=== PATIENT | female | born 1940 | race Caucasian/White ===

== ENCOUNTER 2023-03-05 09:51 | Emergency (ER) | payer MEDICARE, SELFPAY ==
[2023-03-05 10:01] VITALS: BP 158/66; PULSE 93; RESP 18; TEMP 36.8; O2SAT 93; BMI 46.3
--- NOTE | 2023-03-05 10:12 | XR_ITS ---
The [address] [address] Patient Name: PETRA KEITH MRN: [id number] date: 1940 Sex: F Assigned Patient Location: ER Current Patient Location: ER Accession/Order Number: [id number] Exam Date: 03/05/2023 10:50 Report Date: 03/05/2023 11:30 At the request of: NACHO DOWNING Procedure: XR ribs LT min 3V w CXR1V EXAMINATION: XR ribs LT min 3V w CXR1V HISTORY: cough pain , acute left rib pain COMPARISON: XR chest 08/17/2016 FINDINGS: LUNGS: Underexpanded lungs with mild stranding within the lung bases. PLEURA: No pneumothorax, effusion, or pleural thickening. MEDIASTINUM: No visible mass or adenopathy. CARDIAC: No cardiomegaly or cardiac silhouette abnormality. RIBS: Subtle cortical step-off involving the posterior left eighth and ninth ribs. OTHER: Negative. XR/XR ribs LT min 3V w CXR1V IMPRESSION: 1. Suspect nondisplaced posterior left eighth and ninth rib fractures. 2. Mild bibasilar discoid atelectasis or infiltrates. 3. Hyperexpanded lungs suggestive of mild COPD. Electronically authenticated by: CHARLOTTE LEGGETT Date: 03/05/2023 11:30
--- NOTE | 2023-03-05 10:14 | ED.URI1 ---
HPI - URI/Sore Throat General Chief Complaint: Upper Respiratory Infection Stated Complaint: UPPER EXTEMITY PAIN, COUGH Time Seen by Provider: 03/05/23 10:07 Source: patient History of Present Illness HPI Narrative: 82-year-old female presents for cough and rib pain. She's been coughing for about four days and a few days ago her left lateral rib area started hurting after coughing. No fever or vomiting. She uses an inhaler at home. No hemoptysis. Related Data Home Medications Medication Instructions Recorded Confirmed amlodipine 10 mg tablet 10 mg PO DAILY 03/05/23 03/05/23 atorvastatin 10 mg tablet 10 mg PO DAILY 03/05/23 03/05/23 insulin glargine 100 unit/mL (3 30 unit subcut DAILY 03/05/23 03/05/23 mL) subcutaneous pen (Lantus Solostar U-100 Insulin) insulin glargine U-300 conc 300 36 unit subcut DAILY 03/05/23 03/05/23 unit/mL (1.5 mL) subcutaneous pen (Toujeo SoloStar U-300 Insulin) lisinopril 40 mg tablet 40 mg PO DAILY 03/05/23 03/05/23 mirtazapine 7.5 mg tablet 15 mg PO DAILY 03/05/23 03/05/23 ropinirole 0.5 mg tablet 0.5 mg PO DAILY 03/05/23 03/05/23 Previous Rx's Medication Instructions Recorded azithromycin 250 mg tablet See Rx Instructions PO .COMPLEX #6 03/05/23 (Zithromax Z-Anam) tabs Allergies Allergy/AdvReac Type Severity Reaction Status Date / Time No Known Drug Allergies Allergy Verified 03/05/23 10:00 Review of Systems ROS Narrative A ten point review of systems is negative except as noted above. Exam Narrative Exam Narrative: Nurses note and vital signs reviewed and patient is not hypoxic. General: The patient appears in no apparent respiratory distress. Patient is resting comfortably on cart. Skin: Warm, dry, no pallor noted. There is no rash noted. Head: Normocephalic, atraumatic Eye: Normal conjunctiva, no drainage Ears, Nose, Mouth, and Throat: oral mucosa is moist. Nares patent. Cardiovascular: Regular Rate and Rhythm Respiratory: bilateral rhonchi present. Left lateral chest wall has no crepitus bruise or rash. Back: non-tender GI: Normal bowel sounds, no tenderness to palpation, no masses appreciated. No rebound, guarding, or rigidity noted. Musculoskeletal: The patient has no evidence of calf tenderness, no pitting edema, symmetrical pulses noted bilaterally Neurological: awake and alert Psychiatric: Cooperative Constitutional Vital Signs, click to edit/add: Last Vital Signs Temp 98.3 F 03/05/23 10:01 Pulse 87 03/05/23 10:24 Resp 19 03/05/23 10:24 BP 158/66 H 03/05/23 10:01 Pulse Ox 93 L 03/05/23 10:24 O2 Del Method Room Air 03/05/23 10:01 Course Vital Signs Vital signs: Vital Signs Temperature 98.3 F 03/05/23 10:01 Pulse Rate 93 H 03/05/23 10:01 Respiratory Rate 18 03/05/23 10:01 Blood Pressure 158/66 H 03/05/23 10:01 Pulse Oximetry 93 L 03/05/23 10:01 Oxygen Delivery Method Room Air 03/05/23 10:01 Temperature 98.3 F 03/05/23 10:01 Pulse Rate 87 03/05/23 10:24 Respiratory Rate 19 03/05/23 10:24 Blood Pressure 158/66 H 03/05/23 10:01 Pulse Oximetry 93 L 03/05/23 10:24 Oxygen Delivery Method Room Air 03/05/23 10:01 MDM - URI/Sore Throat MDM Narrative Medical decision making narrative: rib x-rays showed to probable rib fractures without pneumothorax or pneumonia. She'll take Tylenol for pain and was prescribed Zithromax. PEP was administered. Differential Diagnosis Differential diagnosis: Likely upper respiratory infection and other (pneumonia, rib fracture, pneumothorax) Discharge Plan Discharge Chief Complaint: Upper Respiratory Infection Clinical Impression: Closed rib fracture, Upper respiratory infection Patient Disposition: Home, Self-Care Time of Disposition Decision: 11:50 Condition: Good Mode of Transportation: Private Vehicle Prescriptions / Home Meds: New azithromycin [Zithromax Z-Anam] 250 mg tablet See Rx Instructions .ROUTE .COMPLEX Qty: 6 0RF Rx Instructions: For 250 mg dose pack: take 500 mg today (day 1), then 250 mg for 4 days (days 2-5) No Action amlodipine 10 mg tablet 10 mg PO DAILY atorvastatin 10 mg tablet 10 mg PO DAILY insulin glargine [Lantus Solostar U-100 Insulin] 100 unit/mL (3 mL) insulin pen 30 unit SUBCUT DAILY Toujeo SoloStar U-300 Insulin 300 unit/mL (1.5 mL) insulin pen 36 unit SUBCUT DAILY lisinopril 40 mg tablet 40 mg PO DAILY mirtazapine 7.5 mg tablet 15 mg PO DAILY ropinirole 0.5 mg tablet 0.5 mg PO DAILY Instructions: Rib Fracture (ED) Additional Instructions: See your PCP in one week Stand Alone Forms: Portal Instructions Referrals: DEYANIRA TAI [Primary Care Provider] - 1 week
[2023-03-05 10:24] VITALS: PULSE 87; RESP 19; O2SAT 93
[2023-03-05] MEDS: ALBUTEROL SULFATE 2.5 MG/3 ML VIAL NEB IH (10:24)
== END 2023-03-05 12:16 | disposition home or self-care (01) ==
PROVIDERS: Emergency Provider Emergency Medicine; PCP Internal Medicine
DX: J06.9 Acute upper respiratory infection, unspecified (principal); S22.42XA Multiple fractures of ribs, left side, initial encounter for closed fracture; X58.XXXA Exposure to other specified factors, initial encounter; Z79.899 Other long term (current) drug therapy; Z79.4 Long term (current) use of insulin
CPT/HCPCS: 71101; 94640; 94667; 99283

== ENCOUNTER 2024-03-13 01:40 | Emergency (ER) | payer MEDICARE, SELFPAY ==
[2024-03-13 01:46] VITALS: BP 159/72; PULSE 88; TEMP 36.4; O2SAT 95; BMI 27.4
--- NOTE | 2024-03-13 01:55 | ED_ITS ---
HPI HPI - Fall General Chief Complaint: Fall Stated Complaint: FALL Time Seen by Provider: 03/13/24 01:53 Source: patient and EMR Mode of arrival: ambulance History of Present Illness HPI Narrative: [facility] and struck her left alevism and left elbow. This AM nursing staff states she has un equal pupils and had her come in despite the patient she not wanting to come in Related Data Home Medications ?Medication ?Instructions ?Recorded ?Confirmed amlodipine 10 mg tablet 10 mg PO DAILY 03/05/23 03/13/24 atorvastatin 10 mg tablet 10 mg PO DAILY 03/05/23 03/13/24 insulin glargine U-300 conc 300 36 unit subcut DAILY 03/05/23 03/13/24 unit/mL (1.5 mL) subcutaneous pen (Toujeo SoloStar U-300 Insulin) lisinopril 40 mg tablet 40 mg PO DAILY 03/05/23 03/13/24 mirtazapine 7.5 mg tablet 15 mg PO DAILY 03/05/23 03/13/24 ropinirole 0.5 mg tablet 0.5 mg PO DAILY 03/05/23 03/13/24 Previous Rx's ?Medication ?Instructions ?Recorded azithromycin 250 mg tablet See Rx Instructions PO .COMPLEX #6 03/05/23 (Zithromax Z-Anam) tabs Allergies Allergy/AdvReac Type Severity Reaction Status Date / Time No Known Drug Allergies Allergy Verified 03/13/24 01:46 Opioid HPI Opioid Management Most Recent Pain and Opioid Data: 2 No Data to Display Review of Systems 2 ROS0 Status of ROS 10 or more systems reviewed and unremark able except as noted in history and below Exam Constitutional Vital Signs, click to edit/add: Last Vital Signs Temp 97.6 F 03/13/24 01:46 Pulse 88 03/13/24 03:20 Resp 18 03/13/24 03:20 BP 173/66 H 03/13/24 03:20 Pulse Ox 93 L 03/13/24 03:20 O2 Del Method Room Air 03/13/24 03:20 Common normals: no apparent distress, average body habitus, oriented x3, no limitations, healthy appearing, alert and well nourished [facility] Face and sinus images: 2 1. minor contusion Eye Common normals: EOMs intact bilaterally Other: pupils not equal in size but reactive Respiratory Common normals: normal respiratory effort, no retractions, no use of accessory muscles and clear to auscultation bilaterally Cardio Common normals: regular rate, regular rhythm, S1 normal heart sound and S2 normal heart sound GI Common normals: Normal to inspection, nondistended, normoactive bowel sounds present, soft to palpation and non-tender Extremity Common normals: full ROM Other: small paper cut left elbow bilat lower ext. edema with stasis changes Neuro Common normals: moves all extremities and no focal motor deficits Sensorium/orientation: awake and alert Psych Appearance: grossly normal Course Vital Signs Vital signs: Vital Signs Temperature 97.6 F 03/13/24 01:46 Pulse Rate 88 03/13/24 01:46 Respiratory Rate 18 03/13/24 01:46 Blood Pressure 159/72 H 03/13/24 01:46 Pulse Oximetry 95 03/13/24 01:46 Oxygen Delivery Method Room Air 03/13/24 01:46 Temperature 97.6 F 03/13/24 01:46 Pulse Rate 88 03/13/24 03:20 Respiratory Rate 18 03/13/24 03:20 Blood Pressure 173/66 H 03/13/24 03:20 Pulse Oximetry 93 L 03/13/24 03:20 Oxygen Delivery Method Room Air 03/13/24 03:20 MDM - Fall MDM Narrative Medical decision making narrative: patient fell at prison striking her forehead. also sustained paper cut to left elbow. FROM of the elbow without discomfort. CT brain and neck without acute findings. labs unremarkable as well. Patient in no distress and discharged back to prison Lab Data Labs: Lab Results 03/13/24 Range/Units 02:10 WBC 10.0 (4.0-11.0) 10^3/uL RBC 4.10 L (4.20-5.40) 10^6/uL Hgb 11.8 L (12.0-16.0) g/dL Hct 37.6 (36.0-48.0) % MCV 91.7 (81.0-99.0) fL MCH 28.8 (26.7-34.0) pg MCHC 31.4 (29.9-35.2) g/dL RDW 15.1 H (11.0-15.0) % Plt Count 284 (150-450) 10^3/uL MPV 8.3 L (9.5-13.5) fL Neut % (Auto) 66.1 (43.0-75.0) % Lymph % (Auto) 24.1 (20.5-60.0) % Maury % (Auto) 6.8 (1.7-12.0) % Eos % (Auto) 2.0 (0.9-7.0) % Baso % (Auto) 0.5 (0.2-2.0) % Neut # (Auto) 6.6 H (1.4-6.5) 10^3/uL Lymph # (Auto) 2.4 (1.2-3.8) 10^3/uL Maury # (Auto) 0.7 (0.3-0.8) 10^3/uL Eos # (Auto) 0.2 (0.0-0.7) 10^3/uL Baso # (Auto) 0.1 (0.0-0.1) 10^3/uL Abs Immat Gran (auto) 0.05 H (0.00-0.03) 10^3/uL Imm/Tot Granulo (auto) 0.5 (0.0-0.5) % Sodium 141 (136-145) mmol/L Potassium 3.9 (3.5-5.1) mmol/L Chloride 105 (98-107) mmol/L Carbon Dioxide 26.6 (21.0-32.0) mmol/L Anion Gap 13.3 BUN 16.0 (7.0-18.0) mg/dL Creatinine 0.72 (0.55-1.02) mg/dL Est GFR ( Amer) >60 (>=60) Est GFR (Non-Af Amer) >60 (>=60) BUN/Creatinine Ratio 22.2 Glucose 114 H (74-106) mg/dL Calcium 9.0 (8.5-10.1) mg/dL Troponin I High Sens 36.9 (4.0-51.3) pg/mL Imaging Data Abdominal x-ray: Radiologist's impression: ITS Impressions Cervical Spine CT 03/13/24 01:58 IMPRESSION: 1. No acute intracranial abnormality. No hemorrhage or mass effect. 2. Nonspecific white matter changes. 3. Subtle area of decreased density present within the eitan on the left. This is not associated with mass effect. The appearance is consistent with an indeterminate age lacunar infarction. If there is concern for acute lacunar infarction then MRI including diffusion imaging would be more sensitive. 4. Multilevel cervical spondylosis. No acute fracture. Electronically authenticated by: FILIPE MAY Date: 03/13/2024 02:[address] 03/13/24 01:58 IMPRESSION: 1. No acute intracranial abnormality. No hemorrhage or mass effect. 2. Nonspecific white matter changes. 3. Subtle area of decreased density present within the eitan on the left. This is not associated with mass effect. The appearance is consistent with an indeterminate age lacunar infarction. If there is concern for acute lacunar infarction then MRI including diffusion imaging would be more sensitive. 4. Multilevel cervical spondylosis. No acute fracture. Electronically authenticated by: FILIPE MAY Date: 03/13/2024 02:52 Discharge Plan Discharge Stand Alone Forms: Portal Instructions Chief Complaint: Fall Clinical Impression: Minor head injury, Laceration of elbow, left Patient Disposition: Home, Self-Care Prescriptions / Home Meds: No Action amlodipine 10 mg tablet 10 mg PO DAILY atorvastatin 10 mg tablet 10 mg PO DAILY insulin glargine U-300 conc [Toujeo SoloStar U-300 Insulin] 300 unit/mL (1.5 mL) insulin pen 36 unit SUBCUT DAILY lisinopril 40 mg tablet 40 mg PO DAILY mirtazapine 7.5 mg tablet 15 mg PO DAILY ropinirole 0.5 mg tablet 0.5 mg PO DAILY azithromycin [Zithromax Z-Anam] 250 mg tablet See Rx Instructions .ROUTE .COMPLEX Qty: 6 0RF Rx Instructions: For 250 mg dose pack: take 500 mg today (day 1), then 250 mg for 4 days (days 2-5) Print Language: Azeri Instructions: Head Injury (ED), Laceration Without Closure (ED) Referrals: DEYANIRA TAI [Primary Care Provider] - 1 week
--- NOTE | 2024-03-13 01:58 | CT_ITS ---
[address] [address] Patient Name: PETRA KEITH MRN: [id number] date: 1940 Sex: F Assigned Patient Location: ER Current Patient Location: [facility] Accession/Order Number: [id number] Exam Date: 03/13/2024 02:19 Report Date: 03/13/2024 02:52 At the request of: ELIDA GASTON Procedure: CT cervical spine wo con EXAM: CT head/brain wo con, CT cervical spine wo con INDICATION: 83 years old; Female. Closed head trauma status post fall at 7:00 PM. TECHNIQUE: CT Head (ax/cor/sag reformats). Ionizing radiation dose reduced via iterative reconstruction/FBP blend and body size kV/mA adjustment. Comparison: None FINDINGS: POSTOPERATIVE CHANGES: None. BRAIN PARENCHYMA: No intraparenchymal or extra-axial hemorrhage. No mass effect. No midline shift or herniation. Confluent low-density seen throughout the white matter of the hemispheres without mass effect. Focal area of decreased density in the left eitan, image 15/series 5. This is not associated with mass effect. VENTRICLES/EXTRA-AXIAL SPACES: Enlarged, consistent with atrophy. SINUSES/MASTOIDS: Postoperative changes consistent with prior maxillary antrostomy and partial ethmoidectomy. Small osteoma in the frontal sinus on the right. No fluid levels. Mastoid sclerosis bilaterally. Residual mastoid air cells and middle ears are clear. MSK: No displaced or depressed calvarial fracture. OTHER: No hyperdense intraluminal thrombus is present. TECHNIQUE: CT imaging of the cervical spine was performed. IV contrast: None. Dose reduction techniques were achieved by using automated exposure control and/or adjustment of mA and/or kV according to patient size and/or use of iterative reconstruction technique. COMPARISON: None available. FINDINGS: POSTOPERATIVE CHANGES: None. ALIGNMENT: Nonspecific straightening of the normal cervical curve. There is grade 1 degenerative spondylolisthesis at C4-C5. C4 is positioned 1.6 mm anterior to C5. Generalized bony demineralization is present. There is torticollis concave to the left. COMPRESSION FRACTURES: No fracture or vertebral body collapse. No bone destruction. No asymmetric widening of the facets. PREVERTEBRAL SOFT TISSUES: Normal. CRANIOCERVICAL JUNCTION: There is a normal relationship of the occipital condyles, lateral masses of C1, and articular surfaces of C2 allowing for positioning. There is narrowing of the predental space with narrowing arising from the anterior arch of C1. The base of the dens and body of C2 are intact. POSTERIOR FOSSA: The cerebellar tonsils are above the foramen magnum. There is calcification in the V3 and V4 segments of vertebral arteries. Disc levels: C2-C3: No disc herniation. No spinal canal or foraminal narrowing. C3-C4: Disc space narrowing is seen. Vertebral endplate degeneration is noted. Facet degeneration is present bilaterally. Uncovertebral joint degeneration is present on the right. The central canal is patent. The neural foramina are patent. C4-C5: Grade 1 degenerative spondylolisthesis. Disc space narrowing. Anterior osteophytes. There is fusion of the facets bilaterally. The central canal is patent. The neural foramina are patent. C5-C6: Disc space narrowing. Vertebral endplate degeneration. Bulky bridging anterior osteophytes. Central canal patent. Neural foramina patent. C6-C7: Bulky bridging anterior osteophyte formation. Central canal patent. Neural foramina patent. C7-T1: Beam hardening artifacts. Central canal patent. Neural foramina patent. UPPER THORACIC SPINE: At T1-T2, central canal patent. Neural foramina patent. Beam hardening artifacts are present. OTHER: No thyroid nodule or adenopathy. CT/CT cervical spine wo con IMPRESSION: 1. No acute intracranial abnormality. No hemorrhage or mass effect. 2. Nonspecific white matter changes. 3. Subtle area of decreased density present within the eitan on the left. This is not associated with mass effect. The appearance is consistent with an indeterminate age lacunar infarction. If there is concern for acute lacunar infarction then MRI including diffusion imaging would be more sensitive. 4. Multilevel cervical spondylosis. No acute fracture. Electronically authenticated by: FILIPE MAY Date: 03/13/2024 02:52
--- NOTE | 2024-03-13 01:58 | CT_ITS ---
[address] [address] Patient Name: PETRA KEITH MRN: [id number] date: 1940 Sex: F Assigned Patient Location: ER Current Patient Location: [facility] Accession/Order Number: [id number] Exam Date: 03/13/2024 02:19 Report Date: 03/13/2024 02:52 At the request of: ELIDA GASTON Procedure: CT head/brain wo con EXAM: CT head/brain wo con, CT cervical spine wo con INDICATION: 83 years old; Female. Closed head trauma status post fall at 7:00 PM. TECHNIQUE: CT Head (ax/cor/sag reformats). Ionizing radiation dose reduced via iterative reconstruction/FBP blend and body size kV/mA adjustment. Comparison: None FINDINGS: POSTOPERATIVE CHANGES: None. BRAIN PARENCHYMA: No intraparenchymal or extra-axial hemorrhage. No mass effect. No midline shift or herniation. Confluent low-density seen throughout the white matter of the hemispheres without mass effect. Focal area of decreased density in the left eitan, image 15/series 5. This is not associated with mass effect. VENTRICLES/EXTRA-AXIAL SPACES: Enlarged, consistent with atrophy. SINUSES/MASTOIDS: Postoperative changes consistent with prior maxillary antrostomy and partial ethmoidectomy. Small osteoma in the frontal sinus on the right. No fluid levels. Mastoid sclerosis bilaterally. Residual mastoid air cells and middle ears are clear. MSK: No displaced or depressed calvarial fracture. OTHER: No hyperdense intraluminal thrombus is present. TECHNIQUE: CT imaging of the cervical spine was performed. IV contrast: None. Dose reduction techniques were achieved by using automated exposure control and/or adjustment of mA and/or kV according to patient size and/or use of iterative reconstruction technique. COMPARISON: None available. FINDINGS: POSTOPERATIVE CHANGES: None. ALIGNMENT: Nonspecific straightening of the normal cervical curve. There is grade 1 degenerative spondylolisthesis at C4-C5. C4 is positioned 1.6 mm anterior to C5. Generalized bony demineralization is present. There is torticollis concave to the left. COMPRESSION FRACTURES: No fracture or vertebral body collapse. No bone destruction. No asymmetric widening of the facets. PREVERTEBRAL SOFT TISSUES: Normal. CRANIOCERVICAL JUNCTION: There is a normal relationship of the occipital condyles, lateral masses of C1, and articular surfaces of C2 allowing for positioning. There is narrowing of the predental space with narrowing arising from the anterior arch of C1. The base of the dens and body of C2 are intact. POSTERIOR FOSSA: The cerebellar tonsils are above the foramen magnum. There is calcification in the V3 and V4 segments of vertebral arteries. Disc levels: C2-C3: No disc herniation. No spinal canal or foraminal narrowing. C3-C4: Disc space narrowing is seen. Vertebral endplate degeneration is noted. Facet degeneration is present bilaterally. Uncovertebral joint degeneration is present on the right. The central canal is patent. The neural foramina are patent. C4-C5: Grade 1 degenerative spondylolisthesis. Disc space narrowing. Anterior osteophytes. There is fusion of the facets bilaterally. The central canal is patent. The neural foramina are patent. C5-C6: Disc space narrowing. Vertebral endplate degeneration. Bulky bridging anterior osteophytes. Central canal patent. Neural foramina patent. C6-C7: Bulky bridging anterior osteophyte formation. Central canal patent. Neural foramina patent. C7-T1: Beam hardening artifacts. Central canal patent. Neural foramina patent. UPPER THORACIC SPINE: At T1-T2, central canal patent. Neural foramina patent. Beam hardening artifacts are present. OTHER: No thyroid nodule or adenopathy. CT/CT head/brain wo con IMPRESSION: 1. No acute intracranial abnormality. No hemorrhage or mass effect. 2. Nonspecific white matter changes. 3. Subtle area of decreased density present within the eitan on the left. This is not associated with mass effect. The appearance is consistent with an indeterminate age lacunar infarction. If there is concern for acute lacunar infarction then MRI including diffusion imaging would be more sensitive. 4. Multilevel cervical spondylosis. No acute fracture. Electronically authenticated by: FILIPE MAY Date: 03/13/2024 02:52
--- NOTE | 2024-03-13 02:00 | PC.NURSE ---
Patient fell earlier this evening at approx. 1900. Patient denies any injury, NH staff concerned that pupils not reacting equally . Patient awake, alert and oriented.
[2024-03-13 02:44] LABS: Basophils Absolute Auto 0.1 10^3/uL (0.0-0.1); Basophils Percent Auto 0.5 % (0.2-2.0); Eosinophils Absolute Auto 0.2 10^3/uL (0.0-0.7); Hematocrit 37.6 % (36.0-48.0); Hemoglobin 11.8 g/dL (12.0-16.0); Immature Granulocytes Abs Auto 0.05 10^3/uL (0.00-0.03); Immature Granulocytes Pct Auto 0.5 % (0.0-0.5); Lymphocytes Absolute Auto 2.4 10^3/uL (1.2-3.8); Lymphocytes Percent Auto 24.1 % (20.5-60.0); Mean Corpuscular HGB Conc 31.4 g/dL (29.9-35.2); Mean Corpuscular Hemoglobin 28.8 pg (26.7-34.0); Mean Corpuscular Volume 91.7 fL (81.0-99.0); Mean Platelet Volume 8.3 fL (9.5-13.5); Monocytes Absolute Auto 0.7 10^3/uL (0.3-0.8); Monocytes Percent Auto 6.8 % (1.7-12.0); Neutrophils Absolute Auto 6.6 10^3/uL (1.4-6.5); Neutrophils Percent Auto 66.1 % (43.0-75.0); Platelet Count 284 10^3/uL (150-450); Red Cell Distribution Width 15.1 % (11.0-15.0)
[2024-03-13 03:01] LABS: Anion Gap 13.3; BUN Creatinine Ratio 22.2; Carbon Dioxide 26.6 mmol/L (21.0-32.0); Chloride 105 mmol/L (98-107); Estimated GFR (African America >60 (>=60); Estimated GFR (Non-African Ame >60 (>=60); Glucose 114 mg/dL (74-106); Potassium 3.9 mmol/L (3.5-5.1); Sodium 141 mmol/L (136-145); Troponin I High Sensitivity 36.9 pg/mL (4.0-51.3)
[2024-03-13 03:20] VITALS: BP 173/66; PULSE 88; O2SAT 93
== END 2024-03-13 05:06 | disposition home or self-care (01) ==
PROVIDERS: Emergency Provider Internal Medicine; PCP Internal Medicine
DX: S09.90XA Unspecified injury of head, initial encounter (principal); S51.012A Laceration without foreign body of left elbow, initial encounter; W19.XXXA Unspecified fall, initial encounter
CPT/HCPCS: 36415; 70450; 72125; 80048; 84484; 85025; 99284

== ENCOUNTER 2024-08-22 10:42 | Outpatient (REF) | payer MEDICARE, SELFPAY ==
[2024-08-24 13:25] LABS: Bilirubin Urine NEGATIVE (NEGATIVE); Blood Urine MODERATE (NEGATIVE); Clarity Urine CLOUDY (CLEAR); Color Urine LT. YELLOW (YELLOW); Glucose Urine UA NEGATIVE (NEGATIVE); Ketones Urine NEGATIVE (NEGATIVE); Leukocyte Esterase Urine MODERATE (NEGATIVE); Nitrite Urine POSITIVE (NEGATIVE); Protein Urine TRACE mg/dL (NEG/TRACE); Specific Gravity Urine 1.015 (1.005-1.025); Urobilinogen Urine 0.2 EU/dL (0.2-1.0); pH Urine 5.5 (5.0-9.0)
[2024-08-24 13:36] LABS: Urine Microscopic Indicated YES
[2024-08-24 13:44] LABS: Bacteria Urine LARGE #/HPF (NONE SEEN); Mucus Urine TRACE (NONE SEEN); Squamous Epithelial Cell Urine MANY #/LPF (NONE/RARE); WBC Urine 50-75 #/HPF (NONE SEEN)
[2024-08-24 13:45] LABS: Cast Seen? NONE SEEN #/LPF (NONE SEEN); Crystals Seen? None Seen #/HPF (None Seen); Transitional Epi Cells Urine RARE #/LPF (NONE SEEN); Urine Culture Indicated YES
[2024-08-26 09:37] LABS: BOX Test Reference Lab FIRELANDS
== END 2024-08-22 10:43 | disposition home or self-care (01) ==
LOC: LAB 10:42
PROVIDERS: PCP Internal Medicine; Visit Provider Internal Medicine
DX: R35.0 Frequency of micturition (principal)
CPT/HCPCS: 36415; 81001; 87086

== ENCOUNTER 2025-07-18 18:33 | Emergency (ER) | payer MEDICARE, SELFPAY ==
--- NOTE | 2025-07-18 18:35 | XR_ITS ---
[place] [id number] Patient Name: PETRA KEITH MRN: [id number] date: 1940 Sex: F Assigned Patient Location: ER Current Patient Location: ED.MAIN Accession/Order Number: [id number] Exam Date: 07/18/2025 18:50 Report Date: 07/19/2025 09:30 At the request of: JW RAINES Procedure: XR pelvis 1-2V AP PELVIS: CLINICAL HISTORY: fall COMPARISON: CT pelvis 09/07/2018 FINDINGS: Bones are grossly demineralized. Degenerative changes are seen within the visualized lower lumbar spine, SI joints and pubic symphysis. Mild degenerative changes of the hips. No acute bony process is noted. XR/XR pelvis 1-2V IMPRESSION: NO ACUTE BONY FINDINGS. Impression dictated by: Nathen Joseph Jr., D.O. 07/19/2025 9:30 AM Dictation Location: [facility] Electronically authenticated by: [id number] Y Date: 07/19/2025 09:30
--- NOTE | 2025-07-18 18:35 | XR_ITS ---
The [address] [address] Patient Name: PETRA KEITH MRN: [id number] date: 1940 Sex: F Assigned Patient Location: ER Current Patient Location: ED.MAIN Accession/Order Number: [id number] Exam Date: 07/18/2025 18:50 Report Date: 07/19/2025 09:32 At the request of: JW RAINES Procedure: XR finger LT min 2V Left fifth digit 3 views Reason for exam: Fall. COMPARISON: None. FINDINGS: Soft tissue swelling is present. A comminuted fracture is seen involving the middle phalanx of the fifth digit with intra-articular extension into the PIP joint. Mild degenerative changes involving the joints without acute bony process. Bones are grossly demineralized. XR/XR finger LT min 2V IMPRESSION: Comminuted intra-articular fracture involving the middle phalanx. Impression dictated by: Nathen Joseph Jr., D.O. 07/19/2025 9:32 AM Dictation Location: [facility] Electronically authenticated by: [id number] Y Date: 07/19/2025 09:32
--- NOTE | 2025-07-18 18:35 | XR_ITS ---
The [place] [id number] Patient Name: PETRA KEITH MRN: [id number] date: 1940 Sex: F Assigned Patient Location: ER Current Patient Location: ED.MAIN Accession/Order Number: [id number] Exam Date: 07/18/2025 18:50 Report Date: 07/19/2025 09:30 At the request of: JW RAINES Procedure: XR elbow LT min 3V LEFT ELBOW - 3 views CLINICAL HISTORY: fall COMPARISON: None FINDINGS: Bones are grossly demineralized. No acute bony process is seen. No elbow joint effusion. Joint spaces appear maintained. XR/XR elbow LT min 3V IMPRESSION: NO ACUTE BONY PROCESS. Impression dictated by: Nathen Joseph Jr., D.O. 07/19/2025 9:30 AM Dictation Location: [place] [address] Electronically authenticated by: [id number] Y Date: 07/19/2025 09:30
[2025-07-18 18:36] VITALS: BP 170/87; PULSE 98; TEMP 36.8; O2SAT 94; BMI 28.7
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
[2025-07-18] MEDS: BACITRACIN 0.9 GM PACKET 1 PACKET TOPICAL ×2 (19:15→19:52)
[2025-07-18] MEDS: LIDOCAINE/EPINEPHRINE/TETRACAINE 3 ML GEL.PF.APP TOPICAL (19:15)
[2025-07-18] MEDS: ACETAMINOPHEN 325 MG TABLET 650 MG PO (19:15)
[2025-07-18] MEDS: DIPHTH,PERTUSS(ACELL),TET VAC 0.5 ML SYRINGE IM (19:16)
[2025-07-18] MEDS: LIDOCAINE HCL 1%-EPINEPHRINE 1:100,000 20 ML MDV INJ (19:52)
[2025-07-18 19:53] VITALS: BP 164/72
--- OUTSIDE RECORDS SUMMARY | 2025-07-18 20:22 | XMS_ITS | Encounter Summary ---
Author Organization [facility] tem Address [id number] [address] [place] [address] Care Team Providers Care Behavioral Health Aide Name Role Phone Stoney Thomas Primary Care Provider [phone] Reason for Visit * ReasonCommentsMed Refill Encounter Details DateTypeDepartmentCare Team (Latest Contact Info)Hwnpauctqve68/10/2025Refill [facility] [address] [place] [address] Arron Reyez DO [address], [facility] [place] [place] [address] Essential hypertension Social History Tobacco UseTypesPacks/DayYears UsedDateSmoking Tobacco: FormerCigarettes Smokeless Tobacco: NeverAlcohol UseStandard Drinks/WeekCommentsNot Currently0 (1 standard drink = 0.6 oz pure alcohol)[facility] UtilitiesAnswerDate RecordedIn the past 12 months has the [employer], gas, oil, or water [employer] threatened to shut off services in your home?No03/20/2024Social Connection and Isolation PanelAnswer Date RecordedIn a typical week, how many times do you talk on the phone with family, friends, or neighbors?Once a week03/26/2025How often do you get together with friends or relatives?Once a week03/26/2025How often do you attend zoroastrianism or anabaptism services?More than 4 times per year03/26/2025Do you belong to any clubs or organizations such as zoroastrianism groups, unions, fraternal or athletic boby ups, or school groups?No03/26/2025How often do you attend meetings of the clubs or organizations you belong to?Never03/26/2025re you , , , , never , or living with a partner?Hyknwzj9503/26/2025 AUDIT-CAnswerDate RecordedQ1: How often do you have a drink containing alcohol? Never03/20/2024Q2: How many drinks containing alcohol do you have on a typical day when you are drinking?Patient does not drink03/20/2024Q3: How often do you have six or more drinks on one occasion?Never03/20/2024Overall Financial Resource Strain (CARDIA)AnswerDate RecordedHow hard is it for you to pay for the very basics like food, housing, medical care, and heating?Not very hard 03/22/2025PHQ-2AnswerDate RecordedTotal Nrxsq761Finblue mountain hospital [place] of Occupational Health - Occupational Stress QuestionnaireAnswerDate RecordedDo you feel stress - tense, restless, nervous, or anxious, or unable to sleep at night because yourmind is troubled all the time - these days?Only a rcltrn5402/20/2023 Exercise Vital SignAnswerDate RecordedDays of Exercise per WeekNot on file 03/26/2025On average, how many minutes do you engage in exercise at this level?0 min03/26/2025PRAPARE - TransportationAnswerDate RecordedIn the past 12 months, has lack of transportation kept you from medical appointments or from getting medications?No03/22/2025In the past 12 months, has lack of transportation kept you from meetings, work, or from getting things needed for daily living?No 03/22/2025Housing InstabilityAnswerDate RecordedAre you worried or concerned that in the next two months you may not have stable housing that you own, rent or stay in as a part of a household?No03/26/2025hildcareAnswerDate RecordedDo problems getting child and adolescent therapist make it difficult for you to work or study?No 02/20/2023EmploymentAnswerDate RecordedDo you need help finding a local career center and/or a training program?No02/20/2023Hunger ScreeningAnswerDate Recorded Within the past 12 months we worried whether our food would run out before we got money to buy more.Never True05/04/2025Within the past 12 months the food we bought just didn't last and we didn't have money to get more.Never True 05/04/2025Purpose - LifeAnswerDate RecordedI have a purpose and direction in my life.Agree02/20/2023CommentsNoSex and Gender InformationValueDate RecordedSex Assigned at ReoqpMmpkst82/13/2023 8:19 PM EDTLegal SexFemale 04/01/2015 11:38 AM EDTGender VrqkgltkAcgqys95/13/2023 8:19 PM EDTSexual OrientationNot on filedocumented as of this encounter Plan of Treatment DateTypeDepartmentCare Team (Latest Contact Info)Vgkpevticpe22/04/2026 3:00 PM EDTOffice Visit [facility] [address] [place] [phone] 05/10/2026 3:15 PM EDTOffice Visit [facility] [address] [facility] [place] [address] Jayson Barreto MD [address] [place], [place] [id number] documented as of this encounter Goals GoalPatient Goal TypeAssociated ProblemsRecent ProgressPatient-Stated?Author Discharge with home care Abril Carlos RN Note: Evaluation of progress towards goal: Discharge to [facility] inpatient rehab documented as of this encounter Visit Diagnoses Diagnosis Essential hypertension Unspecified essential hypertension documented in this encounter Additional Health Concerns AssessmentNoted TimePHQ-9 Depression Total Score: 8:34 AM EDTA Body Mass Index follow-up plan has been documented for the qlerxnx2209/19/2023 6:16 PM ESTdocumented as of this encounter Care Teams Team MemberRelationshipSpecialtyStart DateEnd Date Stoney Thomas DO [address] [place] [address] PCP - GeneralInternal Vsqpijcs92/8/17documented as of this encounter
--- OUTSIDE RECORDS SUMMARY | 2025-07-18 20:22 | XMS_ITS | Encounter Summary ---
Author Organization [facility] Address [id number] [address] [place] [address] Care Team Providers Care Exhibition Carver Name Role Phone Stoney Thomas Primary Care Provider [phone] Reason for Visit * ReasonOnset DateCommentsMed Hcylik8207/06/2025 Encounter Details DateTypeDepartmentCare Team (Latest Contact Info)Htewofykkra58/10/2025Refill [facility] [address] [place] [id number] Mattie Sam CMA Essential hypertension Social History Tobacco UseTypesPacks/DayYears UsedDateSmoking Tobacco: FormerCigarettes Smokeless Tobacco: NeverAlcohol UseStandard Drinks/WeekCommentsNot Currently0 (1 standard drink = 0.6 oz pure alcohol)[facility] UtilitiesAnswerDate RecordedIn the past 12 months has the [employer], gas, oil, or water [employer] threatened to shut off services in your home?No03/20/2024Social Connection and Isolation PanelAnswer Date RecordedIn a typical week, how many times do you talk on the phone with family, friends, or neighbors?Once a week03/26/2025How often do you get together with friends or relatives?Once a week03/26/2025How often do you attend holiness or jewish services?More than 4 times per year03/26/2025Do you belong to any clubs or organizations such as holiness groups, unions, fraternal or athletic boby ups, or school groups?No03/26/2025How often do you attend meetings of the clubs or organizations you belong to?Never03/26/2025re you , , , , never , or living with a partner?Hknphrl7603/26/2025 AUDIT-CAnswerDate RecordedQ1: How often do you have [...] care, and heating?Not very hard 03/22/2025PHQ-2AnswerDate RecordedTotal Jkwhd739Finogden regional medical center [place] of Occupational Health - Occupational Stress QuestionnaireAnswerDate RecordedDo you feel stress - tense, restless, nervous, or anxious, or unable to sleep at night because yourmind is troubled all the time - these days?Only a sufpch8402/20/2023 Exercise Vital SignAnswerDate RecordedDays of Exercise per [...] part of a household?No03/26/2025hildcareAnswerDate RecordedDo problems getting director of early childhood education make it difficult for you to work [...] life.Agree02/20/2023CommentsNoSex and Gender InformationValueDate RecordedSex Assigned at VijetZheqij49/13/2023 8:19 PM EDTLegal SexFemale 04/01/2015 11:38 AM EDTGender PrhztpfvVocblj36/13/2023 8:19 PM EDTSexual OrientationNot on filedocumented as of this encounter Miscellaneous Notes * Telephone Encounter - Stoney Thomas DO - 07/06/2025 12:53 PM EST Duplicate request documented in this encounter Plan of Treatment DateTypeDepartmentCare Team (Latest Contact Info)Qrmpcnvigtj81/04/2026 3:00 PM EDTOffice Visit [facility] [address] [facility] [place] [address] 05/10/2026 3:15 PM EDTOffice Visit [facility] [address] [place] [address] [place] [address] [address] Jayson Barreto MD [address] [place] [address] documented as of this encounter Goals GoalPatient Goal TypeAssociated ProblemsRecent ProgressPatient-Stated?Author Discharge with home care Abril Carlos, RN Note: Evaluation of progress towards goal: Discharge to [facility] inpatient rehab documented as of this encounter Visit Diagnoses Diagnosis Essential hypertension Unspecified essential hypertension documented in this encounter Additional Health Concerns AssessmentNoted TimePHQ-9 Depression Total Score: 010/05/2025 8:34 AM EDTA Body Mass Index follow-up plan has been documented for the apcavxa0309/19/2023 6:16 PM ESTdocumented as of this encounter Care Teams Team MemberRelationshipSpecialtyStart DateEnd Date Stoney Thomas DO [address] [place] [address] PCP - GeneralInternal Cnrlpmhr16/8/17documented as of this encounter
--- OUTSIDE RECORDS SUMMARY | 2025-07-18 20:22 | XMS_ITS | Clinical Summary ---
Author Organization [facility] Healthcare Address [address] [place] [address] Care Team Providers Care Ordnance Truck Installation Supervisor Name Role Phone Stoney Thomas MD Primary Care Provider [phone] Allergies No known active allergies Medications MedicationSigDispense QuantityRefillsLast FilledStart DateEnd DateStatus rOPINIRole (Requip) 0.5 MG tablet Take 1 tablet by mouth in the wyjeszd1310/09/2022ctive mirtazapine (Remeron) 7.5 MG tablet Take 1 tablet by mouth at mqskysk9609/15/2022ctive latanoprost (Xalatan) 0.005 % ophthalmic solution Administer 1 drop into affected eye(s) at bedtimeActive Lantus 100 UNIT/ML injection 05/26/2022ctive Advair Diskus 250-50 MCG/ACT aerosol powder 07/05/2022ctive Cranberry Extract 250 MG tablet every 12 (twelve) hoursActive calcium carbonate 1500 (600 Ca) MG tablet Take 600 mg by mouth in the morning. Take with meals.Active atorvastatin (Lipitor) 10 MG tablet Take 1 tablet by mouth at hfnqvdn8507/05/2022ctive aspirin 81 MG chewable tablet 1 (one) time each day at the same timeActive amLODIPine (Norvasc) 10 MG tablet Take 1 tablet by mouth Daily11/14/2022ctive Cyanocobalamin (VITAMIN B 12 PO) Active lisinopril 40 MG tablet Take 40 mg by mouth DailyActive teriparatide (Forteo) injection Inject 20 mcg under the skin in the morning.3Active tolterodine LA (Detrol LA) 4 MG 24 hr capsule Take 4 mg by mouth in the morning.12/26/2023ctive furosemide (Lasix) 40 MG tablet Take by mouthActive acetaminophen (Tylenol) 500 MG tablet Take by mouthActive albuterol (2.5 MG/3ML) 0.083% nebulizer solution Take by nebulization every 6 (six) hours if needed for wheezingActive Lutein 10 MG tablet Take by mouthActive Active Problems No known active problems Encounters DateTypeDepartmentCare ZcwhMoctpdziwqb94/16/2025 1:15 PM EDTProcedure Visit [facility] [address] [place] [address] Ramin Mccullough DPM Dermatophytosis of nail (Primary Dx); Dystrophic nail; Angiopathy, diabetic ([facility]); Type II or unspecified type diabetes mellitus with neurological manifestations, not stated as uncontrolled(250.60) ([facility])05/12/2025amboo flowsheet [facility] [address] [place] [address] Ramin Mccullough DPM 05/12/20254337Iwejss99/15/3575Gbihzb40/12/2025Travelfrom Last 3 Months Immunizations ImmunizationAdministration DatesNext BusWHwL5111/11/2014Influenza, High Dose Seasonal, Preservative Free05/16/2024,08/04/2019,06/23/2017Influenza, Cedofwgnatl07/11/2014Influenza, injectable, MDCK, preservative free, bgrhzzbibumr63/27/2018Influenza, injectable, quadrivalent, preservative free 06/25/2021,10/18/2016Influenza, intradermal, quadrivalent, preservative free 08/31/2020Influenza, recombinant, quadrivalent, injectable, preservative free 07/18/2022Influenza, seasonal, injectable, preservative free06/06/2016, 07/23/2015Janssen IUDO-OqO-511/10/2021,10/25/2020neumococcal Conjugate PCV 13 10/18/2016,11/11/2014Pneumococcal Polysaccharide KQDN2401/08/2015Zoster, Xqrqgikzjek12/25/2023,03/12/2023Zoster, live05/11/2011 Family History Medical HistoryRelationNameCommentsDiabetesBrother 1Mack TaylorVision loss Brother 1Mack TaylorAccidental deathBrother 2Dean TaylorDiabetesBrother 2Dean TaylorDiabetesDaughter 2Belinda BlevinsDiabetesDaughter 3Belinda BlevinsDiabetes Daughter 4Belinda BlevinsHeart diseaseFatherMr. LinkabetesMotherMrs Leona DiabetesSiblingHeart diseaseSiblingStrokeSiblingAlcohol abuseSonRandall Catrachita Drug abuseSonRandall WootenRelationNameStatusCommentsBrother 1Mack TaylorBrother 2Dean TaylorDaughter 1DeceasedDaughter 2Belinda BlevinsDaughter 3Belinda Chalfont AliveDaughter 4Belinda BlevinsAliveFatherMr. LeonaMotherMrs TaylorDeceased Siblingdeceased, sisterSonRandall Catrachita Social History Tobacco UseTypesPacks/DayYears UsedDateSmoking Tobacco: NeverSmokeless Tobacco: Never Tobacco Cessation:Counseling Given: Not Answered Alcohol UseStandard Drinks/WeekCommentsNever0 (1 standard drink = 0.6 oz pure alcohol)Caffeine intake: noneCommentsUnknownSex and Gender Information ValueDate RecordedSex Assigned at BirthNot on fileLegal DwpAnivfv05/15/2023 7:32 PM EDTGender IdentityNot on fileSexual OrientationNot on file Last Filed Vital Signs Vital SignReadingTime TakenCommentsBlood Fekhgpzz586/7011 12:00 PM EST Pulse--Temperature--Respiratory Rate--Oxygen Saturation--Inhaled Oxygen Concentration--Oqbubt08.9 kg (152 lb)05/12/2025 1:18 PM TBWVwoipa228.7 cm (4' 7 )05/12/2025 1:18 PM EDTBody Mass Index35.33005/12/2025 1:18 PM EDT Plan of Treatment DateTypeDepartmentCare Team (Latest Contact Info)Pqpbacjbvqo19/07/2026 1:30 PM ESTProcedure Visit [facility] [address] [place] [phone] Ramin Mccullough DPM [address] [place], [place] [id number] Health MaintenanceDue DateLast DoneCommentsCOVID-19 Vaccine (2024- season) /03/2022, 11/03/2020, 10/25/2020Influenza Vaccine (#1)2025 05/16/2024, 07/18/2022, 06/25/2021, Additional history existsPneumococcal Vaccine: 65+ JkpigDwfydwtix41/22/2017, 10/26/2015, 11/11/2014 Insurance Care Teams Team MemberRelationshipSpecialtyStart DateEnd Date Stoney Thomas MD [address] [place] [address] PCP - GeneralInternal Medicine03/06/23
--- OUTSIDE RECORDS SUMMARY | 2025-07-18 20:22 | XMS_ITS | Encounter Summary ---
Author Organization [facility] tem Address [id number] [address] [place] [address] Care Team Providers Care Sand System Operator Name Role Phone Stoney Thomas Primary Care Provider [phone] Encounter Details DateTypeDepartmentCare Team (Latest Contact Info)Sroryajssci26/05/2025Telephone [facility] Internal Medicine - Family Medicine [address] [place] [id number] Caren Mckeon, KIKA Social History Tobacco UseTypesPacks/DayYears UsedDateSmoking Tobacco: FormerCigarettes Smokeless Tobacco: NeverAlcohol UseStandard Drinks/WeekCommentsNot Currently0 (1 standard drink = 0.6 oz pure alcohol)[facility] UtilitiesAnswerDate RecordedIn the past 12 months has the [employer], oil, or water [employer] threatened to shut off services in your home?No03/20/2024Social Connection and Isolation PanelAnswer Date RecordedIn a typical week, how many times do you talk on the phone with family, friends, or neighbors?Once a week03/26/2025How often do you get together with friends or relatives?Once a week03/26/2025How often do you attend gnosticist or jehovah's witness services?More than 4 times per year03/26/2025Do you belong to any clubs or organizations such as gnosticist groups, unions, fraternal or athletic boby ups, or school groups?No03/26/2025How often do you attend meetings of the clubs or organizations you belong to?Never03/26/2025re you , , , , never , or living with a partner?Xfzrczy7003/26/2025 AUDIT-CAnswerDate RecordedQ1: How often do you have [...] care, and heating?Not very hard 03/22/2025PHQ-2AnswerDate RecordedTotal [facility]tlei352[facility] - Occupational Stress QuestionnaireAnswerDate RecordedDo you feel stress - tense, restless, nervous, or anxious, or unable to sleep at night because yourmind is troubled all the time - these days?Only a rwonhp4302/20/2023 Exercise Vital SignAnswerDate RecordedDays of Exercise per [...] part of a household?No03/26/2025hildcareAnswerDate RecordedDo problems getting early childhood services 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 [facility] is asking you to follow pt for speech needs. Thank you. * Telephone Encounter - Stoney Thomas DO - 07/01/2025 2:39 PM EST Message noted. I can follow * Telephone Encounter - Barbie Holm CMA - 07/01/2025 2:39 PM EST Birgit from [facility] called and would like you to addend the note on 06/05 to need for speech to verify that the RN to open. * Telephone Encounter - Stoney Thomas DO - 07/01/2025 2:39 PM EST Message noted. I can not addend the last progress note, because we did not discuss dysphagia at that visit. However, I made a new note which more accurately reflects what happened, and it is available in herchart, dated for today (07/03/2025). * Telephone Encounter - Mattie Sam CMA - 07/01/2025 2:39 PM EST FAXED NOTE documented in this encounter Plan of Treatment DateTypeDepartmentCare Team (Latest Contact Info)Fwetveahhes93/04/2026 3:00 PM EDTOffice Visit [facility] [address] [place] [address] 05/10/2026 3:15 PM EDTOffice Visit [facility] [address] [place] [phone] Jayson Barreto MD [address] [place] [id number] documented as of this encounter Goals GoalPatient Goal TypeAssociated ProblemsRecent ProgressPatient-Stated?Author Discharge with home care Abril Carlos, RN Note: Evaluation of progress towards goal: Discharge to [facility] inpatient rehab documented as of this encounter Visit Diagnoses Not on filedocumented in this encounter Additional Health Concerns AssessmentNoted TimePHQ-9 Depression Total Score: 8:34 AM EDTA Body Mass Index follow-up plan has been documented for the yqfknnk0009/19/2023 6:16 PM ESTdocumented as of this encounter Care Teams Team MemberRelationshipSpecialtyStart DateEnd Date Stoney Thomas DO [address] [facility] [place] [address] PCP - GeneralInternal Rkuhoopf62/8/17documented as of this encounter
--- OUTSIDE RECORDS SUMMARY | 2025-07-18 20:22 | XMS_ITS | Clinical Summary ---
Author Organization [employer] [facility] tem Address [id number] [address] [place] [address] Care Team Providers Care Anthropologist Name Role Phone Stoney Thomas Primary Care Provider [phone] Allergies No known active allergies Medications MedicationSigDispense QuantityRefillsLast FilledStart DateEnd DateStatus latanoprost (XALATAN) 0.005 % ophthalmic solution Administer 1 drop to both eyes nightly.Active aspirin 81 mg Take 1 tablet (81 mg total) by mouth in the morning.Active nebulizer accessories (ADULT AEROSOL MASK) [facility] [place] Indications:Chronic obstructive pulmonary disease, unspecified COPD type ([facility])1 Unit by miscellaneous route 4 (four) times a day. 1 each 03/12/2023ctive calcium carbonate (OS-ZHEN) 600 mg elemental (1,500 mg) tablet Indications:Age-related osteoporosis without current pathological fractureTake 1 tablet (600 mg total) by mouth daily with breakfast. 90 tablet ctive blood-glucose meter,continuous (DEXCOM G7 RIBBON SWEATBAND OPERATOR) [facility] [place] Indications:Type 2 diabetes mellitus with peripheral angiopathy ([facility])1 each by miscellaneous route every 3 (three) months. 1 each 12/28/2023ctive blood-glucose transmitter (DEXCOM G6 TRANSMITTER) device Indications:Type 2 diabetes mellitus with peripheral angiopathy ([facility])1 each by miscellaneous route in the morning. 1 each ctive blood-glucose sensor (DEXCOM G6 SENSOR) device Indications:Type 2 diabetes mellitus with peripheral angiopathy (CMS-HCC)1 each by miscellaneous route every 10 days. 9 each 4Active albuterol (PROVENTIL,VENTOLIN) 2.5 mg /3 mL (0.083 %) nebulizer solution Indications:Chronic obstructive pulmonary disease, unspecified COPD type (CMS-HCC)Inhale 3 mL (2.5 mg total) by nebulization in the morning and 3 mL (2.5 mg total) at noon and 3 mL (2.5 mg total) in the evening and 3 mL (2.5 mg total) before bedtime. 75 mL ctive cranberry 500 mg capsule Indications:Urinary urgencyTake 1 tablet by mouth in the morning. 90 each ctive pen needle, diabetic 31 gauge x 1/4 needle Indications:Type 2 diabetes mellitus with peripheral angiopathy (CMS-HCC)1 Pen Needle by miscellaneous route in the morning. 100 each ctive rOPINIRole (REQUIP) 0.5 mg tablet Indications:Restless legsTAKE 1 TABLET BY MOUTH NIGHTLY 90 tablet 5Active mirtazapine (REMERON) 7.5 mg tablet Indications:Mild recurrent major depressionTAKE 1 TABLET BY MOUTH ONCE DAILY at NIGHT 90 tablet 5Active lutein 10 mg tablet Take by mouth.Active acetaminophen (TYLENOL EXTRA STRENGTH) 500 mg tablet Take by mouth.Active atorvastatin (LIPITOR) 10 mg tablet Indications:Hyperlipidemia, unspecified hyperlipidemia typeTake 1 tablet (10 mg total) by mouth in the evening. 90 tablet 5Active nystatin (MYCOSTATIN) powder Indications:Candidal dermatitisApply 1 Application topically in the morning and 1 Application at noon and 1 Application in the evening and 1 Application before bedtime. 60 g 5Active fluticasone propion-salmeteroL (ADVAIR) 250-50 mcg/dose DISKUS Indications:Chronic obstructive pulmonary disease, unspecified COPD type (CMS-HCC)INHALE 1 Puff BY MOUTH IN THE MORNING and 1 Puff before bedtime 180 each 5Active tolterodine (DETROL) 2 mg tablet Indications:Urinary urgencyTake 1 tablet (2 mg total) by mouth in the morning and 1 tablet (2 mg total) before bedtime. 180 tablet 5Active insulin glargine,hum.rec.anlog (BASAGLAR TALITAPEN U-100 INSULIN) 100 unit/mL (3 mL) insulin pen Indications:Type 2 diabetes mellitus with diabetic peripheral angiopathy without gangrene, with long-term current use of insulin ([facility])Inject 24 Units under the skin in the morning.5Active lisinopriL (PRINIVIL,ZESTRIL) 40 mg tablet Indications:Essential hypertensionTAKE 1 TABLET BY MOUTH IN THE MORNING 90 tablet 5Active amLODIPine (NORVASC) 10 mg tablet Indications:Essential hypertensionTAKE 1/2 (ONE-HALF) OF A TABLET BY MOUTH IN THE MORNING 45 tablet 5Active amLODIPine (NORVASC) 10 mg tablet Indications:Essential hypertensionTake 0.5 tablets (5 mg total) by mouth every morning. 15 tablet 5109/05/2024Discontinued Active Problems ProblemNoted DateDiagnosed DateObesity, xwacum6301/01/2024Urinary urgency 03/28/2023 Overview (05/04/2025): Failed Myrbetriq, Gemtesa Flomax bethanechol. Cannot make trip for UDS study. ==== 05/04/2025 ==== she is on Detrol 2 mg twice daily. Doing well. Two uncomplicated UTIs. Generallyhappy with the current state. Plan: Continue on with the trial. Order written to such. [facility]. See back in a year ==== 04/30/2024 ==== she is on Detrol by verbal report there was no TX are given by her facility. I did write in the progress note for her to continue on with the medication. Will see her back in 1 year ==== 12/26/2023 ==== does not appear she took the Detrol. [facility] Will see her back in 4 months. 4 mg daily. ==== 08/06/2023 ==== no constipation. Since can not make urodynamics will try empirically on some Detrol LA 4 mg ====9/13/23====Gemtesa ineffective. With history of retention, I think it would be best to check Urodynamics before pursuing other treatment options. Also discussed referral to PFPT as she complains of mixed incontinence as well. She wants to think over her options ==== 03/28/2023 ==== she does empty her bladder based on ultrasound. Has had times as urge urge incontinence. Had similar in the past with a negative culture. Will try Gemtesa return clinic. We may have to try an anticholinergic but would have to monitor for potential retention. Assessment & Plan (05/09/2023 5:21 PM EDT): She wants to go forward with urodynamics or pelvic floor physical therapy, otherwise we will see her back in 3 months Chqihkrxnk82/10/202304/3Chronic obstructive lung eskwmli26/17/2022Diabetic peripheral neuropathy associated with type 2 diabetes feqhfdcr91/17/2022 Fibrocystic disease of sqyarf2606/12/20223741Vgpsfigocylgxy80/17/2022eripheral venous hjiwbfwhrrwll85/17/2022eripheral vascular eniover2506/12/2022Type 2 diabetes mellitus with peripheral /17/2022Degenerative lumbar spinal stenosis 2Oropharyngeal povbzbaqv59/10/2022ge-related macular degeneration 03/29/2021Mild recurrent major apoyyvfixg05/03/2021Urinary bntbrcinv84/27/2020 Overview (12/26/2023): ==== 12/26/2023 ==== PVR today is less than 75 cc or so. Good number for the patient. Will continue monitor. Will check a PVR wound see her back in the office. ==== 03/28/2023 ==== renal bladder ultrasound negative for any mass. Has a simple cyst. Might be slightly bigger in size but certainly not an issue. ==== 12/06/2022 ==== postvoid residual 83 cc. She is emptying well. No longer on bethanechol. I reviewed her med list. Plan: Still has some urgency go to the restroom. Will check a urine culture. The have the equipmentto do so at home. Will obtain renal bladder ultrasound as well. Will see her back in 3 months to 4 months ==== 07/10/2022 ==== she was on bethanechol and now may have. Did have PVR though is acceptable. PVR is 0. This is good news. Still has urgency frequency. Urine for culture. Treat if positive. Returnclinic 3-4 months ====04/05/22====s/p cystoscopy/U of [facility] instillation 03/20/22. PVR at the time was 350. Persistently elevated at 229 today. Will restart bethanechol bid. Hopefully this will help with her frequency/urgency if related to elevated PVR. ==== 02/01/2022 ==== off of her medications both tamsulosin as well as bethanechol PVR 25 cc. ==== 12/19/2021 ==== weaned office centrally bethanechol. PVR 40 cc. Will just keep her off the medication. ==== 11/07/2021 ==== history urinary retention during hospitalization for pneumonia M this was back in July. She was sent home with Vann catheter. Started on what appeared to be bethanechol as well as tamsulosin. Right now she has some urgency frequency. PVR is very acceptable. Renal bladder ultrasound simple cyst. Urinary retention this is during hospitalization. PVR today about 30 ccper Plan: Wean off Bethanechol. See her back in the office about a month check postvoid residual.. Assessment & Plan (04/05/2022 12:44 PM EDT): I told her that if the frequency gets worse after restarting bethanechol, we could decrease her to once daily dosing or discontinue altogether. We will see her back in 1 month or sooner if any problems. Assessment & Plan (12/19/2021 1:53 PM EDT): Sporadically has some urgency frequency. At this point since she just stop the bethanechol will have her come back in 6-8 weeks check PVR and then see if we would need to make any adjustments with any medications regarding her urinary tract domain. If continues to have some lower urinary tract symptoms consideration for cysto potential urethral dilation. [facility] bladder solution Essential bccydopcffmu32/27/2020 Resolved Problems ProblemNoted DateDiagnosed DateResolved MpwuAdwiapbiw052COVID- 19 virus nvisborwo40neumonia due to COVID-19 virus07/23/2020 06/12/2022 Encounters DateTypeDepartmentCare JyhaRxxqnobwpkg26/10/2025Refill [facility] [address] [place] [address] Mattie Sam, [facility] Essential xioqmuviewyd11/10/2025Refill [facility] [address] [place] [address] Arron Reyez, DO Essential vkcepkevslfv13/07/2025Documentation [facility] [address] [place] [address] Stoney Thomas, 07/01/2025Telephone [facility] [address] [place] [address] Caren Mckeon, [facility] 06/18/2025Refill [facility] [address] [place] [address] Stoney Thomas, DO Essential armtimctrxke22/15/2025Orders Only [facility] [address] [place] [address] Ref Prov, Not In System 06/06/2025Results Follow-Up [facility] [address] [place] [address] Stoney Thomas, DO Lipid profile, Comprehensive metabolic panel, Hemoglobin A1c06/05/2025 8:30 AM EDTOffice Visit [facility] [address] [place] [address] Stoney Thomas, DO Type 2 diabetes mellitus with diabetic peripheral angiopathy without gangrene, with long-term current use of insulin ([facility]) (Primary Dx); Essential hypertension; Restless legs; Encounter for csbkjieqsevq48/10/6153Hvoxkt53/08/2025Refill [facility] [address] [place] [address] Melissa Bridges, KIKA Urinary gnayvlw8506/02/2025Refill [facility] [address] [place] [address] Caren Mckeon [facility] Urinary fwzberi9905/20/2025Refill [facility] [address] [place] [address] Stoney Thomas, DO Chronic obstructive pulmonary disease, unspecified COPD type ([facility])05/18/2025 Refill [facility] [address] [place] [address] Caren Mckeon [facility] Essential tuyyflsoeogo62/21/2025Refill [facility] [address] [place] [address] Stoney Thomas, DO Essential /12/2025Refill [facility] [address] [place] [address] Melissa Bridges, KIKA [address] jhftuawpsl13/08/2025 1:15 PM EDTOffice Visit [facility] [address] [place] [address] [address] [facility] [place] [address] Jayson Barreto MD Urinary urgency (Primary Dx)05/03/20250792Npkguw16/29/2025Documentation [facility] [address] [place] [address] YuStoney phan DO Advice Only ( This was opened in error)04/23/2025 4:30 PM EDTTelemedicine [facility] [address] [place] [address] Stoney Thomas DO Cellulitis of finger of right hand (Primary Dx)04/23/20252744Xyyoru07/28/2025 Telephone [facility] [address] [place] [address] Stoney Thomas, from Last 3 Months Immunizations ImmunizationAdministration DatesNext DueCOVID-19 Vaccine, vector-nr, rS-Ad26, PF, 0.5mL11/03/2020,10/25/2020DTaP11/11/2014Influenza (IM) Preservative Free 06/06/2016,07/23/2015Influenza High Dose Preservative Free IM05/29/2025, 05/16/2024,08/04/2019,06/23/2017Influenza, Injectable, Mdck, Preservative Free, Quad07/23/2018Influenza, Injectable, quadrivalent (PF)06/25/2021,10/18/2016 Influenza, Intradermal (Pf)08/31/2020Influenza, Recombinant, Quadrivalent, Injectable, Uuptdlw3307/18/2022Influenza, Soykxjspzki48/11/2014Pneumococcal Conjugate 13-Ggxjtq0510/18/2016,11/11/2014Pneumococcal Conjugate 20-valent 05/29/2025Pneumococcal Aqxmoiexxfnlhu37/01/2016RSV, bivalent, protein subunit RSVpreF, diluent reconstituted, 0.5 mL, PF05/29/2025Zoster Live05/11/2011Zoster Vaccine Tdnerjnjjfh50/25/2023,03/12/2023 Family History Medical HistoryRelationNameCommentsNo Known ProblemsDaughterHeart diseaseFather No Known ProblemsMotherBreast cancerNeg HxRelationNameStatusCommentsDaughter DeceasedFatherDeceasedMotherDeceased Social History Tobacco UseTypesPacks/DayYears UsedDateSmoking Tobacco: FormerCigarettes Smokeless Tobacco: Never Tobacco Cessation:Counseling Given: Not Answered Alcohol UseStandard Drinks/WeekCommentsNot Currently0 (1 standard drink = 0.6 oz pure alcohol)[facility] UtilitiesAnswerDate RecordedIn the past 12 months has the electric, gas, oil, or water company threatened to shut off services in your home?No03/20/2024Social Connection and Isolation PanelAnswerDate RecordedIn a typical week, how many times do you talk on the phone with family, friends, or neighbors?Once a week03/26/2025How often do you get together with friends or relatives?Once a week03/26/2025How often do you attend alevism or episcopalian services?More than 4 times per year03/26/2025Do you belong to any clubs or organizations such as alevism groups, unions, fraternal or athletic groups, or school groups?No03/26/2025How often do you attend meetings of the clubs or organizations you belong to?Never03/26/2025re you , , , , never , or living with a partner?Nrdjmza4603/26/2025UDIT-C AnswerDate RecordedQ1: How often do you have a drink containing alcohol?Never 03/20/2024Q2: How many drinks containing alcohol do you have on a typical day when you are drinking?Patient does not drink03/20/2024Q3: How often do you have six or more drinks on one occasion?Never03/20/2024Overall Financial Resource Strain (CARDIA)AnswerDate RecordedHow hard is it for you to pay for the very basics like food, housing, medical care, and heating?Not very hard03/22/2025 PHQ-2AnswerDate RecordedTotal Qzcrr534[facility] [place] of Occupational Health - Occupational Stress QuestionnaireAnswerDate RecordedDo you feel stress - tense, restless, nervous, or anxious, or unable to sleep at night because your mind is troubled all the time - these days?Only a hwkjty7902/20/2023Exercise Vital SignAnswerDate RecordedDays of Exercise per WeekNot on file03/26/2025On average, how many minutes do you engage in exercise at this level?0 min03/26/2025PRAPARE - TransportationAnswerDate RecordedIn the past 12 months, has lack of transportation kept you from medical appointments or from getting medications?No 03/22/2025In the past 12 months, has lack of transportation kept you from meetings, work, or from getting things needed for daily living?No03/22/2025 Housing InstabilityAnswerDate RecordedAre you worried or concerned that in the next two months you may not have stable housing that you own, rent or stay in as a part of a household?No03/26/2025hildcareAnswerDate RecordedDo problems getting child welfare consultant make it difficult for you to work or study?No02/20/2023 EmploymentAnswerDate RecordedDo you need help finding a local career center and/or a training program?No02/20/2023Hunger ScreeningAnswerDate RecordedWithin the past 12 months we worried whether our food would run out before we got money to buy more.Never True05/04/2025Within the past 12 months the food we bought just didn't last and we didn't have money to get more.Never True05/04/2025 Purpose - LifeAnswerDate RecordedI have a purpose and direction in my life.Agree 02/20/2023CommentsNoSex and Gender InformationValueDate RecordedSex Assigned at LpqgpSqgcyq93/13/2023 8:19 PM EDTLegal RbqIfcvgq65/06/2015 11:38 AM EDTGender FiegfikuIznlyk78/13/2023 8:19 PM EDTSexual OrientationNot on file Last Filed Vital Signs Vital SignReadingTime TakenCommentsBlood Latdsoko553/7410 8:34 AM EDT Yjkln0823 8:34 AM VDTExyxebnrwhw12.1 ??C (97 ??F)06/05/2025 8:34 AM EDT Respiratory Kpcv6962 8:34 AM EDTOxygen Irrlkmzavj39%06/05/2025 8:34 AM EDTInhaled Oxygen Concentration--Zanozo41.6 kg (149 lb)06/05/2025 8:34 AM EDT Fdynab736.1 cm (4' 4.01 )06/05/2025 8:34 AM EDTBody Mass Index38.7306/05/2025 8:34 AM EDT Plan of Treatment DateTypeDepartmentCare Team (Latest Contact Info)Vksedtaxfoh11/04/2026 3:00 PM EDTOffice Visit [facility] [address] [place] [address] 05/10/2026 3:15 PM EDTOffice Visit [facility] [address] [place] [address] [place] [address] Jayson Barreto MD [facility] [place], [place] [id number] Health MaintenanceDue DateLast DoneCommentsDTaP,Tdap and Td Vaccines (2 - Tdap) Fall Risk Sarxoimav38Medicare Annual Wellness Visit607/, 03/20/2024, 02/20/2023epression Screening Tobacco Xcnlfddtd64Zoster (Shingles) KprrcoxRaszfirle73/25/2023, 03/12/2023, 05/11/2011COVID-19 VaccineDiscontinued 05/29/2025, 02/01/2022, 11/03/2020, Additional history existsInfluenza Vaccine Pvnepirdo31/03/2025, 05/16/2024, 07/18/2022, Additional history existsRSV ( or age 60+ yrs)Bpuomlaum92/03/2025 Goals GoalPatient Goal TypeAssociated ProblemsRecent ProgressPatient-Stated?Author Discharge with home care Abril Carlos, RN Note: Evaluation of progress towards goal: Discharge to [facility] inpatient rehab Medical Devices Not on file Procedures Procedure NamePriorityDate/TimeAssociated DiagnosisCommentsEXTERNAL RIBBON SWEATBAND OPERATOR, CGM KOMQfgrbuw43/15/2025 1:38 PM EDTHEMOGLOBIN V6NXzsyckc76/10/2025 9:08 AM EDT Type 2 diabetes mellitus with diabetic peripheral angiopathy without gangrene, with long-term current use of insulin ([facility]) COMPREHENSIVE METABOLIC GTTOJZplfejl02/10/2025 9:08 AM EDT Type 2 diabetes mellitus with diabetic peripheral angiopathy without gangrene, with long-term current use of insulin ([facility]) LIPID QABFPAIUqsrump18/10/2025 9:08 AM EDT Type 2 diabetes mellitus with diabetic peripheral angiopathy without gangrene, with long-term current use of insulin ([facility]) from Last 3 Months Results * EXTERNAL RIBBON SWEATBAND OPERATOR, CGM SYS (06/10/2025 1:38 PM EDT) Narrative Authorizing ProviderResult TypeResult StatusNot In System Ref ProvPR MISCELLANEOUS SERVICESFinal ResultPerforming OrganizationAddressCity/State/ZIP CodePhone Number MANUALLY TRANSCRIBED RESULTS * (ABNORMAL) Hemoglobin A1c (06/05/2025 9:08 AM EDT)ComponentValueRef RangeTest MethodAnalysis TimePerformed AtPathologist SignatureHEMOGLOBIN A1C7.2(H)4.4 - 5.6 %06/05/2025 7:43 PM [facility]ORATORYComment: ?ADA Guidelines ?Result ?HgbA1c ? Normal : ? less than 5.7 % ? Prediabetes : ?5.7 % ??to 6.4 % Diabetes : > 6.4 % ?Use with caution in patients with abnormal hemoglobin variants as ??the half-life of red blood cells and in vivo glycation rates are ??affected. EST. AVERAGE HQFNDKB849kl/dL06/05/2025 7:43 PM [facility] LABORATORYSpecimen (Source)Anatomical Location / LateralityCollection Method / VolumeCollection TimeReceived TimeBloodVenous blood / Oiiklxk6506/05/2025 9:08 AM EDT1 9:08 AM EDT Narrative Authorizing ProviderResult TypeResult StatusJohn Augustine Thomas DOLAB BLOOD ORDERABLES Final ResultPerforming OrganizationAddressCity/State/ZIP CodePhone Number [facility] [address] [place] [address], * (ABNORMAL) Lipid profile (06/05/2025 9:08 AM EDT)ComponentValueRef RangeTest MethodAnalysis TimePerformed AtPathologist JljbytusiGHSGULLQYKR547(L)150 - 200 mg/dL06/05/2025 5:35 PM [facility] XWWORKJGYBJJRYNNTIHVSD490 27 - 150 mg/dL06/05/2025 5:35 PM [facility] LABORATORYHDL KGDJPZGSFHR72>39 mg/dL06/05/2025 5:35 PM [facility]ORYComment: HDL <40 mg/dL - High Risk HDL > or = 40mg/dL- Desirable HDL >60 mg/dL - Negative Risk LDL (CALC)33<130 mg/dL06/05/2025 5:35 PM [facility] Comment: LDL <100 mg/dL - Desirable LDL >160 mg/dL - High Risk CHOLESTEROL:HDL2.31.0 - 5.010 5:35 PM [facility] LABORATORYVERY LOW BZCNQNGOXJM715 - 30 mg/dL06/05/2025 5:35 PM [facility] LABORATORYSpecimen (Source)Anatomical Location / Laterality Collection Method / VolumeCollection TimeReceived TimeBloodVenous blood / Vnqbvmi1306/05/2025 9:08 AM EDT1 9:08 AM EDT Narrative Authorizing ProviderResult TypeResult StatusStoney MATOS BLOOD ORDERABLES Final ResultPerforming OrganizationAddressCity/State/ZIP CodePhone Number [facility] [address] [place] [address], * Comprehensive metabolic panel (06/05/2025 9:08 AM EDT)ComponentValueRef Range Test MethodAnalysis TimePerformed AtPathologist XleqfblptPZQHEA299352 - 146 mmol/L1 5:35 PM [facility] LABORATORYPOTASSIUM4.53.5 - 5.0 mmol/L1 5:35 PM [facility] LABORATORYCHLORIDE 72641 - 109 mmol/L1 5:35 PM [facility] CARBON GYJOCLF0426 - 32 mmol/L1 5:35 PM [facility] LABORATORYANION NFT024 - 15 mmol/L1 5:35 PM [facility] LABORATORYBLOOD UREA LFHMIPZI900 - 27 mg/dL06/05/2025 5:35 PM [facility] LABORATORYCREATININE0.650.40 - 1.00 mg/dL06/05/2025 5:35 PM [facility]ORATORYComment:METHOD TRACEABLE TO IDMS QOOMOKGGDSKLOXX7851 - 99 mg/dL06/05/2025 5:35 PM [facility] LABORATORYCALCIUM9.38.5 - 10.5 mg/dL06/05/2025 5:35 PM [facility] LABORATORYTOTAL PROTEIN7.76.0 - 8.0 g/dL06/05/2025 5:35 PM [facility] LABORATORYALBUMIN4.33.2 - 5.3 g/dL06/05/2025 5:35 PM EDT [facility] LABORATORYALKALINE QSBVIUNACEH5547 - 130 U/L 06/05/2025 5:35 PM [facility] QBAHPZAVDXVVF71<=41 U/L 06/05/2025 5:35 PM [facility] YORTDTSHGIAVW31<=31 U/L 06/05/2025 5:35 PM [facility] LABORATORYBILIRUBIN,TOTAL0.40.3 - 1.2 mg/dL06/05/2025 5:35 PM [facility]ORYEGFR Non- Race Pwirvmfly68>=60 ml/min/1.73sq.m1 5:35 PM [facility]ATORYComment: Reported eGFR is based on the CKD-EPI 2020 equation that does not use a race coefficient. Specimen (Source)Anatomical Location / LateralityCollection Method / Volume Collection TimeReceived TimeBloodVenous blood / Lnsuzlp1606/05/2025 9:08 AM EDT 06/05/2025 9:08 AM EDT Narrative Authorizing ProviderResult TypeResult StatusJocoby Thomas DOL BLOOD ORDERABLES Final ResultPerforming OrganizationAddressCity/State/ZIP CodePhone Number [facility] [address] [place] [address], from Last 3 Months Insurance Advance Directives TypeDate RecordedPatient RepresentativeExplanationDurable Power of AttorneyDNR Physician Order03/17/2025 10:27 AM06 * DNR Comfort Care (DNRCC) [place] (Latest Code Status on File) Date ActivatedDate InactivatedComments03/17/2025 10:26 AMThis order was created through External Result Entry * Full Code Date ActivatedDate IyqweacaopoWpauaklv65/26/2021 10:39 PM06/29/2021 7:07 PM * Full Code Date ActivatedDate WqdxreiiaiuXyexppjk42/3/2020 5:37 PM08/02/2020 5:28 PM * Full Code Date ActivatedDate MunczmglcioPvlfqqod29/28/2020 2:17 PM07/29/2020 4:12 PM * DNR Comfort Care Arrest (DNR-CCA) ActivatedDate IqhtghhrpsqOxkwxdxq84/27/2020 2:43 PM07/23/2020 7:03 PM Care Teams Team MemberRelationshipSpecialtyStart DateEnd Date Stoney Thomas DO [address] [id number] PCP - GeneralInternal Qsirltze85/8/17
--- OUTSIDE RECORDS SUMMARY | 2025-07-18 20:22 | XMS_ITS | Patient Health Record ---
Author Organization [facility] Address [address] [place] [address] Care Team Providers Care School Plant Consultant Name Role Phone TEOFILO SALOMON Unavailable [phone] Allergies No Known Allergies Reason For Referral No Information Medications Medication SIG (Take, Route, Frequency, Duration) Notes Start Date End Date Status Latanoprost 0.005 % 1 drop into affected eye in the evening Ophthalmic Once a day ActivehydroCHLOROthiazide 25 MG1 tablet in the morning Orally Once a dayActive Tamsulosin HCl 0.4 MG1 capsule Orally Once a dayActiveLisinopril 20 MG1 tablet Orally BIDActiveAspirin 81 MG1 tablet Orally Once a dayActiveCalcium Carbonate- Vitamin D 600-200 MG-UNIT1 capsule Orally Twice a dayActiveamLODIPine Besylate 10 MG1 tablet Orally Once a dayActiveFloranexActivePepcid 20 MG1 tablet at bedtime as needed Orally Once a dayActiveFeroSul 325 (65 Fe) MG1 tablet Orally Once a dayActiveMirtazapine 7.5 MG2 tablets at bedtime Orally Once a dayActive Bethanechol Chloride 25 MG1 tablet 1 hour before or 2 hours after meals Orally Three times a dayActiveLovastatin 20 MG1 tablet with the evening meal Orally Once a dayActiveHumaLOGActiveAtorvastatin Calcium 10 MG1 tablet Orally Once a dayActiveVitamin B12 100 MCGas directed OrallyActiveLantus 100 UNIT/MLas directed SubcutaneousActiveBenzonatate 100 MG1 capsule as needed Orally Three times a dayActiverOPINIRole HCl 0.25 MG2 TABLETS IN THE AFTERNOON, 1 TABLET IN THE EVENING OrallyActiveAdvair Diskus 250-50 MCG/DOSE1 puff Inhalation Twice a dayActive Social History Tobacco Use: Social History Observation Description Date Details (start date - stop date) Never Smoker NA - NA Tobacco Use/Smoking Question Answer Notes Are you a nonsmoker Problems Problem Type SNOMED Code ICD Code Onset Dates Problem Status W/U Status Risk Notes Problem Type II diabetes nisreen litus without complication (211498418) Type 2 diabetes mellitus without complications (E11.9) ActiveconfirmedProblemAsthma (213394442)Asthma (J45.909)ActiveconfirmedProblem Essential hypertension (11603253)Essential hypertension (I10)Activeconfirmed ProblemBronchitis (05865674)Bronchitis (J40)ActiveconfirmedProblemDepression (945581053)Depression, unspecified (F32.A)Activeconfirmed Plan Of Treatment No Information Insurance Providers Payer Name Payer Address Payer Phone Subscriber Number Group Number Insured Name Patient Relationship to Insured Coverage Start Date Coverage End Date [employer] [address] [place] [address] [id number] Rosetta Kirk Self - patient is the insured Medical (General) History Medical History History ICD Code Asthma J45.909 Bronchitis J40 Depression, unspecified F32.A Type 2 diabetes mellitus without complic ations E11.9 Essential hypertension I10 Surgical History Surgery Date(Month/Year) Gall Bladder Uterine CystL Foot
--- OUTSIDE RECORDS SUMMARY | 2025-07-18 20:22 | XMS_ITS | Clinical Summary ---
Author Organization [facility] Address [address] [place] [address] Care Team Providers Care Client Professional Name Role Phone Unavailable Primary Care Provider Unavailabl e Social History Tobacco UseTypesPacks/DayYears UsedDateSmoking Tobacco: Never AssessedUT Safety & EnvironmentAnswerDate RecordedFear of Current or Ex-PartnerNot on file 10/18/2023Emotionally AbusedNot on file10/18/2023hysically AbusedNot on file 10/18/2023Sexually AbusedNot on file10/18/2023hysically or Sexually AbusedNot on file10/18/2023CommentsUnknownSex and Gender InformationValueDate RecordedSex Assigned at BirthNot on fileLegal XtgNdoiqu29/30/2022 12:41 AM EDT Gender IdentityNot on fileSexual OrientationNot on file Last Filed Vital Signs Vital SignReadingTime TakenCommentsBlood Osrdwgfk668/4901 2:28 PM EST Ppnyf7864 2:28 PM ESTTemperature--Respiratory Rate--Oxygen Saturation-- Inhaled Oxygen Concentration--Xvfmil10.9 kg (132 lb)09/13/2021 2:27 PM ESTHeight 142.2 cm (4' 8 )09/13/2021 2:28 PM ESTBody Mass Index29.5901 2:27 PM EST Plan of Treatment Not on file
--- OUTSIDE RECORDS SUMMARY | 2025-07-18 20:23 | XMS_ITS | CCD ---
Author Organization [facility] Care Team Providers Care Recycling Operations Manager Name Role Phone SIOMARA HENRY Admitting Unavailable SIOMARA HENRY Attending Unavailable CHARLOTTE LEGGETT Consulting Unavailable SIOMARA HENRY Consulting Unavailable Unavailable Primary Care Provider UnavailDEYANIRA Wu Referring Unavailable Yuhas Deyanira BARRERA Primary Care Provider DEYANIRA TAI Referring Unavailable YUHAS, DEYANIRA Bradshaw Primary Care Unavailable DEYANIRA TAI Referring Unavailable YUHADEYANIRA Wilks Primary Care Unavailable SARAH DUARTE Referring Unavailable YUHAS, DEYANIRA Bradshaw Primary Care Unavailable YUHADEYANIRA Wilks Referring Unavailable YUHADEYANIRA Wilks Primary Care Unavailable Deyanira Tai Attending Unavailable Deyanira Taiitting Unavailable Deyanira Tai DO Primary Care Provider DEYANIRA TAI Referring Unavailable YUHAS, DEYANIRA Bradshaw Primary Care Unavailable YUHADEYANIRA Wilks Referring Unavailable YUHAS, DEYANIRA Bradshaw Primary Care Unavailable YUHADEYANIRA Wilks Referring Unavailable YUHASDEYANIRA Primary Care Unavailable YuDeyanira phan DO Primary Care Provider CHARLOTTE MCCULLOUGH Attending Unavailable CHARLOTTE MCCULLOUGH Attending Unavailable CHARLOTTE MCCULLOUGH Attending Unavailable CHARLOTTE MCCULLOUGH Attending Unavailable YUHASDEYANIRA Attending Unavailable VINCEHASDEYANIRA Referring Unavailable YUHAS, DEYANIRA Bradshaw Primary Care Unavailable VINCEHAS, DEYANIRA Bradshaw Attending Unavailable VINCEHASDEYANIRA Referring Unavailable YUHAS, DEYANIRA Bradshaw Primary Care Unavailable DEYANIRA TAI Attending Unavailable VINCEHADEYANIRA Wilks Referring Unavailable YUHAS, DEYANIRA Bradshaw Primary Care Unavailable YUHADEYANIRA Wilks Referring Unavailable YUHAS, DEYANIRA Bradshaw Primary Care Unavailable YUHADEYANIRA Wilks Attending Unavailable YUHASDEYANIRA Referring Unavailable DEYANIRA TAI Primary Care Unavailable FILIPE SON Attending Unavailable DEYANIRA TAI Referring Unavailable DEYANIRA TAI Primary Care Unavailable DEYANIRA TAI Attending Unavailable DEYANIRA TAI Referring Unavailable DEYANIRA TAI Primary Care Unavailable Deyanira Tai DO Primary Care Provider Medications Current Medications MedicationDrug Class(es)DatesSig (Normalized)Sig (Original)acetaminophen 500 mg oral tablet (20 sources)acetaminophen (TYLENOL EXTRA STRENGTH) 500 mg tablet Take by mouth. Activealbuterol 0.83 mg/ml inhalation solution (20 sources)beta2-Adrenergic AgonistStart: 91-22-4111rfagfvgep (PROVENTIL,VENTOLIN) 2.5 mg /3 mL (0.083 %) nebulizer solution Indications: Chronic obstructive pulmonary disease, unspecified COPD type ([facility]) Inhale 3 mL (2.5 mg total) by nebulizationin the morning and 3 mL (2.5 mg total) at noon and 3 mL (2.5 mg total) in the evening and 3 mL (2.5mg total) before bedtime. 75 mL 1 02/15/2024 Activealbuterol (2.5 MG/3ML) 0.083% nebulizer solution Take by nebulization every 6 (six) hours if neededfor wheezing Activeaspirin 81 mg delayed release oral tablet (20 sources)Platelet Aggregation Inhibitor, Nonsteroidal Anti-inflammatory Drug take 1 tablet by mouth in the morningaspirin 81 mg Take 1 tablet (81 mg total) by mouth in the morning. Activeaspirin 81 MG chewable tablet 1 (one) time each day at the same time Activeatorvastatin 10 mg oral tablet (20 sources)HMG-CoA Reductase InhibitorStart: 07-05-2022 End: 77-10-8082kagr 1 tablet by mouth in the eveningatorvastatin (LIPITOR) 10 mg tablet Indications: Hyperlipidemia, unspecified hyperlipidemia type Take 1 tablet (10 mg total) by mouth in the evening. 90 tablet 1 04/10/2025 Active blood-glucose meter,continuous (DEXCOM G7 MILLINERY DESIGNER) misc (20 sources)Start: 64-20-7632mrclk-glucose meter,continuous (DEXCOM G7 MILLINERY DESIGNER) misc Indications: Type 2 diabetes mellitus withperipheral angiopathy (CMS-HCC) 1 each by miscellaneous route every 3 (three) months. 1 each 12/28/2023 Active blood-glucose sensor (DEXCOM G6 SENSOR) device (20 sources)Start: 03-04-5871ujlcy-glucose sensor (DEXCOM G6 SENSOR) device Indications: Type 2 diabetes mellitus with peripheral angiopathy (CMS-HCC) 1 each by miscellaneous route every 10 days. 9 each 1 12/31/2023 Activeblood- glucose transmitter (DEXCOM G6 TRANSMITTER) device (20 sources)Start: 17-47-3863jaagx-glucose transmitter (DEXCOM G6 TRANSMITTER) device Indications: Type 2 diabetes mellitus withperipheral angiopathy (CMS-HCC) 1 each by miscellaneous route in the morning. 1 each 1 12/31/2023 Activecalcium carbonate 1500 mg oral tablet (20 sources)Start: 08-51-9108omjd 1 tablet by mouth once daily at breakfast calcium carbonate (OS-ZHEN) 600 mg elemental (1,500 mg) tablet Indications: Age- related osteoporosiswithout current pathological fracture Take 1 tablet (600 mg total) by mouth daily with breakfast. 90 tablet 1 10/09/2023 Activecephalexin 500 mg oral capsule (2 sources)Cephalosporin AntibacterialStart: 04-23-2025 End: 29-53-3202ZXAPpgahud (KEFLEX) 500 mg capsule Indications: Cellulitis of finger of right hand Take 1 capsule (500 mg total) by mouth in the morning and 1 capsule (500 mg total) at noon and 1 capsule (500 mg total) in the evening and 1 capsule (500 mg total) before bedtime. Do all this for 7 days. 28 capsule 04/30/2025 Activecranberry preparation 500 mg oral capsule (20 sources)Non-Standardized Food Allergenic Extract, Non-Standardized Plant Allergenic ExtractStart: 90-66-6335zdkp 1 tablet by mouth in the morning cranberry 500 mg capsule Indications: Urinary urgency Take 1 tablet by mouth in the morning. 90 each 1 02/15/2024 ActiveCranberry Extract 250 MG tablet every 12 (twelve) hours ActiveCranberry Extract 250 MG tablet every 12 (twelve) hours. ActiveCranberry Extract 250 MG tablet every 12 (twelve) hours. 0 Active cyanocobalamin, vitamin B-12, (VITAMIN B12 ORAL) (13 sources)take 500 ug by mouth once daily at dinnercyanocobalamin, vitamin B- 12, (VITAMIN B12 ORAL) Take 500 mcg by mouth daily with dinner. Active fluticasone / salmeterol (20 sources)Corticosteroid, beta2-Adrenergic AgonistStart: 16-22-6074hlgk 1 puff(s) by mouth in the morningfluticasone propion-salmeteroL (ADVAIR) 250-50 mcg/dose DISKUS Indications: Chronic obstructive pulmonary disease, unspecified COPD type (CMS-HCC) INHALE 1 Puff BY MOUTH IN THE MORNING and 1 Puff before bedtime 180 each 1 06/01/2025 ActiveStart: 06-13-2024 End: 06-60-8488bghy 1 puff(s) by mouth in the morningfluticasone propion- salmeteroL (ADVAIR) 250-50 mcg/dose DISKUS Indications: Chronic obstructive pulm onary disease, unspecified COPD type (CMS-HCC) INHALE 1 Puff BY MOUTH IN THE MORNING and 1 Puff before bedtime 180 each 1 06/13/2024 06/01/2025 Discontinued Start: 41-19-5893diyg 1 puff(s) by mouth in the morningfluticasone propion- salmeteroL (ADVAIR) 250-50 mcg/dose DISKUS Indications: Chronic obstructive pulm onary disease, unspecified COPD type (CMS-HCC) INHALE 1 Puff BY MOUTH IN THE MORNING and 1 Puff before bedtime 180 each 1 06/13/2024 ActiveStart: 07-05-2022 Advair Diskus 250-50 MCG/ACT aerosol powder 07/05/2022 ActiveStart: 07-05-2022 Advair Diskus 250-50 MCG/ACT aerosol powder USE 1 INHALATION TWICE A DAY 07/05/2022 Activefurosemide 40 mg oral tablet (6 sources)Loop DiureticStart: 10-21-2024 End: 64-02-8654wmql 1 tablet by mouth once dailyfurosemide (LASIX) 40 mg tablet Indications: Edema of both lower legs Take 1 tablet (40 mg total) by mouth daily for 5 days. 5 tablet 10/21/2024 10/26/2024 Active3 ml insulin glargine 100 unt/ml pen injector (20 sources)Insulin AnalogStart: 17-68-7405njdtggc glargine,hum.rec.anlog (BASAGLAR KWIKPEN U-100 INSULIN) 100 unit/mL (3 mL) insulin pen Indications: Type 2 diabetes mellitus with diabetic peripheral angiopathy without gangrene, with long-term current use of insulin ([facility]) Inject 24 Units under the skin in the morning. 06/05/2025 ActiveStart: 06-04-2024 End: 13-57-5185hygwaxe glargine,hum.rec.anlog (BASAGLAR KWIKPEN U-100 INSULIN) 100 unit/mL (3 mL) insulin pen Indications: Type 2 diabetes mellitus with peripheral angiopathy ([facility]) INJECT 24 UNITS SUBCUTANEOUSLY (UNDER THE SKIN) NIGHTLY 30 mL 1 11/18/2024 06/05/2025 Discontinued (Dose adjustment)Start: 12-28-2022 End: 00-57-8093Dbritl SoloStar 300 UNIT/ML injection Inject 36 Units under the skin at bedtime. 12/28/2022 10/23/2024 Discontinued (Discontinued by another clinician)Start: 36-02-6723Tydkcz 100 UNIT/ML injection 05/26/2022 Activeinsulin lispro (HumaLOG) 100 UNIT/ML injection (5 sources) End: 88-22-6262wgswzqv lispro (HumaLOG) 100 UNIT/ML injection as directed Injection 10/23/2024 Discontinued (Discontinued by another clinician)insulin lispro (HumaLOG) 100 UNIT/ML injection as directed Injection Activeinsulin lispro (HumaLOG) 100 UNIT/ML injection as directed Injection 0 Activelatanoprost 0.05 mg/ml ophthalmic solution (20 sources)Prostaglandin Analogtake 1 drop(s) into the eye(s) once daily latanoprost (XALATAN) 0.005 % ophthalmic solution Administer 1 drop to both eyes nightly. Activetake 1 drop(s) into the eye(s) at bedtimelatanoprost (Xalatan) 0.005 % ophthalmic solution Administer 1 drop into affected eye(s) at bedtime Activelisinopril 40 mg oral tablet (20 sources)Angiotensin Converting Enzyme InhibitorStart: 06-22-2024 End: 50-99-2782ymvg 1 tablet by mouth in the morninglisinopriL (PRINIVIL,ZESTRIL) 40 mg tablet Indications: Essential hypertension TAKE 1 TABLET BY MOUTH IN THE MORNING 90 tablet 06/18/2025 Activelutein 10 mg oral tablet (20 sources)lutein 10 mg tablet Take by mouth. Active End: 17-55-1121yhwd 1 capsule by mouth once dailylutein 20 mg capsule Take 20 mg by mouth daily. 09/11/2024 Discontinued (Patient Stopped On Own)mirtazapine 7.5 mg oral tablet (20 sources)Start: 09-15-2022 End: 26-41-4815hgkm 1 tablet by mouth once dailymirtazapine (REMERON) 7.5 mg tablet Indications: Mild recurrent major depression TAKE 1 TABLET BY MOUTH ONCE DAILY at NIGHT 90 tablet 1 02/09/2025 ActiveMisc Natural Products (LUTEIN 20 PO) (5 sources) End: 16-46-3598Dwef Natural Products (LUTEIN 20 PO) Orally 10/23/2024 Discontinued (Therapy completed)Misc Natural Products (LUTEIN 20 PO) Orally ActiveMisc Natural Products (LUTEIN 20 PO) Orally 0 Activenebulizer accessories (ADULT AEROSOL MASK) misc (20 sources)Start: 59-49-5388cflhozyue accessories (ADULT AEROSOL MASK) mis Indications: Chronic obstructive pulmonary disease,unspecified COPD type (CMS- HCC) 1 Unit by miscellaneous route 4 (four) times a day. 1 each 03/12/2023 Activenystatin 100 unt/mg topical powder (20 sources)Polyene AntifungalStart: 01-01-2024 End: 27-46-1981qmafigjy (MYCOSTATIN) powder Indications: Candidal dermatitis Apply 1 Application topically in the morning and 1 Application at noon and 1 Application in the evening and 1 Application before bedtime.60 g 05/08/2025 ActiverOPINIRole 0.5 mg oral tablet (20 sources)Nonergot Dopamine AgonistStart: 10-09-2022 End: 85-44-7060nmxx 1 tablet by mouth once dailyrOPINIRole (REQUIP) 0.5 mg tablet Indications: Restless legs TAKE 1 TABLET BY MOUTH NIGHTLY 90 tablet 1 02/09/2025 Activesulfamethoxazole 800 mg / trimethoprim 160 mg oral tablet (1 source)Dihydrofolate Reductase Inhibitor Antibacterial, Sulfonamide AntimicrobialStart: 08-29-2024 End: 78-31-1064eckb 1 tablet by mouth once in the morningsulfamethoxazole- trimethoprim (BACTRIM DS) 800-160 mg per tablet Indications: E. coli UTI Take 1 tablet by mouth in the morning and 1 tablet before bedtime. Do all this for 5 days. 10 tablet 08/29/2024 09/03/2024 Activetolterodine tartrate 2 mg oral tablet (20 sources)Cholinergic Muscarinic AntagonistStart: 11-17-2024 End: 80-29-4207bvkx 1 tablet by mouth in the morning, then take 1 tablet by mouth at bedtimetolterodine (DETROL) 2 mg tablet Indications: Urinary urgency Take 1 tablet (2 mg total) by mouth in the morning and 1 tablet (2 mg total) before bedtime. 180 tablet 1 06/02/2025 ActiveStart: 12-26-2023 End: 57-51-3657sklc 1 capsule by mouth every twenty-four hours in the morning tolterodine LA (Detrol LA) 4 MG 24 hr capsule Take 4 mg by mouth in the morning. 12/26/2023 Activevitamin B12 (9 sources)Vitamin J33Dnrzshuzudnzzp (VITAMIN B 12 PO) ActiveCyanocobalamin (VITAMIN B 12 PO) Vitamin B 12 ActiveCyanocobalamin (VITAMIN B 12 PO) Vitamin B 12 0 Active Completed/Discontinued Medications MedicationDrug Class(es)DatesSig (Normalized)Sig (Original)amLODIPine 10 mg oral tablet (20 sources)Dihydropyridine Calcium Channel BlockerStart: 10-21-2024 End: 61-18-7778smiy 0.5 tablet by mouth once daily in the morningamLODIPine (NORVASC) 10 mg tablet Indications: Essential hypertension Take 0.5 tablets (5 mg total)by mouth every morning. 15 tablet 1 05/19/2025 07/06/2025 Discontinued Start: 11-14-2022 End: 49-33-7001jqex 1 tablet by mouth once dailyamLODIPine (Norvasc) 10 MG tablet Take 1 tablet by mouth Daily 11/14/2022 Activebrimonidine tartrate 1.5 mg/ml ophthalmic solution (18 sources)alpha-Adrenergic Agonist End: 76-58-7381qhma 1 drop(s) into the eye(s) three times dailybrimonidine (ALPHAGAN) 0.15 % ophthalmic solution Administer 1 drop to both eyes 3 (three) times a day. 02/20/2025 Discontinued (Discontinued by another clinician) End: 93-67-0615rskpjygakro (AlphaGAN P) 0.15 % ophthalmic solution Administer 1 drop into affected eye(s) in the morning and 1 drop at noon and 1 drop in the evening. 10/23/2024 Discontinued (Discontinued by another clinician)magnesium sulfate 1000 mg oral granules (8 sources)Start: 04-23-2025 End: 81-44-3607ifjwjyaea sulfate (EPSOM SALT) 100 % crystals Indications: Cellulitis of finger of right hand Apply1 Application topically in the morning and 1 Application in the evening. Apply before meals. 04/23/2025 06/05/2025 Discontinued (Therapy completed)28 actuat teriparatide 0.02 mg/actuat pen injector (20 sources)Parathyroid Hormone AnalogStart: 03-05-2024 End: 27-87-1413xznkpv 0.08 mL by subcutaneous injection in the morning teriparatide 20 mcg/dose (620mcg/2.48mL) injection Indications: Age-related osteoporosis without current pathological fracture Inject 0.08 mL (20 mcg total) under the skin in the morning. 2.48 mL 03/05/2024 02/20/2025 Discontinued (Therapy completed)Start: 34-38-2068zrymql 20 ug by subcutaneous injection in the morningteriparatide (Forteo) injection Inject 20 mcg under the skin in the morning. 04/02/2023 Active Problems Active Problems Problem ClassificationProblemDateDocumented DateEpisodic/ChronicAbdominal pain (3 sources)Pelvic and perineal pain; Translations: [PELVIC AND PERINEAL PAIN] Onset: 56-71-4501Jpvpgse obstructive pulmonary disease and bronchiectasis (20 sources)Chronic obstructive lung disease; Translations: [Chronic obstructive pulmonary disease, unspecified]Onset: 348340-58-6412MntkrzxIirpwey ulcer of skin (2 sources)Pressure ulcer of right buttock, stage 1; Translations: [Pressure ulcer, buttock]Onset: 673961-70-0866AruavgpVhuggcaz mellitus with complications (20 sources)Peripheral angiopathy due to diabetes mellitus; Translations: [Type 2 diabetes mellitus with diabetic peripheral angiopathy without gangrene]Onset: 502340-20-7842YbnhlooCeimvrhy mellitus without complication (2 sources)Type 2 diabetes mellitus without complications; Translations: [Diabetes mellitus]Onset: 43-88-8011GgtoqpsOafsvyljy of lipid metabolism (20 sources)Hyperlipidemia; Translations: [Hyperlipidemia, unspecified]Onset: 494213-23-8542OdsgnxkLcflosawb hypertension (20 sources)Essential hypertension; Translations: [Essential (primary) hypertension]Onset: 975715-65-0716PmiywubWlweiszh cause codes: Fall (1 source)Unspecified fall, initial encounter; Translations: [UNSPECIFIED FALL INITIAL ENCOUNTER]Onset: 19-77-9468Rjdebjahtzgcv and screening for infectious disease (2 sources)Patient encounter status; Translations: [Encounter for immunization] Onset: 361055-47-7850NloqcugfFwra disorders (20 sources)Recurrent major depressive episodes, mild ; Translations: [Major depressive disorder, recurrent, mild]Onset: 034297-60-2284VqlnxsyTopkxvt (5 sources)Onychomycosis due to dermatophyte ; Translations: [Tinea unguium] 21-55-2304ZtsamwtoMchzrebrgydb breast conditions (20 sources)Fibrocystic disease of breast; Translations: [Diffuse cystic mastopathy of unspecified breast]Onset: 190726-97-3806XlswbsjTypiq aftercare (1 source)group home (current) use of insulin; Translations: [ocean transportation intermediary (current) use of insulin]Onset: 60-42-6090OrscsmgkNrsmt hereditary and degenerative nervous system conditions (2 sources)Restless legs; Translations: [Restless legs syndrome]02-09-2025 ChronicOther hereditary and degenerative nervous system conditions (1 source)Restless legs syndrome; Translations: [Restless legs syndrome]Onset: 12-79-6174KsyzrizVadzz nutritional; endocrine; and metabolic disorders (20 sources)Morbid obesity; Translations: [Morbid (severe) obesity due to excess calories]Onset: 072579-22-0427MkitvmmAyefn nutritional; endocrine; and metabolic disorders (1 source)Morbid (severe) obesity due to excess calories; Translations: [Morbid (severe) obesity due to excess calories]Onset: 87-65-2468HnvwjwgZyxcd skin disorders (4 sources)Dystrophia unguium; Translations: [Nail dystrophy]27-59-1788Lpturawi Peripheral and visceral atherosclerosis (20 sources)Peripheral vascular disease; Translations: [Peripheral vascular disease, unspecified]Onset: 117659-98-3102DbxitiiNnelkrpn codes; unclassified (1 source)Bilateral lower leg edema; Translations: [Localized edema]10-21-2024 EpisodicRetinal detachments; defects; vascular occlusion; and retinopathy (20 sources)Age related macular degeneration; Translations: [Unspecified macular degeneration]Onset: 684226-09-6377WvdbrtfAfur and subcutaneous tissue infections (1 source)Cellulitis of finger of right hand; Translations: [Cellulitis of right finger]57-50-0566SxgenxydVapskcyuwnj injury; contusion (1 source)Contusion of lower back and pelvis, initial encounter; Translations: [CONTUSION LOWER BACK PELVIS INITIAL]Onset: 09-45-4172CumgrnfdMnoysqswnsvn (1 source)bed soresOnset: 60-79-9120Kisfuky tract infections (1 source)Urinary tract infection, site not specified; Translations: [Urinary tract infection, site not specified]Onset: 20-28-9938Ysfplfxa Past or Other Problems Problem ClassificationProblemDateDocumented DateEpisodic/ChronicGenitourinary symptoms and ill-defined conditions (20 sources)Retention of urine; Translations: [Retention of urine, unspecified] Onset: 123974-19-9337AfwzsotvLejw disorders (20 sources)Mood disordersOnset: 05-05-2024 Resolved: 106839-97-5247Bkzsukipqtg deficiencies (2 sources)Cobalamin deficiency; Translations: [Deficiency of other specified B group vitamins]Onset: 667349-39-4177WjcuiwpcOalqu diseases of veins and lymphatics (20 sources)Peripheral venous insufficiency; Translations: [Venous insufficiency (chronic) (peripheral)]Onset: 795404-13-3643EgbwgyieTtycz gastrointestinal disorders (20 sources)Oropharyngeal dysphagia; Translations: [Dysphagia, oropharyngeal phase]Onset: 031098-01-0988NhuokaxeQvdwm gastrointestinal disorders (1 source)Dysphagia, oropharyngeal phase; Translations: [Dysphagia, oropharyngeal phase]Onset: 25-83-6491TeukudnwMveyo upper respiratory infections (1 source)Acute upper respiratory infection, unspecified; Translations: [Acute upper respiratory infection, unspecified]Onset: 04-84-8924AhqaefqzByekebwrf (except that caused by tuberculosis or sexually transmitted disease) (20 sources)Pneumonia; Translations: [Pneumonia, unspecified organism]Onset: 06-21-2021 Resolved: 972866-28-6816ItwnwssfDqrpqjzi codes; unclassified (1 source)Localized edema; Translations: [Localized edema]Onset: 10-21-2024 EpisodicSpondylosis; intervertebral disc disorders; other back problems (20 sources)Degenerative lumbar spinal stenosis; Translations: [Spinal stenosis, lumbar region without neurogenic claudication]Onset: EpisodicUnclassified (20 sources)Onset: Viral infection (20 sources)COVID-19; Translations: [Pneumonia due to other virus not elsewhere classified]Onset: 07-23-2020 Resolved: 750875-86-6253Mxzextqo Results Test NameValueInterpretationReference RangeFacilityCOMPREHENSIVE METABOLIC PANEL on 79-20-1270Xbqxqey [Mass/Vol]4.3 g/dLNormal3.2-5.3[facility] Ambulatory PPGComment on above:Performed By: #### CMP #### [facility] ([facility]) [address] [place] [address] VIRALP [Catalytic activity/Vol]84 U/KIdunyb54-063XizJtjsmt [facility] Ambulatory PPGComment on above:Performed By: #### CMP #### [facility] ([facility]) [address] [place] [address] VIRALT [Catalytic activity/Vol]14 U/LNormal<=31PUniversity [facility] Ambulatory PPGComment on above:Performed By: #### CMP #### [facility] ([facility]) [address] [place] [address] VIRAnion gap [Moles/Vol]11 mmol/LNormal5-15[facility] Ambulatory PPGComment on above:Performed By: #### CMP #### [facility] ([facility]) [address] [place] [address] VIRAST [Catalytic activity/Vol]19 U/LNormal<=41[facility] Ambulatory PPGComment on above:Performed By: #### CMP #### [facility] ([facility]) [address] [place] [address] VIRBilirubin [Mass/Vol]0.4 mg/dLNormal0.3-1.2PUniversity [facility] Ambulatory PPGComment on above:Performed By: #### CMP #### [facility] ([facility]) [address] [place] [address] VIRCalcium [Mass/Vol]9.3 mg/dLNormal8.5-10.5PUniversity [facility] Ambulatory PPGComment on above:Performed By: #### CMP #### [facility] ([facility]) [address] [place] [address] VIRChloride [Moles/Vol]101 mmol/OVtgzhw08-215JmuRvlxug Hospital Ambulatory PPGComment on above:Performed By: #### CMP #### [facility] ([facility]) [address] [place] [address] VIRCO2 [Moles/Vol]30 mmol/UNedfli47-28DkbSjsyxy Hospital Ambulatory PPGComment on above:Performed By: #### CMP #### [facility] ([facility]) [address] [place] [address] VIRCreatinine [Mass/Vol]0.65 mg/dLNormal0.40-1.00[facility] Ambulatory PPGComment on above:Result Comment: METHOD TRACEABLE TO IDMS STANDARDPerformed By: #### CMP #### [facility] ([facility]) [address] [place] [address] VIRGFR/1.73 sq M.predicted among non-blacks MDRD (S/P/Bld) [Vol rate/Area]87 mL/min/{1.73_m2}Normal>=60ProKind[facility] Ambulatory PPGComment on above:Result Comment: Reported eGFR is based on the CKD-EPI 2020 equation that does not use a race coefficient.Performed By: #### CMP #### [facility] ([facility]) [address] [place] [address] VIRGlucose [Mass/Vol]76 mg/tQJwznyn51-48BumXanqnk [facility] Ambulatory PPGComment on above:Performed By: #### CMP #### [facility] ([facility]) [address] [place] [address] VIRPotassium [Moles/Vol]4.5 mmol/LNormal3.5-5.0[facility] Ambulatory PPGComment on above:Performed By: #### CMP #### [facility] ([facility]) [address] [place] [address] VIRProtein [Mass/Vol]7.7 g/dLNormal6.0-8.0[facility] Ambulatory PPGComment on above:Performed By: #### CMP #### [facility] ([facility]) [address] [address] [place] [address] VIRSodium [Moles/Vol]142 mmol/DOefdvd233-501FzwJkjkhc Hospital Ambulatory PPGComment on above:Performed By: #### CMP #### [facility] ([facility]) [address] [place] [address] VIRUrea nitrogen [Mass/Vol]15 mg/dLNormal5-27[facility] Ambulatory PPGComment on above:Performed By: #### CMP #### [facility] ([facility]) [address] [place] [address] VIRHEMOGLOBIN A1Con 67-04-5380Viuibij [Mass/Vol]160 mg/dLNormal [facility] Ambulatory PPGComment on above:Performed By: #### HA1C #### [facility] ([facility]) [address] [place] [address] KOOWbK7y (Bld) [Mass fraction]7.2 %High4.4-5.6[facility] Ambulatory PPGComment on above:Result Comment: ADA Guidelines Result HgbA1c Normal : less than 5.7 % Prediabetes : 5.7 % to 6.4 % Diabetes : > 6.4 % Use with caution in patients with abnormal hemoglobin variants as the half-life of red blood cells and in vivo glycation rates are affected.Performed By: #### HA1C #### [facility] ([facility]) [address] [place] [address] VIRLIPID PROFILEon 45-64-4954Tnrmjpjzybp [Mass/Vol]103 mg/dLLow 150-200[facility] Ambulatory PPGComment on above:Performed By: #### LIPR #### [facility] ([facility]) [address] [address] VIRCholesterol in HDL [Mass/Vol]44 mg/dLNormal>39[facility] Ambulatory PPGComment on above:Result Comment: HDL <40 mg/dL - High Risk HDL > or = 40mg/dL- Desirable HDL >60 mg/dL - Negative RiskPerformed By: #### LIPR #### [facility] ([facility]) [address] [place] [address] VIRCholesterol in LDL [Mass/Vol]33 mg/dLNormal<130[facility] Ambulatory PPGComment on above:Result Comment: LDL <100 mg/dL - Desirable LDL >160 mg/dL - High RiskPerformed By: #### LIPR #### [facility] ([facility]) [address] [place] [address] VIRCHOLESTEROL:HDL2.3Jqbzxz7.0-5.0[facility] Ambulatory PPGComment on above:Performed By: #### LIPR #### [facility] ([facility]) [address] [place] [address] VIRTriglyceride [Mass/Vol]132 mg/kVDyufgq03-901ZoyAgejpk Hospital Ambulatory PPGComment on above:Performed By: #### LIPR #### [facility] ([facility]) [address] [place] [address] VIRVERY LOW GZJMMAJMUVX16 mg/dLNormal0-30[facility] Ambulatory PPGComment on above:Performed By: #### LIPR #### [facility] ([facility]) [address] [place] [address] VIRCOMPREHENSIVE METABOLIC PANELon 30-54-8892Axlidob [Mass/Vol] 4.3 g/dLNormal3.2-5.3PUniversity [facility]als [facility] Ambulatory PPGComment on above:Performed By: #### CMP #### [facility] ([facility]) [address] [place] [address] VIRALP [Catalytic activity/Vol]101 U/BTifxyx17-411NvnGizneh Hospital Ambulatory PPGComment on above:Performed By: #### CMP #### [facility] ([facility]) [address] [place] [address] VIRALT [Catalytic activity/Vol]14 U/LNormal<=31PUniversity [facility]als [facility] Ambulatory PPGComment on above:Performed By: #### CMP #### [facility] ([facility]) [address] [place] [address] VIRAnion gap [Moles/Vol]9 mmol/LNormal5-15[facility] Ambulatory PPGComment on above:Performed By: #### CMP #### [facility] ([facility]) [address] [place] [address] VIRAST [Catalytic activity/Vol]17 U/LNormal<=41[facility] Ambulatory PPGComment on above:Performed By: #### CMP #### [facility] ([facility]) [address] [place] [address] VIRBilirubin [Mass/Vol]0.4 mg/dLNormal0.3-1.2PUniversity [facility]als [facility] Ambulatory PPGComment on above:Performed By: #### CMP #### [facility] ([facility]) [address] [place] [address] VIRCalcium [Mass/Vol]9.6 mg/dLNormal8.5-10.5PUniversity [facility]als [facility] Ambulatory PPGComment on above:Performed By: #### CMP #### [facility] ([facility]) [address] [place] [address] VIRChloride [Moles/Vol]101 mmol/PAlhthm34-208JnuDemotk Hospital Ambulatory PPGComment on above:Performed By: #### CMP #### [facility] ([facility]) [address] [place] [address] VIRCO2 [Moles/Vol]31 mmol/TAixpif87-02XwgRvstbt Hospital Ambulatory PPGComment on above:Performed By: #### CMP #### [facility] ([facility]) [address] [place] [address] VIRCreatinine [Mass/Vol]0.63 mg/dLNormal0.40-1.00ProKindred Healthcare Ambulatory PPGComment on above:Result Comment: METHOD TRACEABLE TO IDOK STANDARDPerformed By: #### CMP #### [facility] ([facility]) [address] [place] [address] VIRGFR/1.73 sq M.predicted among non-blacks MDRD (S/P/Bld) [Vol rate/Area]87 mL/min/{1.73_m2}Normal>=60ProKindred Healthcare Ambulatory PPGComment on above:Result Comment: Reported eGFR is based on the CKD-EPI 2020 equation that does not use a race coefficient.Performed By: #### CMP #### [facility] ([facility]) [address] [place] [address] VIRGlucose [Mass/Vol]145 mg/iCEbfb96-82ThoEwtddi Hospital Ambulatory PPGComment on above:Performed By: #### CMP #### [facility] ([facility]) [address] [place] [address] VIRPotassium [Moles/Vol]4.4 mmol/LNormal3.5-5.0[facility] Ambulatory PPGComment on above:Performed By: #### CMP #### [facility] ([facility]) [address] [place] [address] VIRProtein [Mass/Vol]7.7 g/dLNormal6.0-8.0[facility] Ambulatory PPGComment on above:Performed By: #### CMP #### [facility] ([facility]) [address] [place] [address] VIRSodium [Moles/Vol]141 mmol/HEsugku784-000CxmCwhpro Hospital Ambulatory PPGComment on above:Performed By: #### CMP #### [facility] ([facility]) [address] [place] [address] VIRUrea nitrogen [Mass/Vol]12 mg/dLNormal5-27[facility] Ambulatory PPGComment on above:Performed By: #### CMP #### [facility] ([facility]) [address] [place] [address] VIRComprehensive metabolic panelon 91-59-9306Mezqjch [Mass/Vol] 4.3 g/dL3.2 - 5.3 g/dLProMedica Health SystemALP [Catalytic activity/Vol]101 U/L 39 - 130 U/LProMedica Health SystemALT No additional P-5'-P [Catalytic activity/Vol]14 U/LNINF - 31 U/LProMedica Health SystemAnion gap [Moles/Vol]9 mmol/L5 - 15 mmol/LProMedica Health SystemAST [Catalytic activity/Vol]17 U/LNINF - 41 U/LProMedica Health SystemBilirubin [Mass/Vol]0.4 mg/dL0.3 - 1.2 mg/dL [facility] SystemCalcium [Mass/Vol]9.6 mg/dL8.5 - 10.5 mg/dLSelect Medical Specialty Hospital - Cincinnati NorthChloride [Moles/Vol]101 mmol/L98 - 109 mmol/[facility] SystemCO2 [Moles/Vol]31 mmol/L22 - 32 mmol/[facility] SystemCreatinine [Mass/Vol]0.63 mg/dL0.40 - 1.00 mg/dLSelect Medical Specialty Hospital - [facility] NorthComment on above: METHOD TRACEABLE TO IDOK STANDARDEGFR Non-Race Yvjagfndr73- LifePoint HealthComment on above:Reported eGFR is based on the CKD-EPI 2020 equation that does not use a race coefficient. Glucose [Mass/Vol]145 mg/jNIkjr34 - 99 mg/dLSelect Medical Specialty [facility] Interpretation and review of laboratory resultsAbnoCritical access hospital Potassium [Moles/Vol]4.4 mmol/L3.5 - 5.0 mmol/[facility] SystemProtein [Mass/Vol]7.7 g/dL6.0 - 8.0 g/dLECU Health Beaufort Hospitalodium [Moles/Vol]141 mmol/L134 - 146 mmol/[facility] SystemUrea nitrogen [Mass/Vol]12 mg/dL5 - 27 mg/dLHaven Behavioral Hospital of PhiladelphiaHEMOGLOBIN A1Con 47-38-1631Lldmwcw [Mass/Vol]163 mg/dLNoVictor Valley Hospital Ambulatory PPG Comment on above:Performed By: #### HA1C #### [facility] ([facility]) [address] [place] [address] YKBBlT7y (Bld) [Mass fraction]7.3 %High4.4-5.6[facility] Ambulatory PPGComment on above:Result Comment: ADA Guidelines Result HgbA1c Normal : less than 5.7 % Prediabetes : 5.7 % to 6.4 % Diabetes : > 6.4 % Use with caution in patients with abnormal hemoglobin variants as the half-life of red blood cells and in vivo glycation rates are affected.Performed By: #### HA1C #### [facility] ([facility]) [address] [place] [address] VIRVITAMIN B12on 88-37-5502Qthztsiwb (Vitamin B12) [Mass/Vol] 695 pg/sOFdibyj875-587UyqQieccuPiedmont Columbus Regional [facility] Northside PPGComment on above: Performed By: #### B12 #### [facility] ([facility]) [address] [place] [address] VIRVitamin B12on 47-42-1587Ecxmevfwy (Vitamin B12) [Mass/Vol] 695 pg/mL180 - 914 pg/mLSelect Medical Specialty Hospital - [facility] NorthInterpretation and review of laboratory resultsNormalSelect Medical Specialty Hospital [facility] NorthProLutheran HospitalCBC AND AUTO DIFFon 43-54-5456GFZGPOPC BASOPHIL0.0 X10E9/LNormal0.0-0.2PMagruder Memorial Hospital HospitalComment on above:Performed By: #### SRAVANTHI, CBCA, CMP #### [facility] ([id number]) [address] [place], [place] [address]JEIAATWZ NEUTROPHIL4.9 X10E9/LNormal1.5-6.6ProKettering Health Washington TownshipComment on above:Performed By: #### SRAVANTHI, CBCA, CMP #### [facility] ([id number]) [address], [address] [place], [place] [address]Dlkefieot/100 WBC (Bld)0.6 %NormalProKettering Health Washington Township Comment on above:Performed By: #### SRAVANTHI, CBCA, CMP #### [facility] ([id number]) [address] [address] [place], [place] [address]Aisxblaswly (Bld) [#/Vol]0.1 10*3/uLNormal0.0-0.4ProKettering Health Washington TownshipComment on above:Performed By: #### HACrystal, CBCA, CMP #### [facility] ([id number]) [address], [address] [place], [place] [address]Tyclhuxortt/100 WBC (Bld)1.1 %NormalAvita Health System Comment on above:Performed By: #### HA1C, CBCA, CMP #### [facility] ([id number]) [address] [place], [place] [address]Zbmyaixqmfb distribution width (RBC) [Ratio]15.6 %High11.5-15.0 ProMedica White HospitalComment on above:Performed By: #### SRAVANTHI, CBCA, CMP #### [facility] ([id number]) [address], [address] [place], [place] [address]Fphyqwbkfx (Bld) [Volume fraction]36.8 %Mkyhrb79-02WzoErwareKettering Health Washington TownshipComment on above:Performed By: #### HACrystal, CBCA, CMP #### [facility] ([id number]) [address] [place], [place] [address]Jvjpoxduuq (Bld) [Mass/Vol]12.5 g/eAFtxxtp84.7-15.5PSt. Elizabeth HospitalComment on above:Performed By: #### HA1C, CBCA, CMP #### [facility] ([id number]) [address], [address] [place], [place] [address]Uewcohgcbxt (Bld) [#/Vol]1.6 10*3/uLNormal1.0-3.5PSt. Elizabeth HospitalComment on above:Performed By: #### HA1C, CBCA, CMP #### [facility] ([id number]) [address] [place], [place] [address]Fyckayzeglq/100 WBC (Bld)23.2 %NormalAvita Health System Comment on above:Performed By: #### HA1C, CBCA, CMP #### [facility] ([id number]) [address], [address] [place], [place] [address]RIK (RBC) [Entitic mass]30.3 zsMvvugt25-44VrbUdbcxr [place] HospitalComment on above:Performed By: #### HA1C, CBCA, CMP #### [facility] ([id number]) [address], [address] [place], [place] [address]UOOR (RBC) [Mass/Vol]33.9 g/jGCvtord87-27YmqHrfvvx [place] HospitalComment on above:Performed By: #### HA1C, CBCA, CMP #### [facility] ([id number]) [address], [address] [place], [place] [address]GUI (RBC) [Entitic vol]89 vHYraqbp89-097ShxOerfsa [place] HospitalComment on above:Performed By: #### HACrystal, CBCA, CMP #### [facility] ([id number]) [address], [address] [place], [place] [address]Yegrcqhdh (Bld) [#/Vol]0.2 10*3/uLNormal0-0.9ProMercy Health [facility] HospitalComment on above:Performed By: #### HA1C, CBCA, CMP #### [facility] ([id number]) [address], [address] [place], [place] [address]Iwqatrrks/100 WBC (Bld)3.6 %NormalAvita Health System Comment on above:Performed By: #### HA1C, CBCA, CMP #### [facility] ([id number]) [address], [address] [place], [place] [address]Flsyvdlopjq/100 WBC (Bld)71.5 %NormalAvita Health System Comment on above:Performed By: #### HA1C, CBCA, CMP #### [facility] ([id number]) [address], [address] [place], [place] [address]Uyfbfftm mean volume (Bld) [Entitic vol]7.0 fLNormal7-12 ProMsoutheast health medical centera [place] HospitalComment on above:Performed By: #### VINOD FISHMAN, CMP #### [facility] ([id number]) [address], [address] [place], [place] [address]Rcjtnlqep (Bld) [#/Vol]330 10*3/nOZvsogw752-133BecGjlrng [place] HospitalComment on above:Performed By: #### VINOD FISHMAN, CMP #### [facility] ([id number]) [address], [address] [place], [place] [address]NQG COUNT4.13 X10E12/LNormal3.80-5.20ProMercy Health St. [facility] Hospital Comment on above:Performed By: #### VINOD FISHMAN, CMP #### [facility] ([id number]) [address] [place], [place] [address]LGY (Bld) [#/Vol]6.8 10*3/uLNormal4.0-11.0ProAvita Health System Ontario Hospitalca [place] HospitalComment on above:Performed By: #### VINOD FISHMAN, CMP #### [facility] ([id number]) [address], [address] [place], [place] [address]XVEWFEEVSTORX METABOLIC PANELon 84-58-9336Zxnbrxh [Mass/Vol]4.3 g/dLNormal3.2-5.3ProMedica [place] HospitalComment on above:Performed By: #### SRAVANTHI CBCJamey, CMP #### [facility] ([id number]) [address], [address] [place], [place] [address]NOS [Catalytic activity/Vol]92 U/RBrsduk44-368GbaYrytfs [place] HospitalComment on above:Performed By: #### SRAVANTHI CBCJamey, CMP #### [facility] ([id number]) [address] [place], [place] [address]KVJ [Catalytic activity/Vol]14 U/LNormal0-31PMagruder Memorial Hospital HospitalComment on above:Performed By: ###VINOD ANDERSON, CMP #### [facility] ([id number]) [address] [place], [place] [address]Yeddh gap [Moles/Vol]9 mmol/LNormal5-15ProMercy Health St. [facility] Hospital Comment on above:Performed By: ###VINOD ANDERSON, CMP #### [facility] ([id number]) [address] [place], [place] [address]XNQ [Catalytic activity/Vol]16 U/LNormal0-41ProMer[facility] Health St[facility] HospitalComment on above:Performed By: #### VINOD FISHMAN, CMP #### [facility] ([id number]) [address] [place], [place] [address]Xevulyxrk [Mass/Vol]0.3 mg/dLNormal0.3-1.2PMagruder Memorial Hospital HospitalComment on above:Performed By: ###VINOD ANDERSON, CMP #### [facility] ([id number]) [address] [place], [place] [address]Tnvtbme [Mass/Vol]9.1 mg/dLNormal8.5-10.5PMagruder Memorial Hospital HospitalComment on above:Performed By: ###VINOD ANDERSON, CMP #### [facility] ([id number]) [address] [place], [place] [address]Awrfmenh [Moles/Vol]103 mmol/GXzfenq18-241HvzXitbdr [place] HospitalComment on above:Performed By: ###VINOD ANDERSON, CMP #### [facility] ([id number]) [address] [place], [place] [address]KM9 [Moles/Vol]30 mmol/RVmowcq39-56TxfWgsctx [facility] Comment on above:Performed By: #### VINOD FISHMAN, CMP #### [facility] ([id number]) [address] [address] [place], [place] [address]Ayicpjvdvx [Mass/Vol]0.64 mg/dLNormal0.40-1.00ProKettering Health Washington TownshipComment on above:Result Comment: METHOD TRACEABLE TO IDMS STANDARD Performed By: #### VINOD FISHMAN, CMP #### [facility] ([id number]) [address] [place], [place] [address]PAV/1.73 sq M.predicted among non-blacks MDRD (S/P/Bld) [Vol rate/Area]87 mL/min/{1.73_m2}Normal>59ProKettering Health Washington TownshipComment on above: Result Comment: Reported eGFR is based on the CKD-EPI 2020 equation that does not use a race coefficient.Performed By: #### VINOD FISHMAN, CMP #### [facility] ([id number]) [address] [address] [place], [place] [address]Esamarr [Mass/Vol]104 mg/wMLrnu40-95GwcKgykyuKettering Health Washington Township Comment on above:Performed By: #### VINOD FISHMAN, CMP #### [facility] ([id number]) [address] [address] [place] [address]Hztedycuc [Moles/Vol]4.4 mmol/LNormal3.5-5.0ProKettering Health Washington TownshipComment on above:Performed By: #### VINOD FISHMAN, CMP #### [facility] ([id number]) [address] [address] [place], [place] [address]Zoesqdh [Mass/Vol]7.5 g/dLNormal6.0-8.0[facility] Comment on above:Performed By: #### VINOD FISHMAN, CMP #### [facility] ([id number]) [address] [place], [place] [address]Oupfzu [Moles/Vol]142 mmol/HVcoxlk919-637ZorOgakgj [place] HospitalComment on above:Performed By: #### VINOD FISHMAN, CMP #### [facility] ([id number]) [address] [facility] [address] [place], [place] [address]Fjqk nitrogen [Mass/Vol]18 mg/dLNormal5-27ProKettering Health Washington TownshipComment on above:Performed By: #### SRAVANTHI CBCJamey, CMP #### [facility] ([id number]) [address] [address]HLJ A1C (GLYCO-HGB)on 40-50-8980Urswuxe [Mass/Vol]146 mg/dL NormalProKettering Health Washington TownshipComment on above:Performed By: #### VINOD FISHMAN, CMP #### [facility] ([id number]) [address] [address]AmE9z (Bld) [Mass fraction]6.7 %High4.4-5.6ProKettering Health Washington TownshipComment on above:Result Comment: NOTE ADA Guidelines Result HgbA1c Normal : less than 5.7 % Prediabetes : 5.7 % to 6.4 % Diabetes : > 6.4 % Use with caution in patients with abnormal hemoglobin variants as the half-life of red blood cells and in vivo glycation rates are affected.Performed By: #### SRAVANTHI CBCA, CMP #### [facility] ([id number]) [address] [address]HRMZURGKZIFK - ALBUMIN:CREATININE URINE RATIOon 10-21-2024 ALB/CREAT RATIONOT CALCULATEDNormal0.0-30.0Avita Health SystemComment on above:Result Comment: Result for Albumin/Creatinine Ratio cannot be reliably calculated because urine albumin and or urine creatinine is below the detection limit of the assay.Performed By: #### ESTELITA #### [facility] ([id number]) [address] [place], [place] [address]Uaeylyj DL <= 20 mg/L (U) [Mass/Vol]mg/dLNormal0.0-1.9ProKettering Health Washington TownshipComment on above:Performed By: #### NATIVIDADCHARIS #### [facility] ([id number]) [address] [facility] [facility] [place], [place] [address]QGJUU CREAT18.21 mg/dLNormalProMercy Health St. [facility] HospitalComment on above:Performed By: #### ESTELITA #### [facility] ([id number]) [address] [facility] [facility] [place], [place] [address]Swvuo Cultureon 10-94-1861Nuqtniql identified Cx Nom (U) ORGANISM: Escherichia coli (O:ESCCOL) [place] Count >100,000 Aerobic HARESH Charge ([id number]) SUSCEPTIBILITY ORGANISM: O:ESCCOL ANTIBIOTIC INTERPRETATION HARESH Amikacin S <16 Amoxacillin/K Clavulanate S <8 Ampicillin S <8 Ampicillin/Sulbactam S <4 Aztreonam S <4 Cefazolin S <2 Cefepime S <2 Ceftazidime S <1 Ceftazidime/Avibactam S <4 Ceftolozane/Tazobactam S <2 Ceftriaxone S <1 Cefuroxime S <4 Ciprofloxacin S <0.25 Ertapenem S <0.5 Gentamicin S <2 Levofloxacin S <0.5 Meropenem S <1 Meropenem/Vaborbactam S <2 Nitrofurantoin S <32 Piperacillin/Tazobactam S <8 Tetracycline S <4 Tigecycline S <2 Tobramycin S <2 Trimethoprim/Sulfamethoxazole S <0.5 S = SUSCEPTIBLE I = INTERMEDIATE R = RESISTANT BLANK = DATA NOT AVAILABLE, OR DRUG NOT ADVISABLE OR TESTED R* = RESISTANCE DUE TO EXTENDED SPECTRUM BETA-LACTAMASES ESBL = EXTENDED SPECTRUM BETA-LACTAMASE TFG = THYMIDINE-DEPENDENT STRAIN SHVI = BETA-LACTAMASE POSITIVE IB = INDUCIBLE BETA-LACTAMASE. APPEARS IN PLACE OF 'S' WITH SPECIES KNOWN TO POSSESS INDUCIBLE BETA-LACTAMASES. POTENTIALLY THEY MAY BECOME RESISTANT TO ALL B-LACTAM DRUGS. PERFORMED BY: [address] [id number] PATHOLOGIST [employer]ER MANAV DOUGLASS M.D.[facility] Physician GroupComment on above: Performed By: #### CUU #### [facility] [address] [place] [address] USAURINALYSISon [id number] Ql (U)NegativeNormalNEG [facility]cl[facility] Medical CenterComment on above:Performed By: #### UA #### [facility] ([id number]) [address] [place] [address] [id number]/HGBSMALLAbnormalNEGProCovenant Medical CenterComment on above:Performed By: #### UA #### [facility] ([id number]) [address] [place] [address] [id number] (U)YELLOWNormalYELLOWAkron Children's HospitalComment on above:Performed By: #### UA #### [facility] ([id number]) [address] [place] [address] [id number] Ql (U)NegativeNormalNEGAkron Children's Hospital Comment on above:Performed By: #### UA #### [facility] ([id number]) [address] [place] [address] [id number] Ql (U)NegativeNormalNEGAkron Children's Hospital Comment on above:Performed By: #### UA #### [facility] ([id number]) [address] [place] [address] [id number] esterase Test strip Ql (U)SMALLAbnormalNEGProCovenant Medical CenterComment on above:Performed By: #### UA #### [facility] ([id number]) [address] [place] [address] [id number] Ql (U)PositiveAbnormalNEGAkron Children's Hospital Comment on above:Performed By: #### UA #### [facility] ([id number]) [address] [place] [address] [id number] (U)6.0 [pH]Normal5.0-8.5PUniversity Hospitals Portage Medical CenterComment on above:Performed By: #### UA #### [facility] ([id number]) [address] [place] [address] [id number] Ql (U)NegativeNormalNEGAkron Children's Hospital Comment on above:Performed By: #### UA #### [facility] ([id number]) [address] [place] [address] [id number].B.CELLS3 /hpfNormal0-5PUniversity Hospitals Portage Medical CenterComment on above:Performed By: #### UA #### [facility] ([id number]) [address] [place] [address] 30513Utonoatf gravity (U) [Rel density]1.473Fcapzu3.003-1.035 [facility]cla Medical CenterComment on above:Performed By: #### UA #### [facility] ([id number]) [address] [place] [address] 00985KDVMTVRE EPITHELIUM1 /hpfNormal0-5PUniversity [facility]als [facility] Comment on above:Performed By: #### UA #### [facility] ([id number]) [address] [place] [address] 38608QOOOHTULXWUEKNjrflnisUHIEEAqeIueocf [facility]rem[facility] HospitalComment on above:Performed By: #### UA #### [facility] ([id number]) [address] [place] [address] 74710Xtnncsreph dipstick W Reflex Microscopic panel (U)URINE RECEIVED WITHOUT PRESERVATIVE-DELAYS IN TRANSPORT MAY AFFECT RESULTS.INTERPRET WITH CAUTION AND CLINICAL CORRELATION IS RECOMMENDED.NormalProCovenant Medical CenterComment on above:Performed By: #### UA #### [facility] ([id number]) [address] [place] [address] 25305Rjroxylmhlxp Qn (U)0.2 {Jakob'U}/dLNormal<1.1PUniversity Hospitals Portage Medical CenterComment on above:Performed By: #### UA #### [facility] ([id number]) [address] [place] [address] 37577T.B.CELLS15 /hpfHigh0-5PUniversity Hospitals Portage Medical CenterComment on above:Performed By: #### UA #### [facility] ([id number]) [address] [place] [address] 00117RQRJW CULTUREon 84-58-8885Jtjcywih identified Cx Nom (U)CULTURE RESULTS >100,000 ORGANISMS/mL ESCHERICHIA COLI 10,000 to 50,000 ORGANISMS/mL NORMAL URO GENITAL RHETT [ S = SUSCEPTIBLE R = RESISTANT I = INTERMEDIATE S-DO = Susceptible-dose dependent NS = Non-suscceptible NO = No Interpretation ] Organism: ESCHERICHIA COLI Antibiotic Interpretation HARESH Status AMPICILLIN S 4 F AMP/SULBACTAM S <=2/1 F CEFAZOLIN S <=4 F CEFTRIAXONE S <=0.25 F CIPROFLOXACIN S <=0.25 F GENTAMICIN S <=1 F LEVOFLOXACIN S <=0.12 F NITROFURANTOIN S <=16 F PIPERACIL/TAZOBACTAM S <=4 F TOBRAMYCIN S <=1 F TRIMETH/SULFAMETHOXAZOLE S <=/19 FSusceptibleProCovenant Medical CenterComment on above:Performed By: #### 630-4 #### [facility] ([id number]) [address], [address] [place], [place] [address]QEDSOEXCLIKZR METABOLIC PANELon 29-09-1819Ncbfdel [Mass/Vol]4.2 g/dLNormal3.2-5.3[facility] [place] HospitalComment on above:Performed By: #### SRAVANTHI RIOS, 00810-3 #### [facility] ([id number]) [address], [address] [place], [place] [address]RKJ [Catalytic activity/Vol]103 U/BQqjhcr29-291OlaKcjcdb [place] HospitalComment on above:Performed By: #### SRAVANTHI RIOS, 33967-8 #### [facility] ([id number]) [address], [address] [place], [place] [address]UAL [Catalytic activity/Vol]14 U/LNormal0-31[facility] [place] HospitalComment on above:Performed By: #### SRAVANTHI RIOS, 33545-9 #### [facility] ([id number]) [address], [address] [place], [place] [address]Bfxpz gap [Moles/Vol]11 mmol/LNormal5-15[facility] [place] HospitalComment on above:Performed By: #### SRAVANTHI RIOS, 10685-2 #### [facility] ([id number]) [address], [address] [place], [place] [address]GAQ [Catalytic activity/Vol]16 U/LNormal0-41[facility] [place] HospitalComment on above:Performed By: #### SRAVANTHI RIOS, 15940-5 #### [facility] ([id number]) [address], [address] [place], [place] [address]Ssaetyaiy [Mass/Vol]0.3 mg/dLNormal0.3-1.2Pro[facility] [place] HospitalComment on above:Performed By: #### SRAVANTHI RIOS, 40714-1 #### [facility] ([id number]) [address], [address] [place], [place] [address]Pfwgzvn [Mass/Vol]9.3 mg/dLNormal8.5-10.5Pro[facility] [place] HospitalComment on above:Performed By: #### SRAVANTHI RIOS, 88587-1 #### [facility] ([id number]) [address], [address] [place], [place] [address]Zrmhsdnt [Moles/Vol]102 mmol/UUpebdf88-628NozDaeqta [place] HospitalComment on above:Performed By: #### SRAVANTHI RIOS, 35868-6 #### [facility] ([id number]) [address], [address] [place], [place] [address]WM6 [Moles/Vol]28 mmol/CIqtoxp53-39RpbYrlxwdSt. Elizabeth Hospital Comment on above:Performed By: #### SRAVANTHI RIOS, 33198-1 #### [facility] ([id number]) [address], [address] [place], [place] [address]Waicmumdzp [Mass/Vol]0.65 mg/dLNormal0.40-1.00ProKettering Health Washington TownshipComment on above:Result Comment: METHOD TRACEABLE TO IDMS STANDARD Performed By: #### SRAVANTHI RIOS, 45617-5 #### [facility] ([id number]) [address], [address] [place], [place] [address]FCS/1.73 sq M.predicted among non-blacks MDRD (S/P/Bld) [Vol rate/Area]87 mL/min/{1.73_m2}Normal>59ProKettering Health Washington TownshipComment on above: Result Comment: Reported eGFR is based on the CKD-EPI 2020 equation that does not use a race coefficient.Performed By: #### SRAVANTHI RIOS, 76552-9 #### [facility] ([id number]) [address], [address] [place], [place] [address]Mladjrh [Mass/Vol]79 mg/eKTuuqzb17-34TeoOauugnAvita Health System Comment on above:Performed By: #### SRAVANTHI RIOS, 60214-2 #### [facility] ([id number]) [address], [address] [place], [place] [address]Xkqwmnatr [Moles/Vol]4.3 mmol/LNormal3.5-5.0ProKettering Health Washington TownshipComment on above:Performed By: #### SRAVANTHI RIOS, 53336-1 #### [facility] ([id number]) [address], [address] [place], [place] [address]Ypnppwo [Mass/Vol]7.7 g/dLNormal6.0-8.0[facility] Comment on above:Performed By: #### SRAVANTHI RIOS, 52607-7 #### [facility] ([id number]) [address], [address] [place], [place] [address]Coaqdh [Moles/Vol]141 mmol/SAsvyjy662-605CgiLaeoat [place] HospitalComment on above:Performed By: #### SRAVANTHI RIOS, 43948-2 #### [facility] ([id number]) [address], [address] [place], [place] [address]Tbtg nitrogen [Mass/Vol]21 mg/dLNormal5-27ProMer[facility] HospitalComment on above:Performed By: #### SRAVANTHI RIOS, 87729-0 #### [facility] ([id number]) [address], [address] [place], [place] [address]BNU A1C (GLYCO-HGB)on 15-11-8035Qrnnffq [Mass/Vol]137 mg/dL NormalProMercy Health St. [facility] HospitalComment on above:Performed By: #### SRAVANTHI RIOS, 44745-5 #### [facility] ([id number]) [address], [address] [place], [place] [address]XoE4p (Bld) [Mass fraction]6.4 %High4.4-5.6ProMercy Health St. [facility] HospitalComment on above:Result Comment: NOTE ADA Guidelines Result HgbA1c Normal : less than 5.7 % Prediabetes : 5.7 % to 6.4 % Diabetes : > 6.4 % Use with caution in patients with abnormal hemoglobin variants as the half-life of red blood cells and in vivo glycation rates are affected.Performed By: #### SRAVANTHI RIOS 83299-5 #### [facility] ([id number]) [address], [address] [place], [place] [address]Ntcli 1996 panelon 07-20-1554Hljqqkfhzto [Mass/Vol]96 mg/dLLow 150-200ProMercy Health [facility] HospitalComment on above:Performed By: #### SRAVNATHI RIOS 48917-5 #### [facility] ([id number]) [address] [place], [place] [address]Oononoguedt in HDL [Mass/Vol]38 mg/dLLow>39ProKettering Health Washington TownshipComment on above:Result Comment: HDL <40 mg/dL - High Risk HDL > or = 40mg/dL- Desirable HDL >60 mg/dL - Negative Risk Performed By: #### SRAVANTHI RIOS, 29713-4 #### [facility] ([id number]) [address] [place], [place] [address]Pufuhvbbymp in LDL [Mass/Vol]27 mg/dLNormal<130ProMer[facility] St[facility] HospitalComment on above:Result Comment: LDL <100 mg/dL - Desirable LDL >160 mg/dL - High Risk Performed By: #### SRAVANTHI RIOS, 82144-9 #### [facility] ([id number]) [address] [place], [place] [address]Ykjbzleosfi in VLDL [Mass/Vol]31 mg/dLHigh0-30[facility] [place] HospitalComment on above:Performed By: #### SRAVANTHI RIOS, 86840-2 #### [facility] ([id number]) [address], [address] [place], [place] [address]LTXYPTVVYBZ:HDL2.6Uyuped2.0-5.0[facility] [place] HospitalComment on above:Performed By: #### SRAVANTHI RIOS, 19558-3 #### [facility] ([id number]) [address], [address] [place], [place] [address]Fenvgmslnydi [Mass/Vol]153 mg/gDHbix76-177XisYikwwg [place] HospitalComment on above:Performed By: #### SRAVANTHI RIOS, 53195-1 #### [facility] ([id number]) [address] [facility], [address] [place], [place] [address]KYBUMGGJJNFTN METABOLIC PANELon 11-08-5067Kpdzmlj [Mass/Vol]4.0 g/dLNormal3.2-5.3[facility] [place] HospitalComment on above:Performed By: #### SRAVANTHI, CMP #### [facility] ([id number]) [address] [place], [place] [address]ZJM [Catalytic activity/Vol]118 U/CTumvpj57-400TkxKabxgo [place] HospitalComment on above:Performed By: #### SRAVANTHI, CMP #### [facility] ([id number]) [address] [place], [place] [address]WYC [Catalytic activity/Vol]10 U/LNormal0-31[facility] [place] HospitalComment on above:Performed By: #### SRAVANTHI, CMP #### [facility] ([id number]) [address], [address] [place], [place] [address]Revhy gap [Moles/Vol]8 mmol/LNormal5-15[facility] [place] [facility] Comment on above:Performed By: #### SRAVANTHI, CMP #### [facility] ([id number]) [address], [address] [place], [place] [address]TZH [Catalytic activity/Vol]15 U/LNormal0-41[facility] [place] HospitalComment on above:Performed By: #### SRAVANTHI, CMP #### [facility] ([id number]) [address] [place], [place] [address]Nasjqsaxh [Mass/Vol]0.4 mg/dLNormal0.3-1.2ProMedTuscarawas Hospital HospitalComment on above:Performed By: #### SRAVANTHI, CMP #### [facility] ([id number]) [address] [place], [place] [address]Lqpeoeq [Mass/Vol]9.5 mg/dLNormal8.5-10.5ProMedTuscarawas Hospital HospitalComment on above:Performed By: #### SRAVANTHI, CMP #### [facility] ([id number]) [address] [place], [place] [address]Pvihlflt [Moles/Vol]103 mmol/VMvjmzr70-915UptNvowsq [place] HospitalComment on above:Performed By: #### SRAVANTHI, CMP #### [facility] ([id number]) [address], [address] [place], [place] [address]NU8 [Moles/Vol]30 mmol/VTqnhxt11-69TmhCvesae [facility] Comment on above:Performed By: #### SRAVANTHI, CMP #### [facility] ([id number]) [address] [place], [place] [address]Udtkzxbddo [Mass/Vol]0.70 mg/dLNormal0.40-1.00[facility] [place] HospitalComment on above:Result Comment: METHOD TRACEABLE TO IDMS STANDARD Performed By: #### SRAVANTHI, CMP #### [facility] ([id number]) [address] [place], [place] [address]RKJ/1.73 sq M.predicted among non-blacks MDRD (S/P/Bld) [Vol rate/Area]86 mL/min/{1.73_m2}Normal>59ProKettering Health Washington TownshipComment on above: Result Comment: Reported eGFR is based on the CKD-EPI 2020 equation that does not use a race coefficient.Performed By: #### SRAVANTHI, CMP #### [facility] ([id number]) [address], [address] [place], [place] [address]Qrnkjty [Mass/Vol]84 mg/uIMqxobx73-20ZfcJyepur [facility] Comment on above:Performed By: #### SRAVANTHI, CMP #### [facility] ([id number]) [address], [address] [place], [place] [address]Btdvngvdd [Moles/Vol]4.5 mmol/LNormal3.5-5.0ProKettering Health Washington TownshipComment on above:Performed By: #### SRAVANTHI, CMP #### [facility] ([id number]) [address], [address] [place], [place] [address]Vsdscek [Mass/Vol]7.4 g/dLNormal6.0-8.0[facility] Comment on above:Performed By: #### SRAVANTHI, CMP #### [facility] ([id number]) [address], [address] [place], [place] [address]Zdxtmq [Moles/Vol]141 mmol/DAekufr549-168IigYiysrk [place] HospitalComment on above:Performed By: #### SRAVANTHI, CMP #### [facility] ([id number]) [address], [address] [place], [place] [address]Wshd nitrogen [Mass/Vol]17 mg/dLNormal5-27ProKettering Health Washington TownshipComment on above:Performed By: #### SRAVANTHI, CMP #### [facility] ([id number]) [address], [address] [place], [place] [address]CMQ A1C (GLYCO-HGB)on 11-34-4711Sgwgkrt [Mass/Vol]154 mg/dL NormalProKettering Health Washington TownshipComment on above:Performed By: #### HA1C, CMP #### [facility] ([id number]) [address] [facility], [address] [place], [place] [address]KgL1o (Bld) [Mass fraction]7.0 %High4.4-5.6ProKettering Health Washington TownshipComment on above:Result Comment: NOTE ADA Guidelines Result HgbA1c Normal : less than 5.7 % Prediabetes : 5.7 % to 6.4 % Diabetes : > 6.4 % Use with caution in patients with abnormal hemoglobin variants as the half-life of red blood cells and in vivo glycation rates are affected.Performed By: #### HA1C, CMP #### [facility] ([id number]) [facility] [facility], [address] [place], [place] [address]KFANMOKQVPgr 10-79-8375Hbvuooxyk Ql (U)NegativeNormalNEG [facility] HospitalBLOOD/HGBNegativeNormalNEGAkron Children's Hospital Color (U)YELLOWNormalYELLOWAkron Children's HospitalGlucose Ql (U)Negative NormalNEGProCovenant Medical CenterKetones Ql (U)NegativeNormalNEGAkron Children's HospitalLeukocyte esterase Test strip Ql (U)TraceAbnormalNEGAkron Children's HospitalMUCOUSPRESENTAbnormalNONEPUniversity Hospitals Portage Medical CenterNitrite Ql (U)NegativeNormalNEGAkron Children's HospitalpH (U)5.5 [pH]Normal5.0-8.5 [facility] HospitalProtein Ql (U)NegativeNormalNEGProCovenant Medical CenterR.B.CELLS<5Alhnnn1-4DpaFurjalToledo Hospitalpecific gravity (U) [Rel density]1.054Onydyp4.003-1.035ProNorth Texas Medical CenterQUAMOUS EPITHELIUM1 /hpfNormal0-5PUniversity Hospitals Portage Medical CenterTURBIDITYCLEARNormalCLEARProCovenant Medical CenterUrobilinogen (U) [Mass/Vol]mg/dLNormal<1.1PUniversity Hospitals Portage Medical CenterW.B.CELLS2 /hpfNormal0-5PUniversity Hospitals Portage Medical CenterURINE CULTUREon 73-32-5012Kuntukjc identified Cx Nom (U)CULTURE RESULTS 10-50,000 ORGANISMS/mL NORMAL UROGENITAL FLORARiverview Health Institute Comment on above:Performed By: #### 630-4 #### [facility] ([id number]) [address] [facility], [address] [place], [place] [address]MT CHEST 2 VWSon 93-13-9114WF CHEST 2 VWSXR CHEST 2 VWS PA and lateral chest: HISTORY: Wheezing and cough. 2 views of the chest are obtained. Lungs are clear. There is no consolidation or effusion. No pneumothorax is seen. Osseous structures appear intact. Cardiac contour is unremarkable. IMPRESSION: No acute findings. Finalized by Luc Nam MD on 09/19/2023 1:16 PMNormalAkron Children's HospitalALBUMIN, RANDOM URINE W/CREATININEon 89-04-5937MXRVPGM, URINE1.3 mg/dL NormalSee Note:Quest DiagnosticsComment on above:Order Comment: SPLIT 04/17/2022 FROM [id number] FASTING:UNKNOWN FASTING: UNKNOWNResult Comment: Reference Range: Reference Range Not establishedPerformed By: #### 6517 #### [facility] [address], [address] [place] [id number] Machine Icer: Mello Ledbetter MDALBUMIN/CREATININE RATIO, RANDOM URINE25 mcg/mg creatNormal<30Quest DiagnosticsComment on above:Order Comment: SPLIT 04/17/2022 FROM [id number] FASTING:UNKNOWN FASTING: UNKNOWNResult Comment: The ADA defines abnormalities in albumin excretion as follows: Albuminuria Category Result (mcg/mg creatinine) Normal to Mildly increased <30 Moderately increased 30-299 Severely increased > OR = 300 The ADA recommends that at least two of three specimens collected within a 3-6 month period be abnormal before considering a patient to be within a diagnostic category.Performed By: #### 6517 #### [facility] [address], [address] [place] [address] Machine Icer: Mello MCELROYreatinine (U) [Mass/Vol]53 mg/xSXodxsm77-606 [facility] DiagnosticsComment on above:Order Comment: SPLIT 04/17/2022 FROM [id number] FASTING:UNKNOWN FASTING: UNKNOWNPerformed By: #### 6517 #### [facility] [address], [address] [place] [address] Machine Icer: Mello Ledbetter [facility] METABOLIC PANELon 12-82-8074Todxtyr [Mass/Vol]9.1 mg/dLNormal8.6-10.4Quest DiagnosticsComment on above:Order Comment: FASTING:YES COLLECTION REQUIREMENTS NOT MET. PATIENT ADVISED TO RETURN. FASTING: YESPerformed By: #### 496, 20434 #### [facility] [address], [address] [place] [address] Machine Icer: Mello Ledbetter MDChloride [Moles/Vol]103 mmol/ENrkhpy70-867 [facility] DiagnosticsComment on above:Order Comment: FASTING:YES COLLECTION REQUIREMENTS NOT MET. PATIENT ADVISED TO RETURN. FASTING: YESPerformed By: #### 496, 01724 #### [facility] [address], [address] [place] [address] Machine Icer: Mello Ledbetter MDCO2 [Moles/Vol]31 mmol/WOvsaay21-82Wfsbu DiagnosticsComment on above:Order Comment: FASTING:YES COLLECTION REQUIREMENTS NOT MET. PATIENT ADVISED TO RETURN. FASTING: YESPerformed By: #### 496, 47122 #### [facility] [address], [address] [place] [address] Machine Icer: Mello MCELROYreatinine [Mass/Vol]0.58 mg/dLLow0.60-0.95 [facility] DiagnosticsComment on above:Order Comment: FASTING:YES COLLECTION REQUIREMENTS NOT MET. PATIENT ADVISED TO RETURN. FASTING: YESPerformed By: #### 496, 93343 #### [facility] [address], [address] [place] [address] Machine Icer: Mello Ledbetter MDGFR/1.73 sq M.predicted among non-blacks MDRD (S/P/Bld) [Vol rate/Area]91 mL/min/{1.73_m2}Normal> OR = 60[facility] Comment on above:Order Comment: FASTING:YES COLLECTION REQUIREMENTS NOT MET. PATIENT ADVISED TO RETURN. FASTING: YESResult Comment: The eGFR is based on the CKD-EPI 202 equation. To calculate the new eGFR from a previous Creatinine or Cystatin C result, go to https://www.kidney.org/professionals/ kdoqi/gfr%5FcalculatorPerformed By: #### 496, 21258 #### [facility] [address], [address] [place] [address] Machine Icer: Mello Ledbetter MDGlucose [Mass/Vol]87 mg/zNLdvcwu11-75Ksyqy DiagnosticsComment on above:Order Comment: FASTING:YES COLLECTION REQUIREMENTS NOT MET. PATIENT ADVISED TO RETURN. FASTING: YESResult Comment: Fasting reference intervalPerformed By: #### 496, 42831 #### [facility] [address], [address] [place] [address] Machine Icer: Mello Ledbetter MDPotassium [Moles/Vol]4.3 mmol/LNormal3.5-5.3 [facility] DiagnosticsComment on above:Order Comment: FASTING:YES COLLECTION REQUIREMENTS NOT MET. PATIENT ADVISED TO RETURN. FASTING: YESPerformed By: #### 496, 30775 #### [facility] [address], [address] [place] [address] Machine Icer: Mello Ledbetter MDSodium [Moles/Vol]143 mmol/HOsjxyr805-152Wjjzu DiagnosticsComment on above:Order Comment: FASTING:YES COLLECTION REQUIREMENTS NOT MET. PATIENT ADVISED TO RETURN. FASTING: YESPerformed By: #### 496, 65486 #### [facility] [address], [address] [place] [address] Machine Icer: Mello Ledbetter MDUrea nitrogen [Mass/Vol]15 mg/dLNormal7-25 [facility] DiagnosticsComment on above:Order Comment: FASTING:YES COLLECTION REQUIREMENTS NOT MET. PATIENT ADVISED TO RETURN. FASTING: YESPerformed By: #### 496, 33857 #### [facility] [address], [address] [place] [address] Machine Icer: Mello Ledbetter MDUrea nitrogen/Creatinine [Mass ratio]26 mg/mg High6-22Quest DiagnosticsComment on above:Order Comment: FASTING:YES COLLECTION REQUIREMENTS NOT MET. PATIENT ADVISED TO RETURN. FASTING: YESPerformed By: #### 496, 08777 #### [facility] [address], [address] [place] [address] Machine Icer: Mello Ledbetter MDHEMOGLOBIN A1con 01-15-0956JJIOUOARXC A1c6.4 % of total HgbHigh<5.7Quest DiagnosticsComment on above:Result Comment: For someone without known diabetes, a hemoglobin A1c value between 5.7% and 6.4% is consistent with prediabetes and should be confirmed with a follow-up test. For someone with known diabetes, a value <7% indicates that their diabetes is well controlled. A1c targets should be individualized based on duration of diabetes, age, comorbid conditions, and other considerations. This assay result is consistent with an increased risk of diabetes. Currently, no consensus exists regarding use of hemoglobin A1c for diagnosis of diabetes for children.Performed By: #### 496, 80508 #### [facility] [address], [address] [place] [address] Machine Icer: Mello Ledbetter MDBASIC METABOLIC PANELon 01-10-2022 BUN/CREATININE RATIONOT APPLICABLENormal6-22Quest DiagnosticsComment on above: Order Comment: FASTING:YES FASTING: YESPerformed By: #### 42116, 6399 #### [facility] [address], [address] [place] [address] Machine Icer: Mello Ledbetter MDCalcium [Mass/Vol]8.9 mg/dLNormal8.6-10.4Quest DiagnosticsComment on above:Order Comment: FASTING:YES FASTING: YESPerformed By: #### 68688, 6399 #### [facility] [address], [address] [place] [address] Machine Icer: Mello MCELROYhloride [Moles/Vol]103 mmol/OJjbqxo50-395 [facility] DiagnosticsComment on above:Order Comment: FASTING:YES FASTING: YESPerformed By: #### 68825, 6399 #### [facility] [address], [address] [place] [address] Machine Icer: Mello Ledbetter MDCO2 [Moles/Vol]31 mmol/KMbgrwm89-45Xohky DiagnosticsComment on above:Order Comment: FASTING:YES FASTING: YESPerformed By: #### 84215, 6399 #### [facility] [address], [address] [place] [address] Machine Icer: Mello MCELROYreatinine [Mass/Vol]0.68 mg/dLNormal0.60-0.88 [facility] DiagnosticsComment on above:Order Comment: FASTING:YES FASTING: YESResult Comment: For patients >49 years of age, the reference limit for Creatinine is approximately 13% higher for people identified as -Trinidadian.Performed By: #### 13195, 6399 #### [facility] [address], [address] [place] [address] Machine Icer: Mello Ledbetter MDeGFR NON-AFR. NAGVQMRS00 mL/min/1.26o4Wzkqlv> OR = 60Quest DiagnosticsComment on above:Order Comment: FASTING:YES FASTING: YESPerformed By: #### 31778, 6399 #### [facility] [address], [address] [place] [address] Machine Icer: Mello Ledbetter MDGFR/1.73 sq M.predicted among blacks MDRD (S/P/Bld) [Vol rate/Area]95 mL/min/{1.73_m2}Normal> OR = 60[facility] Comment on above:Order Comment: FASTING:YES FASTING: YESPerformed By: #### 54954, 6399 #### [facility] of [address], [address] [place] [address] Machine Icer: Mello Ledbetter MDGlucose [Mass/Vol]73 mg/wJMnmrfe66-20Wlflt DiagnosticsComment on above:Order Comment: FASTING:YES FASTING: YESResult Comment: Fasting reference intervalPerformed By: #### 00632, 6399 #### [facility] [address], [address] [place] [address] Machine Icer: Mello Ledbetter MDPotassium [Moles/Vol]4.4 mmol/LNormal3.5-5.3 [facility] DiagnosticsComment on above:Order Comment: FASTING:YES FASTING: YESPerformed By: #### [id number] #### [facility] [address], [address] [place] [address] Machine Icer: Mello Ledbetter MDSodium [Moles/Vol]143 mmol/DPstnef878-241Djyua DiagnosticsComment on above:Order Comment: FASTING:YES FASTING: YESPerformed By: #### [id number] #### [facility] [place] [address] Machine Icer: Mello Ledbetter MDUrea nitrogen [Mass/Vol]20 mg/dLNormal7-25 [facility] DiagnosticsComment on above:Order Comment: FASTING:YES FASTING: YESPerformed By: #### [id number], [id number] #### [facility] of [address], [address] [place] [address] Machine Icer: Mello Ledbetter MDCBC (INCLUDES DIFF/PLT)on [id number] (Bld) [#/Vol]0.05 10*3/uLNormal0-200Quest DiagnosticsComment on above:Performed By: #### [id number], [id number] #### [facility] of [address], [address] [place] [address] Machine Icer: Mello Ledbetter MDBasophils/100 WBC (Bld)0.6 %NormalQuest DiagnosticsComment on above:Performed By: #### [id number], [id number] #### [facility] of [place] [address] Machine Icer: Mello Ledbetter MDEosinophils (Bld) [#/Vol]0.191 10*3/uLNormal 15-500Quest DiagnosticsComment on above:Performed By: #### [id number] #### [facility] of [place] [address] Machine Icer: Mello Ledbetter MDEosinophils/100 WBC (Bld)2.3 %NormalQuest DiagnosticsComment on above:Performed By: #### 31813, 6399 #### [facility] [place] [address] Machine Icer: Mello Ledbetter MDErythrocyte distribution width (RBC) [Ratio] 13.8 %Oqqhvw26.0-15.0Quest DiagnosticsComment on above:Performed By: #### 67689, 6399 #### [facility] [place] [address] Machine Icer: Mello Ledbetter MDHematocrit (Bld) [Volume fraction]36.4 %Normal 35.0-45.0Quest DiagnosticsComment on above:Performed By: #### 52849, 6399 #### [facility] of [place] [address] Machine Icer: Mello Ledbetter MDHemoglobin (Bld) [Mass/Vol]11.8 g/dLNormal 11.7-15.5Quest DiagnosticsComment on above:Performed By: #### 38656, 6399 #### [facility] of [place] [address] Machine Icer: Mello Ledbetter MDLymphocytes (Bld) [#/Vol]2.291 10*3/uLNormal 850-3900Quest DiagnosticsComment on above:Performed By: #### 19442, 6399 #### [facility] of [address], [address] [place] [address] Machine Icer: Mello Ledbetter MDLymphocytes/100 WBC (Bld)27.6 %NormalQuest DiagnosticsComment on above:Performed By: #### 83974, 6399 #### [facility] of [address], [address] [place] [address] Machine Icer: Mello Ledbetter MDMCH (RBC) [Entitic mass]29.5 awNsrayt38.0-33.0 [facility] DiagnosticsComment on above:Performed By: #### 03010, 6399 #### [facility] of [address], [address] [place] [address] Machine Icer: Mello MENARDCHC (RBC) [Mass/Vol]32.4 g/yZMkbpoc74.0-36.0 [facility] DiagnosticsComment on above:Performed By: #### 67741, 6399 #### [facility] of [address], [address] [place] [address] Machine Icer: Mello MENARDCV (RBC) [Entitic vol]91.0 tTByyxma66.0-100.0 [facility] DiagnosticsComment on above:Performed By: #### 62048, 6399 #### [facility] of [address], [address] [place] [address] Machine Icer: Mello Ledbetter MDMonocytes (Bld) [#/Vol]0.515 10*3/uLNormal 200-950Quest DiagnosticsComment on above:Performed By: #### 14286, 6399 #### [facility] of [address], [address] [place] [address] Machine Icer: Mello Ledbetter MDMonocytes/100 WBC (Bld)6.2 %NormalQuest DiagnosticsComment on above:Performed By: #### 20948, 6399 #### [facility] of [address], [address] [place] [address] Machine Icer: Mello Ledbetter MDNeutrophils (Bld) [#/Vol]5.254 10*3/uLNormal 1500-7800Quest DiagnosticsComment on above:Performed By: #### 86465, 6399 #### [facility] of [place] [address], [address] [place] [address] Machine Icer: Mello Ledbetter MDNeutrophils/100 WBC (Bld)63.3 %NormalQuest DiagnosticsComment on above:Performed By: #### 59897, 6399 #### [facility] of [place] [address], [address] [place] [address] Machine Icer: Mello Ledbetter MDPlatelet mean volume (Bld) [Entitic vol]8.4 fL Normal7.5-12.5Quest DiagnosticsComment on above:Performed By: #### 15884, 6399 #### [facility] of [place] [address], [address] [place] [address] Machine Icer: Mello Ledbetter MDPlatelets (Bld) [#/Vol]299 10*3/uLNormal 140-400Quest DiagnosticsComment on above:Performed By: #### 47555, 6399 #### [facility] of [place] [address], [address] [place] [address] Machine Icer: Mello Ledbetter MDRBC (Bld) [#/Vol]4.00 10*6/uLNormal3.80-5.10 [facility]osticsComment on above:Performed By: #### 62631, 6399 #### [facility] of [place] [address], [address] [place] [address] Machine Icer: Mello Ledbetter MDWBC (Bld) [#/Vol]8.3 10*3/uLNormal3.8-10.8 [facility] DiagnosticsComment on above:Performed By: #### 01201, 6399 #### [facility] [place] [address] [address] [place] [address] Machine Icer: Mello Ledbetter MDHEMOGLOBIN A1con 64-61-2469FURNPENDPL A1c6.4 % of total HgbHigh<5.7Quest DiagnosticsComment on above:Result Comment: For someone without known diabetes, a hemoglobin A1c value between 5.7% and 6.4% is consistent with prediabetes and should be confirmed with a follow-up test. For someone with known diabetes, a value <7% indicates that their diabetes is well controlled. A1c targets should be individualized based on duration of diabetes, age, comorbid conditions, and other considerations. This assay result is consistent with an increased risk of diabetes. Currently, no consensus exists regarding use of hemoglobin A1c for diagnosis of diabetes for children.Performed By: #### 16056, 6299 #### [facility] [place] [address] Machine Icer: Mello Ledbetter MDCOMPREHENSIVE METABOLIC PANELon 08-30-2021 Albumin [Mass/Vol]4.3 g/dLNormal3.6-5.1Quest DiagnosticsComment on above: Performed By: #### 496, 65392, 7600 #### [facility] [place] [address] Machine Icer: Mello Ledbetter MDAlbumin/Globulin [Mass ratio]1.4 {ratio}Normal 1.0-2.5Quest DiagnosticsComment on above:Performed By: #### 496, 41870, 7600 #### [facility] [place] [address] Machine Icer: Mello Ledbetter MDALP [Catalytic activity/Vol]82 U/BSrhvtw85-171 [facility] DiagnosticsComment on above:Performed By: #### 496, 50426, 7600 #### [facility] [place] [address] Machine Icer: Mello Ledbetter MDALT [Catalytic activity/Vol]13 U/LNormal6-29 [facility] DiagnosticsComment on above:Performed By: #### 496, 94284, 7600 #### [facility] of [address], [address] [place] [address] Machine Icer: Mello Ledbetter MDAST [Catalytic activity/Vol]16 U/YShrzdj30-48 [facility] DiagnosticsComment on above:Performed By: #### 496, 75468, 7600 #### [facility] of [address], [address] [place] [address] Machine Icer: Mello Ledbetter MDBilirubin [Mass/Vol]0.3 mg/dLNormal0.2-1.2 [facility] DiagnosticsComment on above:Performed By: #### 496, 36927, 7600 #### [facility] of [address], [address] [place] [address] Machine Icer: Mello Ledbetter MDBUN/CREATININE RATIONOT APPLICABLENormal6-22 [facility] DiagnosticsComment on above:Performed By: #### 496, 47900, 7600 #### [facility] of [address], [address] [place] [address] Machine Icer: Mello Ledbetter MDCalcium [Mass/Vol]9.1 mg/dLNormal8.6-10.4Quest DiagnosticsComment on above:Performed By: #### 496, 63337, 7600 #### [facility] of [address], [address] [place] [address] Machine Icer: Mello Ledbetter MDChloride [Moles/Vol]101 mmol/EXswzik47-369 [facility] DiagnosticsComment on above:Performed By: #### 496, 62029, 7600 #### [facility] of [address], [address] [place] [address] Machine Icer: Mello Ledbetter MDCO2 [Moles/Vol]28 mmol/WAvsrvm47-29Mjbht DiagnosticsComment on above:Performed By: #### 496, 50501, 7600 #### [facility] of [address], [address] [place] [address] Machine Icer: Mello Ledbetter MDCreatinine [Mass/Vol]0.72 mg/dLNormal0.60-0.88 [facility] DiagnosticsComment on above:Result Comment: For patients >49 years of age, the reference limit for Creatinine is approximately 13% higher for people identified as -Trinidadian.Performed By: #### 496, 57895, 7600 #### [facility] [place] [address] Machine Icer: Mello Ledbetter MDeGFR NON-AFR. BUSPMTLJ47 mL/min/1.65w8Kqwjau> OR = 60Quest DiagnosticsComment on above:Performed By: #### 496, 28380, 7600 #### [facility] [place] [address] Machine Icer: Mello Ledbetter MDGFR/1.73 sq M.predicted among blacks MDRD (S/P/Bld) [Vol rate/Area]91 mL/min/{1.73_m2}Normal> OR = 60[facility] Comment on above:Performed By: #### 496, 00435, 7600 #### [facility] [place] [address] Machine Icer: Mello Ledbetter MDGlobulin (S) [Mass/Vol]3.0 g/dLNormal1.9-3.7 [facility] DiagnosticsComment on above:Performed By: #### 496, 39954, 7600 #### [facility] [place] [address] Machine Icer: Mello Ledbetter MDGlucose [Mass/Vol]84 mg/eYMvfmnu98-87Aredo DiagnosticsComment on above:Result Comment: Fasting reference intervalPerformed By: #### 496, 09828, 7600 #### [facility] [place] [address] Machine Icer: Mello Ledbetter MDPotassium [Moles/Vol]4.3 mmol/LNormal3.5-5.3 [facility]osticsComment on above:Performed By: #### 496, 67719, 7600 #### [facility] [address], [address] [place] [address] Machine Icer: Mello Ledbetter MDProtein [Mass/Vol]7.3 g/dLNormal6.1-8.1Quest DiagnosticsComment on above:Performed By: #### 496, 48037, 7600 #### [facility] [address], [address] [place] [address] Machine Icer: Mello Ledbetter MDSodium [Moles/Vol]140 mmol/YHvlynn574-961Wtgcw DiagnosticsComment on above:Performed By: #### 496, 14220, 7600 #### [facility] [address], [address] [place] [address] Machine Icer: Mello Ledbetter MDUrea nitrogen [Mass/Vol]22 mg/dLNormal7-25 [facility]osticsComment on above:Performed By: #### 496, 76456, 7600 #### [facility] [address], [address] [place] [address] Machine Icer: eMllo Ledbetter MDHEMOGLOBIN A1con 40-64-8551GJZEOLZEXN A1c5.7 % of total HgbHigh<5.7Quest DiagnosticsComment on above:Result Comment: For someone without known diabetes, a hemoglobin A1c value between 5.7% and 6.4% is consistent with prediabetes and should be confirmed with a follow-up test. For someone with known diabetes, a value <7% indicates that their diabetes is well controlled. A1c targets should be individualized based on duration of diabetes, age, comorbid conditions, and other considerations. This assay result is consistent with an increased risk of diabetes. Currently, no consensus exists regarding use of hemoglobin A1c for diagnosis of diabetes for children.Performed By: #### 496, 35321, 7600 #### [facility] [address], [address] [place] [address] Machine Icer: Mello Ledbetter MDLIPID PANEL, STANDARDon 00-08-1883Xmhcikbnajn [Mass/Vol]112 mg/dLNormal<200Quest DiagnosticsComment on above:Order Comment: FASTING:YES FASTING: YESPerformed By: #### 496, 87927, 7600 #### [facility] [address], [address] [place] [address] Machine Icer: Mello MCELROYholesterol in HDL [Mass/Vol]44 mg/dLLow> OR = 50Quest DiagnosticsComment on above:Order Comment: FASTING:YES FASTING: YESPerformed By: #### 496, 08065, 7600 #### [facility] [address], [address] [place] [address] Machine Icer: Mello MCELROYholesterol in LDL [Mass/Vol]49 mg/dLNormal [facility]osticsComment on above:Order Comment: FASTING:YES FASTING: YESResult Comment: Reference range: <100 Desirable range <100 mg/dL for primary prevention; <70 mg/dL for patients with CHD or diabetic patients with > or = 2 CHD risk factors. LDL-C is now calculated using the Buzz-Brice calculation, which is a validated novel method providing better accuracy than the Friedewald equation in the estimation of LDL-C. Buzz SS et al. LATASHA. 2013;310(19): 3488-9847 (http://education.Light Magic/faq/QAR268)Performed By: #### 496, 95964, 7600 #### [facility] [address], [address] [place] [address] Machine Icer: Mello Lawrencestshelton.total/Cholesterol in HDL [Mass ratio]2.5 {ratio}Normal<5.0Quest DiagnosticsComment on above:Order Comment: FASTING:YES FASTING: YESPerformed By: #### 496, 62366, 7600 #### [facility] [address], [address] [place] [address] Machine Icer: Mello BANEGAS HDL ZPXRFSCYNUW10 mg/dL (calc)Normal<130 [facility]osticsComment on above:Order Comment: FASTING:YES FASTING: YESResult Comment: For patients with diabetes plus 1 major ASCVD risk factor, treating to a non-HDL-C goal of <100 mg/dL (LDL-C of <70 mg/dL) is considered a therapeutic option.Performed By: #### 496, 90124, 7600 #### [facility] [address] [facility], [address] [place] [address] Machine Icer: Mello Ledbetter MDTriglyceride [Mass/Vol]108 mg/dLNormal<150 [facility]osticsComment on above:Order Comment: FASTING:YES FASTING: YESPerformed By: #### 496, 98598, 7600 #### [facility] [address] [place] [address], [address] [place] [address] Machine Icer: Mello Ledbetter MDMODIFIED BARIUM SWALLOWon [id number] BARIUM SWALLOWUnMarion Hospital Department of Radiology [address] [place] [id number] Patient Name: ROSETTA KEITH : 1940 Sex: F Age: Race: White Pt. Location: [facility] Patient Status: D Ordered Date: 07/12/2021 1:00:00 PM Completed Date: 07/12/2021 11:09 AM Requesting Provider: DIA WEST Attending Provider: DIA WEST Report Copy To: DEYANIRA TAI Signs & Symptoms: dysphagia History: Aspiration RHNWO ambulatory Covid Test to completed 07/09 Comments: Exam: MODIFIED BARIUM SWALLOW MODIFIED BARIUM SWALLOW 07/12/2021 11:09 AM CLINICAL INDICATIONS: Oral pharyngeal dysphagia, difficulty swallowing TECHNOLOGIST COMMENTS: Modified barium swallow with Dr. Samson - 2.50 minutes of fluoro time 1 image Dysphagia COMPARISON: None. FINDINGS: Video fluoroscopic swallow study was performed in conjunction with members of speech pathology. Barium contrast materials of multiple consistencies 1 fluoroscopic spot films. Correlate with dedicated speech pathology report for additional details and recommendations. IMPRESSION: 1. No aspiration. There is pharyngeal dysphagia with penetration of nectar consistency and premature spilling of honey into the piriform sinuses. Electronically signed: Zach Jamil. Transcribed by: [email or web address], User Resident: Electronically Signed by: ZACH JAMIL @ 07/13/2021 12:13 [facility] Auto Differentialon [id number] (Bld) [#/Vol]10*3/[facility]- [place], [place]Basophils/100 WBC (Bld)0 %0 - 2 %[facility]- [place], KYDifferential TypeNOT REPORTEDOhiohealth [facility]- [place], KYEosinophils (Bld) [#/Vol]10*3/[facility]- [place], KYEosinophils/100 WBC (Bld)0 %Low1 - 4 %[facility]- [place], KYErythrocyte distribution width (RBC) [Ratio]19.9 %High11.8 - 14.4 %[facility]- [place], KYHematocrit (Bld) [Volume fraction]37.8 %36.3 - 47.1 %[facility]- [place], KYHemoglobin (Bld) [Mass/Vol]10.9 g/dLLow11.9 - 15.1 g/dLOhiohealth Van Wert Hospital- [place], KYImmature granulocytes (Bld) [#/Vol]0 %0[facility]- [place] Immature granulocytes (Bld) [#/Vol]0.06 10*3/uLMar[facility]- [place], [place] Interpretation and review of laboratory resultsAbnormalOhiohealth [facility]- [place], [place] Lymphocytes (Bld) [#/Vol]0.88 10*3/uLMcCullough-Hyde [facility]- [place], KYLymphocytes/100 WBC (Bld)6 %Low24 - 43 %[facility], [facility] (RBC) [Entitic mass]23.3 pgLow25.2 - 33.5 pgLutheran Hospital, [facility] (RBC) [Mass/Vol]28.8 g/dL28.4 - 34.8 g/dLLutheran Hospital, WAMCV (RBC) [Entitic vol]80.8 fLLow82.6 - 102.9 fLLutheran Hospital, KYMonocytes (Bld) [#/Vol]0.18 10*3/uLLutheran Hospital, KYMonocytes/100 WBC (Bld) 1 %Low3 - 12 %[facility], WAPlatelet mean volume (Bld) [Entitic vol]9.3 fL 8.1 - 13.5 fLLutheran Hospital, WAPlatelets (Bld) [#/Vol]441 10*3/uLLutheran Hospital, WAPlatelets (Bld) [#/Vol]NOT REPORTEDLutheran Hospital, [facility] (Bld) [#/Vol] 4.68 10*6/uL3.95 - 5.11 m/uLLutheran Hospital, [facility]C morphology finding Nom (Bld) NOT REPORTEDLutheran Hospital, WASegmented neutrophils/100 WBC (Bld)92 %High36 - 65 %[facility], WASegs Cyxyjfzv60.67HighLutheran Hospital, WAWBC (Bld) [#/Vol]0.0 10*3/uL0.0 per 100 WBCLutheran Hospital, WAWBC (Bld) [#/Vol]14.8 10*3/uLHighLutheran Hospital, WAWBC MorphologyNOT REPORTEDLutheran Hospital, [facility] with Diffon [id number]. Basophil<0.43Jzpvrq5.00-0.20[facility] Comment on above:Performed By: #### CDP #### [facility] [address] [place] [address] [employer] Player: Patti Bowens.Imm.Granulocyte0.06 k/uLNormal0.00-0.30[facility] HospitalComment on above:Performed By: #### CDP #### [address] [place] [address] [employer] Player: Patti Bowens.Neutrophil (Seg)13.67 k/uLHigh1.50-8.10[facility] HospitalComment on above:Performed By: #### CDP #### [address] [place], [place] [address] [employer] Player: Maynor Delgado MDBasophils/100 WBC (Bld)0 %Normal0-2[facility]omanie HospitalComment on above:Performed By: #### CDP #### [address] [place], [place] [address] [employer] Player: Maynor Delgado MDEosinophils (Bld) [#/Vol]10*3/uLNormal0.00-0.44 [facility] HospitalComment on above:Performed By: #### CDP #### [address] [place], [place] [address] [employer] Player: OUMAR Bowensosinophils/100 WBC (Bld)0 %Low1-4[facility] HospitalComment on above:Performed By: #### CDP #### [address] [place], [place] [address] [employer] Player: Maynor Delgado MDErythrocyte distribution width (RBC) [Ratio]19.9 % High11.8-14.4[facility] HospitalComment on above:Performed By: #### CDP #### [address] [place] [id number] [employer] Player: Maynor Delgado MDHematocrit (Bld) [Volume fraction]37.8 %Normal 36.3-47.1MercOhio State University [facility] HospitalComment on above:Performed By: #### CDP #### [address] [place], [place] [id number] [employer] Player: Maynor Delgado MDHemoglobin (Bld) [Mass/Vol]10.9 g/dLLow11.9-15.1 [facility] HospitalComment on above:Performed By: #### CDP #### [address] [place], [place] [id number] [employer] Player: Maynor Delgado MDImmature granulocytes (Bld) [#/Vol]0 %Tgvvtz8Xwngz [facility] HospitalComment on above:Performed By: #### CDP #### [address] [place], [place] [id number] [employer] Player: Maynor Delgado MDLymphocytes (Bld) [#/Vol]0.88 10*3/uLLow1.10-3.70 [facility] HospitalComment on above:Performed By: #### CDP #### [address] [place], [place] [id number] [employer] Player: Elmer Bowensmphocytes/100 WBC (Bld)6 %Xrd76-76Zayaa [facility]iffin HospitalComment on above:Performed By: #### CDP #### [address] [place], [place] [address] [employer] Player: SAILAJA BowensCH (RBC) [Entitic mass]23.3 pgLow25.2-33.5MerOhioHealth Nelsonville Health Center HospitalComment on above:Performed By: #### CDP #### [address] [place], [place] [address]83 [employer] Player: SAILAJA BowensCHC (RBC) [Mass/Vol]28.8 g/fMNzwuza95.4-34.8[facility] HospitalComment on above:Performed By: #### CDP #### [address] [place] [address] [employer] Player: SAILAJA BowensCV (RBC) [Entitic vol]80.8 fLLow82.6-102.9[facility] HospitalComment on above:Performed By: #### CDP #### [address] [place], [place] [id number] [employer] Player: SAILAJA Bowensonocytes (Bld) [#/Vol]0.18 10*3/uLNormal0.10-1.20 [facility] HospitalComment on above:Performed By: #### CDP #### [address] [place] [address] [employer] Player: SAILAJA Bowensonocytes/100 WBC (Bld)1 %Low3-12[facility] HospitalComment on above:Performed By: #### CDP #### [address] [place], [facility]83 [employer] Player: Fabio Bowensutrophil (Seg)92 %Zhdu33-53YncwhFlower Hospital Comment on above:Performed By: #### CDP #### [address] [place] [address] [employer] Player: Maynor Delgado MDNRBC Automated0.0 per 100 WBCNormal0.0[facility] HospitalComment on above:Performed By: #### CDP #### [address] [place], [facility]83 [employer] Player: GENE Bowenslatelet mean volume (Bld) [Entitic vol]9.3 fL Normal8.1-13.5[facility] HospitalComment on above:Performed By: #### CDP #### [address] [place], [place] [address] [employer] Player: GENE Bowenslatelets (Bld) [#/Vol]441 10*3/rXWowaur676-031 [facility] HospitalComment on above:Performed By: #### CDP #### [facility] [address] [place] [address] [place] [address] [employer] Player: SANDEEP Bowens (Bld) [#/Vol]4.68 10*6/uLNormal3.95-5.11[facility] Hospitalcy Mazomanie HospitalComment on above:Performed By: #### CDP #### [facility] [address] [place] [address] Dr[address] [place], [place] [address] [employer] Player: ROSA Bowens (Bld) [#/Vol]14.8 10*3/uLHigh3.5-11.3MLicking Memorial Hospital HospitalComment on above:Performed By: #### CDP #### [address] [place], [facility]83 [employer] Player: [place] Bowens Diff PerformedNOT REPORTEDNormalMercy Mazomanie HospitalComment on above:Performed By: #### CDP #### [facility] [address] [place] [address] Dr[address] [place], [place] [id number] [employer] Player: Luis Enrique Bowens (Bld) [#/Vol]NOT REPORTEDNormalMercy Mazomanie HospitalComment on above:Performed By: #### CDP #### [facility] [address] [place] [address] Dr. [place], [facility]83 [employer] Player: SANDEEP Bowens morphology finding Nom (Bld)NOT REPORTEDNormal [facility] HospitalComment on above:Performed By: #### CDP #### [facility] [address] [place] [address] Dr[address] [place], [facility]83 [employer] Player: ROSA Bowens MorphologyNOT REPORTEDNormalMercy Mazomanie HospitalComment on above:Performed By: #### CDP #### [facility] [address] [place] [address] Dr[address] [place], [place] [id number] [employer] Player: RADHA Bowens WO CONon [id number] PELVIS WO [id number] [place] [address] Patient: ROSETTA KEITH Exam Date: 09/07/2018 : 1940 Gender:F Ordering : SIOMARA SWEENEYAWAJA EMERGENC Admission #: [id number] Family : Order #: [id number] CLICK HERE TO VIEW EXAM RADIOLOGY REPORT PROCEDURE: CT PELVIS WITHOUT CONTRAST COMPARISON: CT ABD/PELVIS W CON, 06/22/2017. INDICATIONS: Acute left hip pain after falls TECHNIQUE: Axial, Coronal, and Sagittal CT images obtained without IV contrast. DOSE: 680 mGycm FINDINGS: URINARY BLADDER: No visible focal wall thickening, lesion, or calculus. LYMPH NODES: No adenopathy. BOWEL: No abnormality of the visible bowl. PELVIC ORGANS: No visible mass. Pelvic organs appropriate for patient age. ANTERIOR WALL: No hernia. BONES: Grade 1 anterior listhesis of L4 on L5. Complete loss of the L5-S1 disc space. OTHER: Trace amount of edema/bruising within the subcutaneous fat lateral to the left hip. No visible muscular hematoma or abnormal thickening. CONCLUSION: 1. No left hip fracture or dislocation; stable appearance compared to prior study. 2. Trace amount of edema/bruising within the subcutaneous fat lateral to the left hip. No visible muscular abnormality. 3. Marked degenerative changes of the visible lower lumbar spine. Dictated by: Charlotte Leggett M.D. on 09/07/2018 at 11:46 Approved by: Charlotte Leggett M.D. on 09/07/2018 at 11:54[facility] Vital Signs Date TimeVital SignValuePerforming YtmoubtlxIqsapynt98-29-4840 08:34-0400Body tlgsun611.1 cmJocoby Starkss DO Work Phone: [facility]-2025 08:34-0400Body mass index (BMI) [Ratio]38.73 kg/m2Ngacoby Starkss DO Work Phone: [facility]10-10-2025 08:34-0400Body [degF]Deyanira Tai DO Work Phone: [facility]10-10-2025 08:34-0400Body .59 kgDeyanira Tai DO Work Phone: [facility]10-10-2025 08:34-0400Diastolic blood oyghuxxr44 mm[Hg]Deyanira Tai DO Work Phone: [facility]10-10-2025 08:34-0400Heart rate 92 /minDeyanira Tai DO Work Phone: [facility]10-10-2025 08:34-0400 Respiratory rate18 /minDeyanira Tai DO Work Phone: [facility]10-10-2025 08:34-1032TcI9% (BldA) [Mass fraction]95 %Deyanira Tai DO Work Phone: [facility]10-10-2025 08:34-0400Systolic blood zqbqytkd116 mm[Hg]Deyanira Tai DO Work Phone: [facility]09-16-2025 13:18-0400Body .7 cmSteven Rusher DPM Work Phone: [facility] HospitalIqqxhevkct26-86-2289 13:18-0400Body mass index (BMI) [Ratio]35.33 kg/i6Bfnidu Rusher DPM Work Phone: [facility] HospitalFbripmvlmi41-88-0504 13:18-0400Body eaaube90.95 kgSteven Rusher DPM Work Phone: [facility] HospitalMoqkxfdmwe79-40-5603 13:39-0400Body ljawgk523.1 cmFilipe Son MD Work Phone: [facility]09-08-2025 13:39-0400Body mass index (BMI) [Ratio]36.4 kg/u7VftdsqzFilipe Son MD Work Phone: [facility]09-08-2025 13:39-0400Body gcxbry06.5 kgFilipe Son MD Work Phone: [facility] Yhvlyw93-73-8829 13:39-0400Diastolic blood ycktafwb98 mm[Hg]Filipe Son MD Work Phone: [facility] Lmofbg80-73-1843 13:39-0400Heart rate 85 /minFilipe Son MD Work Phone: [facility] Kpclyf83-61-6029 13:39-0400Systolic blood ytmylwpp263 mm[Hg]Filipe Son MD Work Phone: [facility] Rdtghu40-58-8369 14:06-0400Body jvycel031.1 cmNgacoby Starkss DO Work Phone: [facility] Tvlkfr92-81-7116 14:06-0400Body mass index (BMI) [Ratio]36.4 kg/m2Jocoby Yuhas DO Work Phone: [facility] Ibtoen84-48-0235 14:06-0400Body .5 kgJocoby Yuvalentinas DO Work Phone: [facility] Pnktbg15-75-6784 14:06-0400Diastolic blood mm[Hg]Deyanira Starkss DO Work Phone: [facility] Ohwvpy06-44-4678 14:06-0400Systolic blood xywjuucq316 mm[Hg]Deyanira Terezas DO Work Phone: [facility] Rijdpi43-94-0109 09:48-0400Body iwqvor063.6 cmNgacoby Yuhas DO Work Phone: [facility]06-27-2025 09:48-0400Body mass index (BMI) [Ratio]34.78 kg/m2Jocoby Yuhas DO Work Phone: [facility] Zfbecn44-46-5315 09:48-0400Body cbrxttlxpgy32.29 [degF]Deyanira Yuhas DO Work Phone: [facility]06-27-2025 09:48-0400Body .01 kgDeyanira Tai DO Work Phone: [facility]06-27-2025 09:48-0400Diastolic blood gefgrahu07 mm[Hg]Deyanira Tai DO Work Phone: [facility]06-27-2025 09:48-0400Heart rate 89 /minDeyanira Tai DO Work Phone: [facility]06-27-2025 09:48-0400 Respiratory rate20 /minDeyanira Tai DO Work Phone: [facility]06-27-2025 09:48-3905NwI4% (BldA) [Mass fraction]96 %Deyanira Tai DO Work Phone: [facility]06-27-2025 09:48-0400Systolic blood qglaipqa282 mm[Hg]Deyanira Tai DO Work Phone: [facility]06-05-2025 09:19-0400Body qookmy734.7 cmSteven Rusher DPM Work Phone: [phone])[address]06-05-2025 09:19-0400Body mass index (BMI) [Ratio]35.33 kg/h6Aiughz Rusher DPM Work Phone: [phone])[address]06-05-2025 09:19-0400Body bdiplm74.95 kgSteven Rusher DPM Work Phone: [phone])[address]02-27-2025 09:35-0500Body .7 cmSteven Rusher DPM Work Phone: [phone])[address]02-27-2025 09:35-0500Body mass index (BMI) [Ratio]35.33 kg/d5Cmhhai Rusher DPM Work Phone: [phone] [place], [place] [address]Vtmmcjvylv23-85-5875 09:35-0500Body ngwjif31.95 kgSteven Rusher DPM Work Phone: [facility] HospitalPzjvnalbrt36-81-0753 13:24-0500Body xqikcm921.6 cmDeyanira Starkss DO Work Phone: [facility]02-25-2025 13:24-0500Body mass index (BMI) [Ratio]38.04 kg/m2Deyanira Starkss DO Work Phone: [facility]02-25-2025 13:24-0500Body ykjfkmhblym65.5 [degF]Deyanira Tai DO Work Phone: [facility]02-25-2025 13:24-0500Body skurha87.95 kgJocoby Starkss DO Work Phone: [facility]02-25-2025 13:24-0500Diastolic blood fllyaiaj47 mm[Hg]Deyanira Tai DO Work Phone: [facility]02-25-2025 13:24-0500Heart rate 107 /minJocoby Starkss DO Work Phone: [facility]02-25-2025 13:24-8204OuA1% (BldA) [Mass fraction]96 %Deyanira Tai DO Work Phone: [facility]02-25-2025 13:24-0500Systolic blood ufexmzvk529 mm[Hg]Deyanira Tai DO Work Phone: [facility]01-16-2025 12:03-0500Body .6 cmDeyanira Starkss DO Work Phone: [facility]01-16-2025 12:03-0500Body mass index (BMI) [Ratio]37.89 kg/m2Deyanira Starkss DO Work Phone: [facility]01-16-2025 12:03-0500Body taaxfzvxcmc94.7 [degF]Deyanira Starkss DO Work Phone: [facility]01-16-2025 12:03-0500Body qhhyir78.67 kgDeyanira Starkss DO Work Phone: [facility]01-16-2025 12:03-0500Diastolic blood svvckmuk63 mm[Hg]Deyanira Starkss DO Work Phone: [facility] Umevti77-33-4428 12:03-0500Heart rate 97 /minDeyanira Starkss DO Work Phone: [facility]01-16-2025 12:03-0500 Respiratory rate18 /minDeyanira Starkss DO Work Phone: [facility]01-16-2025 12:03-7737CoL1% (BldA) [Mass fraction]96 %Deyanira Starkss DO Work Phone: [facility] Stqpyu45-95-7352 12:03-0500Systolic blood malvwfdu602 mm[Hg]Deyanira Tai DO Work Phone: [facility] Nuvhpi62-68-9589 12:54-0500Body .7 cmSteven Jamel DPM Work Phone: [facility] HospitalWulyjzazeq23-64-3852 12:54-0500Body mass index (BMI) [Ratio]32.54 kg/l2Ihcdly Rus DPM Work Phone: [facility] HospitalAcuzetoxqy16-74-1259 12:54-0500Body ndycmz30.5 kg Charlotte Lonnie DPM Work Phone: [facility] Healthcare Encounters Encounter DateEncounter TypeCare ProviderFacilityStart: 07-06-2025 End: 75-45-7469EqjgldNaklpb G Furlong DO Work Phone: [facility] Internal Medicine - Family MedicineComment on above:Essential hypertensionStart: 07-03-2025 End: 40-83-1601Slzfcbnbmpllm procedureJocoby Augustine Starkss DO Work Phone: [facility] Internal Medicine - Family MedicineStart: 07-01-2025 End: 23-27-5936Nozndomvt encounterCaren BillD.W. [facility] Internal Medicine - Family MedicineStart: 06-18-2025 End: 38-41-6994TpozghQvbk Augustine Tai DO Work Phone: [facility] Internal Medicine - Family MedicineComment on above:Essential hypertensionStart: 06-05-2025 End: 04-81-0330Iaucgk outpatient visit 25 minutesJocoby Augustine William DO Work Phone: [facility] Internal Medicine - Family MedicineComment on above:Type 2 diabetes mellitus with diabetic peripheral angiopathy without gangrene, with long-term current use of insulin ([facility]) (Primary Dx); Essential hypertension; Restless legs; Encounter for immunizationStart: 06-05-2025 End: 94-09-1591ligbouucvcRNNTSouthwell Tift [facility] Ambulatory PPGStart: 06-02-2025 End: 54-17-6980WkbwbvStqemkj Boggs CMAFulton County Health Center Physicians Internal Medicine - Family MedicineComment on above:Urinary urgencyStart: 05-20-2025 End: 73-06-6227JcocbeAtlw L William DO Work Phone: [facility] Internal Medicine - Family MedicineComment on above:Chronic obstructive pulmonary disease, unspecified COPD type ([facility])Start: 05-18-2025 End: 80-40-0596NtdnnuOykpgag Boggs CMAProD.W. [facility]mill[facility] Phys[facility] Internal Medicine - Family MedicineComment on above:Essential hypertensionStart: 05-12-2025 End: 88-41-0982Wzoyty flowsheetSteven A Rusher DPM Work Phone: noMS [facility] PodiatryStart: 05-12-2025 End: 10-13-1199Lgezrq flowsheetSteven A Rusher DPM Work Phone: noMS [facility] PodiatryStart: 05-12-2025 End: 32-89-5162Rqgdoxs encounter procedureSteven A Rusher DPM Work Phone: [facility] PodiatryComment on above:Dermatophytosis of nail (Primary Dx); Dystrophic nail; Angiopathy, diabetic (HCC); Type II or unspecified type diabetes mellitus with neurological manifestations, not stated as uncontrolled(250.60) (HCC)Start: 05-12-2025 End: 04-35-3596xfgqcxrbkcNKTALQ A RUSHERNot AvailableStart: 05-08-2025 End: 26-14-0081CmjcwoAndq Cooper CMAFulton County Health Center Physicians Internal Medicine - Family MedicineComment on above:Candidal dermatitisStart: 05-04-2025 End: 48-83-8861Qohbcl outpatient visit 15 minutesFilipe Son MD Work Phone: [facility] Physicians Genito-Urinary SurgeonsComment on above:Urinary urgency (Primary Dx)Start: 05-04-2025 End: 82-63-8264codqrgfuywBMMUGDP G RASHIDPremier Health [facility] Ambulatory PPGStart: 04-24-2025 End: 33-36-0191Zenysulvdaghm procedureJocoby Tai DO Work Phone: [facility] Internal Medicine - Family MedicineComment on above:Advice Only ( This was opened in error)Start: 04-23-2025 End: 91-83-0298axfzhbxoihCWFFSouthwell Tift [facility] Center Ambulatory PPGStart: 04-23-2025 End: 43-44-4598Wxftfv outpatient visit 25 minutesDeyanira Tai DO Work Phone: [facility] Internal Medicine - Family MedicineComment on above:Cellulitis of finger of right hand (Primary Dx)Start: 04-10-2025 End: 47-76-2825PkywfgShsx Cooper CMAFulton County Health Center Physicians Internal Medicine - Family MedicineComment on above:Hyperlipidemia, unspecified hyperlipidemia type Start: 03-26-2025 End: 82-19-0816Ksazthm encounter procedureJocoby Starkss DO Work Phone: [facility] Internal Medicine - Family MedicineComment on above:Encounter for subsequent annual wellness visit (AWV) in Medicare patient (Primary Dx)Start: 03-26-2025 End: 02-08-7501apepytwzmzMGXENorth [facility] Ambulatory PPGStart: 03-22-2025 End: 62-05-2664YdaepwSrbb Augustine Tai DO Work Phone: [facility] Internal Medicine - Family MedicineComment on above:Essential hypertensionStart: 03-03-2025 End: 95-07-7953Lpmhwxlgu Yoni HusseinSt. Charles Parish Hospital Call CenterStart: 02-20-2025 End: 68-77-3239ghwcsgxokeSYWISouthwell Tift Regional Medical Center Ambulatory PPGStart: 02-20-2025 End: 77-28-8341Lcyvod outpatient visit 25 minutesJocoby Augustine Starksluis DO Work Phone: [facility] Internal Medicine - Family MedicineComment on above:Type 2 diabetes mellitus with diabetic peripheral angiopathy without gangrene, with long-term current use of insulin ([facility]) (Primary Dx); Essential hypertension; Chronic obstructive pulmonary disease, unspecified COPD type ([facility]); Oropharyngeal dysphagia; Vitamin B12 deficiencyStart: 02-09-2025 End: 46-93-7857XrfinoGzhn Augustine Starksluis DO Work Phone: [facility] Internal Medicine - Family MedicineComment on above:Restless legs; Mild recurrent major depressionStart: 01-29-2025 End: 35-15-2656Dkfgvp flowsheetSteven A Rusher DPM Work Phone: [facility] PODIATRYStart: 01-29-2025 End: 64-29-4067Lkwtup flowsheetSteven A Rusher DPM Work Phone: n[facility] PODIATRYStart: 01-29-2025 End: 43-50-0041Hvfeyfg encounter procedureSteven A Rusher DPM Work Phone: noms PODIATRYComment on above:Dermatophytosis of nail (Primary Dx); Dystrophic nail; Angiopathy, diabetic ([facility]); Type II or unspecified type diabetes mellitus with neurological manifestations, not stated as uncontrolled(250.60) ([facility])Start: 01-29-2025 End: 43-07-8282dezvjogruuUIYDPM A RUSHERNot AvailableStart: 11-18-2024 End: 40-04-8656SrtuoqIwaz L Yuhas DO Work Phone: [facility] Internal Medicine - Family MedicineComment on above:Type 2 diabetes mellitus with peripheral angiopathy ([facility])Start: 10-23-2024 End: 14-74-5440Jcoenu flowsheetSteven A Rusher DPM Work Phone: [facility] PODIATRYStart: 10-23-2024 End: 14-47-1616Iscdxn flowsheetSteven A Rusher DPM Work Phone: noms PODIATRYStart: 10-23-2024 End: 22-12-2230Vokjdfe encounter procedureSteven A Rusher DPM Work Phone: n[facility] PODIATRYComment on above:Dermatophytosis of nail (Primary Dx); Dystrophic nail; Angiopathy, diabetic ([facility]); Type II or unspecified type diabetes mellitus with neurological manifestations, not stated as uncontrolled(250.60) ([facility])Start: 10-23-2024 End: 12-63-7359eyskuspqyuILEVJY A RUSHERNot AvailableStart: 10-21-2024 End: 54-01-9349glzkolodcuSGNY [facility] Hospitaltart: 10-21-2024 End: 73-90-5959Gurlgu outpatient visit 25 minutesDeyanira Tai DO Work Phone: [facility] Internal Medicine - Family MedicineComment on above:Type 2 diabetes mellitus with peripheral angiopathy ([facility]) (Primary Dx); Edema of both lower legs; Chronic obstructive pulmonary disease, unspecified COPD type ([facility]); Essential hypertensionStart: 10-21-2024 End: 32-02-9881nnwbrwgekjBJLF [facility] Ambulatory PPGStart: 10-18-2024 End: 84-02-0138Ekttyhaoc encounterKeiry ValdezFulton County Health Center Call CenterComment on above:CellulitisStart: 09-22-2024 End: 30-10-2768RdtldeHujp L Yuhas DO Work Phone: [facility] Internal Medicine - Family MedicineComment on above:Essential hypertensionEssential hypertension; Hyperlipidemia, unspecified hyperlipidemia type; Urinary urgencyStart: 09-18-2024 End: 81-78-4367VjspfmDawd L Yuhas DO Work Phone: [facility] Internal Medicine - Family MedicineComment on above:Essential hypertensionStart: 09-15-2024 End: 05-16-1724NhicaiAlyf L Yuhas DO Work Phone: [facility] Internal Medicine - Family MedicineComment on above:Urinary urgency; Essential hypertensionStart: 09-11-2024 End: 26-89-5821FjjtzvIrug L Yuhas DO Work Phone: [facility] Internal Medicine - Family MedicineComment on above:Hyperlipidemia, unspecified hyperlipidemia typeStart: 09-11-2024 End: 00-31-0171Qpwpsf outpatient visit 15 minutesDeyanira Starkss DO Work Phone: [facility] Internal Medicine - Family MedicineComment on above:Pressure injury of right buttock, stage 1 (Primary Dx); Chronic obstructive pulmonary disease, unspecified COPD type ([facility]); Mild recurrent major depression ([facility]); Obesity, morbid ([facility]); Type 2 diabetes mellitus with peripheral angiopathy ([facility])Start: 09-11-2024 End: 47-32-0680apcgbegywxDHAKEllis Island [facility] Ambulatory PPGStart: 08-29-2024 End: 59-38-3710Ccukiyemh encounterDeyanira Starkss DO Work Phone: [facility] Internal [facility] - [facility] MedicineStart: 2024 End: 48-89-1531Glbiytkqt encounterMattie Sam CMAFulton County Health Center [facility]icians Internal Medicine - Family MedicineStart: 08-23-2024 End: 16-61-3454cqaflsczsgGoob YuhasFacility:[facility] Start: 08-19-2024 End: 77-67-0842zwraynlhnoTOKZ Augustine [facility] HospitalStart: 07-03-2024 End: 25-44-2610Rekpmv flowsheetSteven A Rusher DPM Work Phone: [facility] PODIATRYStart: 07-03-2024 End: 98-92-6605Pfbwut flowsheetSteven A Rusher DPM Work Phone: [facility] PODIATRYStart: 07-03-2024 End: 26-82-4708Zverdmf encounter procedureSteven A Rusher DPM Work Phone: noms PODIATRYComment on above:Dermatophytosis of nail (Primary Dx); Dystrophic nail; Angiopathy, diabetic ([facility]); Type II or unspecified type diabetes mellitus with neurological manifestations, not stated as uncontrolled(250.60) ([facility])Start: 07-03-2024 End: 41-95-1995khlgyswrovYOHPPC A RUSHERNot AvailableStart: 05-05-2024 End: 06-92-5420gxvghrisrxCROX Augustine [facility] Hospitaltart: 01-01-2024 End: 07-42-0017qkvnxinnsrSHBO L [facility] HospitalStart: 11-01-2023 End: 89-29-9353xkmykmyfjjNMXO L [facility] HospitalStart: 10-09-2023 Telephone encounterSteven A Rusher DPM Work Phone: noms PODIATRYComment on above:Advice OnlyStart: 09-19-2023 End: 91-51-2701assdmovmqjIQGRZBJ J CASTILLOProMedica [facility] HospitalStart: 08-05-2020 End: 04-78-4543Fzfaoeq encounter procedureDEYANIRA [facility] Start: 08-05-2020 End: 15-52-5303Hxugfwfkcj hospital visit by physicianVA [facility] LaboratoryStart: 09-07-2018 End: 97-40-6886Rsfpurm encounter procedureWAMYRON Robertscility:H1 Procedures DateProcedureProcedure DetailPerforming ClinicianStart: 50-15-7774Nqipl depression screening assessmentDeyanira Tai DO Work Phone: Start: 64-79-1623Guyqbu-up visitFollow-upHARESHGARRY Londono ALCIRAtart: 84-53-8406Pifpx depression screening assessmentDeyanira Tai DO Work Phone: Start: 58-36-8539Znkghrunwmzug metabolic panelDeyanira Tai DO Work Phone: Start: 84-38-4372Wycnf depression screening assessment Deyanira Tai DO Work Phone: Start: 43-61-3445Tnybv depression screening assessment Deyanira Tai DO Work Phone: Start: 53-50-4445Rsbvf depression screening assessment Mattie Sam CMAStart: 06-13-6173Plcrv count complete auto&auto difrntl wbc DEYANIRA STARKSSStart: 69-04-7742Phpvb count complete auto&auto difrntl wbcDeyanira Tai Work Phone: Plan of Treatment DateCare ActivityDetailAuthorStart: 15-24-4917Xyidehfmsi ScreeningDepression ScreeningProMedica Health SystemStart: 75-32-1166Evyqffw ScreeningTobacco ScreeningProMedica Health SystemStart: 05-10-2026 End: 32-78-0937Qadscvy encounter tvoaegfgt93/14/2026 3:15 PM EDT Office Visit [facility] [address] [place] [address] [place] [address] Filipe Son MD [address] [place] [address] [facility] SurgeonsStart: 69-60-8333Qotkncr ScreeningTobacco Screening [facility] SystemStart: 03-30-2026 End: 57-36-5105Pjsopoc encounter uafbnbbqm34/04/2026 3:00 PM EDT Office Visit [facility] - Family Medicine [address] [place] [address] OjiGfitgb Physicians Internal Medicine [facility] Eglestontart: 42-50-8891Kfpcubottg ScreeningDepression ScreeningProBrown Memorial Hospital SystemStart: 07-31-2026Medicare Annual Wellness VisitMedicare Annual Wellness VisitProBrown Memorial Hospital SystemStart: 66-29-6892Vgjyaek ScreeningTobacco ScreeningGrant Hospitalca Health SystemStart: 47-67-8441Tude Risk ScreeningFall Risk ScreeningProAvita Health System Ontario Hospitalca Health SystemStart: 83-50-6214Xlqdcqiunb ScreeningDepression ScreeningGrant Hospitalca [facility] SystemStart: 36-06-5900Rnnt Risk ScreeningFall Risk ScreeningGrant Hospitalca [facility] SystemStart: 98-43-3698Mscyipx ScreeningTobacco ScreeningGrant Hospitalca [facility] SystemStart: 55-97-6976Bvltfboaez ScreeningDepression ScreeningMiami Valley Hospital SystemStart: 55-85-4345Ulwl Risk ScreeningFall Risk ScreeningGrant Hospitalca [facility] SystemStart: 46-64-0349Qvfftft ScreeningTobacco ScreeningMiami Valley Hospital SystemStart: 52-47-2721Tlqxrav ScreeningTobacco ScreeningMiami Valley Hospital SystemStart: 06-05-2025 End: 61-04-6496Vsitybu encounter procedureProMedica Physicians VA Hospitaltart: 05-12-2025 End: 68-25-0512Kjflwqs encounter fosncsxzq17/16/2025 1:15 PM EDT Procedure Visit [facility] [address] [place] [address] Charlotte Mccullough DPM [address] [place] [address] [facility] PodiatryComment on above:ArrivedStart: 05-07-2025 End: 71-72-4919Tgcdttz encounter iehlxbzub58/11/2025 9:30 AM EDT Procedure Visit [facility] [address] [place] [address] Charlotte Mccullough DPM [address] [facility] [place], [place] [id number] [facility] PODIATRYStart: 34-48-9135Otudwqrpqr ScreeningDepression Screening [facility] SystemStart: 03-91-7841Qeat Risk ScreeningFall Risk Screening [facility] SystemStart: 35-39-2641Dbanjdc ScreeningTobacco Screening [facility] SystemStart: 05-04-2025 End: 56-88-9711Gjrupsw encounter bhmjajijf25/08/2025 1:15 PM EDT Office Visit [facility] [address] [place] [address] [address] [facility] [address] Filipe Son MD [address] [place] [address] [facility] SurgeonsStart: 60-62-8072Dkywifppk vaccinationMiami Valley Hospital SystemStart: 03-26-2025 End: 54-39-2326Htewcvf encounter nvaxsktic27/31/2025 2:20 PM EDT Office Visit [facility] - [facility] [address] [place] [address] [phone] [facility]icians Internal Medicine - Family MedicineStart: 07-25-2025Medicare Annual Wellness VisitMedicare Annual Wellness VisitMiami Valley Hospital SystemStart: 02-20-2025 End: 63-65-5933Zhopjcf encounter obdzfsjhx78/27/2025 9:30 AM EDT Office Visit [facility] - [facility] [address] [place] [address] Deyanira Tai DO [address] [facility] [place], [id number] [facility] Internal Medicine - Family MedicineStart: 01-29-2025 End: 87-31-2037Teusnzh encounter procedureNOMS FH PODIATRYComment on above: ArrivedStart: 02-11-9150PNwJ,Tdap and Td Vaccines (2 - Tdap)DTaP,Tdap and Td Vaccines (2 - Tdap)[facility] SystemStart: 10-23-2024 End: 11-24-4105Jgzqjlw encounter cakzubqlj78/27/2025 9:30 AM EST Procedure Visit [facility] [address] [place] [phone] Charlotte Mccullough DPM [address] [place] [address] ArrivedNOMS PODIATRYComment on above:ArrivedStart: 10-21-2024 End: 96-09-5803Brbkdqa encounter qhrzjbaxq31/25/2025 1:30 PM EST Office Visit [facility] [address] [facility] [place] [address] Deyanira Tai, DO [address] [place] [facility] Physicians Internal [facility] MedicineStart: 10-06-2024 End: 42-29-9961Tjgcinn encounter axnqyjgsc67/10/2025 2:45 PM EST Procedure Visit [facility] [address] [place] [address] Charlotte Mccullough DPM [address] [place] [address] [facility]ITZGIB[facility] PODIATRYStart: 09-11-2024 End: 82-72-8484Yqhaadu encounter /16/2025 12:00 PM EST Office Visit [facility] - [facility] [address] [facility] [place] [address] Deyanira Tai, DO [address] [place] [address] [facility] Internal Medicine [facility] MedicineStart: 07-03-2024 End: 02-83-8299Xurlwdd encounter bbadbvyei89/07/2024 1:00 PM EST Procedure Visit [facility] [address] [place] [address] Charlotte Mccullough, DPM [address] [place] [address] ArrivedNOMS PODIATRYComment on above:ArrivedStart: 46-67-2036Prduwyfiu vaccinationInfluenza Vaccine (#1)[facility]OM HealthcareStart: 12-31-2023 End: 69-22-7733Hfpmgjp encounter pwhjcuvxk83/06/2024 1:00 PM EDT Procedure [facility] [address] [place] [address] Charlotte Mccullough, [address] [place] [address] [facility] [facility] PODIATRYStart: 42-72-6938Rnvqicstn vaccinationInfluenza Vaccine (#1)[facility] Healthcare End: 61-03-1390TQK W Auto Differential panel - BloodCBC auto differential Lab Routine Type 2 diabetes mellitus with peripheral angiopathy ([facility]) 1 Oc currences starting 10/21/2024 until 10/21/2025ProD.[facility] SystemComment on above:1 Occurrences starting 10/21/2024 until 10/21/2025BC W Auto Differential panel - BloodCBC auto differential Lab Routine Type 2 diabetes mellitus with peripheral angiopathy ([facility]) 10/21/2024 7:13 PM ESTProMedica Health System End: 88-75-4574Xsjnvzyuivajg metabolic 1999 panel - Serum or PlasmaComprehensive metabolic panel Lab Routine Type 2 diabetes mellitus with peripheral angiopathy ([facility]) 1 Occurrences starting 10/21/2024 until 10/21/2025[facility] Work Phone: Comment on above:1 Occurrences starting 10/21/2024 until 10/21/2025omprehensive metabolic 2000 panel - Serum or Plasma Comprehensive metabolic panel Lab Routine Type 2 diabetes mellitus with peripheral angiopathy ([facility]) 10/21/2024 7:13 PM reQallNorth Country HospitalThe Extraordinaries [facility] End: 29-30-5472Mdwvfdtkpkbrl metabolic 1999 panel - Serum or PlasmaComprehensive metabolic panel Lab Routine Type 2 diabetes mellitus with diabetic peripheral angiopathy without gangrene, with long-term current use of insulin ([facility]) 1 Occurrences starting 06/05/2025 until 06/05/2026[facility]Comment on above:1 Occurrences starting 06/05/2025 until 06/05/2026[facility] metabolic 1999 panel - Serum or PlasmaComprehensive metabolic panel Lab Routine Type 2 diabetes mellitus with diabetic peripheral angiopathy without gangrene, with long-term current use of insulin ([facility]) 06/05/2025 9:08 AM [employer] End: 82-96-1207Fgykifamoc A1c/Hemoglobin.total in BloodHemoglobin A1c Lab Routine Type 2 diabetes mellitus with peripheral angiopathy ([facility]) 1 Occurrences starting 10/21/2024 until 10/21/2025[facility] NorthComment on above:1 Occurrences starting 10/21/2024 until 10/21/2025Hemoglobin A1c/Hemoglobin.total in BloodHemoglobin A1c Lab Routine Type 2 diabetes mellitus with peripheral angiopathy ([facility]) 57:13 PM reQallNorth Country HospitalSiGe Semiconductor [facility] End: 51-95-4092Sdorjqkopl A1c/Hemoglobin.total in BloodHemoglobin A1c Lab Routine Type 2 diabetes mellitus with diabetic peripheral angiopathy without gangrene, with long-term current use of insulin ([facility]) 1 Occurrences starting 02/20/2025 until 02/20/2026[facility] HospitalThe Extraordinaries Work Phone: Comment on above:1 Occurrences starting 02/20/2025 until 02/20/2026Hemoglobin A1c/Hemoglobin.total in BloodHemoglobin A1c Lab Routine Type 2 diabetes mellitus with diabetic peripheral angiopathy without gangrene, with long-term current use of insulin ([facility]) 02/20/2025 10:32 AM [employer] End: 21-31-2016Reizrqkoib A1c/Hemoglobin.total in BloodHemoglobin A1c Lab Routine Type 2 diabetes mellitus with diabetic peripheral angiopathy without gangrene, with long-term current use of insulin ([facility]) 1 Occurrences starting 06/05/2025 until 06/05/2026[facility] HospitalThe Extraordinaries Work Phone: Comment on above:1 Occurrences starting 06/05/2025 until 06/05/2026Hemoglobin A1c/Hemoglobin.total in BloodHemoglobin A1c Lab Routine Type 2 diabetes mellitus with diabetic peripheral angiopathy without gangrene, with long-term current use of insulin ([facility]) 06/05/2025 9:08 AM [employer] [facility] End: 40-52-1683Romjp 1995 panel - Serum or PlasmaLipid profile Lab Routine Type 2 diabetes mellitus with diabetic peripheral angiopathy without gangrene, with long-term current use of insulin ([facility]) 1 Occurrences starting 06/05/2025 until 06/05/2026[facility] NorthComment on above:1 Occurrences starting 06/05/2025 until 06/05/2026Lipid 1995 panel - Serum or PlasmaLipid profile Lab Routine Type 2 diabetes mellitus with diabetic peripheral angiopathy without gangrene, with long-term current use of insulin ([facility]) 06/05/2025 9:08 AM [employer] End: 40-23-3886Sumuaduyxgdu - Albumin: Creatinine Urine RatioMicroalbumin - Albumin: Creatinine Urine Ratio Lab Routine Type 2 diabetes mellitus with peripheralangiopathy ([facility]) 1 Occurrences starting 10/21/2024 until 10/21/2025[facility] HospitalClarke [facility] [employer] [facility] HospitalComment on above:1 Occurrences starting 10/21/2024 until 10/21/2025Microalbumin - Albumin: Creatinine Urine Ratio Microalbumin - Albumin: Creatinine Urine Ratio Lab Routine Type 2 diabetes mellitus with peripheralangiopathy ([facility]) 10/21/2024 7:12 PM [facility] HospitaliViZ [employer] [facility] Immunizations Immunization DateImmunizationNotesCare CwkelliyEzfffjie70-50-0358zvdatpcwt, high dose seasonal, preservative-freeJohn Yuhas DO Work Phone: [facility] HospitalSiGe Semiconductor Bhawmh20-81-5016Ggttpwksamsz Conjugate 20-valentJohn Tuttos DO Work Phone: [facility]10-03-2025RSV, bivalent, protein subunit RSVpreF, diluent reconstituted, 0.5 mL, Mckinley Tai DO Work Phone: [facility] NorthHfogvc68-95-2035etusaiszn, high dose seasonal, preservative-freeSteven Rusher DPM Work Phone: [phone] [place], [place] [address]Mtkejnguqa63-56-1857bzbwxctcr virus vaccine, unspecified formulationSteven Rusher DPM Work Phone: [phone] [place], [place] [address]Bxcqzzmyxa18-18-9276isipcj vaccine recombinant Charlotte Rusher DPM Work Phone: [phone] [place], [place] [address]Adnpnnlbmo40-31-8768tqrmmm vaccine recombinant Charlotte Rusher DPM Work Phone: [phone] [place], [place] [address]Dbdcdradwd23-11-4894Vredetls, quadrivalent, recombinant, injectable influenza vaccine, preservative freeSteven Rusher DPM Work Phone: [phone] [place], [place] [address]Ufsiyamgvq51-10-4819mdwwrsmsm virus vaccine, unspecified formulationSteven Rusher DPM Work Phone: [phone] [place], [place] [address]Phfdevovuq82-72-9097rjtsjioaj, injectable, quadrivalent, preservative freeSteven Rusher DPM Work Phone: [phone] [place], [place] [address]Rxecufzwsr62-43-9116Zajarlk RLME-OkK-1Hhbslv Rusher DPM Work Phone: [phone] [place], [place] [address]Spxqgpvcts68-56-1411Emolvcl MRCJ-EcD-2Axqztf Rusher DPM Work Phone: [phone] [place], [place] [address]Nekrbgietu18-39-5198esxsyckzw, intradermal, quadrivalent, preservative free, injectableSteven Rusher DPM Work Phone: [phone] [place], [place] [address]Bfpqgkflln27-07-7726vkceciwqx, high dose seasonal, preservative-freeSteven Rusher DPM Work Phone: [phone] [place], [place] [address]Opwyfrzjuj06-92-1391Khxkomhab, injectable, Madin Debi Canine Kidney, preservative free, quadrivalentSteven Rusher DPM Work Phone: [phone] [place], [place] [address]Vswwweiwom61-13-1458bikvmrabp, high dose seasonal, preservative-freeSteven Rusher DPM Work Phone: [phone] [place], [place] [address]Cehzxajzcw64-19-3439gclbceycr, injectable, quadrivalent, preservative freeSteven Rusher DPM Work Phone: [phone] [address] StreetCmsmhfntpt64-98-8032dtkcpbeyrlud conjugate vaccine, 13 valentSteven Rusher DPM Work Phone: [phone] [address] StreetIpreylvyfj61-62-3681oercwjjny, seasonal, injectable, preservative freeSteven Rusher DPM Work Phone: [phone] [address] StreetSfltyatacp66-94-0051vfdgwiiiaizv polysaccharide vaccine, 23 valentSteven Rusher DPM Work Phone: [phone] Scott StreetDmuftojqnm80-85-8464pzlpekpry, seasonal, injectable, preservative freeSteven Rusher DPM Work Phone: [phone] [place], [place] [address]Jftkuqpvzt36-53-4512sbrclqctxf, tetanus toxoids and acellular pertussis vaccineSteven Rusher DPM Work Phone: [phone] Scott StreetBvehptndpk05-83-3073ehikoueooqms conjugate vaccine, 13 valentSteven Rusher DPM Work Phone: [phone] [place], [place] [address]Vtqdjlaxsz38-34-9538hkgabajcu virus vaccine, unspecified formulationSteven Rusher DPM Work Phone: [phone] [place], [place] [address]Vniddjqzor74-65-0428acabpm vaccine, liveSteven Rusher DPM Work Phone: [phone] [place] [address] Payers DatePayer CategoryPayerPolicy [id number]-pay2022MedicaidAETNA MEDICARE ADVANTAGE [id number] 2022MedicareAETNA MEDICARE ADVANTAGE AETNA MEDICARE REPLACEMENT [id number] 2021-Present [address] [place] [id number] [id number] [id number] 2020Medicare O AETNA MEDICARE Member Subscriber Plan / Payer (Effective 2019-) Name: Rosetta Keith MMember ID: [id number] Relation to Subscriber: Self Name: Rosetta Keith Payer ID: 1 (NAIC) Type: Not on file Address: [address] [place] [id number] 2020Medicare [id number] [id number] [id number] 2..1.006843.3.57[id number] 2.0.1.373920.3.57[id number] 2.0.1.717702.3.57[id number] 2.0.1.332811.3.57[id number] 2.16840.1.516969.3.57[id number] 2.16840.1.782829.3.57[id number] 2.16840.1.585196.3.57[id number] 2.16840.1.032533.3.57[id number] 2.840.1.555894.3.57[id number] 2.840.1.162407.3.57[id number] 2.840.1.886137.3.57[id number] 2.840.1.079271.3.57[id number] 2.840.1.350793.3.57[id number] 2.84.1.045991.3.57[id number] 2.840.1.440032.3.57[id number] 2.840.1.895029.3.57[id number] 2.840.1.996273.3.57[id number] 2.840.1.291667.3.57[id number] 2.840.1.315753.3.57[id number] 2.16.840.1.500856.3.579.2.1286 Social History DateTypeDetailFacilityTobacco smoking status NHISUnknown if ever smokedSumma Health W[facility]: 08-24-1464Kof Assigned At BirthNot on fileSumma Health Wadsworth - [facility]: 03-07-2023 End: 21-92-2768Gjywwkq smoking status NHISNever smoked tobaccoNOMS Healthcare Start: 09-25-2023 End: 45-14-7434Fzrbekc intakeLifetime non-drinker (finding)[facility] HealthcareStart: 02-20-2023 End: 48-95-8377Rajytyx of Social functionMiami Valley Hospital SystemStart: 02-20-2023 End: 20-94-4575Sfdiauo use panelECU Health Beaufort Hospitaltart: 64-41-1591Vsuchrg CommentCaffeine intake: noneNOMS HealthcareStart: 06-19-2022 End: 19-71-3879Ucwoapa use and exposureSmokeless tobacco non-userNOMS Healthcare Start: 73-47-5105Bkkhomg smoking status NHISEx-smokerMiami Valley Hospital System History of tobacco useCurrent smokerSelect Medical Specialty Hospital [facility] NorthHistory of tobacco useCigarette SmokerMiami Valley Hospital SystemStart: 05-05-2024 End: 89-12-9094Ocbxybyan beverage intakeEx-drinker (finding)[facility] SystemHas the Jag[employer], oil, or water [employer] threatened to shut off services in your home in past 12MoNUniversity Hospitals [facility] SystemAre you now , , , , never or living with a partner? [facility] Health SystemHow often to you have a drink containing alcohol?Never [facility] SystemHow many standard drinks containing alcohol do you have on a typical day?Patient does not drinkFulton County Health Center Health SystemDo you feel stress - tense, restless, nervous, or anxious, or unable to sleep at night because yourmind is troubled all the time - these days [OSQ]Only a littleFulton County Health Center [facility] Shoretart: 61-28-7586Dyp assigned at [facility] Start: 04-39-9513HdkQirfjr (finding)[facility] Shoretart: 12-07-2022 Gender identityIdentifies as female gender (finding)[facility] NorthHow hard is it for you to pay for the very basics like food, housing, medical care, and heatingNot very hardSelect Medical Specialty Hospital [facility] Medical Equipment Procedure CodeEquipment CodeEquipment Original TextEquipment IdentifierDates1 Syringe by miscellaneous route in the morning.[id number]: 11-09-2023 End: Pen Needle by miscellaneous route in the morning.[id number] Start: 02-15-2024 Goals DatePatient GoalDesired Activity/StatePersonal health goalComment on above: Evaluation of progress towards goal: Discharge to [facility] inpatient rehab Clinical Notes 10-09-2023 to 07-03-2025 Note Date & SjdnJjvtIojkgqkl54-80-7173 History of Present illness Narrative* Deyanira Tai DO - 07/03/2025 3:57 PM EST On 06/26/2025, I received notification from the assisted living that once again, he patient was having problems choking and coughing when eating. Patient had previously been seen and treated [place] [facility] [place] [facility] [place] therapy in February and March of this year because of problems with coughing and choking, and on 03/23/2025 they recommended that she start a regular diet. Impression: Dysphagia Plan: I am requesting that home health and speech therapy re-evaluate the patient regarding her ongoing dysphagia problems. Order given to resume speech therapy documented in this encounterSelect [facility]11-05-2025 Miscellaneous Notes* Telephone Encounter - Caren Mckeon CMA - 07/01/2025 2:39 PM EST Valeriano Quintanilla put in a referral for pt to receive speech therapy From [facility]. [facility] is asking you to follow pt for speech needs. Thank you. * Telephone Encounter - Deyanira Tai DO - 07/01/2025 2:39 PM EST Message noted. I can follow * Telephone Encounter - Barbie Holm CMA - 07/01/2025 2:39 PM EST Birgit from [facility] called and would like you to addend the note on 06/05 to need for speech to verify that the RN to open. * Telephone Encounter - Deyanira Tai DO - 07/01/2025 2:39 PM EST Message noted. I can not addend the last progress note, because we did not discuss dysphagia at that visit. However, I made a new note which more accurately reflects what happened, and it is available in [employer], dated for today (07/03/2025). * Telephone Encounter - Mattie Sam CMA - 07/01/2025 2:39 PM EST FAXED NOTE documented in this encounterSelect [facility]11-05-2025 Telephone encounter Note* Telephone Encounter - Caren Mckeon CMA - 07/01/2025 2:39 PM EST Valeriano Quintanilla put in a referral for pt to receive speech therapy From [facility]. [facility] is asking you to follow pt for speech needs. Thank you. [facility]11-05-2025 Telephone encounter Note* Telephone Encounter - Deyanira Tai DO - 07/01/2025 2:39 PM EST Message noted. I can follow [facility]11-05-2025 Telephone encounter Note* Telephone Encounter - Barbie Holm CMA - 07/01/2025 2:39 PM EST Birgit from [facility] called and would like you to addend the note on 06/05 to need for speech to verify that the RN to open. [facility]11-05-2025 Telephone encounter Note* Telephone Encounter - Deyanira Tai DO - 07/01/2025 2:39 PM EST Message noted. I can not addend the last progress note, because we did not discuss dysphagia at that visit. However, I made a new note which more accurately reflects what happened, and it is available in [employer], dated for today (07/03/2025). [facility]11-05-2025 Telephone encounter Note* Telephone Encounter - Mattie Sam CMA - 07/01/2025 2:39 PM EST FAXED NOTE [facility]10-10-2025 History of Present illness Narrative* Deyanira Tai DO - 06/05/2025 8:30 AM EDT IM PROGRESS NOTE Patient - Rosetta Keith Age - 84 y.o. - 1940 ASSESSMENT & PLAN 1. Type 2 diabetes mellitus with diabetic peripheral angiopathy without gangrene, with long-term current use of insulin ([facility] (Primary) -goals of treatment reviewed with the patient and POA -I reviewed the CGM which shows estimated A1c of 8.3% in an average glucose of 166 mg/dL. Most concerning finding is consistently elevated glucose readings throughout the day -will make changes to her current regimen by switching Basaglar dosing from evening to morning - insulin glargine,hum.rec.anlog (BASAGLAR KWIKPEN U-100 INSULIN) 100 unit/mL (3 mL) insulin pen; Inject 24 Units under the skin in the morning. - Hemoglobin A1c; Future - Comprehensive metabolic panel; Future - Lipid profile; Future - Lipid profile - Comprehensive metabolic panel - Hemoglobin A1c 2. Essential hypertension -goals of treatment reviewed with the patient -readings at assisted living and in office are at goal -no changes today 3. Restless legs -ongoing problem which is unchanged -continue ropinirole 0.5 mg nightly 4. Encounter for immunization -patient received Tdap, Prevnar, and flu shot at the assisted living area Subjective DIABETIC VISIT This is a follow up of a pre-existing problem. Patient self monitoring includes CGM. CGM report shows estimated A1c 7.3% with an average glucose of 166 mg/dL. In range 52% of the time. In general has excellent readings during sleeping hours, withdaytime highs which are continuous. Patient experiences hypoglycemia Rarely. Usually in tuck pointer helper Patient symptoms of hyperglycemia include: none. Current prescribed diet is fairly healthy diet with limited sugars and fats. Patient is following the prescribed diet plan. Lives in a assisted living Home activity includes: The patient does not participate in regular exercise at present.. Patient does not experience numbness or burning in their hands or feet. Patient does have vision changes. Last eye exam was: 2024 Patient BP monitoring is done regularly. BP normally 120 - 129 mmHg / 70 - 79 mmHg. Patient reports: taking medications as instructed, no medication side effects noted, no chest pain on exertion, no dyspnea on exertion, no swelling of ankles, no orthostatic dizziness or lightheadedness, no palpitations, and no intermittent claudication symptoms Issues affecting compliance with diabetic self management include: Has some nighttime lows with current dosing of Basaglar in the evening, and readings are consistently elevated throughout the day. A review of systems was negative except for the following: General: weight gain Psychiatric: memory difficulties Ophthalmic: decreased vision and can only see shadows at 2-3 feet Genito-Urinary: urinary frequency/urgency. Exam BP 126/74 (BP Site: Left Arm, BP Postition: Sitting, BP CUFF SIZE: M (9-13 inches)) Pulse 92 Temp 36.1 C (97 F) (Tympanic) Resp 18 Ht 132.1 cm (4' 4.01 ) Wt 67.6 kg (149 lb) SpO2 95% BMI 38.73 kg/m Physical Exam Vitals reviewed. Exam conducted with a victims advocate clerk/specialist present (Friend/POA). Constitutional: General: She is not in acute distress. Appearance: She is obese. She is not toxic-appearing. HENT: Head: Normocephalic. Right Ear: External ear normal. Left Ear: External ear normal. Ears: Comments: Moderately Diminished hearing bilaterally Nose: Nose normal. Mouth/Throat: Mouth: Mucous membranes are moist. Eyes: General: No scleral icterus. Comments: Unable to count fingers at 5 ft. Neck: Vascular: No carotid bruit. Cardiovascular: Rate and Rhythm: Normal rate and regular rhythm. Heart sounds: No murmur heard. No gallop. Pulmonary: Effort: Pulmonary effort is normal. Breath sounds: No wheezing or rales. Abdominal: Palpations: Abdomen is soft. Comments: Large pannus Musculoskeletal: Right lower leg: Edema (1+ to the knee) present. Left lower leg: Edema (1+ to the knee) present. Skin: General: Skin is warm and dry. Coloration: Skin is not jaundiced. Findings: No bruising. Comments: No open areas bilateral lower extremities. Chronic discoloration and thickening of the skin bilateral feet and lower pretibial areas. Neurological: Mental Status: She is alert. Sensory: No sensory deficit (Monofilament testing variable bilateral feet on the toes, forefoot andankle. Vibratory testing decreased or variable bilaterally.). Gait: Gait abnormal (Using a walker). Psychiatric: Mood and Affect: Mood normal. Behavior: Behavior normal. Meds Current Outpatient Medications: acetaminophen (TYLENOL EXTRA STRENGTH) 500 mg tablet, Take by mouth., Disp: , Rfl: albuterol (PROVENTIL,VENTOLIN) 2.5 mg /3 mL (0.083 %) nebulizer solution, Inhale 3 mL (2.5 mg total) by nebulization in the morning and 3 mL (2.5 mg total) at noon and 3 mL (2.5 mg total) in the evening and 3 mL (2.5 mg total) before bedtime., Disp: 75 mL, Rfl: 1 amLODIPine (NORVASC) 10 mg tablet, Take 0.5 tablets (5 mg total) by mouth every morning., Disp: 15 tablet, Rfl: 1 aspirin 81 mg, Take 1 tablet (81 mg total) by mouth in the morning., Disp: , Rfl: atorvastatin (LIPITOR) 10 mg tablet, Take 1 tablet (10 mg total) by mouth in the evening., Disp: 90tablet, Rfl: 1 blood-glucose meter,continuous (DEXCOM G7 MILLINERY DESIGNER) misc, 1 each by miscellaneous route every 3 (three) months., Disp: 1 each, Rfl: 0 blood-glucose sensor (DEXCOM G6 SENSOR) device, 1 each by miscellaneous route every 10 days., Disp:9 each, Rfl: 1 blood-glucose transmitter (DEXCOM G6 TRANSMITTER) device, 1 each by miscellaneous route in the morning., Disp: 1 each, Rfl: 1 calcium carbonate (OS-ZHEN) 600 mg elemental (1,500 mg) tablet, Take 1 tablet (600 mg total) by mouth daily with breakfast., Disp: 90 tablet, Rfl: 1 cranberry 500 mg capsule, Take 1 tablet by mouth in the morning., Disp: 90 each, Rfl: 1 fluticasone propion-salmeteroL (ADVAIR) 250-50 mcg/dose DISKUS, INHALE 1 Puff BY MOUTH IN THE MORNING and 1 Puff before bedtime, Disp: 180 each, Rfl: 1 latanoprost (XALATAN) 0.005 % ophthalmic solution, Administer 1 drop to both eyes nightly., Disp: ,Rfl: lisinopriL (PRINIVIL,ZESTRIL) 40 mg tablet, Take 1 tablet (40 mg total) by mouth in the morning., Disp: 90 tablet, Rfl: 0 lutein 10 mg tablet, Take by mouth., Disp: , Rfl: mirtazapine (REMERON) 7.5 mg tablet, TAKE 1 TABLET BY MOUTH ONCE DAILY at NIGHT, Disp: 90 tablet, Rfl: 1 nebulizer accessories (ADULT AEROSOL MASK) misc, 1 Unit by miscellaneous route 4 (four) times a day., Disp: 1 each, Rfl: 0 nystatin (MYCOSTATIN) powder, Apply 1 Application topically in the morning and 1 Application at noon and 1 Application in the evening and 1 Application before bedtime., Disp: 60 g, Rfl: 0 pen needle, diabetic 31 gauge x 1/4 needle, 1 Pen Needle by miscellaneous route in the morning., Disp: 100 each, Rfl: 1 rOPINIRole (REQUIP) 0.5 mg tablet, TAKE 1 TABLET BY MOUTH NIGHTLY, Disp: 90 tablet, Rfl: 1 tolterodine (DETROL) 2 mg tablet, Take 1 tablet (2 mg total) by mouth in the morning and 1 tablet (2 mg total) before bedtime., Disp: 180 tablet, Rfl: 1 insulin glargine,hum.rec.anlog (BASAGLAR KWIKPEN U-100 INSULIN) 100 unit/mL (3 mL) insulin pen, Inject 24 Units under the skin in the morning., Disp: , Rfl: magnesium sulfate (EPSOM SALT) 100 % crystals, Apply 1 Application topically in the morning and 1 Application in the evening. Apply before meals. (Patient not taking: Reported on 06/05/2025), Disp: ,Rfl: Lab Results No visits with results within 1 Month(s) from this visit. Latest known visit with results is: Office Visit on 02/20/2025 Component Date Value Ref Range Status VITAMIN B12 02/20/2025 695 180 - 914 pg/mL Final HEMOGLOBIN A1C 02/20/2025 7.3 (H) 4.4 - 5.6 % Final EST. AVERAGE GLUCOSE 02/20/2025 163 mg/dL Final SODIUM 02/20/2025 141 134 - 146 mmol/L Final POTASSIUM 02/20/2025 4.4 3.5 - 5.0 mmol/L Final CHLORIDE 02/20/2025 101 98 - 109 mmol/L Final CARBON DIOXIDE 02/20/2025 31 22 - 32 mmol/L Final ANION GAP 02/20/2025 9 5 - 15 mmol/L Final BLOOD UREA NITROGEN 02/20/2025 12 5 - 27 mg/dL Final CREATININE 02/20/2025 0.63 0.40 - 1.00 mg/dL Final GLUCOSE 02/20/2025 145 (H) 65 - 99 mg/dL Final CALCIUM 02/20/2025 9.6 8.5 - 10.5 mg/dL Final TOTAL PROTEIN 02/20/2025 7.7 6.0 - 8.0 g/dL Final ALBUMIN 02/20/2025 4.3 3.2 - 5.3 g/dL Final ALKALINE PHOSPHATASE 02/20/2025 101 39 - 130 U/L Final AST 02/20/2025 17 <=41 U/L Final ALT 02/20/2025 14 <=31 U/L Final BILIRUBIN,TOTAL 02/20/2025 0.4 0.3 - 1.2 mg/dL Final EGFR Non-Race Dependent 02/20/2025 87 >=60 ml/min/1.73sq.m Final Other Testing No results found. Deyanira Tai DO., [facility]: [phone] documented [facility] this [facility] History of Present illness Narrative* Charlotte Mccullough, DPM - 05/12/2025 1:15 PM EDT Images from the original note were not included. Subjective Patient ID: Tabitha Keith is a 84 y.o. female who presents for No chief complaint on file.. HPI HPI Diabetic/Routine Nail Care: Presents requesting nail care. Symptomatic toenail deformity. Location: all digits are problematic/symptomatic. Duration: chronic toenail deformity, multiple years duration. Severity of symptoms: mild; in the presence of diabetic neuropathy. Onset: gradual, without injury or trauma. Status: problematic/symptomatic over the past several weeks or so. Context: hard to trim, hard to reach; self-care is difficult, ineffective, not practical; exposing patient to considerable risk; family members unable to provide effective care. NAILS: thickened, discolored, pain , elongated , crumbly, pressure; without bleeding or drainage. Relieved by: patient remains well satisfied with palliative care measures. Previous Treatment: palliative care as noted. History of ulcers/wounds: no. Has treatment helped with pain: pressure relief. Aggravated by: shoe gear, pressure, walking; catching and snagging on clothing etc.. Risk factors: Advanced visual impairment. Comorbidities. Polypharmacy. ASA therapy. Type II diabetes/IDDM. Peripheral neuropathy. PAD. CVI. Mobility and flexibility restraints. Toenail deformity. Paronychia by history. Shoe and/or digital trauma and related complications. Medications Current Outpatient Medications: acetaminophen (Tylenol) 500 MG tablet, Take by mouth, Disp: , Rfl: Advair Diskus 250-50 MCG/ACT aerosol powder , , Disp: , Rfl: albuterol (2.5 MG/3ML) 0.083% nebulizer solution, Take by nebulization every 6 (six) hours if needed for wheezing, Disp: , Rfl: amLODIPine (Norvasc) 10 MG tablet, Take 1 tablet by mouth Daily, Disp: , Rfl: aspirin 81 MG chewable tablet, 1 (one) time each day at the same time, Disp: , Rfl: atorvastatin (Lipitor) 10 MG tablet, Take 1 tablet by mouth at bedtime, Disp: , Rfl: calcium carbonate 1500 (600 Ca) MG tablet, Take 600 mg by mouth in the morning. Take with meals., Disp: , Rfl: Cranberry Extract 250 MG tablet, every 12 (twelve) hours, Disp: , Rfl: Cyanocobalamin (VITAMIN B 12 PO), , Disp: , Rfl: furosemide (Lasix) 40 MG tablet, Take by mouth, Disp: , Rfl: Lantus 100 UNIT/ML injection, , Disp: , Rfl: latanoprost (Xalatan) 0.005 % ophthalmic solution, Administer 1 drop into affected eye(s) at bedtime, Disp: , Rfl: lisinopril 40 MG tablet, Take 40 mg by mouth Daily, Disp: , Rfl: Lutein 10 MG tablet, Take by mouth, Disp: , Rfl: mirtazapine (Remeron) 7.5 MG tablet, Take 1 tablet by mouth at bedtime, Disp: , Rfl: rOPINIRole (Requip) 0.5 MG tablet, Take 1 tablet by mouth in the evening, Disp: , Rfl: teriparatide (Forteo) injection, Inject 20 mcg under the skin in the morning., Disp: , Rfl: tolterodine LA (Detrol LA) 4 MG 24 hr capsule, Take 4 mg by mouth in the morning., Disp: , Rfl: Allergies Patient has no known allergies. Past Surgical History Past Surgical History: Procedure Laterality Date CHOLECYSTECTOMY CYST REMOVAL uterus EYE SURGERY GALLBLADDER SURGERY HEMORRHOIDECTOMY INNER EAR SURGERY Left MULTIPLE TOOTH EXTRACTIONS OTHER SURGICAL HISTORY Left Krause's POLYPECTOMY TOE SURGERY Family History Family History Problem Relation Name Age of Onset Diabetes Mother Mrs Delgadillo Heart disease Father Mr. Delgadillo Heart disease Sibling Diabetes Sibling Stroke Sibling Diabetes Daughter Ny Guillen Vision loss Brother Antonino Delgadillo Diabetes Brother Antonino Delgadillo Accidental Brother Derek Delgadillo Diabetes Brother Derek Delgadillo Alcohol abuse Son Norberto Domínguez Drug abuse Son Norberto Domínguez Objective General Examination: GENERAL EXAMINATION: Alert, oriented. Pleasant disposition. Patient is accompanied by her friend. Ambulatory with walker assist; wearing Dr. Proctor therapeutic footwear with accommodative orthoses. FOOT EXAM: Date of Last Foot Exam: 05/12/2025 Sensory testing performed: sensations diminished Sensory and motor testing performed: strength diminished Pedal pulse taking performed: absent Vascular: DORSALIS PEDIS PULSE: faintly palpable, bilaterally. POSTERIOR TIBIAL PULSE: 0/4, bilaterally. CAPILLARY REFILL: < 3 seconds, bilaterally. TEMPERATURE GRADIENT: warm to cool, bilaterally. EDEMA: bilateral pitting edema; with chronic, stable stasis dermatitis and skin changes; without vesicle formation or cellulitis. VARICOSITIES: absent. SHINY ATROPHIC SKIN: trophic change with discoloration and thinning of skin . HAIR GROWTH: absent. Neurologic: VIBRATORY: Vibratory sensation is absent at IPJ and MPJ b/l. SEMMES-LASHONDA 5.07 MONOFILAMENT: inconsistent localization over the digital and forefoot areas; otherwise intact. NEUROLOGIC: Peripheral neuropathy (Q9). Dermatologic: SKIN FINDINGS: intact. Skin turgor is fair. HYPERTROPHIC LESION: no forefoot or digital keratotic pressure lesions are noted. NAIL PATHOLOGY: All digits: None are spared: Varying degrees of toenail dystrophy, elongation, discoloration, thickening, mild clubbing, pincer deformity, crumbly texture, subtotal onycholysis, periungual hyperkeratosis, without drainage. MYCOSIS SCALE: total with debris, multiple digits. INTERDIGITAL MACERATION: clean, dry, non-inflamed. ULCER: no sign of ulceration or open wound. SKIN PATHOLOGY: Loss of plantar fat pad. Ankle / Foot: RANGE OF MOTION: dorsiflexion, eversion, inversion of ankle joint and subtalar joint within normal limits left and right.. Orthopedic: FOOT MORPHOLOGY: Flexible flatfoot deformity. DEFORMITIES: flexible HAV deformity bilateral, with flexible digital contractures bilateral. MUSCLE STRENGTH: no focal deficits. Modifier: -Q8, Q9. Radiology: Assessment/Plan 1. Onychodystrophy/mycosis all digits. 2. Type II diabetes/IDDM 3. Diabetic peripheral neuropathy; (Q9). 4. Diabetic peripheral vasculopathy; (Q8). Plan: Notes: conservative and palliative care measures are understood and again indicated. Diabetic education and assessment relative to the high risk diabetic condition. Hygiene and skin care measures discussed as she is able to do so. Follow up: 3 months recommended Procedure: Toenail Debridement: Aseptic technique: power/manual instrumentation: onychodebridement length and thickness, curretage of offending crypotic margins, bhumika-ungual debris, providing effective pressure relief, reducing shoe and digital trauma; reducing potential risks and complications associated with the high risk diabetic neuropathic and vasculopathic foot condition. This note was created with the assistance of a speech recognition program. While intending to generate a timely document that accurately reflects the content of the visit, no guarantee can be provided that every grammatical or spelling mistake has been or will be identified or corrected. Thank you for your understanding. Charlotte Mccullough DPM documented in this [facility]09-16-2025 Instructions* Patient Instructions* Charlotte Mccullough DPM - 05/12/2025 1:15 PM EDT As noted documented in this [facility]09-08-2025 History of Present illness Narrative* Filipe Son MD - 05/04/2025 1:15 PM EDT Images from the original note were not included. [address] [place] [id number] Patient: Rosetta Keith Date of : 1940 Encounter Date: 05/04/2025 History of Present Illness: The patient is a 84 y.o. female, an established patient, and is here for Chief Complaint Patient presents with Follow-up . History urinary urgency frequency maintain with Detrol. At a nursing care facility. Here with a family member as well. Full discussion as below. Doing reasonably well. Had 2 uncomplicated UTIs. No gross hematuria no dysuria. Reasonable well controlled lower urinary tract symptoms as well. Tolerates the Detrol. Urinalysis today: No results for input(s): EXTPOCURCO , EXTPOCURCH , EXTPOCAPP , EXTPOCURBS , EXTPOCURBIL , EXTPOCUKET , EXTPOCUSPG , EXTPOCUHGB , EXTPOCUPRO , EXTPOCUURO , EXTPOCULEU , EXTPOCUNIT , EXTPOCUWBC , EXTPOCUBLD , EXTPOCURBC , EXTPOCUCRY , EXTPOCUBAC , EXTPOCUTREP , EXTPOCUPH , EXTPOCUL EE in the last 72 hours. Last BUN and creatinine: Lab Results Component Value Date BUN 12 02/20/2025 Lab Results Component Value Date CREATININE 0.63 02/20/2025 Last PSA: No results found for: PSA No results found for: PROSTATICSP Past Medical, Family, and Social History Update: The following portions of the patient's history were reviewed and updated as appropriate: allergies, current medications, past family history, past medical history, past social history, past surgicalhistory and problem list. Past Medical History: Diagnosis Date Arthritis Blind in both eyes COVID 06/2020 Diabetes mellitus ([facility]) Glaucoma HL (hearing loss) Hyperlipidemia Macular degeneration Pneumonia Stroke ([facility] [place]) Urinary incontinence Urinary tract infection Vaginal cancer ([facility] [place]) 2005 Vaginal cyst Visual impairment Past Surgical History: Procedure Laterality Date CATARACT EXTRACTION CHOLECYSTECTOMY CYSTOSCOPY [facility] SOLUTION N/A 03/20/2022 Performed by Filipe Son MD at [facility] DENTAL SURGERY SEPTOPLASTY TOE SURGERY Family History Problem Relation Age of Onset No Known Problems Mother Heart disease Father No Known Problems Daughter Breast cancer Neg Hx Current Outpatient Medications Medication Sig Dispense Refill acetaminophen (TYLENOL EXTRA STRENGTH) 500 mg tablet Take by mouth. albuterol (PROVENTIL,VENTOLIN) 2.5 mg /3 mL (0.083 %) nebulizer solution Inhale 3 mL (2.5 mg total)by nebulization in the morning and 3 mL (2.5 mg total) at noon and 3 mL (2.5 mg total) in the evening and 3 mL (2.5 mg total) before bedtime. 75 mL 1 amLODIPine (NORVASC) 10 mg tablet Take 0.5 tablets (5 mg total) by mouth every morning. aspirin 81 mg Take 1 tablet (81 mg total) by mouth in the morning. atorvastatin (LIPITOR) 10 mg tablet Take 1 tablet (10 mg total) by mouth in the evening. 90 tablet 1 blood-glucose meter,continuous (DEXCOM G7 MILLINERY DESIGNER) misc 1 each by miscellaneous route every 3 (three) months. 1 each 0 blood-glucose sensor (DEXCOM G6 SENSOR) device 1 each by miscellaneous route every 10 days. 9 each 1 blood-glucose transmitter (DEXCOM G6 TRANSMITTER) device 1 each by miscellaneous route in the morning. 1 each 1 calcium carbonate (OS-ZHEN) 600 mg elemental (1,500 mg) tablet Take 1 tablet (600 mg total) by mouthdaily with breakfast. 90 tablet 1 cranberry 500 mg capsule Take 1 tablet by mouth in the morning. 90 each 1 insulin glargine,hum.rec.anlog (BASAGLAR KWIKPEN U-100 INSULIN) 100 unit/mL (3 mL) insulin pen INJECT 24 UNITS SUBCUTANEOUSLY (UNDER THE SKIN) NIGHTLY 30 mL 1 latanoprost (XALATAN) 0.005 % ophthalmic solution Administer 1 drop to both eyes nightly. lisinopriL (PRINIVIL,ZESTRIL) 40 mg tablet Take 1 tablet (40 mg total) by mouth in the morning. 90 tablet 0 lutein 10 mg tablet Take by mouth. mirtazapine (REMERON) 7.5 mg tablet TAKE 1 TABLET BY MOUTH ONCE DAILY at NIGHT 90 tablet 1 nebulizer accessories (ADULT AEROSOL MASK) misc 1 Unit by miscellaneous route 4 (four) times a day.1 each 0 pen needle, diabetic 31 gauge x 1/4 needle 1 Pen Needle by miscellaneous route in the morning. 100each 1 tolterodine (DETROL) 2 mg tablet Take 1 tablet (2 mg total) by mouth in the morning and 1 tablet (2mg total) before bedtime. 180 tablet 1 fluticasone propion-salmeteroL (ADVAIR) 250-50 mcg/dose DISKUS INHALE 1 Puff BY MOUTH IN THE MORNING and 1 Puff before bedtime (Patient not taking: Reported on 05/04/2025) 180 each 1 insulin glargine (LANTUS, SEMGLEE) 100 unit/mL (3 mL) insulin pen Inject under the skin nightly. magnesium sulfate (EPSOM SALT) 100 % crystals Apply 1 Application topically in the morning and 1 Application in the evening. Apply before meals. (Patient not taking: Reported on 05/04/2025) nystatin (MYCOSTATIN) powder Apply 1 Application topically in the morning and 1 Application at noonand 1 Application in the evening and 1 Application before bedtime. (Patient not taking: Reported on05/04/2025) 60 g 0 rOPINIRole (REQUIP) 0.5 mg tablet TAKE 1 TABLET BY MOUTH NIGHTLY (Patient not taking: Reported on 05/04/2025) 90 tablet 1 No current facility-administered medications for this visit. (All medications reviewed and updated by provider since last office visit or hospitalization) Allergies: Patient has no known allergies. Tobacco History: Social History Tobacco Use Smoking Status Former Types: Cigarettes Smokeless Tobacco Never (If patient a smoker, smoking cessation counseling offered) Social History: Social History Substance and Sexual Activity Alcohol Use Not Currently Review of Systems: General: Negative for chills and fever. Cardiovascular: Negative for chest pain and shortness of breath. Gastrointestinal: Positive for diarrhea -per HPI Physical Exam: BP 126/71 Pulse 85 Ht 132.1 cm (4' 4 ) Wt 63.5 kg (140 lb) BMI 36.40 kg/m Nontoxic no apparent distress. Respirations nonlabored. Skin is dry. Awake alert oriented x3. Uses a walker Assessment and Plan: Tabitha was seen today for follow-up. Diagnoses and all orders for this visit: Urinary urgency Problem List High Urinary urgency - Primary Overview Failed Myrbetriq, Gemtesa Flomax bethanechol. Cannot make trip for UDS study. ==== 05/04/2025 ==== she is on Detrol 2 mg twice daily. Doing well. Two uncomplicated UTIs. Generallyhappy with the current state. Plan: Continue on with the trial. Order written to such. For her long term. See back in a year ==== 04/30/2024 ==== she is on Detrol by verbal report there was no [place] are given by her facility. I did write in the progress note for her to continue on with the medication. Will see her back in 1 year ==== 12/26/2023 ==== does not appear she took the Detrol. [facility] Will [facility] her [facility] in 4 months. 4 mg daily. ==== 08/06/2023 ==== no constipation. Since can not make urodynamics will try empirically on some Detrol LA 4 mg ====05/09/23====Gemtesa ineffective. With history of retention, I think [...] would have to monitor for potential retention. Follow-up: Return clinic 1 year Filipe Son MD This note was created with the assistance of a speech recognition program. While intending to generate a timely document that accurately reflects the content of the visit, no guarantee can be provided that every grammatical or spelling mistake has been or will be identified or corrected. Thank you for your understanding. documented in this encounterSelect [facility] History of Present illness Narrative* Deyanira Tia DO - 04/24/2025 8:20 AM EDT A user error has taken place: encounter opened in error, closed for administrative reasons. documented in this [facility]2025 History of Present illness Narrative* Deyanira Tai DO - 04/23/2025 4:30 PM EDT Images from the original note were not included. IM PROGRESS NOTE Patient - Rosetta Keith Age [facility] 84 [facility] 1940 [id number] ASSESSMENT & PLAN Video Visit via Real-time Synchronous Audiovisual [facility] [address] [facility] [id number] Patient Location: Patient's home Video Visit Consent Statement: I discussed risks, benefits, and alternatives of a real-time synchronous audiovisual consultation with the patient (and any accompanying persons) including the risks that the patient's personal health details and medical records will be discussed over real-time, synchronous, interactive video/audio/telecommunication technology, the visit will not be recorded withoutthe express consent of both the provider and the patient, and that there are some limitations compared to [id number] evaluations. The patient consented to the presence of additional virtual and/or in-person participants. We elected to proceed. 1. Cellulitis of finger of right hand (Primary) - this appears to be a cellulitis of the 4th digit of the right hand distally -unsure of exact etiology - will start cephalexin 500 mg q.I.d. x7 days -patient should start Epsom salt soaks twice daily on the 4th digit of the right hand -if not improving will need imaging and possible orthopedic consult. Subjective 84-year-old female resident of assisted living was noted to have a tender red 4th digit on her right hand about 1 week ago. She was complaining of pain. She does not recall any injury to the area. The nurse at the facility has been washing it and putting a bandage over the area. - patient and family member report that it started as a red raised area with a small white center. - despite the care as described above, the finger has become more swollen and the redness has spread so that it involves the mid and distal phalanx of the 4th digit on the right hand. Is still tenderto touch. There is no drainage. -they noticed that it restricts her motion, and she has trouble closing her hand to make a fist. A review of systems was negative except for the following: Musculoskeletal: swelling in finger - right. Exam There were no vitals taken for this visit. Physical Exam Exam conducted with a victims advocate clerk/specialist present (ORTEGA). Constitutional: General: She is not in acute distress. Appearance: She is obese. She is not toxic-appearing. HENT: Head: Normocephalic. Musculoskeletal: Right hand: Swelling and tenderness present. Hands: Comments: Red, inflamed distal 4th finger of the right hand Neurological: Mental Status: She is alert. Psychiatric: Mood and Affect: Mood normal. Behavior: Behavior normal. Meds Current Outpatient Medications: acetaminophen (TYLENOL EXTRA STRENGTH) 500 mg tablet, Take by mouth., Disp: , Rfl: albuterol (PROVENTIL,VENTOLIN) 2.5 mg /3 mL (0.083 %) nebulizer solution, Inhale 3 mL (2.5 mg total) by nebulization in the morning and 3 mL (2.5 mg total) at noon and 3 mL (2.5 mg total) in the evening and 3 mL (2.5 mg total) before bedtime., Disp: 75 mL, Rfl: 1 amLODIPine (NORVASC) 10 mg tablet, Take 0.5 tablets (5 mg total) by mouth every morning., Disp: , Rfl: aspirin 81 mg, Take 1 tablet (81 mg total) by mouth in the morning., Disp: , Rfl: atorvastatin (LIPITOR) 10 mg tablet, Take 1 tablet (10 mg total) by mouth in the evening., Disp: 90tablet, Rfl: 1 blood-glucose meter,continuous (DEXCOM G7 MILLINERY DESIGNER) misc, 1 each by miscellaneous route every 3 (three) months., Disp: 1 each, Rfl: 0 blood-glucose sensor (DEXCOM G6 SENSOR) device, 1 each by miscellaneous route every 10 days., Disp:9 each, Rfl: 1 blood-glucose transmitter (DEXCOM G6 TRANSMITTER) device, 1 each by miscellaneous route in the morning., Disp: 1 each, Rfl: 1 calcium carbonate (OS-ZHEN) 600 mg elemental (1,500 mg) tablet, Take 1 tablet (600 mg total) by mouth daily with breakfast., Disp: 90 tablet, Rfl: 1 cranberry 500 mg capsule, Take 1 tablet by mouth in the morning., Disp: 90 each, Rfl: 1 fluticasone propion-salmeteroL (ADVAIR) 250-50 mcg/dose DISKUS, INHALE 1 Puff BY MOUTH IN THE MORNING and 1 Puff before bedtime, Disp: 180 each, Rfl: 1 insulin glargine,hum.rec.anlog (BASAGLAR KWIKPEN U-100 INSULIN) 100 unit/mL (3 mL) insulin pen, INJECT 24 UNITS SUBCUTANEOUSLY (UNDER THE SKIN) NIGHTLY, Disp: 30 mL, Rfl: 1 latanoprost (XALATAN) 0.005 % ophthalmic solution, Administer 1 drop to both eyes nightly., Disp: ,Rfl: lisinopriL (PRINIVIL,ZESTRIL) 40 mg tablet, Take 1 tablet (40 mg total) by mouth in the morning., Disp: 90 tablet, Rfl: 0 lutein 10 mg tablet, Take by mouth., Disp: , Rfl: mirtazapine (REMERON) 7.5 mg tablet, TAKE 1 TABLET BY MOUTH ONCE DAILY at NIGHT, Disp: 90 tablet, Rfl: 1 nebulizer accessories (ADULT AEROSOL MASK) misc, 1 Unit by miscellaneous route 4 (four) times a day., Disp: 1 each, Rfl: 0 nystatin (MYCOSTATIN) powder, Apply 1 Application topically in the morning and 1 Application at noon and 1 Application in the evening and 1 Application before bedtime., Disp: 60 g, Rfl: 0 pen needle, diabetic 31 gauge x 1/4 needle, 1 Pen Needle by miscellaneous route in the morning., Disp: 100 each, Rfl: 1 rOPINIRole (REQUIP) 0.5 mg tablet, TAKE 1 TABLET BY MOUTH NIGHTLY, Disp: 90 tablet, Rfl: 1 tolterodine (DETROL) 2 mg tablet, Take 1 tablet (2 mg total) by mouth in the morning and 1 tablet (2 mg total) before bedtime., Disp: 180 tablet, Rfl: 1 Lab Results No visits with results within 1 Month(s) from this visit. Latest known visit with results is: Office Visit on 02/20/2025 Component Date Value Ref Range Status VITAMIN B12 02/20/2025 695 180 - 914 pg/mL Final HEMOGLOBIN A1C 02/20/2025 7.3 (H) 4.4 - 5.6 % Final EST. AVERAGE GLUCOSE 02/20/2025 163 mg/dL Final SODIUM 02/20/2025 141 134 - 146 mmol/L Final POTASSIUM 02/20/2025 4.4 3.5 - 5.0 mmol/L Final CHLORIDE 02/20/2025 101 98 - 109 mmol/L Final CARBON DIOXIDE 02/20/2025 31 22 - 32 mmol/L Final ANION GAP 02/20/2025 9 5 - 15 mmol/L Final BLOOD UREA NITROGEN 02/20/2025 12 5 - 27 mg/dL Final CREATININE 02/20/2025 0.63 0.40 - 1.00 mg/dL Final GLUCOSE 02/20/2025 145 (H) 65 - 99 mg/dL Final CALCIUM 02/20/2025 9.6 8.5 - 10.5 mg/dL Final TOTAL PROTEIN 02/20/2025 7.7 6.0 - 8.0 g/dL Final ALBUMIN 02/20/2025 4.3 3.2 - 5.3 g/dL Final ALKALINE PHOSPHATASE 02/20/2025 101 39 - 130 U/L Final AST 02/20/2025 17 <=41 U/L Final ALT 02/20/2025 14 <=31 U/L Final BILIRUBIN,TOTAL 02/20/2025 0.4 0.3 - 1.2 mg/dL Final EGFR Non-Race Dependent 02/20/2025 87 >=60 ml/min/1.73sq.m Final Other Testing No results found. Deyanira Tai DO., [facility]: [phone] documented in this encounterSelect [facility] History of Present illness Narrative* Deyanira Tai DO - 03/26/2025 2:20 PM EDT Subjective SUBJECTIVE: Patient ID: Rosetta Keith is a 84 y.o. female who presents for a Medicare Annual Wellness exam. HPI The following portions of the patient's history were reviewed and updated as appropriate: allergies, current medications, past family history, past medical history, past social history, past surgicalhistory and problem list. AWV FLOWSHEET : Lifestyle Assessment Do you smoke or use smokeless tobacco?: (Patient-Rptd) No If you smoke or use smokeless tobacco, are you ready to quit?: (Patient-Rptd) NA Are you exposed to secondhand smoke?: (Patient-Rptd) No On average, how many drinks of alcohol do you consume in a week?: (Patient-Rptd) None Do you exercise for 30 or more minutes on average at least 3 days a week?: (!) (Patient-Rptd) Never Do you have any tooth, denture, or oral problems?: (!) (Patient-Rptd) Yes Do you snore or has anyone told you that you snore?: (Patient-Rptd) No Do you try to eat a balanced diet?: (!) (Patient-Rptd) No Do you experience leakage of urine, also known as urinary incontinence?: (!) (Patient-Rptd) Always Do you have difficulty bathing?: (!) Yes Do you have difficulty dressing?: (!) (Patient-Rptd) Yes Do you have difficulty grooming?: (!) Yes Do you have difficulty eating?: (!) Yes Do you have difficulty getting out of a chair?: (!) Yes Do you have difficulty walking?: (!) Yes Do you have difficulty using the toilet?: (!) Yes Do you have difficulty doing laundry?: (!) (Patient-Rptd) Yes Do you have difficulty with housekeeping?: (!) (Patient-Rptd) Yes Do you have difficulty preparing a meal?: (!) (Patient-Rptd) Yes Do you have difficulty shopping?: (!) (Patient-Rptd) Yes Do you have difficulty using transportation?: (!) (Patient-Rptd) Yes Do you have difficulty paying bills?: (!) Yes Do you have difficulty managing finances?: (!) Yes Fall Risk Fall Risk Assessment Completed?: Yes Have you fallen in the past year?: (Patient-Rptd) No How many times?: (Patient-Rptd) N/A Were you injured?: (Patient-Rptd) N/A Are you worried about falling?: (!) (Patient-Rptd) Yes Do you feel unsteady when standing or walking?: (!) (Patient-Rptd) Yes Risk Stratification: (Patient-Rptd) Moderate Risk Depression Screening Little interest or pleasure in doing things: Not at all Feeling down, depressed, or hopeless: Not at all Trouble falling or staying asleep, or sleeping too much: Not at all Feeling tired or having little energy: Not at all Poor appetite or overeating: Not at all Feeling bad about yourself - or that you are a failure or have let yourself or your family down: Not at all Trouble concentrating on things, such as reading the newspaper or watching television: Not at all Moving or speaking so slowly that other people could have noticed. Or the opposite - being so fidgety or restless that you have been moving around a lot more than usual: Not at all Thoughts that you would be better off , or of hurting yourself in some way: Not at all PEG Scale What number best describes your pain on average in the past week?: (Patient- Rptd) 0 - No pain What number best describes how, during the past week, pain has interfered with your enjoyment of life?: (Patient-Rptd) 0 - Does not interfere What number best describes how, during the past week, pain has interfered with your general activity?: (Patient-Rptd) 0 - Does not interfere PEG Pain Total Score: (Patient-Rptd) 0 Safety Assessment Do you have throw rugs on the floor?: (Patient-Rptd) No Do you feel safe at your home?: (Patient-Rptd) Yes Do you feel unsteady when walking?: (!) Yes Are you having difficulty with driving?: (Patient-Rptd) N/A Do you have trouble seeing?: (!) (Patient-Rptd) Yes Do you use a bath bar/seat?: (!) (Patient-Rptd) Yes Do you use a raised toilet seat?: (!) Yes Do you use a cane?: (Patient-Rptd) No Do you use a walker?: (!) (Patient-Rptd) Yes Do you use a wheelchair?: (Patient-Rptd) No Hearing Assessment Do you strain or struggle to hear/understand conversations?: (!) (Patient-Rptd) Yes Do you have trouble hearing the television or radio when others do not?: (!) (Patient-Rptd) Yes Does your family ever voice concerns about your hearing?: (!) (Patient-Rptd) Yes Do you wear hearing aid/s?: (Patient-Rptd) No Personal Health During the past 4 weeks, how would you rate your overall health?: (!) (Patient- Rptd) Fair Do you understand how to take all of your medications?: (!) No How confident are you that you can control and manage most of your health problems?: (!) (Patient-Rptd) Somewhat confident In the past 12 months, how many times have you been hospitalized?: (Patient- Rptd) None End of Life Planning Do you have a living will?: (Patient-Rptd) Yes Do you have a durable power of research attorney?: (Patient-Rptd) Yes Cognitive Screening Do you have trouble remembering or recalling facts or events?: (!) Yes Do family members or caregivers report that you have difficulty remembering things?: (!) (Patient-Rptd) Yes 6-ClT: Abnormal REVIEW OF SYSTEMS: Review of Systems Objective PHYSICAL EXAMINATION: Vitals: 03/26/25 1406 BP: 120/66 Weight: 63.5 kg (140 lb) Height: 132.1 cm (4' 4 ) Physical Exam Assessment/Plan ASSESSMENT/PLAN Tabitha was seen today for maw. Diagnoses and all orders for this visit: Encounter for subsequent annual wellness visit (AWV) in Medicare patient Return in about 1 year (around 03/26/2026). [facility] Miscellaneous Notes* Telephone Encounter - France Franz RN - 03/03/2025 6:45 PM EDT Contract: 198 Calling about bilateral legs, both are red and warm to touch. * Telephone Encounter - France Franz RN - 03/03/2025 6:45 PM EDT Deyanira Tai DO called, LM on vm to call after hours * Telephone Encounter - France Franz RN - 03/03/2025 6:[address] Tai returned call, called sending, no answer, LM to call after hours. documented in this [facility] Telephone encounter Note* Telephone Encounter - France Franz RN - 03/03/2025 6:45 PM EDT Contract: 198 Calling about bilateral legs, both are red and warm to touch. [facility] Telephone encounter Note* Telephone Encounter - France Franz RN - 03/03/2025 6:45 PM EDT Deyanira Tai DO called, LM on vm to call after hours [facility] Telephone encounter Note* Telephone Encounter - France Franz RN - 03/03/2025 6:[address] Tai returned call, called sending, no answer, LM to call after hours. [facility] History of Present illness Narrative* Deyanira Tai DO - 02/20/2025 9:30 AM EDT IM PROGRESS NOTE Patient - Rosetta Keith Age - 84 y.o. - 1940 ASSESSMENT & PLAN 1. Type 2 diabetes mellitus with peripheral angiopathy ([facility]) (Primary) - goals of treatment were reviewed with the patient. Friend reports that most blood sugars are between 200-300 mg/ dL. - draw A1c today to check serum value, and compare this to CGM report when it becomes available. -I reviewed the insulin dose and type of insulin with the POA. Should be getting Basaglar 24 units nightly. - Comprehensive metabolic panel; Future - Hemoglobin A1c; Future - Hemoglobin A1c - Comprehensive metabolic panel 2. Essential hypertension - facility blood pressure readings were reviewed and appear to be at goal - check lab work to evaluate for side effects of her medications -currently taking amlodipine 10 mg daily, lisinopril 40 mg daily -no changes recommended today 3. Chronic obstructive pulmonary disease, unspecified COPD type ([facility] [place]) - currently taking Advair/Wixela b.I.d. - symptoms are stable -insurance is requesting a change to Breo 1 puff daily -will make the switch when she runs out of current prescription 4. Oropharyngeal dysphagia - patient with ongoing issues. Has some coughing choking at times. -I reviewed the previous speech therapy swallow evaluation from several years ago. The recommendations at that time were for a soft, bite size diet, with mild to moderately thickened liquids. -this diet prescription was written as an order for the facility - the nurses should not be giving her clear liquids when she starts choking. - if there is any continued discrepancy, may need repeat swallow study 5. Vitamin B12 deficiency - last serum level was 3 years ago -repeat serum level and if normal maybe able to stop the supplement - Vitamin B12; Future - Vitamin B12 Subjective DIABETIC VISIT This is a follow up of a pre-existing problem. Patient self monitoring includes CGM. The CGM report not available today. Patient did not bring thereader for data download Patient experiences hypoglycemia Rarely. Perhaps once every 2 weeks Patient symptoms of hyperglycemia include: none. Current prescribed diet is consistent carbohydrate. In addition to pureed diet and thickened liquids. Patient is following the prescribed diet plan. However, is not eating well because of the restrictions. When she goes out for visits, she actually can drink a Frappe and eat chicken nuggets Home activity includes: The patient does not participate in regular exercise at present.. Patient does not experience numbness or burning in their hands or feet. Patient does have vision changes. Can only see several feet in front of her. Last eye exam was: 2024 Patient BP monitoring is done regularly. BP normally 120 - 129 mmHg / 60 - 69 mmHg. Patient reports: taking medications as instructed, no medication side effects noted, no chest pain on exertion, no dyspnea on exertion, no swelling of ankles, no orthostatic dizziness or lightheadedness, no palpitations, no intermittent claudication symptoms, and there have been some issues with getting the right medications because of formulary changes, and discrepancy between the facility pharmacy and local pharmacy Issues affecting compliance with diabetic self management include: diet A review of systems was negative except for the following: General: weight loss Ophthalmic: decreased vision Gastrointestinal: patient is POJamey describes ongoing issues regarding her diet. The facility is currently giving her a pureed diet, but also thin liquids. I reviewed the results of her previous swallowstudy from 3 years ago, which showed that she can have a soft, bite size diet, but needs to have thickened liquids. She is getting the opposite.. Exam BP 120/66 (BP Site: Left Arm, BP Postition: Sitting, BP CUFF SIZE: M (9-13 inches)) Pulse 89 Temp 36.8 C (98.3 F) (Oral) Resp 20 Ht 134.6 cm (4' 4.99 ) Wt 63 kg (138 lb 14.4 oz) SpO2 96% BMI 34.78 kg/m Physical Exam Vitals reviewed. Exam conducted with a victims advocate clerk/specialist present (Friend/POA). Constitutional: General: She is not in acute distress. Appearance: She is obese. She is not toxic-appearing. HENT: Head: Normocephalic. Right Ear: External ear normal. Left Ear: External ear normal. Ears: Comments: Moderately Diminished hearing bilaterally Nose: Nose normal. Mouth/Throat: Mouth: Mucous membranes are moist. Eyes: General: No scleral icterus. Comments: Unable to count fingers at 5 ft. Neck: Vascular: No carotid bruit. Cardiovascular: Rate and Rhythm: Normal rate and regular rhythm. Heart sounds: No murmur heard. No gallop. Pulmonary: Effort: Pulmonary effort is normal. Breath sounds: No wheezing or rales. Abdominal: Palpations: Abdomen is soft. Comments: Large pannus Musculoskeletal: Right lower leg: Edema (2+ to the knee) present. Left lower leg: Edema (1+ to the knee) present. Skin: General: Skin is warm and dry. Coloration: Skin is not jaundiced. Findings: No bruising. Comments: No open areas bilateral lower extremities. Chronic discoloration and thickening of the skin bilateral feet and lower pretibial areas. Neurological: Mental Status: She is alert. Sensory: No sensory deficit (Monofilament testing variable bilateral feet on the toes, forefoot andankle. Vibratory testing decreased or variable bilaterally.). Gait: Gait abnormal (Using a walker). Psychiatric: Mood and Affect: Mood normal. Behavior: Behavior normal. Meds Current Outpatient Medications: acetaminophen (TYLENOL EXTRA STRENGTH) 500 mg tablet, Take by mouth., Disp: , Rfl: albuterol (PROVENTIL,VENTOLIN) 2.5 mg /3 mL (0.083 %) nebulizer solution, Inhale 3 mL (2.5 mg total) by nebulization in the morning and 3 mL (2.5 mg total) at noon and 3 mL (2.5 mg total) in the evening and 3 mL (2.5 mg total) before bedtime., Disp: 75 mL, Rfl: 1 amLODIPine (NORVASC) 10 mg tablet, Take 0.5 tablets (5 mg total) by mouth every morning., Disp: , Rfl: aspirin 81 mg, Take 1 tablet (81 mg total) by mouth in the morning., Disp: , Rfl: atorvastatin (LIPITOR) 10 mg tablet, TAKE 1 TABLET BY MOUTH IN THE MORNING, Disp: 90 tablet, Rfl: 1 blood-glucose sensor (DEXCOM G6 SENSOR) device, 1 each by miscellaneous route every 10 days., Disp:9 each, Rfl: 1 blood-glucose transmitter (DEXCOM G6 TRANSMITTER) device, 1 each by miscellaneous route in the morning., Disp: 1 each, Rfl: 1 calcium carbonate (OS-ZHEN) 600 mg elemental (1,500 mg) tablet, Take 1 tablet (600 mg total) by mouth daily with breakfast., Disp: 90 tablet, Rfl: 1 cranberry 500 mg capsule, Take 1 tablet by mouth in the morning., Disp: 90 each, Rfl: 1 cyanocobalamin, vitamin B-12, (VITAMIN B12 ORAL), Take 500 mcg by mouth daily with dinner., Disp: ,Rfl: fluticasone propion-salmeteroL (ADVAIR) 250-50 mcg/dose DISKUS, INHALE 1 Puff BY MOUTH IN THE MORNING and 1 Puff before bedtime, Disp: 180 each, Rfl: 1 insulin glargine,hum.rec.anlog (BASAGLAR KWIKPEN U-100 INSULIN) 100 unit/mL (3 mL) insulin pen, INJECT 24 UNITS SUBCUTANEOUSLY (UNDER THE SKIN) NIGHTLY, Disp: 30 mL, Rfl: 1 insulin syringe-needle U-100 (INSULIN SYRINGE) 0.5 mL 29 gauge x 1/2 syringe, 1 Syringe by miscellaneous route in the morning., Disp: 100 each, Rfl: 1 latanoprost (XALATAN) 0.005 % ophthalmic solution, Administer 1 drop to both eyes nightly., Disp: ,Rfl: lisinopriL (PRINIVIL,ZESTRIL) 40 mg tablet, Take 1 tablet (40 mg total) by mouth in the morning., Disp: 90 tablet, Rfl: 0 lutein 10 mg tablet, Take by mouth., Disp: , Rfl: mirtazapine (REMERON) 7.5 mg tablet, TAKE 1 TABLET BY MOUTH ONCE DAILY at NIGHT, Disp: 90 tablet, Rfl: 1 nebulizer accessories (ADULT AEROSOL MASK) misc, 1 Unit by miscellaneous route 4 (four) times a day., Disp: 1 each, Rfl: 0 nystatin (MYCOSTATIN) powder, Apply 1 Application topically in the morning and 1 Application at noon and 1 Application in the evening and 1 Application before bedtime., Disp: 60 g, Rfl: 0 pen needle, diabetic 31 gauge x 1/4 needle, 1 Pen Needle by miscellaneous route in the morning., Disp: 100 each, Rfl: 1 rOPINIRole (REQUIP) 0.5 mg tablet, TAKE 1 TABLET BY MOUTH NIGHTLY, Disp: 90 tablet, Rfl: 1 tolterodine (DETROL) 2 mg tablet, Take 1 tablet (2 mg total) by mouth in the morning and 1 tablet (2 mg total) before bedtime., Disp: 180 tablet, Rfl: 1 blood-glucose meter,continuous (DEXCOM G7 MILLINERY DESIGNER) misc, 1 each by miscellaneous route every 3 (three) months., Disp: 1 each, Rfl: 0 brimonidine (ALPHAGAN) 0.15 % ophthalmic solution, Administer 1 drop to both eyes 3 (three) times aday., Disp: , Rfl: Lab Results No visits with results within 1 Month(s) from this visit. Latest known visit with results is: Hospital Outpatient Visit on 10/21/2024 Component Date Value Ref Range Status Microalbumin urine 10/21/2024 <0.7 0.0 - 1.9 mg/dL Final Urine creat 10/21/2024 18.21 mg/dL Final Alb/creat ratio 10/21/2024 NOT CALCULATED 0.0 - 30.0 mg/g creat Final White Blood Cells 10/21/2024 6.8 4.0 - 11.0 X10E9/L Final RBC count 10/21/2024 4.13 3.80 - 5.20 X10E12/L Final Hemoglobin 10/21/2024 12.5 11.7 - 15.5 g/dL Final Hematocrit 10/21/2024 36.8 35 - 47 % Final MCV 10/21/2024 89 80 - 100 fL Final MCH 10/21/2024 30.3 27 - 34 pg Final MCHC 10/21/2024 33.9 32 - 36 g/dL Final RDW 10/21/2024 15.6 (H) 11.5 - 15.0 % Final Platelets 10/21/2024 330 150 - 450 X10E9/L Final MPV 10/21/2024 7.0 7 - 12 fL Final % neutrophils 10/21/2024 71.5 % Final % lymphocytes 10/21/2024 23.2 % Final % monocytes 10/21/2024 3.6 % Final % eosinophils 10/21/2024 1.1 % Final % Basophils 10/21/2024 0.6 % Final Neutrophils Absolute (A) 10/21/2024 4.9 1.5 - 6.6 X10E9/L Final Lymphocytes Absolute 10/21/2024 1.6 1.0 - 3.5 X10E9/L Final Monocytes Absolute 10/21/2024 0.2 0 - 0.9 X10E9/L Final Eosinophils Absolute 10/21/2024 0.1 0.0 - 0.4 X10E9/L Final Basophils Absolute 10/21/2024 0.0 0.0 - 0.2 X10E9/L Final Hemoglobin A1C 10/21/2024 6.7 (H) 4.4 - 5.6 % Final Average glucose 10/21/2024 146 mg/dL Final Sodium 10/21/2024 142 134 - 146 mmol/L Final Potassium, Bld 10/21/2024 4.4 3.5 - 5.0 mmol/L Final Chloride 10/21/2024 103 98 - 109 mmol/L Final CO2 10/21/2024 30 22 - 32 mmol/L Final Anion gap 10/21/2024 9 5 - 15 mmol/L Final BUN 10/21/2024 18 5 - 27 mg/dL Final Creatinine 10/21/2024 0.64 0.40 - 1.00 mg/dL Final Glucose 10/21/2024 104 (H) 65 - 99 mg/dL Final Calcium 10/21/2024 9.1 8.5 - 10.5 mg/dL Final Total Protein 10/21/2024 7.5 6.0 - 8.0 g/dL Final Albumin 10/21/2024 4.3 3.2 - 5.3 g/dL Final Alkaline Phosphatase 10/21/2024 92 39 - 130 U/L Final AST 10/21/2024 16 0 - 41 U/L Final ALT 10/21/2024 14 0 - 31 U/L Final Total bilirubin 10/21/2024 0.3 0.3 - 1.2 mg/dL Final eGFR (CKD-EPI)non-race dependent 10/21/2024 87 >59 ml/min/1.73sq.m Final Other Testing No results found. ECG: Deyanira Tai DO., [facility]: [phone] documented in this encounterSelect [facility] History of Present illness Narrative* Charlotte Mccullough, LEONARD - 01/29/2025 9:30 AM EDT Images from the original note were not included. Subjective Patient ID: Rosetta Keith is a 84 y.o. female who presents for DM Foot Care (Established patient presents today for routine diabetic nail care. PCP: Dr. William CUELLAR 10/21/24, A1C: 6.7, BS: <300, SS:6). HPI HPI Diabetic/Routine Nail Care: Presents requesting nail care. Symptomatic toenail deformity. Location: all digits are problematic/symptomatic. Duration: chronic toenail deformity, multiple years duration. Severity of symptoms: mild; in the presence of diabetic neuropathy. Onset: gradual, without injury or trauma. Status: problematic/symptomatic over the past several weeks or so. Context: hard to trim, hard to reach; self-care is difficult, ineffective, not practical; exposing patient to considerable risk; family members unable to provide effective care. NAILS: thickened, discolored, pain , elongated , crumbly, pressure; without bleeding or drainage. Relieved by: patient remains well satisfied with palliative care measures. Previous Treatment: palliative care as noted. History of ulcers/wounds: no. Has treatment helped with pain: pressure relief. Aggravated by: shoe gear, pressure, walking; catching and snagging on clothing etc.. Risk factors: Advanced visual impairment. Comorbidities. Polypharmacy. ASA therapy. Type II diabetes/IDDM. Peripheral neuropathy. PAD. CVI. Mobility and flexibility restraints. Shoe and/or digital trauma and related complications. Medications Current Outpatient Medications: acetaminophen (Tylenol) 500 MG tablet, Take by mouth, Disp: , Rfl: Advair Diskus 250-50 MCG/ACT aerosol powder , , Disp: , Rfl: albuterol (2.5 MG/3ML) 0.083% nebulizer solution, Take by nebulization every 6 (six) hours if needed for wheezing, Disp: , Rfl: amLODIPine (Norvasc) 10 MG tablet, Take 1 tablet by mouth Daily, Disp: , Rfl: aspirin 81 MG chewable tablet, 1 (one) time each day at the same time, Disp: , Rfl: atorvastatin (Lipitor) 10 MG tablet, Take 1 tablet by mouth at bedtime, Disp: , Rfl: calcium carbonate 1500 (600 Ca) MG tablet, Take 600 mg by mouth in the morning. Take with meals., Disp: , Rfl: Cranberry Extract 250 MG tablet, every 12 (twelve) hours, Disp: , Rfl: Cyanocobalamin (VITAMIN B 12 PO), , Disp: , Rfl: furosemide (Lasix) 40 MG tablet, Take by mouth, Disp: , Rfl: Lantus 100 UNIT/ML injection, , Disp: , Rfl: latanoprost (Xalatan) 0.005 % ophthalmic solution, Administer 1 drop into affected eye(s) at bedtime, Disp: , Rfl: lisinopril 40 MG tablet, Take 40 mg by mouth Daily, Disp: , Rfl: Lutein 10 MG tablet, Take by mouth, Disp: , Rfl: mirtazapine (Remeron) 7.5 MG tablet, Take 1 tablet by mouth at bedtime, Disp: , Rfl: rOPINIRole (Requip) 0.5 MG tablet, Take 1 tablet by mouth in the evening, Disp: , Rfl: teriparatide (Forteo) injection, Inject 20 mcg under the skin in the morning., Disp: , Rfl: tolterodine LA (Detrol LA) 4 MG 24 hr capsule, Take 4 mg by mouth in the morning., Disp: , Rfl: Allergies Patient has no known allergies. Past Surgical History Past Surgical History: Procedure Laterality Date CHOLECYSTECTOMY CYST REMOVAL uterus EYE SURGERY GALLBLADDER SURGERY HEMORRHOIDECTOMY INNER EAR SURGERY Left MULTIPLE TOOTH EXTRACTIONS OTHER SURGICAL HISTORY Left Krause's POLYPECTOMY TOE SURGERY Family History Family History Problem Relation Name Age of Onset Diabetes Mother Mrs Delgadillo Heart disease Father Mr. Delgadillo Heart disease Sibling Diabetes Sibling Stroke Sibling Diabetes Daughter Ny Guillen Vision loss Brother Antonino Delgadillo Diabetes Brother Antonino Delgadillo Accidental Brother Derek Delgadillo Diabetes Brother Derek Delgadillo Alcohol abuse Son Norberto Domínguez Drug abuse Son Norberto Domínguez Objective General Examination: GENERAL EXAMINATION: Alert, oriented, pleasant. Patient is accompanied by her friend and caregiver,Jamee. Ambulatory with walker assist; wearing Dr. Proctor therapeutic footwear with accommodative orthoses. FOOT EXAM: Date of Last Foot Exam 01/29/2025 Sensory testing performed: sensations diminished Sensory and motor testing performed: strength diminished Pedal pulse taking performed: absent Vascular: DORSALIS PEDIS PULSE: faintly palpable, bilaterally. POSTERIOR TIBIAL PULSE: 0/4, bilaterally. CAPILLARY REFILL: < 3 seconds, bilaterally. TEMPERATURE GRADIENT: warm to cool, bilaterally. EDEMA: bilateral pitting edema; with chronic, stable stasis dermatitis and skin changes; without vesicle formation or cellulitis. VARICOSITIES: absent. SHINY ATROPHIC SKIN: trophic change with discoloration and thinning of skin . HAIR GROWTH: absent. Neurologic: VIBRATORY: Vibratory sensation is absent at IPJ and MPJ b/l. SEMMES-LASHONDA 5.07 MONOFILAMENT: inconsistent localization over the digital and forefoot areas; otherwise intact. NEUROLOGIC: Peripheral neuropathy (Q9). Dermatologic: SKIN FINDINGS: intact. Skin turgor is fair. HYPERTROPHIC LESION: no forefoot or digital keratotic pressure lesions are noted. NAIL PATHOLOGY: All digits: None are spared: Varying degrees of toenail dystrophy, elongation, discoloration, thickening, mild clubbing, pincer deformity, crumbly texture, subtotal onycholysis, periungual hyperkeratosis, without drainage. MYCOSIS SCALE: total with debris, multiple digits. INTERDIGITAL MACERATION: clean, dry, non-inflamed. ULCER: no sign of ulceration or open wound. SKIN PATHOLOGY: Loss of plantar fat pad. Ankle / Foot: RANGE OF MOTION: dorsiflexion, eversion, inversion of ankle joint and subtalar joint within normal limits left and right.. Orthopedic: FOOT MORPHOLOGY: Flexible flatfoot deformity. DEFORMITIES: flexible HAV deformity bilateral, with flexible digital contractures bilateral. MUSCLE STRENGTH: no focal deficits. Modifier: -Q8, Q9. Radiology: Assessment/Plan 1. Onychodystrophy/mycosis all digits. 2. Type II diabetes/IDDM 3. Diabetic peripheral neuropathy; (Q9). 4. Diabetic peripheral vasculopathy; (Q8). Plan: Notes: conservative and palliative care measures are understood and again indicated. Diabetic education and assessment relative to the high risk diabetic condition. Hygiene and skin care measures discussed as she is able to do so. Procedure: Toenail Debridement: Aseptic technique: power/manual instrumentation: onychodebridement length and thickness, curretage of offending crypotic margins, bhumika-ungual debris, providing effective pressure relief, reducing shoe and digital trauma; reducing potential risks and complications associated with the high risk diabetic neuropathic and vasculopathic foot condition. This note was created with the assistance of a speech recognition program. While intending to generate a timely document that accurately reflects the content of the visit, no guarantee can be provided that every grammatical or spelling mistake has been or will be identified or corrected. Thank you for your understanding. Charlotte Mccullough DPM documented in this encounterRipley County Memorial [id number] History of Present illness Narrative* Charlotte Mccullough DPM - 10/23/2024 9:30 AM EST Images from the original note were not included. Subjective Patient ID: Rosetta Keith is a 84 y.o. female who presents for DM Foot Care (Pt is here today with a friend requesting diabetic foot care/BS: 120 A1C: 6.7/LV Dr. Tai 10-21-2024/SS: 6). HPI HPI Diabetic/Routine Nail Care: Presents requesting nail care. Symptomatic toenail deformity. Location: all digits are problematic/symptomatic. Duration: chronic toenail deformity, multiple years duration. Severity of symptoms: mild; in the presence of diabetic neuropathy. Onset: gradual, without injury or trauma. Status: problematic/symptomatic over the past several weeks or so. Context: hard to trim, hard to reach; self-care is difficult, ineffective, not practical; exposing patient to considerable risk; family members unable to provide effective care. NAILS: thickened, discolored, pain , elongated , crumbly, pressure; without bleeding or drainage. Relieved by: patient remains well satisfied with palliative care measures. Previous Treatment: palliative care as noted. History of ulcers/wounds: no. Has treatment helped with pain: pressure relief. Aggravated by: shoe gear, pressure, walking; catching and snagging on clothing etc.. Risk factors: Advanced visual impairment. Comorbidities. Polypharmacy. ASA therapy. Type II diabetes/IDDM. Peripheral neuropathy. PAD. CVI. Mobility and flexibility restraints. Shoe and/or digital trauma and related complications. Medications Current Outpatient Medications: acetaminophen (Tylenol) 500 MG tablet, Take by mouth, Disp: , Rfl: Advair Diskus 250-50 MCG/ACT aerosol powder , USE 1 INHALATION TWICE A DAY, Disp: , Rfl: albuterol (2.5 MG/3ML) 0.083% nebulizer solution, Take by nebulization every 6 (six) hours if needed for wheezing, Disp: , Rfl: amLODIPine (Norvasc) 10 MG tablet, Take 1 tablet by mouth in the morning., Disp: , Rfl: aspirin 81 MG chewable tablet, 1 (one) time each day at the same time., Disp: , Rfl: atorvastatin (Lipitor) 10 MG tablet, Take 1 tablet by mouth at bedtime., Disp: , Rfl: calcium carbonate 1500 (600 Ca) MG tablet, Take 600 mg by mouth in the morning. Take with meals., Disp: , Rfl: Cranberry Extract 250 MG tablet, every 12 (twelve) hours., Disp: , Rfl: Cyanocobalamin (VITAMIN B 12 PO), Vitamin B 12, Disp: , Rfl: furosemide (Lasix) 40 MG tablet, Take by mouth, Disp: , Rfl: Lantus 100 UNIT/ML injection, INJECT 0.24 ml (24 UNITS) SUBCUTANEOUSLY NIGHTLY, Disp: , Rfl: latanoprost (Xalatan) 0.005 % ophthalmic solution, Administer 1 drop into affected eye(s) at bedtime., Disp: , Rfl: lisinopril 40 MG tablet, Take 40 mg by mouth in the morning., Disp: , Rfl: Lutein 10 MG tablet, Take by mouth, Disp: , Rfl: mirtazapine (Remeron) 7.5 MG tablet, Take 1 tablet by mouth at bedtime., Disp: , Rfl: rOPINIRole (Requip) 0.5 MG tablet, Take 1 tablet by mouth in the evening., Disp: , Rfl: teriparatide (Forteo) injection, Inject 20 mcg under the skin in the morning., Disp: , Rfl: tolterodine LA (Detrol LA) 4 MG 24 hr capsule, Take 4 mg by mouth in the morning., Disp: , Rfl: Allergies Patient has no known allergies. Past Surgical History Past Surgical History: Procedure Laterality Date CHOLECYSTECTOMY CYST REMOVAL uterus EYE SURGERY GALLBLADDER SURGERY HEMORRHOIDECTOMY INNER EAR SURGERY Left MULTIPLE TOOTH EXTRACTIONS OTHER SURGICAL HISTORY Left Krause's POLYPECTOMY TOE SURGERY Family History Family History Problem Relation Name Age of Onset Diabetes Mother Mrs Delgadillo Heart disease Father Mr. Delgadillo Heart disease Sibling Diabetes Sibling Stroke Sibling Diabetes Daughter Ny Guillen Vision loss Brother Antonino Delgadillo Diabetes Brother Antonino Delgadillo Accidental Brother Derek Delgadillo Diabetes Brother Derek Delgadillo Alcohol abuse Son Norberto Domínguez Drug abuse Son Norberto Domínguez Objective General Examination: GENERAL EXAMINATION: alert, oriented, pleasant. Patient is accompanied by her friend, Dione (substituting for Jamee). Ambulatory with walker assist; wearing Dr. Proctor therapeutic footwear with accommodative orthoses. FOOT EXAM: Date of Last Foot Exam 10/23/2024 Sensory testing performed: sensations diminished Sensory and motor testing performed: strength diminished Pedal pulse taking performed: absent Vascular: DORSALIS PEDIS PULSE: faintly palpable, bilaterally. POSTERIOR TIBIAL PULSE: 0/4, bilaterally. CAPILLARY REFILL: < 3 seconds, bilaterally. TEMPERATURE GRADIENT: warm to cool, bilaterally. EDEMA: bilateral pitting edema; with chronic, stable stasis dermatitis and skin changes; without vesicle formation or cellulitis. VARICOSITIES: absent. SHINY ATROPHIC SKIN: trophic change with discoloration and thinning of skin . HAIR GROWTH: absent. Neurologic: VIBRATORY: Vibratory sensation is absent at IPJ and MPJ b/l. SEMMES-LASHONDA 5.07 MONOFILAMENT: inconsistent localization over the digital and forefoot areas; otherwise intact. NEUROLOGIC: Peripheral neuropathy (Q9). Dermatologic: SKIN FINDINGS: intact. Skin turgor is fair. HYPERTROPHIC LESION: no forefoot or digital keratotic pressure lesions are noted. NAIL PATHOLOGY: All digits: None are spared: Varying degrees of toenail dystrophy, elongation, discoloration, thickening, mild clubbing, pincer deformity, crumbly texture, subtotal onycholysis, periungual hyperkeratosis, without drainage. MYCOSIS SCALE: total with debris, multiple digits. INTERDIGITAL MACERATION: clean, dry, non-inflamed. ULCER: no sign of ulceration or open wound. SKIN PATHOLOGY: Loss of plantar fat pad. Ankle / Foot: RANGE OF MOTION: dorsiflexion, eversion, inversion of ankle joint and subtalar joint within normal limits left and right.. Orthopedic: FOOT MORPHOLOGY: Flexible flatfoot deformity. DEFORMITIES: flexible HAV deformity bilateral, with flexible digital contractures bilateral. MUSCLE STRENGTH: no focal deficits. Modifier: -Q8, Q9. Radiology: Assessment/Plan 1. Onychodystrophy/mycosis all digits. 2. Type II diabetes/IDDM 3. Diabetic peripheral neuropathy; (Q9). 4. Diabetic peripheral vasculopathy; (Q8). Plan: Notes: conservative and palliative care measures are understood and again indicated. Diabetic education and assessment relative to the high risk diabetic condition. Hygiene and skin care measures discussed as she is able to do so. Procedure: Toenail Debridement: Aseptic technique: power/manual instrumentation: onychodebridement length and thickness, curretage of offending crypotic margins, bhumika-ungual debris, providing effective pressure relief, reducing shoe and digital trauma; reducing potential risks and complications associated with the high risk diabetic neuropathic and vasculopathic foot condition. This note was created with the assistance of a speech recognition program. While intending to generate a timely document that accurately reflects the content of the visit, no guarantee can be provided that every grammatical or spelling mistake has been or will be identified or corrected. Thank you for your understanding. Charlotte Mccullough DPM documented in this [facility]02-27-2025 Instructions* Patient Instructions* Charlotte Mccullough DPM - 10/23/2024 9:30 AM EST As noted documented in this [facility]02-25-2025 History of Present illness Narrative* Deyanira Tai, - 10/21/2024 1:30 PM EST IM PROGRESS NOTE Patient - [facility] Keith Age - 84 [facility] 1940 [id number] ASSESSMENT & PLAN 1. Type 2 diabetes mellitus with peripheral angiopathy ([facility]) (Primary) -goals of treatment reviewed with the patient. -A1c report reviewed with the patient today. Average glucose 164 mg/dL, with estimated A1c 7.2% andin range 59% of the time. Occasional lows in early a.m. -repeat serum A1c to corroborate estimated value. -further changes as indicated by lab results. - Comprehensive metabolic panel; Future - Hemoglobin A1c; Future - CBC auto differential; Future - Microalbumin - Albumin: Creatinine Urine Ratio; Future 2. Edema of both lower legs -no obvious discernible reason for the increased edema -will treat symptomatically with furosemide 40 mg daily for 5 days -patient was advised she needs to elevate her legs higher than the rest of her body for 30 minutes every afternoon -if no improvement with current treatment will need a repeat echocardiogram to evaluate for changesin pulmonary hypertension or LV function -if this time there is no sign of a actual cellulitis or infection. No antibiotics needed at this time. - furosemide (LASIX) 40 mg tablet; Take 1 tablet (40 mg total) by mouth daily for 5 days. Dispense:5 tablet; Refill: 0 3. Chronic obstructive pulmonary disease, unspecified COPD type ([facility]) -no reported flare-ups -continue albuterol q.i.d. as needed 250-50 b.i.d. 4. Essential hypertension -goals of treatment reviewed with the patient -currently under good control -I am concerned that the high dose of amlodipine may be contributing to her edema. We will decreasethe dose to 5 mg daily and monitor. - amLODIPine (NORVASC) 10 mg tablet; Take 0.5 tablets (5 mg total) by mouth every morning. Subjective DIABETIC VISIT This is a follow up of a pre-existing problem. Patient self monitoring includes CGM. Today's download shows average glucose 164 mg/dL, with an estimated A1c of 7.2%, and in range 59% of the time. Does have low episodes 1% of the time, normally early a.m.. Patient experiences hypoglycemia 2-3 times/month. Patient symptoms of hyperglycemia include: none. Current prescribed diet is consistent carbohydrate. Patient is following the prescribed diet plan. Generally eating less, because she does not like thefood at her current place of residence. Home activity includes: The patient does not participate in regular exercise at present.. She can walk to the bathroom and to the dining room. Patient does not experience numbness or burning in their hands or feet. Patient does have vision changes. Last eye exam was: 2023. Has known severe macular degeneration. Patient BP monitoring is done regularly. BP normally 110 - 119 mmHg / 70 - 79 mmHg. Patient reports: taking medications as instructed, no medication side effects noted, no chest pain on exertion, no dyspnea on exertion, noting swelling of ankles, no orthostatic dizziness or lightheadedness, no palpitations, no intermittent claudication symptoms, and no erectile dysfunction Issues affecting compliance with diabetic self management include: Continues to take her Lantus 24 units nightly. A review of systems was negative except for the following: ENT: hearing change Cardiovascular: edema Dermatological: Nursing staff at her assisted living area noted increased erythema to her lower extremities, especially in the right leg over the past few days. Patient says she does not feel any different. There has not been any fever, chills or drainage. The patient does sit in a chair or wheelchair most of the day with legs in a dependent position. Does not elevate at any time during the day. No new dietary changes or excess salt intake. No change in her breathing.. Last echocardiogram 2015. Exam BP 110/60 (BP Site: Left Arm, BP Postition: Sitting) Pulse 107 Temp 36.4 C (97.5 F) (Tympanic) Ht 134.6 cm (4' 5 ) Wt 68.9 kg (152 lb) SpO2 96% BMI 38.04 kg/m Physical Exam Vitals reviewed. Exam conducted with a victims advocate clerk/specialist present (Friend). Constitutional: General: She is not in acute distress. Appearance: She is obese. She is not toxic-appearing. HENT: Head: Normocephalic. Right Ear: External ear normal. Left Ear: External ear normal. Ears: Comments: Moderately Diminished hearing bilaterally Nose: Nose normal. Mouth/Throat: Mouth: Mucous membranes are moist. Eyes: General: No scleral icterus. Comments: Unable to count fingers at 5 ft. Neck: Vascular: No carotid bruit. Cardiovascular: Rate and Rhythm: Normal rate and regular rhythm. Heart sounds: No murmur heard. No gallop. Pulmonary: Effort: Pulmonary effort is normal. Breath sounds: No wheezing or rales. Abdominal: Palpations: Abdomen is soft. Comments: Large pannus Musculoskeletal: Right lower leg: Edema (2+ to the knee) present. Left lower leg: Edema (1+ to the knee) present. Skin: General: Skin is warm and dry. Coloration: Skin is not jaundiced. Findings: No bruising. Comments: Some superficial open areas on the anterior right tibia were noted without drainage. There was mild erythema from the left ankle to below the knee on the right leg. There was a superficial, small scabbed lesion proximally 2 mm diameter on the lateral left foot. Noerythema. Neurological: Mental Status: She is alert. Sensory: No sensory deficit (Monofilament testing variable bilateral feet on the toes, forefoot andankle. Vibratory testing decreased or variable bilaterally.). Gait: Gait abnormal (Using a walker). Psychiatric: Mood and Affect: Mood normal. Behavior: Behavior normal. Left: Pulses Posterior Tibial: diminished Vibratory sensation normal Filament test present Right: Pulses Posterior Tibial: diminished Vibratory sensation normal Filament test present Meds Current Outpatient Medications: albuterol (PROVENTIL,VENTOLIN) 2.5 mg /3 mL (0.083 %) nebulizer solution, Inhale 3 mL (2.5 mg total) by nebulization in the morning and 3 mL (2.5 mg total) at noon and 3 mL (2.5 mg total) in the evening and 3 mL (2.5 mg total) before bedtime., Disp: 75 mL, Rfl: 1 aspirin 81 mg, Take 1 tablet (81 mg total) by mouth in the morning., Disp: , Rfl: atorvastatin (LIPITOR) 10 mg tablet, TAKE 1 TABLET BY MOUTH IN THE MORNING, Disp: 90 tablet, Rfl: 1 blood-glucose meter,continuous (DEXCOM G7 MILLINERY DESIGNER) misc, 1 each by miscellaneous route every 3 (three) months., Disp: 1 each, Rfl: 0 blood-glucose sensor (DEXCOM G6 SENSOR) device, 1 each by miscellaneous route every 10 days., Disp:9 each, Rfl: 1 blood-glucose transmitter (DEXCOM G6 TRANSMITTER) device, 1 each by miscellaneous route in the morning., Disp: 1 each, Rfl: 1 brimonidine (ALPHAGAN) 0.15 % ophthalmic solution, Administer 1 drop to both eyes 3 (three) times aday., Disp: , Rfl: calcium carbonate (OS-ZHEN) 600 mg elemental (1,500 mg) tablet, Take 1 tablet (600 mg total) by mouth daily with breakfast., Disp: 90 tablet, Rfl: 1 cranberry 500 mg capsule, Take 1 tablet by mouth in the morning., Disp: 90 each, Rfl: 1 cyanocobalamin, vitamin B-12, (VITAMIN B12 ORAL), Take 500 mcg by mouth daily with dinner., Disp: ,Rfl: fluticasone propion-salmeteroL (ADVAIR) 250-50 mcg/dose DISKUS, INHALE 1 Puff BY MOUTH IN THE MORNING and 1 Puff before bedtime, Disp: 180 each, Rfl: 1 insulin glargine (LANTUS SOLOSTAR U-100 INSULIN) 100 unit/mL (3 mL) insulin pen, Inject 24 Units under the skin nightly., Disp: 9 mL, Rfl: 3 insulin syringe-needle U-100 (INSULIN SYRINGE) 0.5 mL 29 gauge x 1/2 syringe, 1 Syringe by miscellaneous route in the morning., Disp: 100 each, Rfl: 1 latanoprost (XALATAN) 0.005 % ophthalmic solution, Administer 1 drop to both eyes nightly., Disp: ,Rfl: lisinopriL (PRINIVIL,ZESTRIL) 40 mg tablet, Take 1 tablet (40 mg total) by mouth in the morning., Disp: 90 tablet, Rfl: 0 mirtazapine (REMERON) 7.5 mg tablet, TAKE 1 TABLET BY MOUTH NIGHTLY, Disp: 90 tablet, Rfl: 1 nebulizer accessories (ADULT AEROSOL MASK) misc, 1 Unit by miscellaneous route 4 (four) times a day., Disp: 1 each, Rfl: 0 nystatin (MYCOSTATIN) powder, Apply 1 Application topically in the morning and 1 Application at noon and 1 Application in the evening and 1 Application before bedtime., Disp: 60 g, Rfl: 0 pen needle, diabetic 31 gauge x 1/4 needle, 1 Pen Needle by miscellaneous route in the morning., Disp: 100 each, Rfl: 1 rOPINIRole (REQUIP) 0.5 mg tablet, Take 1 tablet (0.5 mg total) by mouth nightly., Disp: 90 tablet,Rfl: 1 teriparatide 20 mcg/dose (620mcg/2.48mL) injection, Inject 0.08 mL (20 mcg total) under the skin inthe morning., Disp: 2.48 mL, Rfl: 11 tolterodine LA (DETROL LA) 4 mg 24 hr capsule, TAKE 1 CAPSULE BY MOUTH IN THE MORNING, Disp: 90 capsule, Rfl: 0 amLODIPine (NORVASC) 10 mg tablet, Take 0.5 tablets (5 mg total) by mouth every morning., Disp: , Rfl: furosemide (LASIX) 40 mg tablet, Take 1 tablet (40 mg total) by mouth daily for 5 days., Disp: 5 tablet, Rfl: 0 Lab Results No visits with results within 1 Month(s) from this visit. Latest known visit with results is: Hospital Outpatient Visit on 08/19/2024 Component Date Value Ref Range Status Culture 08/19/2024 >100,000 ORGANISMS/mL ESCHERICHIA COLI (A) Final Culture 08/19/2024 10,000 to 50,000 ORGANISMS/mL NORMAL URO GENITAL RHETT Final Color 08/19/2024 YELLOW YELLOW^YELLOW Final Turbidity 08/19/2024 HAZY (A) CLEAR^CLEAR Final Specific gravity 08/19/2024 1.015 1.003 - 1.035 Final Nitrite 08/19/2024 Positive (A) Negative^Negative Final Ph urine 08/19/2024 6.0 5.0 - 8.5 Final Leukocyte esterase 08/19/2024 SMALL (A) Negative^Negative Final Protein 08/19/2024 Negative Negative^Negative mg/dL Final Glucose, Ur 08/19/2024 Negative Negative^Negative mg/dL Final Ketones urine 08/19/2024 Negative Negative^Negative mg/dL Final Urobilinogen 08/19/2024 0.2 <1.1 eu/dL Final Bilirubin, urine 08/19/2024 Negative Negative^Negative Final Hemoglobin 08/19/2024 SMALL (A) Negative^Negative Final Microspopic Urine 08/19/2024 URINE RECEIVED WITHOUT PRESERVATIVE-DELAYS IN TRANSPORT MAY AFFECT RESULTS.INTERPRET WITH CAUTION AND CLINICAL CORRELATION IS RECOMMENDED. Final WBC 08/19/2024 15 (H) 0 - 5 /hpf Final RBC 08/19/2024 3 0 - 5 /hpf Final Squamous epithelium 08/19/2024 1 0 - 5 /hpf Final Other Testing No results found. Deyanira Tai DO., [facility]: [phone] documented [facility] this [facility] Miscellaneous Notes* Telephone Encounter - Keiry Valdez - 10/18/2024 2:25 PM EST Contract: [address] [place] [address] Assisted Living RE possible cellulitis of patient on legs * Telephone Encounter - Keiry Valdez - 10/18/2024 2:25 PM EST Contract: [id number] Tai and left message to call [facility] * Telephone Encounter - Adry Rosa - 10/18/2024 2:[address] [facility] amara Olmedo documented in this [facility] Telephone encounter Note* Telephone Encounter - Keiry Valdez - 10/18/2024 2:25 PM EST Contract: [id number] [facility] Assisted Living RE possible cellulitis of patient on legs [facility]02-22-2025 Telephone encounter Note* Telephone Encounter - Keiry Valdez - 10/18/2024 2:25 PM EST Contract: [id number] Tai and left message to call [facility]02-22-2025 Telephone encounter Note* Telephone Encounter - Adry Rosa - 10/18/2024 2:[address] Tai [facility] connected amara Israely [facility]01-27-2025 Miscellaneous Notes* Telephone Encounter - Deyainra Tai DO - 09/22/2024 1:30 PM EST Duplicate requests documented in this [facility]25 Telephone encounter Note* Telephone Encounter - Deyanira Tai DO - 09/22/2024 1:30 PM EST Duplicate requests [employer] [id number] History of Present illness Narrative* Deyanira Tai DO - 09/11/2024 12:00 PM EST IM PROGRESS NOTE Patient - Rosetta Keith Age - 84 y[facility] 1940 [id number] ASSESSMENT & PLAN 1. Pressure injury of right buttock, stage 1 (Primary) -relatively benign-appearing superficial ulcer on the right buttock without erythema or drainage with reddened irritated skin noted on the left side -continue Calmoseptine cream to the buttock twice daily -patient should continue to wear her pull-up diapers, but should avoid using the additional pad, asthis appears to be rubbing and tearing at the skin -will re-evaluate in several weeks 2. Chronic obstructive pulmonary disease, unspecified COPD type ([facility]) -stable symptoms. -continue albuterol q.i.d. p.r.n. -continue Advair 250-50 b.i.d., although this may need to be changed due to formulary change 3. Mild recurrent major depression ([facility]) -continue mirtazapine 4. Obesity, morbid ([facility]) -overall stable -patient really is not a good candidate for aggressive attempts at weight loss 5. Type 2 diabetes mellitus with peripheral angiopathy ([facility]) -her CGM report was reviewed and appears stable and adequate -no hypoglycemia -no changes today Subjective 84-year-old female presents for evaluation of sores/open areas on her buttock. These were noted by a insurance nurse. The patient reports these have been present for a month or longer. The facility she resides that is applying some kind of pink cream to the area once daily. The patient does wear depends diapers, and is also using an extra pad. She is inactive, sitting much of the day. -in the past, had a similar episode, which resolved with daily use of Desitin -patient has had no more or no less incontinence than in the past -the patient says the areas do burn intermittently, but are otherwise not painful. -has seen Urology in the past for her incontinence, and no further recommendations have been made as to how to have improved control A review of systems was negative except for the following: General: weight loss Endocrine: CGM report shows estimated A1c 7.2% with average glucose 163 mg/dL. In range 63% of the time. No hypoglycemia. Dermatological: Changes and reported above. Exam BP 128/58 (BP Site: Left Arm, BP Postition: Sitting) Pulse 97 Temp 36.5 C (97.7 F) (Oral) Resp 18 Ht 134.6 cm (4' 5 ) Wt 68.7 kg (151 lb 6.4 oz) SpO2 96% BMI 37.89 kg/m Physical Exam Exam conducted with a victims advocate clerk/specialist present (ORTEGA/LEESA (Cyrus)). Constitutional: General: She is not in acute distress. Appearance: She is obese. She is not toxic-appearing. HENT: Head: Normocephalic. Right Ear: External ear normal. Left Ear: External ear normal. Ears: Comments: Decreased hearing bilaterally Eyes: General: No scleral icterus. Neck: Vascular: No carotid bruit. Cardiovascular: Rate and Rhythm: Normal rate. Heart sounds: No murmur heard. No gallop. Pulmonary: Effort: Pulmonary effort is normal. Breath sounds: No wheezing or rales. Abdominal: Palpations: Abdomen is soft. Musculoskeletal: Right lower leg: No edema. Left lower leg: No edema. Skin: General: Skin is warm and dry. Comments: 2 cm superficial, stage I ulcer on the right buttock. Reddened area without skin breakdown noted on the left buttock. No drainage at either site. No erythema at either site. Neurological: Mental Status: She is alert and oriented to person, place, and time. Psychiatric: Mood and Affect: Mood normal. Behavior: Behavior normal. Meds Current Outpatient Medications: albuterol (PROVENTIL,VENTOLIN) 2.5 mg /3 mL (0.083 %) nebulizer solution, Inhale 3 mL (2.5 mg total) by nebulization in the morning and 3 mL (2.5 mg total) at noon and 3 mL (2.5 mg total) in the evening and 3 mL (2.5 mg total) before bedtime., Disp: 75 mL, Rfl: 1 amLODIPine (NORVASC) 10 mg tablet, TAKE 1 TABLET DAILY, Disp: 90 tablet, Rfl: 1 aspirin 81 mg, Take 1 tablet (81 mg total) by mouth in the morning., Disp: , Rfl: atorvastatin (LIPITOR) 10 mg tablet, TAKE 1 TABLET BY MOUTH IN THE MORNING, Disp: 90 tablet, Rfl: 1 blood-glucose meter,continuous (DEXCOM G7 MILLINERY DESIGNER) misc, 1 each by miscellaneous route every 3 (three) months., Disp: 1 each, Rfl: 0 blood-glucose sensor (DEXCOM G6 SENSOR) device, 1 each by miscellaneous route every 10 days., Disp:9 each, Rfl: 1 blood-glucose transmitter (DEXCOM G6 TRANSMITTER) device, 1 each by miscellaneous route in the morning., Disp: 1 each, Rfl: 1 calcium carbonate (OS-ZHEN) 600 mg elemental (1,500 mg) tablet, Take 1 tablet (600 mg total) by mouth daily with breakfast., Disp: 90 tablet, Rfl: 1 cranberry 500 mg capsule, Take 1 tablet by mouth in the morning., Disp: 90 each, Rfl: 1 cyanocobalamin, vitamin B-12, (VITAMIN B12 ORAL), Take 500 mcg by mouth daily with dinner., Disp: ,Rfl: fluticasone propion-salmeteroL (ADVAIR) 250-50 mcg/dose DISKUS, INHALE 1 Puff BY MOUTH IN THE MORNING and 1 Puff before bedtime, Disp: 180 each, Rfl: 1 insulin glargine (LANTUS SOLOSTAR U-100 INSULIN) 100 unit/mL (3 mL) insulin pen, Inject 24 Units under the skin nightly., Disp: 9 mL, Rfl: 3 insulin syringe-needle U-100 (INSULIN SYRINGE) 0.5 mL 29 gauge x 1/2 syringe, 1 Syringe by miscellaneous route in the morning., Disp: 100 each, Rfl: 1 latanoprost (XALATAN) 0.005 % ophthalmic solution, Administer 1 drop to both eyes nightly., Disp: ,Rfl: lisinopriL (PRINIVIL,ZESTRIL) 40 mg tablet, take 1 tablet by mouth in the morning, Disp: 90 tablet,Rfl: 0 mirtazapine (REMERON) 7.5 mg tablet, TAKE 1 TABLET BY MOUTH NIGHTLY, Disp: 90 tablet, Rfl: 1 nebulizer accessories (ADULT AEROSOL MASK) misc, 1 Unit by miscellaneous route 4 (four) times a day., Disp: 1 each, Rfl: 0 nystatin (MYCOSTATIN) powder, Apply 1 Application topically in the morning and 1 Application at noon and 1 Application in the evening and 1 Application before bedtime., Disp: 60 g, Rfl: 0 pen needle, diabetic 31 gauge x 1/4 needle, 1 Pen Needle by miscellaneous route in the morning., Disp: 100 each, Rfl: 1 rOPINIRole (REQUIP) 0.5 mg tablet, Take 1 tablet (0.5 mg total) by mouth nightly., Disp: 90 tablet,Rfl: 1 teriparatide 20 mcg/dose (620mcg/2.48mL) injection, Inject 0.08 mL (20 mcg total) under the skin inthe morning., Disp: 2.48 mL, Rfl: 11 tolterodine LA (DETROL LA) 4 mg 24 hr capsule, Take 1 capsule (4 mg total) by mouth in the morning., Disp: 90 capsule, Rfl: 1 brimonidine (ALPHAGAN) 0.15 % ophthalmic solution, Administer 1 drop to both eyes 3 (three) times aday., Disp: , Rfl: lutein 20 mg capsule, Take 20 mg by mouth daily. (Patient not taking: Reported on 09/11/2024), Disp:, Rfl: Lab Results Hospital Outpatient Visit on 08/19/2024 Component Date Value Ref Range Status Culture 08/19/2024 >100,000 ORGANISMS/mL ESCHERICHIA COLI (A) Final Culture 08/19/2024 10,000 to 50,000 ORGANISMS/mL NORMAL URO GENITAL RHETT Final Color 08/19/2024 YELLOW YELLOW^YELLOW Final Turbidity 08/19/2024 HAZY (A) CLEAR^CLEAR Final Specific gravity 08/19/2024 1.015 1.003 - 1.035 Final Nitrite 08/19/2024 Positive (A) Negative^Negative Final Ph urine 08/19/2024 6.0 5.0 - 8.5 Final Leukocyte esterase 08/19/2024 SMALL (A) Negative^Negative Final Protein 08/19/2024 Negative Negative^Negative mg/dL Final Glucose, Ur 08/19/2024 Negative Negative^Negative mg/dL Final Ketones urine 08/19/2024 Negative Negative^Negative mg/dL Final Urobilinogen 08/19/2024 0.2 <1.1 eu/dL Final Bilirubin, urine 08/19/2024 Negative Negative^Negative Final Hemoglobin 08/19/2024 SMALL (A) Negative^Negative Final Microspopic Urine 08/19/2024 URINE RECEIVED WITHOUT PRESERVATIVE-DELAYS IN TRANSPORT MAY AFFECT RESULTS.INTERPRET WITH CAUTION AND CLINICAL CORRELATION IS RECOMMENDED. Final WBC 08/19/2024 15 (H) 0 - 5 /hpf Final RBC 08/19/2024 3 0 - 5 /hpf Final Squamous epithelium 08/19/2024 1 0 - 5 /hpf Final Other Testing No results found. Deyanira Tai DO., [facility] Office: [phone] [facility] Miscellaneous Notes* Telephone Encounter - Justina Zapata - 08/29/2024 9:09 AM EST Patients field care advocate called and asked if you could send the medications for her UTI to [facility] please and thank you * Telephone Encounter - Deyanira Tai DO - 08/29/2024 9:09 AM EST Message noted. Done. Bactrim DS bid x 5 days * Telephone Encounter - Justina Zapata - 08/29/2024 9:09 AM EST Notified documented in this [facility]01-03-2025 Telephone encounter Note* Telephone Encounter - Justina Zapata - 08/29/2024 9:09 AM EST Patients field care advocate called and asked if you could send the medications for her UTI to [facility] please and thank you [facility]01-03-2025 Telephone encounter Note* Telephone Encounter - Deyanira Tai DO - 08/29/2024 9:09 AM EST Message noted. Done. Bactrim DS bid x 5 days [facility]01-03-2025 Telephone encounter Note* Telephone Encounter - Justina Zapata - 08/29/2024 9:09 AM EST Notified [facility] [id number] Miscellaneous Notes* Telephone Encounter - Mattie Sam CMA - 2024 3:00 PM EST The nurse at the [facility] called and stated that they were wondering if there are any orders for the urine culture. * Telephone Encounter - Deyanira Tai DO - 2024 3:00 PM EST Message noted. I sent an order for Bactrim to their pharmacy over a week ago. * Telephone Encounter - Barbie Holm CMA - 2024 3:00 PM EST Shara NASH from [facility] called and would like you to look at the urine results that were sent over and if you had any new orders? * Telephone Encounter - Mattie Sam CMA - 2024 3:00 PM EST Where was the bactrium sent to because I did not see and orders for bactrium. * Telephone Encounter - Deyanira Tai DO - 2024 3:00 PM EST Message noted. Bactrim (Trimethoprim-Sulfamethoxizole) Take 1 tablet by mouth in the morning and 1 tablet before bedtime. Do all this for 3 days., Starting Jacqui 08/21/2024, Until 08/24/2024, Normal Dispense: 6 tablet Refills: 0 ordered Pharmacy: [address] ( ) * Telephone Encounter - Mattie Sam CMA - 2024 3:00 PM EST I spoke to Lizzy the RN on staff today. She is going to call pharmacy to find out where the medication is. documented in this [facility] Telephone encounter Note* Telephone Encounter - Mattie Sam CMA - 2024 3:00 PM EST The nurse at the [facility] called and stated that they were wondering if there are any orders for the urine culture. [facility]01-[facility]25 Telephone encounter Note* Telephone Encounter - Deyanira Tai DO - 2024 3:00 PM EST Message noted. I sent an order for Bactrim to their pharmacy over a week ago. [facility]01-[facility] Telephone encounter Note* Telephone Encounter - Barbie Holm CMA - 2024 3:00 PM EST Shara ANSH from [facility] called and would like you to look at the urine results that were sent over and if you had any new orders? [facility]01-[facility] Telephone encounter Note* Telephone Encounter - Mattie Sam CMA - 2024 3:00 PM EST Where was the bactrium sent to because I did not see and orders for bactrium. [facility]01-[facility] Telephone encounter Note* Telephone Encounter - Deyanira Tai DO - 2024 3:00 PM EST Message noted. Bactrim (Trimethoprim-Sulfamethoxizole) Take 1 tablet by mouth in the morning and 1 tablet before bedtime. Do all this for 3 days., Starting Jacqui 08/21/2024, Until 08/24/2024, Normal Dispense: 6 tablet Refills: 0 ordered Pharmacy: [address] ( ) [facility]01-[facility] Telephone encounter Note* Telephone Encounter - Mattie Sam CMA - 2024 3:00 PM EST I spoke to Lizzy the RN on staff today. She is going to call pharmacy to find out where the medication is. [facility] History of Present illness Narrative* Charlotte Mccullough DPM - 07/03/2024 1:00 PM EST Images from the original note were not included. Subjective Patient ID: Rosetta Keith is a 83 y.o. female who presents for Nail care (Rosetta Keith is a 83y.o. female who presents for DM Foot Care PCP: Dr. William CUELLAR 05/05/2024, A1C: 6.4, BS: 160.). HPI HPI Diabetic/Routine Nail Care: Established patient presents today for nail care. Symptomatic toenail deformity. Location: all digits are problematic/symptomatic. Duration: chronic toenail deformity, multiple years duration. Severity of symptoms: mild; in the presence of diabetic neuropathy. Onset: gradual, without injury or trauma. Status: problematic/symptomatic over the past several weeks or so. Context: hard to trim, hard to reach; self-care is difficult, ineffective, not practical; exposing patient to considerable risk; family members unable to provide effective care. NAILS: thickened, discolored, pain , elongated , crumbly, pressure; without bleeding or drainage. Relieved by: patient remains well satisfied with palliative care measures. Previous Treatment: palliative care as noted. History of ulcers/wounds: no. Has treatment helped with pain: pressure relief. Aggravated by: shoe gear, pressure, walking; catching and snagging on clothing etc.. Risk factors: advanced visual impairment. Comorbidities. Polypharmacy. ASA therapy. Type II diabetes/IDDM. Peripheral neuropathy. PAD. CVI. Mobility and flexibility restraints. Shoe and/or digital trauma and related complications. Medications Current Outpatient Medications: Advair Diskus 250-50 MCG/ACT aerosol powder , USE 1 INHALATION TWICE A DAY, Disp: , Rfl: amLODIPine (Norvasc) 10 MG tablet, Take 1 tablet by mouth in the morning., Disp: , Rfl: aspirin 81 MG chewable tablet, 1 (one) time each day at the same time., Disp: , Rfl: atorvastatin (Lipitor) 10 MG tablet, Take 1 tablet by mouth at bedtime., Disp: , Rfl: brimonidine (AlphaGAN P) 0.15 % ophthalmic solution, Administer 1 drop into affected eye(s) in the morning and 1 drop at noon and 1 drop in the evening., Disp: , Rfl: calcium carbonate 1500 (600 Ca) MG tablet, Take 600 mg by mouth in the morning. Take with meals., Disp: , Rfl: Cranberry Extract 250 MG tablet, every 12 (twelve) hours., Disp: , Rfl: Cyanocobalamin (VITAMIN B 12 PO), Vitamin B 12, Disp: , Rfl: insulin lispro (HumaLOG) 100 UNIT/ML injection, as directed Injection, Disp: , Rfl: Lantus 100 UNIT/ML injection, INJECT 0.24 ml (24 UNITS) SUBCUTANEOUSLY NIGHTLY, Disp: , Rfl: latanoprost (Xalatan) 0.005 % ophthalmic solution, Administer 1 drop into affected eye(s) at bedtime., Disp: , Rfl: lisinopril 40 MG tablet, Take 40 mg by mouth in the morning., Disp: , Rfl: mirtazapine (Remeron) 7.5 MG tablet, Take 1 tablet by mouth at bedtime., Disp: , Rfl: Misc Natural Products (LUTEIN 20 PO), Orally, Disp: , Rfl: rOPINIRole (Requip) 0.5 MG tablet, Take 1 tablet by mouth in the evening., Disp: , Rfl: teriparatide (Forteo) injection, Inject 20 mcg under the skin in the morning., Disp: , Rfl: tolterodine LA (Detrol LA) 4 MG 24 hr capsule, Take 4 mg by mouth in the morning., Disp: , Rfl: Toujeo SoloStar 300 UNIT/ML injection, Inject 36 Units under the skin at bedtime., Disp: , Rfl: Allergies Patient has no known allergies. Past Surgical History Past Surgical History: Procedure Laterality Date CYST REMOVAL uterus EYE SURGERY GALLBLADDER SURGERY HEMORRHOIDECTOMY INNER EAR SURGERY Left MULTIPLE TOOTH EXTRACTIONS OTHER SURGICAL HISTORY Left Krause's POLYPECTOMY TOE SURGERY Family History Family History Problem Relation Name Age of Onset Diabetes Mother Mrs Delgadillo Heart disease Father Mr. Delgadillo Heart disease Sibling Diabetes Sibling Stroke Sibling Diabetes Daughter Ny Guillen Vision loss Brother Antonino Delgadillo Objective General Examination: GENERAL EXAMINATION: alert, oriented, pleasant. Patient is accompanied by her friend, Jamee. Ambulatory with walker assist; wearing Dr. Proctor therapeutic footwear with accommodative orthoses. FOOT EXAM: Date of Last Foot Exam 07/03/2024 Sensory testing performed: sensations diminished Sensory and motor testing performed: strength diminished Pedal pulse taking performed: absent Vascular: DORSALIS PEDIS PULSE: faintly palpable, bilaterally. POSTERIOR TIBIAL PULSE: 0/4, bilaterally. CAPILLARY REFILL: < 3 seconds, bilaterally. TEMPERATURE GRADIENT: warm to cool, bilaterally. EDEMA: bilateral pitting edema; with stasis dermatitis and skin changes . VARICOSITIES: absent. SHINY ATROPHIC SKIN: trophic change with discoloration and thinning of skin . HAIR GROWTH: absent. Neurologic: VIBRATORY: Vibratory sensation is absent at IPJ and MPJ b/l. SEMMES-LASHONDA 5.07 MONOFILAMENT: inconsistent localization over the digital and forefoot areas; otherwise intact. NEUROLOGIC: Peripheral neuropathy (Q9). Dermatologic: SKIN FINDINGS: intact. Skin turgor is fair. HYPERTROPHIC LESION: no forefoot or digital keratotic pressure lesions are noted. NAIL PATHOLOGY: All digits: None are spared: Varying degrees of toenail dystrophy, elongation, discoloration, thickening, mild clubbing, pincer deformity, crumbly texture, subtotal onycholysis, periungual hyperkeratosis, without drainage. MYCOSIS SCALE: total with debris, multiple digits. INTERDIGITAL MACERATION: clean, dry, non-inflamed. ULCER: no sign of ulceration or open wound. SKIN PATHOLOGY: Loss of plantar fat pad. Ankle / Foot: RANGE OF MOTION: dorsiflexion, eversion, inversion of ankle joint and subtalar joint within normal limits left and right.. Orthopedic: FOOT MORPHOLOGY: Flexible flatfoot deformity. DEFORMITIES: flexible HAV deformity bilateral, with flexible digital contractures bilateral. MUSCLE STRENGTH: no focal deficits. Modifier: -Q8, Q9. Radiology: Assessment/Plan 1. Onychodystrophy/mycosis all digits. 2. Type II diabetes/IDDM 3. Diabetic peripheral neuropathy; (Q9). 4. Diabetic peripheral vasculopathy; (Q8). Plan: Notes: conservative and palliative care measures are understood and again indicated. Diabetic education and assessment relative to the high risk diabetic condition. Hygiene and skin care measures discussed as she is able to do so. Procedure: Toenail Debridement: Aseptic technique: power/manual instrumentation: onychodebridement length and thickness, curretage of offending crypotic margins, bhumika-ungual debris, providing effective pressure relief, reducing shoe and digital trauma; reducing potential risks and complications associated with the high risk diabetic neuropathic and vasculopathic foot condition. This note was created with the assistance of a speech recognition program. While intending to generate a timely document that accurately reflects the content of the visit, no guarantee can be provided that every grammatical or spelling mistake has been or will be identified or corrected. Thank you for your understanding. Charlotte Mccullough DPM documented in this [facility]11-07-2024 Instructions* Patient Instructions* Charlotte Mccullough DPM - 07/03/2024 1:00 PM EST As noted documented in this [facility]02-13-2024 Telephone encounter Note* Telephone Encounter - Valentina Torres - 10/09/2023 1:09 PM EST Was updated by Dr. Tai office that the patient is now going into [facility] assisted Living facility so we will no longer continue diabetic shoes. [id number] Miscellaneous Notes* Telephone Encounter - Valentina Torres - 10/09/2023 1:09 PM EST Was updated by Dr. Tai office that the patient is now going into [facility] assisted Living facility so we will no longer continue diabetic shoes. [facility]* Diagnosis Dermatophytosis of nail- Primary Dystrophic nail Other specified disease of nail Angiopathy, diabetic ([facility]) Type II or unspecified type diabetes mellitus with peripheral circulatory disorders, not stated as uncontrolled Type II or unspecified type diabetes mellitus with neurological manifestations, not stated as uncontrolled(250.60) ([facility]) Type II or unspecified type diabetes mellitus with neurological manifestations, not stated as uncontrolled documented in this encounter [facility]* Diagnosis Urinary retention- Primary Unspecified retention of urine Urinary retention- Primary Unspecified retention of urine Urinary retention- Primary Unspecified retention of urine Urinary urgency Urgency of urination Hyperlipidemia, unspecified hyperlipidemia type [facility] Diagnosis Urinary retention- Primary Unspecified retention of urine Urinary retention- Primary Unspecified retention of urine Urinary retention- Primary Unspecified retention of urine Urinary urgency Urgency of urination Pressure injury of right buttock, stage 1- Primary Chronic obstructive pulmonary disease, unspecified COPD type ([facility]) Mild recurrent major depression ([facility]) Major depressive disorder, recurrent episode, mild Obesity, morbid ([facility]) Morbid obesity Type 2 diabetes mellitus with peripheral angiopathy ([facility]) [facility]* Diagnosis Urinary retention- Primary Unspecified retention of urine Urinary retention- Primary Unspecified retention of urine Urinary retention- Primary Unspecified retention of urine Urinary urgency Urgency of urination Urinary urgency Urgency of urination Essential hypertension Unspecified essential hypertension [facility]* Diagnosis Urinary retention- Primary Unspecified retention of urine Urinary retention- Primary Unspecified retention of urine Urinary retention- Primary Unspecified retention of urine Urinary urgency Urgency of urination Essential hypertension Unspecified essential hypertension documented [facility]* Diagnosis Urinary retention- Primary Unspecified retention of urine Urinary retention- Primary Unspecified retention of urine Urinary retention- Primary Unspecified retention of urine Urinary urgency Urgency of urination Essential hypertension Unspecified essential hypertension Hyperlipidemia, unspecified hyperlipidemia type Urinary urgency Urgency of urination documented [facility]* Diagnosis Urinary retention- Primary Unspecified retention of urine Urinary retention- Primary Unspecified retention of urine Urinary retention- Primary Unspecified retention of urine Urinary urgency Urgency of urination Type 2 diabetes mellitus with peripheral angiopathy ([facility])- Primary Edema of both lower legs Chronic obstructive pulmonary disease, unspecified COPD type ([facility]) Essential hypertension Unspecified essential hypertension [facility]* Diagnosis Dermatophytosis of nail- Primary Dystrophic nail Other specified disease of nail Angiopathy, diabetic ([facility]) Type II or unspecified type diabetes mellitus with peripheral circulatory disorders, not stated as uncontrolled Type II or unspecified type diabetes mellitus with neurological manifestations, not stated as uncontrolled(250.60) ([facility]) Type II or unspecified type diabetes mellitus with neurological manifestations, not stated as uncontrolled documented in this encounter [facility]* Diagnosis Urinary retention- Primary Unspecified retention of urine Urinary retention- Primary Unspecified retention of urine Urinary retention- Primary Unspecified retention of urine Urinary urgency Urgency of urination Type 2 diabetes mellitus with peripheral angiopathy ([facility]) [facility] Diagnosis Urinary retention- Primary Unspecified retention of urine Urinary retention- Primary Unspecified retention of urine Urinary retention- Primary Unspecified retention of urine Urinary urgency Urgency of urination Restless legs Restless legs syndrome (RLS) 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, recurrent episode, mild [facility] Diagnosis Urinary retention- Primary Unspecified retention of urine Urinary retention- Primary Unspecified retention of urine Urinary retention- Primary Unspecified retention of urine Urinary urgency Urgency of urination Type 2 diabetes mellitus with diabetic peripheral angiopathy without gangrene, with long-term current use of insulin ([facility])- Primary Essential hypertension Unspecified essential hypertension Chronic obstructive pulmonary disease, unspecified COPD type ([facility]) Oropharyngeal dysphagia Dysphagia, oropharyngeal phase Vitamin B12 deficiency Other B-complex deficiencies [facility]* Diagnosis Urinary retention- Primary Unspecified retention of urine Urinary retention- Primary Unspecified retention of urine Urinary retention- Primary Unspecified retention of urine Urinary urgency Urgency of urination Essential hypertension Unspecified essential hypertension [facility]* Diagnosis Urinary retention- Primary Unspecified retention of urine Urinary retention- Primary Unspecified retention of urine Urinary retention- Primary Unspecified retention of urine Urinary urgency Urgency of urination Encounter for subsequent annual wellness visit (AWV) in Medicare patient- Primary documented [facility]* Diagnosis Urinary retention- Primary Unspecified retention of urine Urinary retention- Primary Unspecified retention of urine Urinary retention- Primary Unspecified retention of urine Urinary urgency Urgency of urination Hyperlipidemia, unspecified hyperlipidemia type [facility]* Diagnosis Urinary retention- Primary Unspecified retention of urine Urinary retention- Primary Unspecified retention of urine Urinary retention- Primary Unspecified retention of urine Urinary urgency Urgency of urination Cellulitis of finger of right hand- Primary [facility]* Diagnosis Urinary retention- Primary Unspecified retention of urine Urinary retention- Primary Unspecified retention of urine Urinary retention- Primary Unspecified retention of urine Urinary urgency Urgency of urination Urinary urgency- Primary Urgency of urination [facility] Diagnosis Urinary retention- Primary Unspecified retention of urine Urinary retention- Primary Unspecified retention of urine Urinary retention- Primary Unspecified retention of urine Urinary urgency Urgency of urination Candidal dermatitis [facility] Diagnosis Dermatophytosis of nail- Primary Dystrophic nail Other specified disease of nail Angiopathy, diabetic ([facility]) Type II or unspecified type diabetes mellitus with peripheral circulatory disorders, not stated as uncontrolled Type II or unspecified type diabetes mellitus with neurological manifestations, not stated as uncontrolled(250.60) ([facility]) Type II or unspecified type diabetes mellitus with neurological manifestations, not stated as uncontrolled documented in this encounter [facility]* Diagnosis Urinary retention- Primary Unspecified retention of urine Urinary retention- Primary Unspecified retention of urine Urinary retention- Primary Unspecified retention of urine Urinary urgency Urgency of urination Essential hypertension Unspecified essential hypertension [facility] Diagnosis Urinary retention- Primary Unspecified retention of urine Urinary retention- Primary Unspecified retention of urine Urinary retention- Primary Unspecified retention of urine Urinary urgency Urgency of urination Chronic obstructive pulmonary disease, unspecified COPD type ([facility]) [facility] Diagnosis Urinary retention- Primary Unspecified retention of urine Urinary retention- Primary Unspecified retention of urine Urinary retention- Primary Unspecified retention of urine Urinary urgency Urgency of urination Urinary urgency Urgency of urination documented [facility] SystemEvaluation note* Diagnosis Urinary retention- Primary Unspecified retention of urine Urinary retention- Primary Unspecified retention of urine Urinary retention- Primary Unspecified retention of urine Urinary urgency Urgency of urination Type 2 diabetes mellitus with diabetic peripheral angiopathy without gangrene, with long-term current use of insulin ([facility] [place] Primary Essential hypertension Unspecified essential hypertension Restless legs Restless legs syndrome (RLS) Encounter for immunization [facility] Urinary retention- Primary Unspecified retention of urine Urinary retention- Primary Unspecified retention of urine Urinary retention- Primary Unspecified retention of urine Urinary urgency Urgency of urination Essential hypertension Unspecified essential hypertension [facility] Diagnosis Urinary retention- Primary Unspecified retention of urine Urinary retention- Primary Unspecified retention of urine Urinary retention- Primary Unspecified retention of urine Urinary urgency Urgency of urination Essential hypertension Unspecified essential hypertension documented [facility] filedocumented in this [facility] filedocumented in this [facility] filedocumented in this encounter [facility] filedocumented in this encounter [facility] on filedocumented in this encounter [facility] on filedocumented in this encounter [facility] on filedocumented in this encounter [facility] on filedocumented in this encounter [facility] on filedocumented in this [facility] on filedocumented in this [facility] on filedocumented in this [facility] on filedocumented in this encounter [facility] Summary Purpose Family History No Family History Records FoundNo Family History Records FoundNo Family History Records FoundNo Family History Records FoundNo Family History Records FoundNo Family History Records FoundNo Family History Records FoundNo Family History Records FoundNo Family History Records Found Advance Directives TypeDate RecordedPatient RepresentativeExplanationDurable Power of AttorneyDate ActivatedDate SgukssxkmncLddqeqsn17/26/2021 10:39 PM06/29/2021 7:07 PMDate ActivatedDate GqmgheymhrcOpuaxcrr13/3/2020 5:37 PM08/02/2020 5:28 PMDate ActivatedDate OfuylasvsozVkleblfq92/28/2020 2:17 PM07/29/2020 4:12 PMDate ActivatedDate QpdmqllkzmcZlyazild82/27/2020 2:43 PM07/23/2020 7:03 PMTypeDate RecordedPatient RepresentativeExplanationDurable Power of AttorneyDNR Physician Order03/17/2025 10:27 AM06/Date ActivatedDate InactivatedComments03/17/2025 10:26 AMThis order was created through External Result EntryDate ActivatedDate MmyhcyduydcSodgrrvq39/26/2021 10:39 PM06/29/2021 7:07 PMDate ActivatedDate HqcodqvglqvSbitbitk73/3/2020 5:37 PM08/02/2020 5:28 PMDate ActivatedDate PqeebsmppdbLsgniqay45/28/2020 2:17 PM07/29/2020 4:12 PMDate ActivatedDate AffjqpbofdcLnalewvh58/27/2020 2:43 PM07/23/2020 7:03 PM Additional Source Comments INFORMATION SOURCE (unrecogn ized section and content) DATE CREATED AUTHOR 10/14/2018 [facility] DATE CREATED AUTHOR AUTHOR'S ORGANIZ ATION 08/07/2020 [facility] DATE CREATED AUTHOR AUTHOR'S ORGANIZ ATION 07/14/2021 [facility] DATE CREATED AUTHOR AUTHOR'S ORGANIZ ATION 04/21/2022 [facility] DATE CREATED AUTHOR AUTHOR'S ORGANIZ ATION 08/23/2024 [facility] DATE CREATED AUTHOR AUTHOR'S ORGANIZ ATION 08/27/2024 [facility] DATE CREATED AUTHOR AUTHOR'S ORGANIZ ATION 10/23/2024 [facility] DATE CREATED AUTHOR AUTHOR'S ORGANIZ ATION 05/13/2025 [facility] DATE CREATED AUTHOR AUTHOR'S ORGANIZ ATION 06/07/2025 [facility] Reason for Visit (unrecogniz ed section and content) ReasonOnset DateCommentsAdvice Only10/09/2023easonCommentsNail careRosetta Keith is a 83 y.o. female who presents for DM Foot Care PCP: Dr. William CUELLAR 05/05/2024, A1C: 6.4, BS: 160.ReasonCommentsMed RefillReasonCommentsbed sores ReasonOnset DateCommentsMed Uqhpkv4209/22/2024ReasonOnset DateCommentsCellulitis 10/18/2024ReasonCommentsDiabetesReasonCommentsDM Foot CarePt is here today with a friend requesting diabetic foot careBS: 120 A1C: 6.7LV Dr. Tai 10-21-2024SS: 6ReasonCommentsMed Change RequestReasonCommentsDM Foot CareEstablished patient presents today for routine diabetic nail care. PCP: Dr. William CUELLAR 10/21/24, A1C: 6 .7, BS: <300, SS: 6ReasonCommentsmawReasonOnset DateCommentsMed Qdgxdu0304/10/2025 ReasonOnset DateCommentsAdvice Only04/24/2025This was opened in errorReason CommentsFollow-upReasonOnset DateCommentsMed Hzbbyl3205/08/2025ReasonCommentsDM Foot CarePt presents today requesting diabetic foot care, Her friend Dione is with her today.BS: 135 A1C: 7.3LV Dr. Tai 03-26-2025SS: 6.5XWReasonComments DiabetesTdap and Flu shot Care Teams (unrecognized sec tion and content) Team MemberRelationshipSpecialtyStart DateEnd Date Deyanira Tai MD [address] [place] [address] PCP - GeneralInternal Medicine03/06/23Team MemberRelationshipSpecialtyStart Date End Date Deyanira Tai MD [address] [place] [address] PCP - GeneralInternal Medicine03/06/23Team MemberRelationshipSpecialtyStart Date End Date Deyanira Tai MD [address] [place] [address] PCP - GeneralInternal Medicine03/06/23Team MemberRelationshipSpecialtyStart Date End Date Deyanira Tai DO [address] [place] [address] PCP - GeneralInternal Fuinsqnc11/8/17Team MemberRelationshipSpecialtyStart Date End Date Deyanira Tai DO [address] [place] [address] PCP - GeneralInternal Adlomdzw50/8/17Team MemberRelationshipSpecialtyStart Date End Date Deyanira Tai DO [address] [place] [address] PCP - GeneralInternal Askiwlkm43/8/17Team MemberRelationshipSpecialtyStart Date End Date Deyanira Tai, DO [address] [place] [address] PCP - GeneralInternal Ylqujjvz89/8/17Team MemberRelationshipSpecialtyStart Date End Date Deyanira Tai DO [address] [place] [address] PCP - GeneralInternal Asspqesn53/8/17Team MemberRelationshipSpecialtyStart Date End Date Deyanira Tai DO [address] [place] [address] PCP - GeneralInternal Ucwbzefp31/8/17am MemberRelationshipSpecialtyStart Date End Date Deyanira Tai MD [address] [place] [address] PCP - GeneralInternal Medicine03/06/23Team MemberRelationshipSpecialtyStart Date End Date Deyanira Tai DO [address] [place] [address] PCP - GeneralInternal Qyuohutk74/8/17Team MemberRelationshipSpecialtyStart Date End Date Deyanira Tai DO [address] [place] [address] PCP - [facility]07/04/17[facility] MemberRelationshipSpecialtyStart Date End Date Deyanira Tai DO [address] [place] [address] [facility]07/04/17Te MemberRelationshipSpecialtyStart Date End Date Deyanira Tai DO [address] [place] [address] [facility]07/04/17Te MemberRelationshipSpecialtyStart Date End Date Deyanira Tai DO [address] [place] [address] [facility]07/04/17[facility] MemberRelationshipSpecialtyStart Date End Date Deyanira Tai DO [address] [place] [address] [facility]07/04/17Te MemberRelationshipSpecialtyStart Date End Date Deyanira Tai DO [address] [place] [address] [facility]07/04/17 FOR RECORDS PERTAINING TO PATIENTS WHO ARE OR HAVE BEEN ENROLLED IN A CHEMICAL DEPENDENCY/SUBSTANCEABUSE PROGRAM, SOME INFORMATION MAY BE OMITTED. This clinical summary was aggregated from multiple sources. Caution should be exercised in using it in the provision of clinical care. This summary normalizes information from multiple sources, and as a consequence, information in this document may materially change the coding, format and clinical context of patient data. In addition, data may be omitted in some cases. CLINICAL DECISIONS SHOULD BE BASED ON THE PRIMARY CLINICAL RECORDS. [employer] provides no warranty or guarantee of the accuracy or completeness of information in this document.
[2025-07-18 21:50] VITALS: BP 160/53; PULSE 97; O2SAT 92
== END 2025-07-18 22:31 | disposition home or self-care (01) ==
PROVIDERS: Emergency Provider Internal Medicine; PCP Internal Medicine
DX: S01.01XA Laceration without foreign body of scalp, initial encounter (principal); S51.012A Laceration without foreign body of left elbow, initial encounter; S09.8XXA Other specified injuries of head, initial encounter; S62.621A Displaced fracture of middle phalanx of left index finger, initial encounter for closed fracture; W01.198A Fall on same level from slipping, tripping and stumbling with subsequent striking against other object, initial encounter
CPT/HCPCS: 12002; 70450; 72125; 72170; 73080; 73140; 76376; 90471; 90715; 99284

== ENCOUNTER 2025-08-04 10:28 | Outpatient (OUT) | payer MEDICARE, SELFPAY ==
--- NOTE | 2025-08-04 10:35 | XR_ITS ---
The [address] [address] Patient Name: PETRA KEITH MRN: [id number] date: 1940 Sex: F Assigned Patient Location: [facility] Current Patient Location: [facility] Accession/Order Number: [id number] Exam Date: 08/04/2025 10:40 Report Date: 08/04/2025 21:30 At the request of: DEYANIRA TAI Procedure: XR hand LT min 3V XR hand LT min 3V 08/04/2025 10:46 AM SIGNS AND SYMPTOMS: ^ATTN: 5th Digit ^Closed Displaced Fracture Proximal Phalanx Left Finger PROTOCOL: Frontal, lateral, and oblique radiographs of the left hand COMPARISON: 07/18/2025 FINDINGS: Minimally displaced fractures are noted along the dorsal aspects of the base of the middle and distal phalanx of the fifth digit similar to the prior exam. There is narrowing in the interphalangeal joints throughout. There is narrowing of the first carpometacarpal junction. There is diffuse osteopenia. XR/XR hand LT min 3V IMPRESSION: Minimally displaced fractures are noted along the dorsal aspects of the base of the middle and distal phalanx of the fifth digit similar to the prior exam. Impression dictated by: Nguyễn Espinal M.D. 08/04/2025 9:30 PM Dictation Location: [place] [address] Electronically authenticated by: [id number] Y Date: 08/04/2025 21:30
--- OUTSIDE RECORDS SUMMARY | 2025-08-04 10:36 | XMS_ITS | CCD ---
Author Organization [facility] Care Team Providers Care It Intern Name Role Phone SIOMARA HENRY Admitting Unavailable [...] Deyanira Tai Attending Unavailable Deyanira Taiitting Unavailable YuDeyanira phan DO Primary Care Provider [phone] DEYANIRA TAI Referring Unavailable YUHAS, DEYANIRA Bradshaw Primary Care Unavailable YUHADEYANIRA Wilks Referring Unavailable YUHAS, DEYANIRA Bradshaw Primary Care Unavailable YUHADEYANIRA Wilks Referring Unavailable YUHASDEYANIRA Primary Care Unavailable YuDeyanira phan DO Primary Care Provider [phone] CHARLOTTE MCCULLOUGH Attending Unavailable CHARLOTTE MCCULLOUGH Attending Unavailable CHARLOTTE MCCULLOUGH Attending Unavailable CHARLOTTE MCCULLOUGH Attending Unavailable YUHASDEYANIRA Attending Unavailable VINCEHASDEYANIRA Referring Unavailable YUHAS, DEYANIRA Bradshaw Primary Care Unavailable VINCEHAS, DEYANIRA Bradshaw Attending Unavailable VINCEHAS, DEYANIRA Bradshaw Referring Unavailable YUHAS, DEYANIRA Bradshaw Primary Care Unavailable DEYANIRA TAI Attending Unavailable VINCEHASDEYANIRA Referring Unavailable YUHAS, DEYANIRA [...] Unavailable Deyanira Tai DO Primary Care Provider [phone] Medications Current Medications MedicationDrug Class(es)DatesSig (Normalized)Sig (Original)acetaminophen 500 mg oral tablet (20 sources)acetaminophen (TYLENOL EXTRA STRENGTH) 500 mg tablet Take by mouth. Activealbuterol 0.83 mg/ml inhalation solution (20 sources)beta2-Adrenergic AgonistStart: 57-04-6464blfbbhbvu (PROVENTIL,VENTOLIN) 2.5 mg /3 mL (0.083 %) nebulizer solution Indications: Chronic obstructive pulmonary disease, unspecified COPD type ([facility]) Inhale 3 mL (2.5 mg total) by [...] tablet (20 sources)HMG-CoA Reductase InhibitorStart: 07-05-2022 End: 54-50-9560uucn 1 tablet by mouth in the eveningatorvastatin (LIPITOR) 10 mg tablet Indications: Hyperlipidemia, unspecified hyperlipidemia type Take 1 tablet (10 mg total) by mouth in the evening. 90 tablet 1 04/10/2025 Active blood-glucose meter,continuous (DEXCOM G7 PHARMACEUTICAL SALES) misc (20 sources)Start: 63-72-3465tfgaw-glucose meter,continuous (DEXCOM G7 PHARMACEUTICAL SALES) misc Indications: Type 2 diabetes mellitus withperipheral angiopathy (CMS-HCC) 1 each by miscellaneous route every 3 (three) months. 1 each 12/28/2023 Active blood-glucose sensor (DEXCOM G6 SENSOR) device (20 sources)Start: 78-82-7171lsnex-glucose sensor (DEXCOM G6 SENSOR) device Indications: Type 2 diabetes mellitus with peripheral angiopathy (CMS-HCC) 1 each by miscellaneous route every 10 days. 9 each 1 12/31/2023 Activeblood- glucose transmitter (DEXCOM G6 TRANSMITTER) device (20 sources)Start: 73-37-5109agmih-glucose transmitter (DEXCOM G6 TRANSMITTER) device Indications: Type 2 diabetes mellitus withperipheral angiopathy (CMS-HCC) 1 each by miscellaneous route in the morning. 1 each 1 12/31/2023 Activecalcium carbonate 1500 mg oral tablet (20 sources)Start: 25-31-6822skjk 1 tablet by mouth once daily at breakfast calcium carbonate (OS-ZHEN) 600 mg elemental (1,500 mg) tablet Indications: Age- related osteoporosiswithout current pathological fracture Take 1 tablet (600 mg total) by mouth daily with breakfast. 90 tablet 1 10/09/2023 Activecephalexin 500 mg oral capsule (2 sources)Cephalosporin AntibacterialStart: 04-23-2025 End: 78-08-2296TNEVnzorea (KEFLEX) 500 mg capsule Indications: Cellulitis of [...] Food Allergenic Extract, Non-Standardized Plant Allergenic ExtractStart: 44-64-1338kacl 1 tablet by mouth in the morning [...] fluticasone / salmeterol (20 sources)Corticosteroid, beta2-Adrenergic AgonistStart: 20-03-2161mwzb 1 puff(s) by mouth in the morningfluticasone propion-salmeteroL (ADVAIR) 250-50 mcg/dose DISKUS Indications: Chronic obstructive pulmonary disease, unspecified COPD type (CMS-HCC) INHALE 1 Puff BY MOUTH IN THE MORNING and 1 Puff before bedtime 180 each 1 06/01/2025 ActiveStart: 06-13-2024 End: 76-07-7754jzga 1 puff(s) by mouth in the morningfluticasone propion- salmeteroL (ADVAIR) 250-50 mcg/dose DISKUS Indications: Chronic obstructive pulm onary disease, unspecified COPD type (CMS-HCC) INHALE 1 Puff BY MOUTH IN THE MORNING and 1 Puff before bedtime 180 each 1 06/13/2024 06/01/2025 Discontinued Start: 27-07-1252hknw 1 puff(s) by mouth in the morningfluticasone [...] oral tablet (6 sources)Loop DiureticStart: 10-21-2024 End: 56-79-1081wgvl 1 tablet by mouth once dailyfurosemide (LASIX) 40 mg tablet Indications: Edema of both lower legs Take 1 tablet (40 mg total) by mouth daily for 5 days. 5 tablet 10/21/2024 10/26/2024 Active3 ml insulin glargine 100 unt/ml pen injector (20 sources)Insulin AnalogStart: 75-48-6340uvoahup glargine,hum.rec.anlog (BASAGLAR KWIKPEN U-100 INSULIN) 100 unit/mL (3 mL) insulin pen Indications: Type 2 diabetes mellitus with diabetic peripheral angiopathy without gangrene, with long-term current use of insulin ([facility]) Inject 24 Units under the skin in the morning. 06/05/2025 ActiveStart: 06-04-2024 End: 79-12-7968ezazbhp glargine,hum.rec.anlog (BASAGLAR KWIKPEN U-100 INSULIN) 100 unit/mL (3 mL) insulin pen Indications: Type 2 diabetes mellitus with peripheral angiopathy ([facility]) INJECT 24 UNITS SUBCUTANEOUSLY (UNDER THE SKIN) NIGHTLY 30 mL 1 11/18/2024 06/05/2025 Discontinued (Dose adjustment)Start: 12-28-2022 End: 82-24-9447Cfdzno SoloStar 300 UNIT/ML injection Inject 36 Units under the skin at bedtime. 12/28/2022 10/23/2024 Discontinued (Discontinued by another clinician)Start: 89-67-7748Zshwad 100 UNIT/ML injection 05/26/2022 Activeinsulin lispro (HumaLOG) 100 UNIT/ML injection (5 sources) End: 39-51-4914yfhvhgf lispro (HumaLOG) 100 UNIT/ML injection as directed [...] (20 sources)Angiotensin Converting Enzyme InhibitorStart: 06-22-2024 End: 31-16-4631ghwp 1 tablet by mouth in the morninglisinopriL (PRINIVIL,ZESTRIL) 40 mg tablet Indications: Essential hypertension TAKE 1 TABLET BY MOUTH IN THE MORNING 90 tablet 06/18/2025 Activelutein 10 mg oral tablet (20 sources)lutein 10 mg tablet Take by mouth. Active End: 14-08-9753gfgy 1 capsule by mouth once dailylutein 20 mg capsule Take 20 mg by mouth daily. 09/11/2024 Discontinued (Patient Stopped On Own)mirtazapine 7.5 mg oral tablet (20 sources)Start: 09-15-2022 End: 12-18-9963guty 1 tablet by mouth once dailymirtazapine (REMERON) 7.5 mg tablet Indications: Mild recurrent major depression TAKE 1 TABLET BY MOUTH ONCE DAILY at NIGHT 90 tablet 1 02/09/2025 ActiveMisc Natural Products (LUTEIN 20 PO) (5 sources) End: 44-37-7651Gtrx Natural Products (LUTEIN 20 PO) Orally 10/23/2024 Discontinued (Therapy completed)Misc Natural Products (LUTEIN 20 PO) Orally ActiveMisc Natural Products (LUTEIN 20 PO) Orally 0 Activenebulizer accessories (ADULT AEROSOL MASK) misc (20 sources)Start: 92-85-0889ksdswpcge accessories (ADULT AEROSOL MASK) mis Indications: Chronic obstructive pulmonary disease,unspecified COPD type (CMS- HCC) 1 Unit by miscellaneous route 4 (four) times a day. 1 each 03/12/2023 Activenystatin 100 unt/mg topical powder (20 sources)Polyene AntifungalStart: 01-01-2024 End: 23-18-5833uhkkugxk (MYCOSTATIN) powder Indications: Candidal dermatitis Apply 1 Application topically in the morning and 1 Application at noon and 1 Application in the evening and 1 Application before bedtime.60 g 05/08/2025 ActiverOPINIRole 0.5 mg oral tablet (20 sources)Nonergot Dopamine AgonistStart: 10-09-2022 End: 00-03-2549dkwl 1 tablet by mouth once dailyrOPINIRole (REQUIP) 0.5 mg tablet Indications: Restless legs TAKE 1 TABLET BY MOUTH NIGHTLY 90 tablet 1 02/09/2025 Activesulfamethoxazole 800 mg / trimethoprim 160 mg oral tablet (1 source)Dihydrofolate Reductase Inhibitor Antibacterial, Sulfonamide AntimicrobialStart: 08-29-2024 End: 39-37-0501xudv 1 tablet by mouth once in the morningsulfamethoxazole- trimethoprim (BACTRIM DS) 800-160 mg per tablet Indications: E. coli UTI Take 1 tablet by mouth in the morning and 1 tablet before bedtime. Do all this for 5 days. 10 tablet 08/29/2024 09/03/2024 Activetolterodine tartrate 2 mg oral tablet (20 sources)Cholinergic Muscarinic AntagonistStart: 11-17-2024 End: 40-24-8943iauu 1 tablet by mouth in the morning, then take 1 tablet by mouth at bedtimetolterodine (DETROL) 2 mg tablet Indications: Urinary urgency Take 1 tablet (2 mg total) by mouth in the morning and 1 tablet (2 mg total) before bedtime. 180 tablet 1 06/02/2025 ActiveStart: 12-26-2023 End: 21-13-4225watm 1 capsule by mouth every twenty-four hours in the morning tolterodine LA (Detrol LA) 4 MG 24 hr capsule Take 4 mg by mouth in the morning. 12/26/2023 Activevitamin B12 (9 sources)Vitamin Z00Hinmtlzsjcbprs (VITAMIN B 12 PO) ActiveCyanocobalamin (VITAMIN B 12 PO) Vitamin B 12 ActiveCyanocobalamin (VITAMIN B 12 PO) Vitamin B 12 0 Active Completed/Discontinued Medications MedicationDrug Class(es)DatesSig (Normalized)Sig (Original)amLODIPine 10 mg oral tablet (20 sources)Dihydropyridine Calcium Channel BlockerStart: 10-21-2024 End: 29-76-5062rfss 0.5 tablet by mouth once daily in the morningamLODIPine (NORVASC) 10 mg tablet Indications: Essential hypertension Take 0.5 tablets (5 mg total)by mouth every morning. 15 tablet 1 05/19/2025 07/06/2025 Discontinued Start: 11-14-2022 End: 43-57-0913kgvq 1 tablet by mouth once dailyamLODIPine (Norvasc) 10 MG tablet Take 1 tablet by mouth Daily 11/14/2022 Activebrimonidine tartrate 1.5 mg/ml ophthalmic solution (18 sources)alpha-Adrenergic Agonist End: 39-85-0024wqit 1 drop(s) into the eye(s) three times dailybrimonidine (ALPHAGAN) 0.15 % ophthalmic solution Administer 1 drop to both eyes 3 (three) times a day. 02/20/2025 Discontinued (Discontinued by another clinician) End: 21-28-4472eujjwjflyov (AlphaGAN P) 0.15 % ophthalmic solution Administer 1 drop into affected eye(s) in the morning and 1 drop at noon and 1 drop in the evening. 10/23/2024 Discontinued (Discontinued by another clinician)magnesium sulfate 1000 mg oral granules (8 sources)Start: 04-23-2025 End: 12-65-4641swigzqcrn sulfate (EPSOM SALT) 100 % crystals Indications: Cellulitis of finger of right hand Apply1 Application topically in the morning and 1 Application in the evening. Apply before meals. 04/23/2025 06/05/2025 Discontinued (Therapy completed)28 actuat teriparatide 0.02 mg/actuat pen injector (20 sources)Parathyroid Hormone AnalogStart: 03-05-2024 End: 14-34-1024ocovfe 0.08 mL by subcutaneous injection in the morning teriparatide 20 mcg/dose (620mcg/2.48mL) injection Indications: Age-related osteoporosis without current pathological fracture Inject 0.08 mL (20 mcg total) under the skin in the morning. 2.48 mL 03/05/2024 02/20/2025 Discontinued (Therapy completed)Start: 46-70-6574akbydd 20 ug by subcutaneous injection in the morningteriparatide (Forteo) injection Inject 20 mcg under the skin in the morning. 04/02/2023 Active Problems Active Problems Problem ClassificationProblemDateDocumented DateEpisodic/ChronicAbdominal pain (3 sources)Pelvic and perineal pain; Translations: [PELVIC AND PERINEAL PAIN] Onset: 53-65-7817Fgupoat obstructive pulmonary disease and bronchiectasis (20 sources)Chronic obstructive lung disease; Translations: [Chronic obstructive pulmonary disease, unspecified]Onset: 770090-35-0945CnxxeyjNnxalyh ulcer of skin (2 sources)Pressure ulcer of right buttock, stage 1; Translations: [Pressure ulcer, buttock]Onset: 171969-10-4485KwetdpvRayhizzd mellitus with complications (20 sources)Peripheral angiopathy due to diabetes mellitus; Translations: [Type 2 diabetes mellitus with diabetic peripheral angiopathy without gangrene]Onset: 979402-79-4525HtpdbyyQrdgkhtj mellitus without complication (2 sources)Type 2 diabetes mellitus without complications; Translations: [Diabetes mellitus]Onset: 73-90-0827WhznxtrNdjbquuip of lipid metabolism (20 sources)Hyperlipidemia; Translations: [Hyperlipidemia, unspecified]Onset: 768896-17-7446VwglgkwLntpvtxbm hypertension (20 sources)Essential hypertension; Translations: [Essential (primary) hypertension]Onset: 220815-45-0142GajdfgrIpzsmqhu cause codes: Fall (1 source)Unspecified fall, initial encounter; Translations: [UNSPECIFIED FALL INITIAL ENCOUNTER]Onset: 85-35-4278Hsgzyilowivfl and screening for infectious disease (2 sources)Patient encounter status; Translations: [Encounter for immunization] Onset: 439520-78-8781IlhyahkvMkav disorders (20 sources)Recurrent major depressive episodes, mild ; Translations: [Major depressive disorder, recurrent, mild]Onset: 216903-71-9417DclkzayNemecea (5 sources)Onychomycosis due to dermatophyte ; Translations: [Tinea unguium] 74-26-5631VtcmangmXgeisitnpffz breast conditions (20 sources)Fibrocystic disease of breast; Translations: [Diffuse cystic mastopathy of unspecified breast]Onset: 092353-62-4227PzwtugvGoplg aftercare (1 source)care management specialist (current) use of insulin; Translations: [care management specialist (current) use of insulin]Onset: 26-37-2719JvxldyerAbaue hereditary and degenerative nervous system conditions (2 sources)Restless legs; Translations: [Restless legs syndrome]02-09-2025 ChronicOther hereditary and degenerative nervous system conditions (1 source)Restless legs syndrome; Translations: [Restless legs syndrome]Onset: 66-11-6146BqjgubgLncxa nutritional; endocrine; and metabolic disorders (20 sources)Morbid obesity; Translations: [Morbid (severe) obesity due to excess calories]Onset: 913186-00-6677RljurvlIepgx nutritional; endocrine; and metabolic disorders (1 source)Morbid (severe) obesity due to excess calories; Translations: [Morbid (severe) obesity due to excess calories]Onset: 21-20-9273DoittbbJzsqn skin disorders (4 sources)Dystrophia unguium; Translations: [Nail dystrophy]21-70-4196Quowntil Peripheral and visceral atherosclerosis (20 sources)Peripheral vascular disease; Translations: [Peripheral vascular disease, unspecified]Onset: 754558-65-1588UcwciquTirihoab codes; unclassified (1 source)Bilateral lower leg edema; Translations: [Localized edema]10-21-2024 EpisodicRetinal detachments; defects; vascular occlusion; and retinopathy (20 sources)Age related macular degeneration; Translations: [Unspecified macular degeneration]Onset: 042958-82-5407GimviapJura and subcutaneous tissue infections (1 source)Cellulitis of finger of right hand; Translations: [Cellulitis of right finger]89-72-5829WxgnvnbhVuaqidyszxk injury; contusion (1 source)Contusion of lower back and pelvis, initial encounter; Translations: [CONTUSION LOWER BACK PELVIS INITIAL]Onset: 69-29-9052ZyqwcacnDlihzeghprrs (1 source)bed soresOnset: 76-74-1982Usamdnc tract infections (1 source)Urinary tract infection, site not specified; Translations: [Urinary tract infection, site not specified]Onset: 64-83-8122Yxtkzluv Past or Other Problems Problem ClassificationProblemDateDocumented DateEpisodic/ChronicGenitourinary symptoms and ill-defined conditions (20 sources)Retention of urine; Translations: [Retention of urine, unspecified] Onset: 850064-25-9791ZddbdlwfBlza disorders (20 sources)Mood disordersOnset: 05-05-2024 Resolved: 152571-99-0994Aacvbtuwepz deficiencies (2 sources)Cobalamin deficiency; Translations: [Deficiency of other specified B group vitamins]Onset: 010402-62-0038JwlzgmgnUmwvl diseases of veins and lymphatics (20 sources)Peripheral venous insufficiency; Translations: [Venous insufficiency (chronic) (peripheral)]Onset: 602439-14-2043BtvqkqgqAiaht gastrointestinal disorders (20 sources)Oropharyngeal dysphagia; Translations: [Dysphagia, oropharyngeal phase]Onset: 433558-82-5458ProuypojJfppw gastrointestinal disorders (1 source)Dysphagia, oropharyngeal phase; Translations: [Dysphagia, oropharyngeal phase]Onset: 37-35-9463WrranenyJqkps upper respiratory infections (1 source)Acute upper respiratory infection, unspecified; Translations: [Acute upper respiratory infection, unspecified]Onset: 04-35-1589MglzmupoCjbzzdgcb (except that caused by tuberculosis or sexually transmitted disease) (20 sources)Pneumonia; Translations: [Pneumonia, unspecified organism]Onset: 06-21-2021 Resolved: 743983-35-0706AjjhyodzNhvxzaxo codes; unclassified (1 source)Localized edema; Translations: [Localized edema]Onset: 10-21-2024 EpisodicSpondylosis; intervertebral disc disorders; other back problems (20 sources)Degenerative lumbar spinal stenosis; Translations: [Spinal stenosis, lumbar region without neurogenic claudication]Onset: EpisodicUnclassified (20 sources)Onset: Viral infection (20 sources)COVID-19; Translations: [Pneumonia due to other virus not elsewhere classified]Onset: 07-23-2020 Resolved: 311638-73-4955Fmsbhwzp Results Test NameValueInterpretationReference RangeFacilityCOMPREHENSIVE METABOLIC PANEL on 99-51-7395Ztksvzf [Mass/Vol]4.3 g/dLNormal3.2-5.3[facility] Ambulatory PPGComment on above:Performed By: #### CMP #### [facility] ([facility]) [address] [place] [address] VIRALP [Catalytic activity/Vol]84 U/DUkcith17-620QztWwosuf [facility] Ambulatory PPGComment on above:Performed By: #### CMP #### [facility] ([facility]) [address] [place] [address] VIRALT [Catalytic activity/Vol]14 U/LNormal<=31[facility] Ambulatory PPGComment on above:Performed By: #### CMP #### [facility] ([facility]) [address] [place] [address] VIRAnion gap [Moles/Vol]11 mmol/LNormal5-15[facility] Ambulatory PPGComment on above:Performed By: #### CMP #### [facility] ([facility]) [address] [place] [address] VIRAST [Catalytic activity/Vol]19 U/LNormal<=41[facility] Ambulatory PPGComment on above:Performed By: #### CMP #### [facility] ([facility]) [address] [place] [address] VIRBilirubin [Mass/Vol]0.4 mg/dLNormal0.3-1.2[facility] Ambulatory PPGComment on above:Performed By: #### CMP #### [facility] ([facility]) [address] [place] [address] VIRCalcium [Mass/Vol]9.3 mg/dLNormal8.5-10.5PA[facility] Ambulatory PPGComment on above:Performed By: #### CMP #### [facility] ([facility]) [address] [place] [address] VIRChloride [Moles/Vol]101 mmol/PHxkjuy88-537EjcLposii Hospital Ambulatory PPGComment on above:Performed By: #### CMP #### [facility] ([facility]) [address] [place] [address] VIRCO2 [Moles/Vol]30 mmol/ZYjtify84-85UavArgcdc [facility] Ambulatory PPGComment on above:Performed By: #### CMP #### [facility] ([facility]) [address] [place] [address] VIRCreatinine [Mass/Vol]0.65 mg/dLNormal0.40-1.00[facility] Ambulatory PPGComment on above:Result Comment: METHOD TRACEABLE TO IDMS STANDARDPerformed By: #### CMP #### [facility] ([facility]) [address] [place] [address] VIRGFR/1.73 sq M.predicted among non-blacks MDRD (S/P/Bld) [Vol rate/Area]87 mL/min/{1.73_m2}Normal>=60ProA[facility] Ambulatory PPGComment on above:Result Comment: Reported eGFR is based on the CKD-EPI 2020 equation that does not use a race coefficient.Performed By: #### CMP #### [facility] ([facility]) [address] [place] [address] VIRGlucose [Mass/Vol]76 mg/nWUssdkh15-50KkkEeejdi Hospital Ambulatory PPGComment on above:Performed By: #### CMP #### [facility] ([facility]) [address] [place] [address] VIRPotassium [Moles/Vol]4.5 mmol/LNormal3.5-5.0[facility] Ambulatory PPGComment on above:Performed By: #### CMP #### [facility] ([facility]) [address] [place] [address] VIRProtein [Mass/Vol]7.7 g/dLNormal6.0-8.0[facility] Ambulatory PPGComment on above:Performed By: #### CMP #### [facility] ([facility]) [address] [place] [address] VIRSodium [Moles/Vol]142 mmol/GXpoeuc960-707HryXperzv Hospital Ambulatory PPGComment on above:Performed By: #### CMP #### [facility] ([facility]) [address] [place] [address] VIRUrea nitrogen [Mass/Vol]15 mg/dLNormal5-27[facility] Ambulatory PPGComment on above:Performed By: #### CMP #### [facility] ([facility]) [address] [place] [address] VIRHEMOGLOBIN A1Con 34-87-2371Gvwyqje [Mass/Vol]160 mg/dLNormal [facility] Ambulatory PPGComment on above:Performed By: #### HA1C #### [facility] ([facility]) [address] [place] [address] FPMPuW8r (Bld) [Mass fraction]7.2 %High4.4-5.6[facility] Ambulatory PPGComment on above:Result Comment: ADA Guidelines Result HgbA1c Normal : less than 5.7 % Prediabetes : 5.7 % to 6.4 % Diabetes : > 6.4 % Use with caution in patients with abnormal hemoglobin variants as the half-life of red blood cells and in vivo glycation rates are affected.Performed By: #### HA1C #### [facility] ([facility]) [address] [place] [address] VIRLIPID PROFILEon 63-34-8883Artkiobyczg [Mass/Vol]103 mg/dLLow 150-200[facility] Ambulatory PPGComment on above:Performed By: #### LIPR #### [facility] ([facility]) [address] [address] VIRCholesterol in HDL [Mass/Vol]44 mg/dLNormal>39[facility] Ambulatory PPGComment on above:Result Comment: HDL <40 mg/dL - High Risk HDL > or = 40mg/dL- Desirable HDL >60 mg/dL - Negative RiskPerformed By: #### LIPR #### [facility] ([facility]) [address] [place] [address] VIRCholesterol in LDL [Mass/Vol]33 mg/dLNormal<130[facility] Ambulatory PPGComment on above:Result Comment: LDL <100 mg/dL - Desirable LDL >160 mg/dL - High RiskPerformed By: #### LIPR #### [facility] ([facility]) [address] [place] [address] VIRCHOLESTEROL:HDL2.6Zpjjoa9.0-5.0[facility] Ambulatory PPGComment on above:Performed By: #### LIPR #### [facility] ([facility]) [address] [place] [address] VIRTriglyceride [Mass/Vol]132 mg/yCWnwcyx20-215NljJurekr Hospital Ambulatory PPGComment on above:Performed By: #### LIPR #### [facility] [facility]) [address] [place] [address] VIRVERY LOW FBYIUWHAZRE07 mg/dLNormal0-30[facility] Ambulatory PPGComment on above:Performed By: #### LIPR #### [facility] ([facility]) [address] [place] [address] VIRCOMPREHENSIVE METABOLIC PANELon 04-97-0321Jswpaxa [Mass/Vol] 4.3 g/dLNormal3.2-5.3PA[facility] Ambulatory PPGComment on above:Performed By: #### CMP #### [facility] ([facility]) [address] [place] [address] VIRALP [Catalytic activity/Vol]101 U/KQbvwkg73-010PudTvteuz Hospital Ambulatory PPGComment on above:Performed By: #### CMP #### [facility] ([facility]) [address] [place] [address] VIRALT [Catalytic activity/Vol]14 U/LNormal<=31PA[facility] Ambulatory PPGComment on above:Performed By: #### CMP #### [facility] ([facility]) [address] [place] [address] VIRAnion gap [Moles/Vol]9 mmol/LNormal5-15[facility] Ambulatory PPGComment on above:Performed By: #### CMP #### [facility] ([facility]) [address] [place] [address] VIRAST [Catalytic activity/Vol]17 U/LNormal<=41[facility] Ambulatory PPGComment on above:Performed By: #### CMP #### [facility] ([facility]) [address] [place] [address] VIRBilirubin [Mass/Vol]0.4 mg/dLNormal0.3-1.2PA[facility] Ambulatory PPGComment on above:Performed By: #### CMP #### [facility] ([facility]) [address] [place] [address] VIRCalcium [Mass/Vol]9.6 mg/dLNormal8.5-10.5PA[facility] Ambulatory PPGComment on above:Performed By: #### CMP #### [facility] ([facility]) [address] [place] [address] VIRChloride [Moles/Vol]101 mmol/HQeuiip42-258IozEniqfp Hospital Ambulatory PPGComment on above:Performed By: #### CMP #### [facility] ([facility]) [address] [place] [address] VIRCO2 [Moles/Vol]31 mmol/XEmbzsj21-62UvqSfhwwl Hospital Ambulatory PPGComment on above:Performed By: #### CMP #### [facility] ([facility]) [address] [place] [address] VIRCreatinine [Mass/Vol]0.63 mg/dLNormal0.40-1.00ProAdena [facility] Ambulatory PPGComment on above:Result Comment: METHOD TRACEABLE TO IDIN STANDARDPerformed By: #### CMP #### [facility] ([facility]) [address] [place] [address] VIRGFR/1.73 sq M.predicted among non-blacks MDRD (S/P/Bld) [Vol rate/Area]87 mL/min/{1.73_m2}Normal>=60ProAdena [facility] Ambulatory PPGComment on above:Result Comment: Reported eGFR is based on the CKD-EPI 2020 equation that does not use a race coefficient.Performed By: #### CMP #### [facility] ([facility]) [address] [place] [address] VIRGlucose [Mass/Vol]145 mg/jKMgjg70-27TdrIipfik Hospital Ambulatory PPGComment on above:Performed By: #### CMP #### [facility] ([facility]) [address] [place] [address] VIRPotassium [Moles/Vol]4.4 mmol/LNormal3.5-5.0[facility] Ambulatory PPGComment on above:Performed By: #### CMP #### [facility] ([facility]) [address] [place] [address] VIRProtein [Mass/Vol]7.7 g/dLNormal6.0-8.0[facility] Ambulatory PPGComment on above:Performed By: #### CMP #### [facility] ([facility]) [address] [place] [address] VIRSodium [Moles/Vol]141 mmol/YObcicp190-039ZuyIakwpo Hospital Ambulatory PPGComment on above:Performed By: #### CMP #### [facility] ([facility]) [address] [place] [address] VIRUrea nitrogen [Mass/Vol]12 mg/dLNormal5-27[facility] Ambulatory PPGComment on above:Performed By: #### CMP #### [facility] ([facility]) [address] [place] [address] VIRComprehensive metabolic panelon 34-81-6575Hnzpgia [Mass/Vol] 4.3 g/dL3.2 - 5.3 g/dLProMedica Health SystemALP [Catalytic activity/Vol]101 U/L 39 - 130 U/LProMedica Health SystemALT No additional P-5'-P [Catalytic activity/Vol]14 U/LNINF - 31 U/LProMedica Health SystemAnion gap [Moles/Vol]9 mmol/L5 - 15 mmol/LProMedica Health SystemAST [Catalytic activity/Vol]17 U/LNINF - 41 U/LProMedica Health SystemBilirubin [Mass/Vol]0.4 mg/dL0.3 - 1.2 mg/dL [facility] SystemCalcium [Mass/Vol]9.6 mg/dL8.5 - 10.5 mg/dLMorrow County HospitalChloride [Moles/Vol]101 mmol/L98 - 109 mmol/[facility] SystemCO2 [Moles/Vol]31 mmol/L22 - 32 mmol/[facility] SystemCreatinine [Mass/Vol]0.63 mg/dL0.40 - 1.00 mg/dLMorrow County HospitalComment on above: METHOD TRACEABLE TO IDIN STANDARDEGFR Non-Race Fkjhzjsgn44- [facility] Community HospitalComment on above:Reported eGFR is based on the CKD-EPI 2020 equation that does not use a race coefficient. Glucose [Mass/Vol]145 mg/kYIdwl50 - 99 mg/dLMorrow County Hospital Interpretation and review of laboratory resultsAbnoCaroMont Health Potassium [Moles/Vol]4.4 mmol/L3.5 - 5.0 mmol/[facility] Hospital SystemProtein [Mass/Vol]7.7 g/dL6.0 - 8.0 g/dLMission Hospital McDowellodium [Moles/Vol]141 mmol/L134 - 146 mmol/[facility] Hospital SystemUrea nitrogen [Mass/Vol]12 mg/dL5 - 27 mg/dLTemple University Health SystemHEMOGLOBIN A1Con 36-28-5796Mfglkpk [Mass/Vol]163 mg/dLNoPalo Verde Hospital Ambulatory PPG Comment on above:Performed By: #### HA1C #### [facility] ([facility]) [address] [place] [address] RTXOpM7i (Bld) [Mass fraction]7.3 %High4.4-5.6[facility] Ambulatory PPGComment on above:Result Comment: ADA Guidelines Result HgbA1c Normal : less than 5.7 % Prediabetes : 5.7 % to 6.4 % Diabetes : > 6.4 % Use with caution in patients with abnormal hemoglobin variants as the half-life of red blood cells and in vivo glycation rates are affected.Performed By: #### HA1C #### [facility] ([facility]) [address] [place] [address] VIRVITAMIN B12on 12-90-9603Cmwnqhpyd (Vitamin B12) [Mass/Vol] 695 pg/sRJaxhkz210-059HdnEoletfEmanuel Medical Center PPGComment on above: Performed By: #### B12 #### [facility] ([facility]) [address] [place] [address] VIRVitamin B12on 30-71-1252Iaqhpgoxh (Vitamin B12) [Mass/Vol] 695 pg/mL180 - 914 pg/mLMorrow County HospitalInterpretation and review of laboratory resultsNormalMorrow County HospitalProC[facility] Clinic Children'S [facility] For RehabilitationCBC AND AUTO DIFFon 90-54-6304IXYUYKCR BASOPHIL0.0 X10E9/LNormal0.0-0.2PMount Carmel Health System HospitalComment on above:Performed By: #### SRAVANTHI, CBCA, CMP #### [facility] ([id number]) [address] [place], [place] [address]EIPQONVR NEUTROPHIL4.9 X10E9/LNormal1.5-6.6ProCommunity Memorial HospitalComment on above:Performed By: #### SRAVANTHI, CBCA, CMP #### [facility] ([id number]) [address] [place], [place] [address]Dxeslvzdq/100 WBC (Bld)0.6 %NormalProCommunity Memorial Hospital Comment on above:Performed By: #### SRAVANTHI, CBCA, CMP #### [facility] ([id number]) [address] [address] [place], [place] [address]Nhninuvazko (Bld) [#/Vol]0.1 10*3/uLNormal0.0-0.4ProCommunity Memorial HospitalComment on above:Performed By: #### HACrystal, CBCA, CMP #### [facility] ([id number]) [address], [address] [place], [place] [address]Ihtnpxfoufp/100 WBC (Bld)1.1 %NormalDayton VA Medical Center Comment on above:Performed By: #### HA1C, CBCA, CMP #### [facility] ([id number]) [address], [address] [place], [place] [address]Tintibxjnsp distribution width (RBC) [Ratio]15.6 %High11.5-15.0 [facility] Hospital - [facility] SouthComment on above:Performed By: #### SRAVANTHI, CBCA, CMP #### [facility] ([id number]) [address], [address] [place], [place] [address]Emvajlbykn (Bld) [Volume fraction]36.8 %Asygkj16-27LuyQtzrloCommunity Memorial HospitalComment on above:Performed By: #### HACrystal, CBCA, CMP #### [facility] ([id number]) [address], [address] [place], [place] [address]Likyniwngb (Bld) [Mass/Vol]12.5 g/aVQrlvoi04.7-15.5POhioHealth Southeastern Medical CenterComment on above:Performed By: #### HA1C, CBCA, CMP #### [facility] ([id number]) [address], [address] [place], [place] [address]Sbitmnepnlp (Bld) [#/Vol]1.6 10*3/uLNormal1.0-3.5POhioHealth Southeastern Medical CenterComment on above:Performed By: #### HA1C, CBCA, CMP #### [facility] ([id number]) [address] [place], [place] [address]Nccrjpakfxy/100 WBC (Bld)23.2 %NormalDayton VA Medical Center Comment on above:Performed By: #### HA1C, CBCA, CMP #### [facility] ([id number]) [address], [address] [place], [place] [address]LZA (RBC) [Entitic mass]30.3 kwLukyan75-81ZztHaggit [place] HospitalComment on above:Performed By: #### HA1C, CBCA, CMP #### [facility] ([id number]) [address], [address] [place], [place] [address]BJTR (RBC) [Mass/Vol]33.9 g/lMHyuirl10-45AdqIpvqcm [place] HospitalComment on above:Performed By: #### HA1C, CBCA, CMP #### [facility] ([id number]) [address], [address] [place], [place] [address]GOA (RBC) [Entitic vol]89 iAFqglmf59-204WxaIoajtx [place] HospitalComment on above:Performed By: #### HACrystal, CBCA, CMP #### [facility] ([id number]) [address], [address] [place], [place] [address]Zjtuetlul (Bld) [#/Vol]0.2 10*3/uLNormal0-0.9ProOhiohealth O'Bleness Hospital HospitalComment on above:Performed By: #### HA1C, CBCA, CMP #### [facility] ([id number]) [address], [address] [place], [place] [address]Eslzxnsph/100 WBC (Bld)3.6 %NormalDayton VA Medical Center Comment on above:Performed By: #### HA1C, CBCA, CMP #### [facility] ([id number]) [address], [address] [place], [place] [address]Jtcpiwcetmf/100 WBC (Bld)71.5 %NormalDayton VA Medical Center Comment on above:Performed By: #### HA1C, CBCA, CMP #### [facility] ([id number]) [address], [address] [place], [place] [address]Msmrdqpi mean volume (Bld) [Entitic vol]7.0 fLNormal7-12 ProMwoodland medical centera [place] HospitalComment on above:Performed By: #### VINOD FISHMAN, CMP #### [facility] ([id number]) [address], [address] [place], [place] [address]Chggohvup (Bld) [#/Vol]330 10*3/jKBjvnhq291-442XwiUkbbdz [place] HospitalComment on above:Performed By: #### VINOD FISHMAN, CMP #### [facility] ([id number]) [address], [address] [place], [place] [address]ZMK COUNT4.13 X10E12/LNormal3.80-5.20ProOhiohealth O'Bleness Hospital Hospital Comment on above:Performed By: #### VINOD FISHMAN, CMP #### [facility] ([id number]) [address] [place], [place] [address]QCP (Bld) [#/Vol]6.8 10*3/uLNormal4.0-11.0ProEast Liverpool City Hospitalca [facility] HospitalComment on above:Performed By: #### VINOD FISHMAN, CMP #### [facility] ([id number]) [address], [address] [place], [place] [address]FRELUBDSFGUUT METABOLIC PANELon 22-93-7498Skxirrm [Mass/Vol]4.3 g/dLNormal3.2-5.3ProMedica [place] HospitalComment on above:Performed By: #### SRAVANTHI CBCJamey, CMP #### [facility] ([id number]) [address], [address] [place], [place] [address]QLG [Catalytic activity/Vol]92 U/QRqprxg45-613YbdPwdxax [place] HospitalComment on above:Performed By: #### SRAVANTHI CBCJamey, CMP #### [facility] ([id number]) [address], [address] [place], [place] [address]IFY [Catalytic activity/Vol]14 U/LNormal0-31PMount Carmel Health System HospitalComment on above:Performed By: ###VINOD ANDERSON, CMP #### [facility] ([id number]) [address], [address] [place], [place] [address]Vwdnx gap [Moles/Vol]9 mmol/LNormal5-15ProOhiohealth O'Bleness Hospital Hospital Comment on above:Performed By: ###VINOD ANDERSON, CMP #### [facility] ([id number]) [address] [place], [place] [address]VPO [Catalytic activity/Vol]16 U/LNormal0-41ProOhiohealth O'Bleness Hospital HospitalComment on above:Performed By: #### VINOD FISHMAN, CMP #### [facility] ([id number]) [address] [place], [place] [address]Iasbvkesk [Mass/Vol]0.3 mg/dLNormal0.3-1.2PMount Carmel Health System HospitalComment on above:Performed By: ###VINOD ANDERSON, CMP #### [facility] ([id number]) [address] [place], [place] [address]Caffnel [Mass/Vol]9.1 mg/dLNormal8.5-10.5PMount Carmel Health System HospitalComment on above:Performed By: ###VINOD ANDERSON, CMP #### [facility] ([id number]) [address] [place], [place] [address]Azhtzfbz [Moles/Vol]103 mmol/QXdgrup11-384VjvOcdzft [place] HospitalComment on above:Performed By: ###VINOD ANDERSON, CMP #### [facility] ([id number]) [address], [address] [place], [place] [address]MO3 [Moles/Vol]30 mmol/ONvbuae60-88FhsWatmqq [facility] Comment on above:Performed By: #### VINOD FISHMAN, CMP #### [facility] ([id number]) [address] [address] [place], [place] [address]Uhxonyumrf [Mass/Vol]0.64 mg/dLNormal0.40-1.00ProCommunity Memorial HospitalComment on above:Result Comment: METHOD TRACEABLE TO IDMS STANDARD Performed By: #### VINOD FISHMAN, CMP #### [facility] ([id number]) [address] [place], [place] [address]IIK/1.73 sq M.predicted among non-blacks MDRD (S/P/Bld) [Vol rate/Area]87 mL/min/{1.73_m2}Normal>59ProCommunity Memorial HospitalComment on above: Result Comment: Reported eGFR is based on the CKD-EPI 2020 equation that does not use a race coefficient.Performed By: #### VINOD FISHMAN, CMP #### [facility] ([id number]) [address] [address] [place], [place] [address]Vyutljs [Mass/Vol]104 mg/cTLhnd81-01JgrElecxxCommunity Memorial Hospital Comment on above:Performed By: #### VINOD FISHMAN, CMP #### [facility] ([id number]) [address] [address] [place] [address]Ltihdbyzg [Moles/Vol]4.4 mmol/LNormal3.5-5.0ProCommunity Memorial HospitalComment on above:Performed By: #### VINOD FISHMAN, CMP #### [facility] ([id number]) [address] [address] [place], [place] [address]Htylzzg [Mass/Vol]7.5 g/dLNormal6.0-8.0[facility] Comment on above:Performed By: #### VINOD FISHMAN, CMP #### [facility] ([id number]) [address], [address] [place], [place] [address]Dcshxo [Moles/Vol]142 mmol/ASfwdsm229-009RegKqzogr [place] HospitalComment on above:Performed By: #### VINOD FISHMAN, CMP #### [facility] ([id number]) [address], [facility] [address] [place], [place] [address]Fsqh nitrogen [Mass/Vol]18 mg/dLNormal5-27ProCommunity Memorial HospitalComment on above:Performed By: #### SRAVANTHI CBCJamey, CMP #### [facility] ([id number]) [address], [address] [address]WF[address] A1C (GLYCO-HGB)on 03-90-7348Ynqkrkx [Mass/Vol]146 mg/dL NormalProCommunity Memorial HospitalComment on above:Performed By: #### VINOD FISHMAN, CMP #### [facility] ([id number]) [address] [address]IyU2d (Bld) [Mass fraction]6.7 %High4.4-5.6ProCommunity Memorial HospitalComment on above:Result Comment: NOTE ADA Guidelines Result HgbA1c Normal : less than 5.7 % Prediabetes : 5.7 % to 6.4 % Diabetes : > 6.4 % Use with caution in patients with abnormal hemoglobin variants as the half-life of red blood cells and in vivo glycation rates are affected.Performed By: #### SRAVANTHI CBCA, CMP #### [facility] ([id number]) [address] [address]QYBACYZHPIGA - ALBUMIN:CREATININE URINE RATIOon 10-21-2024 ALB/CREAT RATIONOT CALCULATEDNormal0.0-30.0Day[facility] Medical CenterComment on above:Result Comment: Result for Albumin/Creatinine Ratio cannot be reliably calculated because urine albumin and or urine creatinine is below the detection limit of the assay.Performed By: #### ESTELITA #### [facility] ([id number]) [address] [place], [place] [address]Mkvvbic DL <= 20 mg/L (U) [Mass/Vol]mg/dLNormal0.0-1.9ProCommunity Memorial HospitalComment on above:Performed By: #### NATIVIDADCHARIS #### [facility] ([id number]) [address] [place], [place] [address]NOJRA CREAT18.21 mg/dLNormalProOhiohealth O'Bleness Hospital HospitalComment on above:Performed By: #### ESTELITA #### [facility] ([id number]) [address] [place], [place] [address]Foygf Cultureon 99-20-6577Irnypknf identified Cx Nom (U) ORGANISM: Escherichia coli (O:ESCCOL) [place] Count >100,000 Aerobic HARESH Charge (NMIC56) SUSCEPTIBILITY [...] EXTENDED SPECTRUM BETA-LACTAMASE TFG = THYMIDINE-DEPENDENT STRAIN SHIV = BETA-LACTAMASE POSITIVE IB = INDUCIBLE BETA-LACTAMASE. APPEARS IN PLACE OF 'S' WITH SPECIES KNOWN TO POSSESS INDUCIBLE BETA-LACTAMASES. POTENTIALLY THEY MAY BECOME RESISTANT TO ALL B-LACTAM DRUGS. PERFORMED BY: [address] [address] PATHOLOGIST PROGRAM PROJECT ANALYST MANAV DOUGLASS M.D.[facility] Physician GroupComment on above: Performed By: #### CUU #### [facility] [address] [place] [address] USAURINALYSISon 48-07-1334Innvcunjx Ql (U)NegativeNormalNEG [facility] Medical CenterComment on above:Performed By: #### UA #### [facility] ([id number]) [address] [place] [address]HDBBJ/HGBSMALLAbnormalNEGProMedical Arts HospitalComment on above:Performed By: #### UA #### [facility] ([id number]) [address] [place] [address]Sgqcs (U)YELLOWNormalYELLOWTriHealth McCullough-Hyde Memorial HospitalComment on above:Performed By: #### UA #### [facility] ([id number]) [address] [place] [address]Jcebrrj Ql (U)NegativeNormalNEGTriHealth McCullough-Hyde Memorial Hospital Comment on above:Performed By: #### UA #### [facility] ([id number]) [address] [place] [address]Qxyibsw Ql (U)NegativeNormalNEGTriHealth McCullough-Hyde Memorial Hospital Comment on above:Performed By: #### UA #### [facility] ([id number]) [address] [place] [address]Eittnjbgc esterase Test strip Ql (U)SMALLAbnormalNEGProMedical Arts HospitalComment on above:Performed By: #### UA #### [facility] ([id number]) [address] [place] [address]Mtajkqp Ql (U)PositiveAbnormalNEGTriHealth McCullough-Hyde Memorial Hospital Comment on above:Performed By: #### UA #### [facility] ([id number]) [address] [place] [address]iJ (U)6.0 [pH]Normal5.0-8.5PMercy Health St. Elizabeth Youngstown HospitalComment on above:Performed By: #### UA #### [facility] ([id number]) [address] [place] [address]Bkmjncd Ql (U)NegativeNormalNEGTriHealth McCullough-Hyde Memorial Hospital Comment on above:Performed By: #### UA #### [facility] ([id number]) [address] [place] [address]U.B.CELLS3 /hpfNormal0-5PMercy Health St. Elizabeth Youngstown HospitalComment on above:Performed By: #### UA #### [facility] ([id number]) [address] [place] [address]Vnehrbrg gravity (U) [Rel density]1.578Hlkjov1.003-1.035 [facility]ano Medical CenterComment on above:Performed By: #### UA #### [facility] ([id number]) [address] [place] [address]CDQGXOFF EPITHELIUM1 /hpfNormal0-5PMercy Health St. [facility] Comment on above:Performed By: #### UA #### [facility] ([id number]) [address] [place] [address]NKYWCSYKVZRRBHwbaizbwIIMLTEcxVsnldn [facility]remont HospitalComment on above:Performed By: #### UA #### [facility] ([id number]) [address] [place] [address]Suzkoxgbkm dipstick W Reflex Microscopic panel (U)URINE RECEIVED WITHOUT PRESERVATIVE-DELAYS IN TRANSPORT MAY AFFECT RESULTS.INTERPRET WITH CAUTION AND CLINICAL CORRELATION IS RECOMMENDED.NormalProMedical Arts HospitalComment on above:Performed By: #### UA #### [facility] ([id number]) [address] [place] [address] [id number] Qn (U)0.2 {Jakob'U}/dLNormal<1.1PMercy Health St. Elizabeth [facility] HospitalComment on above:Performed By: #### UA #### [facility] ([id number]) [address] [place] [address] 84729J.B.CELLS15 /hpfHigh0-5PMercy Health St. Elizabeth Young[place] HospitalComment on above:Performed By: #### UA #### [facility] ([id number]) [address] [place] [address] 24163UYYTA CULTUREon [id number] identified Cx Nom (U)CULTURE RESULTS >100,000 ORGANISMS/mL [...] TOBRAMYCIN S <=1 F TRIMETH/SULFAMETHOXAZOLE S <=/19 FSusceptibleProMedical Arts HospitalComment on above:Performed By: #### 630-4 #### [facility] ([id number]) [address], [address] [place], [place] [address]XNPXHDTSQAGJN METABOLIC PANELon [id number] [Mass/Vol]4.2 g/dLNormal3.2-5.3[facility] [place] HospitalComment on above:Performed By: #### SRAVANTHI RIOS, 04363-7 #### [facility] ([id number]) [address], [address] [place], [place] [address]SPJ [Catalytic activity/Vol]103 U/UEbrplu79-975WzuXqfwbr [place] HospitalComment on above:Performed By: #### SRAVANTHI RIOS, 98234-9 #### [facility] ([id number]) [address], [address] [place], [place] [address]TUI [Catalytic activity/Vol]14 U/LNormal0-31[facility] [place] HospitalComment on above:Performed By: #### SRAVANTHI RIOS, 40237-8 #### [facility] ([id number]) [address], [address] [place], [place] [address]Vlgtf gap [Moles/Vol]11 mmol/LNormal5-15[facility] [place] HospitalComment on above:Performed By: #### SRAVANTHI RIOS, 07573-2 #### [facility] ([id number]) [address], [address] [place], [place] [address]WEX [Catalytic activity/Vol]16 U/LNormal0-41[facility] [place] HospitalComment on above:Performed By: #### SRAVANTHI RIOS, 15334-7 #### [facility] ([id number]) [address], [address] [place], [place] [address]Jvdmtbsca [Mass/Vol]0.3 mg/dLNormal0.3-1.2[facility] [place] HospitalComment on above:Performed By: #### SRAVANTHI RIOS, 44986-8 #### [facility] ([id number]) [address], [address] [place], [place] [address]Vlxlorb [Mass/Vol]9.3 mg/dLNormal8.5-10.5ProMedica [place] HospitalComment on above:Performed By: #### SRAVANTHI RIOS, 11879-0 #### [facility] ([id number]) [address], [address] [place], [place] [address]Wmhgnstr [Moles/Vol]102 mmol/IYzmglc18-250ZxeKzumvq [place] HospitalComment on above:Performed By: #### SRAVANTHI RIOS, 12286-1 #### [facility] ([id number]) [address], [address] [place], [place] [address]GK6 [Moles/Vol]28 mmol/LZroeey25-57QiaDqlhrqOhioHealth [facility] Comment on above:Performed By: #### SRAVANTHI RIOS, 45712-5 #### [facility] ([id number]) [address], [address] [place], [place] [address]Ndyaukaucq [Mass/Vol]0.65 mg/dLNormal0.40-1.00ProCommunity Memorial HospitalComment on above:Result Comment: METHOD TRACEABLE TO IDMS STANDARD Performed By: #### SRAVANTHI RIOS, 01035-7 #### [facility] ([id number]) [address], [address] [place], [place] [address]AYH/1.73 sq M.predicted among non-blacks MDRD (S/P/Bld) [Vol rate/Area]87 mL/min/{1.73_m2}Normal>59ProCommunity Memorial HospitalComment on above: Result Comment: Reported eGFR is based on the CKD-EPI 2020 equation that does not use a race coefficient.Performed By: #### SRAVANTHI RIOS, 93970-1 #### [facility] ([id number]) [address], [address] [place], [place] [address]Iasdhqc [Mass/Vol]79 mg/gYLrdkkm81-05SuqRktevaDayton VA Medical Center Comment on above:Performed By: #### SRAVANTHI RIOS, 01937-9 #### [facility] ([id number]) [address], [address] [place], [place] [address]Wsmzvosqp [Moles/Vol]4.3 mmol/LNormal3.5-5.0ProCommunity Memorial HospitalComment on above:Performed By: #### SRAVANTHI RIOS, 59270-8 #### [facility] ([id number]) [address], [address] [place], [place] [address]Oxttkeh [Mass/Vol]7.7 g/dLNormal6.0-8.0[facility] Comment on above:Performed By: #### SRAVANTHI RIOS, 40889-5 #### [facility] ([id number]) [address], [address] [place], [place] [address]Bveqxr [Moles/Vol]141 mmol/OHnjkxe242-492UejEkhfgc [place] HospitalComment on above:Performed By: #### SRAVANTHI RIOS, 57051-5 #### [facility] ([id number]) [address], [address] [place], [place] [address]Bpmq nitrogen [Mass/Vol]21 mg/dLNormal5-27ProOhiohealth O'[facility]len[facility] Hospital HospitalComment on above:Performed By: #### SRAVANTHI RIOS, 15618-5 #### [facility] ([id number]) [address], [address] [place], [place] [address]WOY A1C (GLYCO-HGB)on 13-23-4810Hnkabmu [Mass/Vol]137 mg/dL NormalProOhiohealth O'Bleness Hospital HospitalComment on above:Performed By: #### SRAVANTHI RIOS, 15837-7 #### [facility] ([id number]) [address], [address] [place], [place] [address]HtL8x (Bld) [Mass fraction]6.4 %High4.4-5.6ProOhiohealth O'Bleness Hospital HospitalComment on above:Result Comment: NOTE ADA Guidelines Result HgbA1c Normal : less than 5.7 % Prediabetes : 5.7 % to 6.4 % Diabetes : > 6.4 % Use with caution in patients with abnormal hemoglobin variants as the half-life of red blood cells and in vivo glycation rates are affected.Performed By: #### SRAVANTHI RIOS 69054-5 #### [facility] ([id number]) [address], [address] [place], [place] [address]Awfwx 1996 panelon 10-77-7342Dqnggyloihd [Mass/Vol]96 mg/dLLow 150-200ProOhiohealth O'[facility]len[facility] Hospital HospitalComment on above:Performed By: #### SRAVANTHI RIOS 51364-1 #### [facility] ([id number]) [address], [address] [place], [place] [address]Putllikirqn in HDL [Mass/Vol]38 mg/dLLow>39ProCommunity Memorial HospitalComment on above:Result Comment: HDL <40 mg/dL - High Risk HDL > or = 40mg/dL- Desirable HDL >60 mg/dL - Negative Risk Performed By: #### SRAVANTHI ROIS, 24162-8 #### [facility] ([id number]) [address], [address] [place], [place] [address]Qiuunxadiko in LDL [Mass/Vol]27 mg/dLNormal<130ProOhiohealth O'[facility]len[facility] Hospital HospitalComment on above:Result Comment: LDL <100 mg/dL - Desirable LDL >160 mg/dL - High Risk Performed By: #### SRAVANTHI RIOS, 12344-6 #### [facility] ([id number]) [address], [address] [place], [place] [address]Avevlomsexd in VLDL [Mass/Vol]31 mg/dLHigh0-30Pro[facility] [place] HospitalComment on above:Performed By: #### SRAVANTHI RIOS, 08032-0 #### [facility] ([id number]) [address], [address] [place], [place] [address]BBPZLCOUHZR:HDL2.8Budhqo9.0-5.0[facility] [place] HospitalComment on above:Performed By: #### SRAVANTHI RIOS, 53583-7 #### [facility] ([id number]) [address], [address] [place], [place] [address]Npwkcfomsdnm [Mass/Vol]153 mg/yTOqjn13-970TcvMxjxuk [place] HospitalComment on above:Performed By: #### SRAVANTHI RIOS, 10193-7 #### [facility] ([id number]) [address] [place], [place] [address]THIOCVKWKQJKT METABOLIC PANELon 32-11-5971Cylwniy [Mass/Vol]4.0 g/dLNormal3.2-5.3Pro[facility] [place] HospitalComment on above:Performed By: #### SRAVANTHI, CMP #### [facility] ([id number]) [address], [address] [place], [place] [address]FFB [Catalytic activity/Vol]118 U/ICwlrof95-126NpbBuxdyy [place] HospitalComment on above:Performed By: #### SRAVANTHI, CMP #### [facility] ([id number]) [address] [place], [place] [address]ORV [Catalytic activity/Vol]10 U/LNormal0-31Pro[facility] [place] HospitalComment on above:Performed By: #### SRAVANTHI, CMP #### [facility] ([id number]) [address], [address] [place], [place] [address]Lnsnd gap [Moles/Vol]8 mmol/LNormal5-15[facility] [place] [facility] Comment on above:Performed By: #### SRAVANTHI, CMP #### [facility] ([id number]) [address], [address] [place], [place] [address]ZWI [Catalytic activity/Vol]15 U/LNormal0-41Pro[facility] [place] HospitalComment on above:Performed By: #### SRAVANTHI, CMP #### [facility] ([id number]) [address], [address] [place], [place] [address]Zlybucefc [Mass/Vol]0.4 mg/dLNormal0.3-1.2ProMedMain [facility] Center HospitalComment on above:Performed By: #### SRAVANTHI, CMP #### [facility] ([id number]) [address], [address] [place], [place] [address]Topsijw [Mass/Vol]9.5 mg/dLNormal8.5-10.5ProMedMain Campus Medical Center HospitalComment on above:Performed By: #### SRAVANTHI, CMP #### [facility] ([id number]) [address], [address] [place], [place] [address]Uykpdazw [Moles/Vol]103 mmol/ERmvbgi75-923NheNixecl [place] HospitalComment on above:Performed By: #### SRAVANTHI, CMP #### [facility] ([id number]) [address], [address] [place], [place] [address]CU7 [Moles/Vol]30 mmol/QWmhznb79-97JhvEijqds [facility] Comment on above:Performed By: #### SRAVANTHI, CMP #### [facility] ([id number]) [address], [address] [place], [place] [address]Cxlbupshtp [Mass/Vol]0.70 mg/dLNormal0.40-1.00[facility] [place] HospitalComment on above:Result Comment: METHOD TRACEABLE TO IDMS STANDARD Performed By: #### SRAVANTHI, CMP #### [facility] ([id number]) [address], [address] [place], [place] [address]RPL/1.73 sq M.predicted among non-blacks MDRD (S/P/Bld) [Vol rate/Area]86 mL/min/{1.73_m2}Normal>59ProCommunity Memorial HospitalComment on above: Result Comment: Reported eGFR is based on the CKD-EPI 2020 equation that does not use a race coefficient.Performed By: #### SRAVANTHI, CMP #### [facility] ([id number]) [address], [address] [place], [place] [address]Tfwqhmy [Mass/Vol]84 mg/eGWbfvkj28-33JvwLgjcfm [facility] Comment on above:Performed By: #### SRAVANTHI, CMP #### [facility] ([id number]) [address], [address] [place], [place] [address]Lrawstixv [Moles/Vol]4.5 mmol/LNormal3.5-5.0ProCommunity Memorial HospitalComment on above:Performed By: #### SRAVANTHI, CMP #### [facility] ([id number]) [address], [address] [place], [place] [address]Yzclyvu [Mass/Vol]7.4 g/dLNormal6.0-8.0[facility] Comment on above:Performed By: #### SRAVANTHI, CMP #### [facility] ([id number]) [address], [address] [place], [place] [address]Zbhlfw [Moles/Vol]141 mmol/QOmycaz559-299BgiCfyocu [place] HospitalComment on above:Performed By: #### SRAVANTHI, CMP #### [facility] ([id number]) [address], [address] [place], [place] [address]Osdn nitrogen [Mass/Vol]17 mg/dLNormal5-27ProCommunity Memorial HospitalComment on above:Performed By: #### SRAVANTHI, CMP #### [facility] ([id number]) [address], [address] [place], [place] [address]WCQ A1C (GLYCO-HGB)on 03-91-3548Kdumwan [Mass/Vol]154 mg/dL NormalProCommunity Memorial HospitalComment on above:Performed By: #### HA1C, CMP #### [facility] ([id number]) [address] [place], [place] [address]BoU3r (Bld) [Mass fraction]7.0 %High4.4-5.6ProCommunity Memorial HospitalComment on above:Result Comment: NOTE ADA Guidelines Result HgbA1c Normal : less than 5.7 % Prediabetes : 5.7 % to 6.4 % Diabetes : > 6.4 % Use with caution in patients with abnormal hemoglobin variants as the half-life of red blood cells and in vivo glycation rates are affected.Performed By: #### HA1C, CMP #### [facility] ([id number]) [facility] [address] [place], [place] [address]FASLYQGQFIsy 00-59-6282Xdbxwuwxl Ql (U)NegativeNormalNEG [facility] HospitalBLOOD/HGBNegativeNormalNEGTriHealth McCullough-Hyde Memorial Hospital Color (U)YELLOWNormalYELLOWTriHealth McCullough-Hyde Memorial HospitalGlucose Ql (U)Negative NormalNEGProMedical Arts HospitalKetones Ql (U)NegativeNormalNEGTriHealth McCullough-Hy[facility] Memorial HospitalLeukocyte esterase Test strip Ql (U)TraceAbnormalNEGTriHealth McCullough-Hyde Memorial HospitalMUCOUSPRESENTAbnormalNONEPMercy Health St. Elizabeth [facility] HospitalNitrite Ql (U)NegativeNormalNEGTriHealth McCullough-Hyde Memorial HospitalpH (U)5.5 [pH]Normal5.0-8.5 [facility] HospitalProtein Ql (U)NegativeNormalNEGProMedical Arts HospitalR.B.CELLS<8Wltbdf7-8PolYadnsuKnox Community Hospitalpecific gravity (U) [Rel density]1.623Tdjrju1.003-1.035ProCHRISTUS Spohn Hospital BeevilleQUAMOUS EPITHELIUM1 /hpfNormal0-5PMercy Health St. Elizabeth Youngstown HospitalTURBIDITYCLEARNormalCLEARProMedical Arts HospitalUrobilinogen (U) [Mass/Vol]mg/dLNormal<1.1PMercy Health St. Elizabeth [facility] HospitalW.B.CELLS2 /hpfNormal0-5PMercy Health St. Elizabeth [facility] HospitalURINE CULTUREon 42-98-5730Ikgxqavx identified Cx Nom (U)CULTURE RESULTS 10-50,000 ORGANISMS/mL NORMAL UROGENITAL FLORAElyria Memorial Hospital Comment on above:Performed By: #### 630-4 #### [facility] ([id number]) [address] [place], [place] [address]AF CHEST 2 VWSon 26-00-6291HB CHEST 2 VWSXR CHEST 2 VWS PA and lateral chest: HISTORY: Wheezing and cough. 2 views of the chest are obtained. Lungs are clear. There is no consolidation or effusion. No pneumothorax is seen. Osseous structures appear intact. Cardiac contour is unremarkable. IMPRESSION: No acute findings. Finalized by Luc Nam MD on 09/19/2023 1:16 PMNormalTriHealth McCullough-Hyde Memorial HospitalALBUMIN, RANDOM URINE W/CREATININEon 29-01-2490SFKJPLJ, URINE1.3 mg/dL NormalSee Note:Quest DiagnosticsComment on above:Order Comment: SPLIT 04/17/2022 FROM [id number] FASTING:UNKNOWN FASTING: UNKNOWNResult Comment: Reference Range: Reference Range Not establishedPerformed By: #### 6517 #### [facility] [address], [address] [place] [id number] Boot Trimmer: Mello Ledbetter MDALBUMIN/CREATININE RATIO, RANDOM URINE25 mcg/mg creatNormal<30Quest DiagnosticsComment on above:Order Comment: SPLIT 04/17/2022 FROM [id number] FASTING:UNKNOWN FASTING: UNKNOWNResult Comment: The ADA defines [...] category.Performed By: #### 6517 #### [facility] [address], [address] [place] [address] Boot Trimmer: Mello MCELROYreatinine (U) [Mass/Vol]53 mg/xMDmsbmm03-327 [facility] DiagnosticsComment on above:Order Comment: SPLIT 04/17/2022 FROM [id number] FASTING:UNKNOWN FASTING: UNKNOWNPerformed By: #### 6517 #### [facility] [address], [address] [place] [address] Boot Trimmer: Mello Ledbetter [facility] METABOLIC PANELon 08-27-3453Actqhqb [Mass/Vol]9.1 mg/dLNormal8.6-10.4Quest DiagnosticsComment on above:Order Comment: FASTING:YES COLLECTION REQUIREMENTS NOT MET. PATIENT ADVISED TO RETURN. FASTING: YESPerformed By: #### 496, 30253 #### [facility] [address], [address] [place] [address] Boot Trimmer: Mello Ledbetter MDChloride [Moles/Vol]103 mmol/BNmdndd99-889 Quest DiagnosticsComment on above:Order Comment: FASTING:YES COLLECTION REQUIREMENTS NOT MET. PATIENT ADVISED TO RETURN. FASTING: YESPerformed By: #### 496, 23486 #### [facility] [address], [address] [place] [address] Boot Trimmer: Mello Ledbetter MDCO2 [Moles/Vol]31 mmol/ONerckg09-55Eabhk DiagnosticsComment on above:Order Comment: FASTING:YES COLLECTION REQUIREMENTS NOT MET. PATIENT ADVISED TO RETURN. FASTING: YESPerformed By: #### 496, 61797 #### [facility] [address], [address] [place] [address] Boot Trimmer: Mello MCELROYreatinine [Mass/Vol]0.58 mg/dLLow0.60-0.95 [facility] DiagnosticsComment on above:Order Comment: FASTING:YES COLLECTION REQUIREMENTS NOT MET. PATIENT ADVISED TO RETURN. FASTING: YESPerformed By: #### 496, 12638 #### [facility] [address], [address] [place] [address] Boot Trimmer: Mello Ledbetter MDGFR/1.73 sq M.predicted among non-blacks MDRD (S/P/Bld) [Vol rate/Area]91 mL/min/{1.73_m2}Normal> OR = 60[facility] Comment on above:Order Comment: FASTING:YES COLLECTION REQUIREMENTS NOT MET. PATIENT ADVISED TO RETURN. FASTING: YESResult Comment: The eGFR is based on the CKD-EPI 202 equation. To calculate the new eGFR from a previous Creatinine or Cystatin C result, go to https://www.kidney.org/professionals/ kdoqi/gfr%5FcalculatorPerformed By: #### 496, 86168 #### [facility] [address], [address] [place] [address] Boot Trimmer: Mello Ledbetter MDGlucose [Mass/Vol]87 mg/jYOtewth42-79Nxjie DiagnosticsComment on above:Order Comment: FASTING:YES COLLECTION REQUIREMENTS NOT MET. PATIENT ADVISED TO RETURN. FASTING: YESResult Comment: Fasting reference intervalPerformed By: #### 496, 55840 #### [facility] [address], [address] [place] [address] Boot Trimmer: Mello Ledbetter MDPotassium [Moles/Vol]4.3 mmol/LNormal3.5-5.3 Quest DiagnosticsComment on above:Order Comment: FASTING:YES COLLECTION REQUIREMENTS NOT MET. PATIENT ADVISED TO RETURN. FASTING: YESPerformed By: #### 496, 12476 #### [facility] [address], [address] [place] [address] Boot Trimmer: Mello Ledbetter MDSodium [Moles/Vol]143 mmol/RTicgbl667-959Jxpwt DiagnosticsComment on above:Order Comment: FASTING:YES COLLECTION REQUIREMENTS NOT MET. PATIENT ADVISED TO RETURN. FASTING: YESPerformed By: #### 496, 32260 #### [facility] [address], [address] [place] [address] Boot Trimmer: Mello Ledbetter MDUrea nitrogen [Mass/Vol]15 mg/dLNormal7-25 [facility] DiagnosticsComment on above:Order Comment: FASTING:YES COLLECTION REQUIREMENTS NOT MET. PATIENT ADVISED TO RETURN. FASTING: YESPerformed By: #### 496, 62943 #### [facility] [address], [address] [place] [address] Boot Trimmer: Mello Ledbetter MDUrea nitrogen/Creatinine [Mass ratio]26 mg/mg High6-22Quest DiagnosticsComment on above:Order Comment: FASTING:YES COLLECTION REQUIREMENTS NOT MET. PATIENT ADVISED TO RETURN. FASTING: YESPerformed By: #### 496, 19673 #### [facility] [address], [address] [place] [address] Boot Trimmer: Mello Ledbetter MDHEMOGLOBIN A1con 64-15-4854MOUZOWIXBR A1c6.4 % of total HgbHigh<5.7Quest DiagnosticsComment on [...] of diabetes for children.Performed By: #### 496, 96878 #### [facility] [address], [address] [place] [address] Boot Trimmer: Mello Ledbetter MDBASIC METABOLIC PANELon 01-10-2022 BUN/CREATININE RATIONOT APPLICABLENormal6-22Quest DiagnosticsComment on above: Order Comment: FASTING:YES FASTING: YESPerformed By: #### 36571, 6399 #### [facility] [address], [address] [place] [address] Boot Trimmer: Mello Ledbetter MDCalcium [Mass/Vol]8.9 mg/dLNormal8.6-10.4Quest DiagnosticsComment on above:Order Comment: FASTING:YES FASTING: YESPerformed By: #### 75375, 6399 #### [facility] [address], [address] [place] [address] Boot Trimmer: Mello MCELROYhloride [Moles/Vol]103 mmol/FMozadc81-941 [facility] DiagnosticsComment on above:Order Comment: FASTING:YES FASTING: YESPerformed By: #### 52949, 6399 #### [facility] [address], [address] [place] [address] Boot Trimmer: Mello Ledbetter MDCO2 [Moles/Vol]31 mmol/DFdwmvd24-01Lvbmu DiagnosticsComment on above:Order Comment: FASTING:YES FASTING: YESPerformed By: #### 71034, 6399 #### [facility] [address], [address] [place] [address] Boot Trimmer: Mello MCELROYreatinine [Mass/Vol]0.68 mg/dLNormal0.60-0.88 [facility] DiagnosticsComment on above:Order Comment: FASTING:YES FASTING: YESResult Comment: For patients >49 years of age, the reference limit for Creatinine is approximately 13% higher for people identified as -Surinamese.Performed By: #### 11815, 6399 #### [facility] [address], [address] [place] [address] Boot Trimmer: Mello Ledbetter MDeGFR NON-AFR. HFRSKXGT44 mL/min/1.19k2Lyxkbz> OR = 60Quest DiagnosticsComment on above:Order Comment: FASTING:YES FASTING: YESPerformed By: #### 08348, 6399 #### [facility] [address], [address] [place] [address] Boot Trimmer: eMllo Ledbetter MDGFR/1.73 sq M.predicted among blacks MDRD (S/P/Bld) [Vol rate/Area]95 mL/min/{1.73_m2}Normal> OR = 60[facility] Comment on above:Order Comment: FASTING:YES FASTING: YESPerformed By: #### 88314, 6399 #### [facility] of [address], [address] [place] [address] Boot Trimmer: Mello Ledbetter MDGlucose [Mass/Vol]73 mg/sWApcaun39-32Vnhre DiagnosticsComment on above:Order Comment: FASTING:YES FASTING: YESResult Comment: Fasting reference intervalPerformed By: #### 00328, 6399 #### [facility] [address], [address] [place] [address] Boot Trimmer: Mello Ledbettre MDPotassium [Moles/Vol]4.4 mmol/LNormal3.5-5.3 [facility] DiagnosticsComment on above:Order Comment: FASTING:YES FASTING: YESPerformed By: #### 74091, 6399 #### [facility] [address], [address] [place] [address] Boot Trimmer: Mello Ledbetter MDSodium [Moles/Vol]143 mmol/JVvunza435-928Fmwar DiagnosticsComment on above:Order Comment: FASTING:YES FASTING: YESPerformed By: #### 35505, 6399 #### [facility] [place] [address] Boot Trimmer: Mello Ledbetter MDUrea nitrogen [Mass/Vol]20 mg/dLNormal7-25 [facility] DiagnosticsComment on above:Order Comment: FASTING:YES FASTING: YESPerformed By: #### 20402, 6399 #### [facility] of [address], [address] [place] [address] Boot Trimmer: Mello Ledbetter MDCBC (INCLUDES DIFF/PLT)on 10-97-2860Awmkvfhqh (Bld) [#/Vol]0.05 10*3/uLNormal0-200Quest DiagnosticsComment on above:Performed By: #### 54457, 6399 #### [facility] of [address], [address] [place] [address] Boot Trimmer: Mello Ledbetter MDBasophils/100 WBC (Bld)0.6 %NormalQuest DiagnosticsComment on above:Performed By: #### 69500, 6399 #### [facility] of [place] [address] Boot Trimmer: Mello Ledbetter MDEosinophils (Bld) [#/Vol]0.191 10*3/uLNormal 15-500Quest DiagnosticsComment on above:Performed By: #### 46791, 6399 #### [facility] of [place] [address] Boot Trimmer: Mello Ledbetter MDEosinophils/100 WBC (Bld)2.3 %NormalQuest DiagnosticsComment on above:Performed By: #### 17755, 6399 #### [facility] [place] [address] Boot Trimmer: Mello Ledbetter MDErythrocyte distribution width (RBC) [Ratio] 13.8 %Eqyvaj17.0-15.0Quest DiagnosticsComment on above:Performed By: #### 90432, 6399 #### [facility] [place] [address] Boot Trimmer: Mello Ledbetter MDHematocrit (Bld) [Volume fraction]36.4 %Normal 35.0-45.0Quest DiagnosticsComment on above:Performed By: #### 43292, 6399 #### [facility] of [place] [address] Boot Trimmer: Mello Ledbetter MDHemoglobin (Bld) [Mass/Vol]11.8 g/dLNormal 11.7-15.5Quest DiagnosticsComment on above:Performed By: #### 23814, 6399 #### [facility] of [place] [address] Boot Trimmer: Mello Ledbetter MDLymphocytes (Bld) [#/Vol]2.291 10*3/uLNormal 850-3900Quest DiagnosticsComment on above:Performed By: #### 09422, 6399 #### [facility] of [address], [address] [place] [address] Boot Trimmer: Mello Ledbetter MDLymphocytes/100 WBC (Bld)27.6 %NormalQuest DiagnosticsComment on above:Performed By: #### 41982, 6399 #### [facility] of [address], [address] [place] [address] Boot Trimmer: Mello Ledbetter MDMCH (RBC) [Entitic mass]29.5 qnIcuclq04.0-33.0 [facility] DiagnosticsComment on above:Performed By: #### 61697, 6399 #### [facility] of [address], [address] [place] [address] Boot Trimmer: Mello MENARDCHC (RBC) [Mass/Vol]32.4 g/yFKhqcbc26.0-36.0 [facility] DiagnosticsComment on above:Performed By: #### 99371, 6399 #### [facility] of [address], [address] [place] [address] Boot Trimmer: Mello MENARDCV (RBC) [Entitic vol]91.0 tEByczcj95.0-100.0 [facility] DiagnosticsComment on above:Performed By: #### 86151, 6399 #### [facility] of [address], [address] [place] [address] Boot Trimmer: Mello Ledbetter MDMonocytes (Bld) [#/Vol]0.515 10*3/uLNormal 200-950Quest DiagnosticsComment on above:Performed By: #### 71337, 6399 #### [facility] of [address], [address] [place] [address] Boot Trimmer: Mello Ledbetter MDMonocytes/100 WBC (Bld)6.2 %NormalQuest DiagnosticsComment on above:Performed By: #### 74507, 6399 #### [facility] of [address], [address] [place] [address] Boot Trimmer: Mello Ledbetter MDNeutrophils (Bld) [#/Vol]5.254 10*3/uLNormal 1500-7800Quest DiagnosticsComment on above:Performed By: #### 56008, 6399 #### [facility] of [place] [address], [address] [place] [address] Boot Trimmer: Mello Ledbetter MDNeutrophils/100 WBC (Bld)63.3 %NormalQuest DiagnosticsComment on above:Performed By: #### 78831, 6399 #### [facility] of [place] [address], [address] [place] [address] Boot Trimmer: Mello Ledbetter MDPlatelet mean volume (Bld) [Entitic vol]8.4 fL Normal7.5-12.5Quest DiagnosticsComment on above:Performed By: #### 77986, 6399 #### [facility] of [place] [address], [address] [place] [address] Boot Trimmer: Mello Ledbetter MDPlatelets (Bld) [#/Vol]299 10*3/uLNormal 140-400Quest DiagnosticsComment on above:Performed By: #### 94669, 6399 #### [facility] of [place] [address], [address] [place] [address] Boot Trimmer: Mello Ledbetter MDRBC (Bld) [#/Vol]4.00 10*6/uLNormal3.80-5.10 [facility] DiagnosticsComment on above:Performed By: #### [id number] #### [facility] [place] [address], [address] [place] [address] Boot Trimmer: Mello Ledbetter MDWBC (Bld) [#/Vol]8.3 10*3/uLNormal3.8-10.8 [facility] DiagnosticsComment on above:Performed By: #### [id number], [id number] #### [facility] [place] [address] [address] [address] Boot Trimmer: Mello Ledbetter MDHEMOGLOBIN A1con [id number] A1c6.4 % of total HgbHigh<5.7Quest DiagnosticsComment on [...] diagnosis of diabetes for children.Performed By: #### 49109, 7699 #### [facility] [place] [address] Boot Trimmer: Mello Lebdetter MDCOMPREHENSIVE METABOLIC PANELon 08-30-2021 Albumin [Mass/Vol]4.3 g/dLNormal3.6-5.1[facility] DiagnosticsComment on above: Performed By: #### 496, 65759, 7600 #### [facility] [place] [address] Boot Trimmer: Mello Ledbetter MDAlbumin/Globulin [Mass ratio]1.4 {ratio}Normal 1.0-2.5Quest DiagnosticsComment on above:Performed By: #### 496, 60191, 7600 #### [facility] [place] [address] Boot Trimmer: Mello Ledbetter MDALP [Catalytic activity/Vol]82 U/VMssjax94-391 [facility]osticsComment on above:Performed By: #### 496, 17249, 7600 #### [facility] [place] [address] Boot Trimmer: Mello Ledbetter MDALT [Catalytic activity/Vol]13 U/LNormal6-29 [facility]osticsComment on above:Performed By: #### 496, 38700, 7600 #### [facility] of [address], [address] [place] [address] Boot Trimmer: Mello Ledbetter MDAST [Catalytic activity/Vol]16 U/YLvmkob33-87 [facility]osticsComment on above:Performed By: #### 496, 33265, 7600 #### [facility] of [address], [address] [place] [address] Boot Trimmer: Mello Ledbetter MDBilirubin [Mass/Vol]0.3 mg/dLNormal0.2-1.2 [facility]osticsComment on above:Performed By: #### 496, 62729, 7600 #### [facility] of [address], [address] [place] [address] Boot Trimmer: Mello Ledbetter MDBUN/CREATININE RATIONOT APPLICABLENormal6-22 [facility]osticsComment on above:Performed By: #### 496, 14054, 7600 #### [facility] of [address], [address] [place] [address] Boot Trimmer: Mello Ledbetter MDCalcium [Mass/Vol]9.1 mg/dLNormal8.6-10.4[facility] DiagnosticsComment on above:Performed By: #### 496, 79472, 7600 #### [facility] of [address], [address] [place] [address] Boot Trimmer: Mello Ledbetter MDChloride [Moles/Vol]101 mmol/ADckkmq42-684 [facility]osticsComment on above:Performed By: #### 496, 89518, 7600 #### [facility] of [address], [address] [place] [address] Boot Trimmer: Mello Ledbetter MDCO2 [Moles/Vol]28 mmol/GPwotoh22-37Qtbsx DiagnosticsComment on above:Performed By: #### 496, 79343, 7600 #### [facility] of [address], [address] [place] [address] Boot Trimmer: Mello Ledbetter MDCreatinine [Mass/Vol]0.72 mg/dLNormal0.60-0.88 [facility]osticsComment on above:Result Comment: For patients >49 years of age, the reference limit for Creatinine is approximately 13% higher for people identified as -Surinamese.Performed By: #### 496, 45296, 7600 #### [facility] [place] [address] Boot Trimmer: Mello Ledbetter MDeGFR NON-AFR. OFDDHGFW49 mL/min/1.98n7Hgsvwk> OR = 60Quest DiagnosticsComment on above:Performed By: #### 496, 93621, 7600 #### [facility] [place] [address] Boot Trimmer: Mello Ledbetter MDGFR/1.73 sq M.predicted among blacks MDRD (S/P/Bld) [Vol rate/Area]91 mL/min/{1.73_m2}Normal> OR = 60[facility] Comment on above:Performed By: #### 496, 57254, 7600 #### [facility] [place] [address] Boot Trimmer: Mello Ledbetter MDGlobulin (S) [Mass/Vol]3.0 g/dLNormal1.9-3.7 [facility]osticsComment on above:Performed By: #### 496, 45250, 7600 #### [facility] [place] [address] Boot Trimmer: Mello Ledbetter MDGlucose [Mass/Vol]84 mg/vXGlphlv36-27Kvwwc DiagnosticsComment on above:Result Comment: Fasting reference intervalPerformed By: #### 496, 25402, 7600 #### [facility] [place] [address] Boot Trimmer: Mello Ledbetter MDPotassium [Moles/Vol]4.3 mmol/LNormal3.5-5.3 [facility]osticsComment on above:Performed By: #### 496, 44596, 7600 #### [facility] [address], [address] [place] [address] Boot Trimmer: Mello Ledbetter MDProtein [Mass/Vol]7.3 g/dLNormal6.1-8.1Quest DiagnosticsComment on above:Performed By: #### 496, 80750, 7600 #### [facility] [address], [address] [place] [address] Boot Trimmer: Mello Ledbetter MDSodium [Moles/Vol]140 mmol/FSyqmgy348-393Sqtla DiagnosticsComment on above:Performed By: #### 496, 96815, 7600 #### [facility] [address], [address] [place] [address] Boot Trimmer: Mello Ledbetter MDUrea nitrogen [Mass/Vol]22 mg/dLNormal7-25 [facility]osticsComment on above:Performed By: #### 496, 85470, 7600 #### [facility] [address], [address] [place] [address] Boot Trimmer: Mello Ledbetter MDHEMOGLOBIN A1con 65-87-3905VYPUCSFWAM A1c5.7 % of total HgbHigh<5.7Quest DiagnosticsComment on [...] of diabetes for children.Performed By: #### 496, 87925, 7600 #### [facility] [address], [address] [place] [address] Boot Trimmer: Mello Ledbetter MDLIPID PANEL, STANDARDon 44-87-8910Yottapgjdgt [Mass/Vol]112 mg/dLNormal<200Quest DiagnosticsComment on above:Order Comment: FASTING:YES FASTING: YESPerformed By: #### 496, 72078, 7600 #### [facility] [address], [address] [place] [address] Boot Trimmer: Mello MCELROYholesterol in HDL [Mass/Vol]44 mg/dLLow> OR = 50Quest DiagnosticsComment on above:Order Comment: FASTING:YES FASTING: YESPerformed By: #### 496, 76228, 7600 #### [facility] [address], [address] [place] [address] Boot Trimmer: Mello MCELROYholesterol in LDL [Mass/Vol]49 mg/dLNormal [facility] [...] LDL-C. Buzz SS et al. LATASHA. 2013;310(19): 9307-3344 (http://education.RF nano/faq/HCS130)Performed By: #### 496, 08998, 7600 #### [facility] [address], [address] [place] [address] Boot Trimmer: Mello Lawrencestshelton.total/Cholesterol in HDL [Mass ratio]2.5 {ratio}Normal<5.0[facility] DiagnosticsComment on above:Order Comment: FASTING:YES FASTING: YESPerformed By: #### 496, 23157, 7600 #### [facility] [address], [address] [place] [address] Boot Trimmer: Mello BANEGAS HDL HCZBFHXNWYP00 mg/dL (calc)Normal<130 [facility]osticsComment on above:Order Comment: FASTING:YES FASTING: YESResult Comment: For patients with diabetes plus 1 major ASCVD risk factor, treating to a non-HDL-C goal of <100 mg/dL (LDL-C of <70 mg/dL) is considered a therapeutic option.Performed By: #### 496, 11007, 7600 #### [facility] [address] [facility], [address] [place] [address] Boot Trimmer: Mello Ledbetter MDTriglyceride [Mass/Vol]108 mg/dLNormal<150 [facility]osticsComment on above:Order Comment: FASTING:YES FASTING: YESPerformed By: #### 496, 87716, 7600 #### [facility] [address] [place] [address], [address] [place] [address] Boot Trimmer: Mello Ledbetter MDMODIFIED BARIUM SWALLOWon 78-41-2713DKGEPSDF BARIUM SWALLOWUnCommunity Regional Medical Center Department of Radiology [address] [place] [address] Patient Name: ROSETTA KEITH : 1940 Sex: F Age: Race: White Pt. [facility] Patient Status: D Ordered Date: 07/12/2021 1:00:00 [...] sinuses. Electronically signed: Zach Jamil. Transcribed by: [email or web address], User Resident: Electronically Signed by: ZACH JAMIL @ 07/13/2021 12:13 [facility] Auto Differentialon [id number] (Bld) [#/Vol]10*3/[facility]- [place], [place]Basophils/100 WBC (Bld)0 %0 - 2 %[facility]- [place], KYDifferential TypeNOT REPORTEDTuscarawas Hospital- [place], KYEosinophils (Bld) [#/Vol]10*3/[facility]- [place], KYEosinophils/100 WBC (Bld)0 %Low1 - 4 %[facility]- [place], KYErythrocyte distribution width (RBC) [Ratio]19.9 %High11.8 - 14.4 %[facility]- [place], KYHematocrit (Bld) [Volume fraction]37.8 %36.3 - 47.1 %[facility]- [place], KYHemoglobin (Bld) [Mass/Vol]10.9 g/dLLow11.9 - 15.1 g/dLTuscarawas Hospital- [place], KYImmature granulocytes (Bld) [#/Vol]0 %0[facility]- [place] Immature granulocytes (Bld) [#/Vol]0.06 10*3/uLGenesis [facility]- [place], [place] Interpretation and review of laboratory resultsAbnormalTuscarawas Hospital- [place], [place] Lymphocytes (Bld) [#/Vol]0.88 10*3/uLUniversity Hospitals [facility]- [place], KYLymphocytes/100 WBC (Bld)6 %Low24 - 43 %[facility], [facility] (RBC) [Entitic mass]23.3 pgLow25.2 - 33.5 pgPremier Health Miami Valley [facility], [facility] (RBC) [Mass/Vol]28.8 g/dL28.4 - 34.8 g/dLPremier Health Miami [facility], WIMCV (RBC) [Entitic vol]80.8 fLLow82.6 - 102.9 fLPremier Health Miami [facility], KYMonocytes (Bld) [#/Vol]0.18 10*3/uLPremier Health [facility], KYMonocytes/100 WBC (Bld) 1 %Low3 - 12 %[facility], WIPlatelet mean volume (Bld) [Entitic vol]9.3 fL 8.1 - 13.5 fLPremier Health Miami [facility], WIPlatelets (Bld) [#/Vol]441 10*3/uLPremier Health [facility], WIPlatelets (Bld) [#/Vol]NOT REPORTEDPremier Health [facility], [facility] (Bld) [#/Vol] 4.68 10*6/uL3.95 - 5.11 m/uLPremier Health Miami [facility], [facility] morphology finding Nom (Bld) NOT REPORTEDPremier Health [facility], WISegmented neutrophils/100 WBC (Bld)92 %High36 - 65 %[facility], WISegs Schidyac99.67HighPremier Health [facility], WIWBC (Bld) [#/Vol]0.0 10*3/uL0.0 per 100 WBCPremier Health Miami Valley [facility], WIWBC (Bld) [#/Vol]14.8 10*3/uLHighPremier Health [facility], WIWBC MorphologyNOT REPORTEDPrem[facility] Health [facility], [facility] with Diffon [id number]. Basophil<0.55Ufsjrb4.00-0.20[facility] Comment on above:Performed By: #### CDP #### [facility] [address] [place] [address] Virology Teacher: Patti Bowens.Imm.Granulocyte0.06 k/uLNormal0.00-0.30[facility] HospitalComment on above:Performed By: #### CDP #### [address] [place] [address] Virology Teacher: Patti Bowens.Neutrophil (Seg)13.67 k/uLHigh1.50-8.10[facility] HospitalComment on above:Performed By: #### CDP #### [address] [place], [place] [address] Virology Teacher: Maynor Delgado MDBasophils/100 WBC (Bld)0 %Normal0-2[facility] HospitalComment on above:Performed By: #### CDP #### [address] [place], [place] [address] Virology Teacher: Maynor Delgado MDEosinophils (Bld) [#/Vol]10*3/uLNormal0.00-0.[address] HospitalComment on above:Performed By: #### CDP #### [address] [place], [place] [address] Virology Teacher: OUMAR Bowensosinophils/100 WBC (Bld)0 %Low1-4[facility] HospitalComment on above:Performed By: #### CDP #### [address] [place], [place] [address] Virology Teacher: Maynor Delgado MDErythrocyte distribution width (RBC) [Ratio]19.9 % High11.8-14.4[facility] HospitalComment on above:Performed By: #### CDP #### [address] [place] [address] Virology Teacher: Maynor Delgado MDHematocrit (Bld) [Volume fraction]37.8 %Normal 36.3-47.1MercJ.W. Ruby Memorial Hospital HospitalComment on above:Performed By: #### CDP #### [address] [place], [place] [address] Virology Teacher: Maynor Delgado MDHemoglobin (Bld) [Mass/Vol]10.9 g/dLLow11.9-15.[address] HospitalComment on above:Performed By: #### CDP #### [address] [place], [place] [address] Virology Teacher: Maynor Delgado MDImmature granulocytes (Bld) [#/Vol]0 %Qroium7Xpmab [facility]iffin HospitalComment on above:Performed By: #### CDP #### [address] [place], [place] [address] Virology Teacher: Maynor Delgado MDLymphocytes (Bld) [#/Vol]0.88 10*3/uLLow1.10-3.[address] HospitalComment on above:Performed By: #### CDP #### [address] [place], [place] [address] Virology Teacher: Elmer Bowensmphocytes/100 WBC (Bld)6 %Mly85-57Tzcay [facility]iffin HospitalComment on above:Performed By: #### CDP #### [address] [place], [place] [address] Virology Teacher: SAILAJA BowensCH (RBC) [Entitic mass]23.3 pgLow25.2-33.5MerSouthwest General Health Center HospitalComment on above:Performed By: #### CDP #### [address] [place], [place] [address] Virology Teacher: SAILAJA BowensCHC (RBC) [Mass/Vol]28.8 g/tDQoixia22.4-34.8[facility] HospitalComment on above:Performed By: #### CDP #### [address] [place] [address] Virology Teacher: SAILAJA BowensCV (RBC) [Entitic vol]80.8 fLLow82.6-102.9[facility] HospitalComment on above:Performed By: #### CDP #### [address] [place], [place] [address] Virology Teacher: SAILAJA Bowensonocytes (Bld) [#/Vol]0.18 10*3/uLNormal0.10-1.20 [facility] HospitalComment on above:Performed By: #### CDP #### [address] [place] [address] Virology Teacher: SAILAJA Bowensonocytes/100 WBC (Bld)1 %Low3-12[facility] HospitalComment on above:Performed By: #### CDP #### [address] [place], [facility]83 Virology Teacher: Fabio Bowensutrophil (Seg)92 %Mdgq11-71LgrekCherrington Hospital Comment on above:Performed By: #### CDP #### [address] [place] [address] Virology Teacher: Maynor Delgado MDNRBC Automated0.0 per 100 WBCNormal0.0[facility] HospitalComment on above:Performed By: #### CDP #### [address] [place], [facility]83 Virology Teacher: GENE Bowenslatelet mean volume (Bld) [Entitic vol]9.3 fL Normal8.1-13.5[facility] HospitalComment on above:Performed By: #### CDP #### [address] [place], [place] [address]83 Virology Teacher: GENE Bowenslatelets (Bld) [#/Vol]441 10*3/oSQziqci794-[address] HospitalComment on above:Performed By: #### CDP #### [facility] [address] [place] [address] [place] [address] Virology Teacher: SANDEEP Bowens (Bld) [#/Vol]4.68 10*6/uLNormal3.95-5.11[facility] HospitalComment on above:Performed By: #### CDP #### [facility] [address] [place] [address] Dr[address] [place], [place] [address]83 Virology Teacher: ROSA Bowens (Bld) [#/Vol]14.8 10*3/uLHigh3.5-11.3MMount St. [facility] HospitalComment on above:Performed By: #### CDP #### [address] [place], [facility]83 Virology Teacher: Jamaica Bowens Diff PerformedNOT REPORTEDNormalMercy Elk Grove HospitalComment on above:Performed By: #### CDP #### [facility] [address] [place] [address] Dr[place], [place] [id number] Virology Teacher: Luis Enrique Bowens (Bld) [#/Vol]NOT REPORTEDNormalMercy Elk Grove HospitalComment on above:Performed By: #### CDP #### [facility] [address] [place] [address] Dr[address] [place], [facility]83 Virology Teacher: SANDEEP Bowens morphology finding Nom (Bld)NOT REPORTEDNormal [facility] HospitalComment on above:Performed By: #### CDP #### [facility] [address] [place] [address] [address] [place], [facility]83 Virology Teacher: ROSA Bowens MorphologyNOT REPORTEDNormalMercy Elk Grove HospitalComment on above:Performed By: #### CDP #### [facility] [address] [place] [address] Dr[address] [place], [place] [id number] Virology Teacher: RADHA Bowens WO CONon 89-79-5274RV PELVIS WO [address] [place] [address] Patient: ROSETTA KEITH Exam Date: 09/07/2018 : 1940 Gender:F Ordering : SIOMARA SWEENEYAWAJA EMERGENC Admission #: [id number] Family : Order #: [id number] CLICK HERE TO VIEW EXAM RADIOLOGY REPORT [...] by: Charlotte Leggett M.D. on 09/07/2018 at 11:54[facility] Vital Signs Date TimeVital SignValuePerforming TramyzkucErbkwemn66-89-9421 08:34-0400Body ntoyxp920.1 cmJocoby Starkss DO Work Phone: [facility]10-10-2025 08:34-0400Body mass index (BMI) [Ratio]38.73 kg/m2Ngacoby Starkss DO Work Phone: [facility]10-10-2025 08:34-0400Body qoxmepkvaut18 [degF]Deyanira Tai DO Work Phone: [facility]10-10-2025 08:34-0400Body pyegwv41.59 kgDeyanira Tai DO Work Phone: [facility]10-10-2025 08:34-0400Diastolic blood ihbrucjy42 mm[Hg]Deyanira Tai DO Work Phone: [facility]10-10-2025 08:34-0400Heart rate 92 /minDeyanira Tia DO Work Phone: [facility]10-10-2025 08:34-0400 Respiratory rate18 /minDeyanira Tai DO Work Phone: [facility]10-10-2025 08:34-0998ExS7% (BldA) [Mass fraction]95 %Deyanira Tai DO Work Phone: [facility]10-10-2025 08:34-0400Systolic blood rdiuapyp235 mm[Hg]Deyanira Tai DO Work Phone: [facility]09-16-2025 13:18-0400Body bwpafy123.7 cmSteven Rusher DPM Work Phone: [facility]fieldPrirbgfpzh54-00-2071 13:18-0400Body mass index (BMI) [Ratio]35.33 kg/k9Xpwlkm Rusher DPM Work Phone: [facility] springfieldIwahlpqrno08-44-7396 13:18-0400Body ilbjic34.95 kgSteven Rusher DPM Work Phone: [facility] springfieldZrfdadyhsb26-49-4139 13:39-0400Body znijfh892.1 cmFilipe Son MD Work Phone: [facility]09-08-2025 13:39-0400Body mass index (BMI) [Ratio]36.4 kg/g9TamvhspFilipe Son MD Work Phone: [facility]09-08-2025 13:39-0400Body zvlpmi99.5 kgFilipe Son MD Work Phone: [facility] Yugioc50-85-8342 13:39-0400Diastolic blood xsuiyyqx74 mm[Hg]Filipe Son MD Work Phone: [facility] [employer] Zmfglt44-61-7589 13:39-0400Heart rate 85 /minFilipe Son MD Work Phone: [facility] [employer] Qwhkeq17-85-8781 13:39-0400Systolic blood ibbosbaz575 mm[Hg]Filipe Son MD Work Phone: [facility] [employer] Kvjlzi73-17-9769 14:06-0400Body .1 cmNgacoby Starkss DO Work Phone: [facility] [employer] Qscprq19-33-3930 14:06-0400Body mass index (BMI) [Ratio]36.4 kg/m2Jocoby Yuhas DO Work Phone: [facility] [employer] Afcjhv80-85-4762 14:06-0400Body utfmio92.5 kgJocoby Yuvalentinas DO Work Phone: [facility] [employer] Ipzvce40-80-5282 14:06-0400Diastolic blood zvilkdzg72 mm[Hg]Deyanira Starkss DO Work Phone: [facility] Cbnmnv57-07-6523 14:06-0400Systolic blood mm[Hg]Deyanira Terezas DO Work Phone: [facility] [employer] Ioijqx54-67-3022 09:48-0400Body isocex676.6 cmNgacoby Yuhas DO Work Phone: [facility]06-27-2025 09:48-0400Body mass index (BMI) [Ratio]34.78 kg/m2Jocoby Yuhas DO Work Phone: [facility] Tjmufz95-97-8680 09:48-0400Body dculqlknycc15.29 [degF]Deyanira Yuhas DO Work Phone: [facility]06-27-2025 09:48-0400Body lvyasd02.01 kgDeyanira Tai DO Work Phone: [facility]06-27-2025 09:48-0400Diastolic blood tkjpxiqv29 mm[Hg]Deyanira Tai DO Work Phone: [facility]06-27-2025 09:48-0400Heart rate 89 /minDeyanira Tai DO Work Phone: [facility]06-27-2025 09:48-0400 Respiratory rate20 /minDeyanira Tai DO Work Phone: [facility]06-27-2025 09:48-8907QcJ8% (BldA) [Mass fraction]96 %Deyanira Tai DO Work Phone: [facility]06-27-2025 09:48-0400Systolic blood mstanluf128 mm[Hg]Deyanira Tai DO Work Phone: [facility]06-05-2025 09:19-0400Body uxaypo199.7 cmSteven Rusher DPM Work Phone: [phone]06-05-2025 09:19-0400Body mass index (BMI) [Ratio]35.33 kg/e4Ncmolt Rusher DPM Work Phone: [phone]06-05-2025 09:19-0400Body .95 kgSteven Rusher DPM Work Phone: [phone]02-27-2025 09:35-0500Body iurrnl333.7 cmSteven Rusher DPM Work Phone: [phone]02-27-2025 09:35-0500Body mass index (BMI) [Ratio]35.33 kg/y8Adjbdf Rusher DPM Work Phone: [phone] [place], [place] [address]Hzunljqweu92-86-0853 09:35-0500Body lqfaon58.95 kgSteven Rusher DPM Work Phone: [facility]fieldTstmhutujm63-12-4515 13:24-0500Body yetuyb933.6 cmDeyanira Starkss DO Work Phone: [facility]02-25-2025 13:24-0500Body mass index (BMI) [Ratio]38.04 kg/m2Deyanira Starkss DO Work Phone: [facility]02-25-2025 13:24-0500Body ywpqbocnnft41.5 [degF]Deyanira Tai DO Work Phone: [facility]02-25-2025 13:24-0500Body ucmufn60.95 kgJocoby Starkss DO Work Phone: [facility]02-25-2025 13:24-0500Diastolic blood rimegdxk52 mm[Hg]Deyanira Tai DO Work Phone: [facility]02-25-2025 13:24-0500Heart rate 107 /minJocoby Starkss DO Work Phone: [facility]02-25-2025 13:24-2542VjI3% (BldA) [Mass fraction]96 %Deyanira Tai DO Work Phone: [facility]02-25-2025 13:24-0500Systolic blood jceuvkcg953 mm[Hg]Deyanira Tai DO Work Phone: [facility]01-16-2025 12:03-0500Body lvwumm027.6 cmDeyanira Starkss DO Work Phone: [facility]01-16-2025 12:03-0500Body mass index (BMI) [Ratio]37.89 kg/m2Deyanira Starkss DO Work Phone: [facility]01-16-2025 12:03-0500Body .7 [degF]Deyanira Starkss DO Work Phone: [facility]01-16-2025 12:03-0500Body xxhnza12.67 kgDeyanira Starkss DO Work Phone: [facility]01-16-2025 12:03-0500Diastolic blood axyczqsv40 mm[Hg]Deyanira Starkss DO Work Phone: [facility] [employer] Dvgusq66-76-5619 12:03-0500Heart rate 97 /minDeyanira Starkss DO Work Phone: [facility]01-16-2025 12:03-0500 Respiratory rate18 /minDeyanira Starkss DO Work Phone: [facility]01-16-2025 12:03-5733NhG4% (BldA) [Mass fraction]96 %Deyanira Starkss DO Work Phone: [facility] [employer] Mllvks42-86-9137 12:03-0500Systolic blood olvsskhn269 mm[Hg]Deyanira Tai DO Work Phone: [facility] [employer] Zbnpcx73-59-0489 12:54-0500Body mudspx209.7 cmSteven Jamel DPM Work Phone: [facility]fieldGmxfmngnlq43-16-7232 12:54-0500Body mass index (BMI) [Ratio]32.54 kg/e1Uozsko Rus DPM Work Phone: [facility] springfieldQgosccppzi86-50-2607 12:54-0500Body dquepl83.5 kg Charlotte Lonnie DPM Work Phone: [facility] Healthcare Encounters Encounter DateEncounter TypeCare ProviderFacilityStart: 07-06-2025 End: 02-28-6209OgqsgjKyvtun G Furlong DO Work Phone: [facility] Physicians Internal Medicine - Family MedicineComment on above:Essential hypertensionStart: 07-03-2025 End: 84-76-7676Zozjuqmaynmye procedureJocoby Augustine Starkss DO Work Phone: [facility] Internal Medicine - Family MedicineStart: 07-01-2025 End: 30-77-4071Sayfeiiyz encounterCaren BillNoland Hospital [facility] - Family MedicineStart: 06-18-2025 End: 14-41-8295VrrytoAljb Augustine Tai DO Work Phone: [facility] Internal Medicine - Family MedicineComment on above:Essential hypertensionStart: 06-05-2025 End: 55-22-4720Hucuib outpatient visit 25 minutesJocoby Augustine William DO Work Phone: [facility] Internal Medicine - Family MedicineComment on above:Type 2 diabetes mellitus with diabetic peripheral angiopathy without gangrene, with long-term current use of insulin ([facility]) (Primary Dx); Essential hypertension; Restless legs; Encounter for immunizationStart: 06-05-2025 End: 04-42-0632pxdwhfsgxsDWIHEmory [facility] Ambulatory PPGStart: 06-02-2025 End: 23-42-8653XrhnowFtdtgqm Boggs CMAOhioHealth [facility]ville [facility] Center Physicians Internal Medicine - Family MedicineComment on above:Urinary urgencyStart: 05-20-2025 End: 66-80-1259EubmzsVdyv L William DO Work Phone: [facility] Internal Medicine - Family MedicineComment on above:Chronic obstructive pulmonary disease, unspecified COPD type ([facility])Start: 05-18-2025 End: 16-72-4245ShwhjxFviojmn Boggs CMAProNoland Hospital [facility] Physicians Internal Medicine - Family MedicineComment on above:Essential hypertensionStart: 05-12-2025 End: 53-58-3674Yqzhdv flowsheetSteven A Rusher DPM Work Phone: noMS [facility] PodiatryStart: 05-12-2025 End: 72-18-2219Tkzlvm flowsheetSteven A Rusher DPM Work Phone: noMS [facility] PodiatryStart: 05-12-2025 End: 97-19-3751Kfbyuti encounter procedureSteven A Rusher DPM Work Phone: noP[facility] PodiatryComment on above:Dermatophytosis of nail (Primary Dx); Dystrophic nail; Angiopathy, diabetic (HCC); Type II or unspecified type diabetes mellitus with neurological manifestations, not stated as uncontrolled(250.60) (HCC)Start: 05-12-2025 End: 72-31-8034tgyrolyqdnKXXWUH A RUSHERNot AvailableStart: 05-08-2025 End: 86-43-2085AmcaaoSvrz Cooper CMAOhioHealth Nelsonville [facility] Center Physicians Internal Medicine - Family MedicineComment on above:Candidal dermatitisStart: 05-04-2025 End: 35-92-3937Lmpfew outpatient visit 15 minutesFilipe Son MD Work Phone: [facility] Genito-Urinary SurgeonsComment on above:Urinary urgency (Primary Dx)Start: 05-04-2025 End: 63-68-2079dxwulhhbgyZYHZBOL G RASHIDCleveland Clinic [facility] Ambulatory PPGStart: 04-24-2025 End: 23-48-7348Vsdvrbovdpasv procedureJocoby Tai DO Work Phone: [facility] Internal Medicine - Family MedicineComment on above:Advice Only ( This was opened in error)Start: 04-23-2025 End: 50-56-9947yqkvusgwqtXDMFEmory University Hospital [facility] Ambulatory PPGStart: 04-23-2025 End: 83-72-3620Briwrz outpatient visit 25 minutesDeyanira Tai DO Work Phone: [facility] Physicians Internal Medicine - Family MedicineComment on above:Cellulitis of finger of right hand (Primary Dx)Start: 04-10-2025 End: 07-10-0662GlbgpiXzfw Cooper CMAOhioHealth Nelsonville Health Center Physicians Internal Medicine - Family MedicineComment on above:Hyperlipidemia, unspecified hyperlipidemia type Start: 03-26-2025 End: 08-16-1165Tvxzgta encounter procedureJocoby Starkss DO Work Phone: [facility] Phys[facility] Internal Medicine - Family MedicineComment on above:Encounter for subsequent annual wellness visit (AWV) in Medicare patient (Primary Dx)Start: 03-26-2025 End: 16-59-8573sgqdisdetkUDRSPhelps Memorial Hospital Ambulatory PPGStart: 03-22-2025 End: 30-73-5369MsajmjUntp Augustine Tai DO Work Phone: [facility] Internal Medicine - Family MedicineComment on above:Essential hypertensionStart: 03-03-2025 End: 40-12-0532Htvrxpinf Yoni HusseinO[facility] [address] [facility] Call CenterStart: 02-20-2025 End: 58-50-9887avpiqrirbtXQMOEmory University Hospital [facility] Ambulatory PPGStart: 02-20-2025 End: 45-26-4319Ptumss outpatient visit 25 minutesJocoby Augustine Starksluis DO Work Phone: [facility] Internal Medicine - Family MedicineComment on above:Type 2 diabetes mellitus with diabetic peripheral angiopathy without gangrene, with long-term current use of insulin ([facility]) (Primary Dx); Essential hypertension; Chronic obstructive pulmonary disease, unspecified COPD type ([facility]); Oropharyngeal dysphagia; Vitamin B12 deficiencyStart: 02-09-2025 End: 05-52-2830IirxkwCgvu Augustine Starksluis DO Work Phone: [facility] Internal Medicine - Family MedicineComment on above:Restless legs; Mild recurrent major depressionStart: 01-29-2025 End: 55-13-3822Dwqffi flowsheetSteven A Rusher DPM Work Phone: [facility] PODIATRYStart: 01-29-2025 End: 97-56-2148Klzusp flowsheetSteven A Rusher DPM Work Phone: noms PODIATRYStart: 01-29-2025 End: 22-70-2219Ydcbcjw encounter procedureSteven A Rusher DPM Work Phone: noms PODIATRYComment on above:Dermatophytosis of nail (Primary Dx); Dystrophic nail; Angiopathy, diabetic ([facility]); Type II or unspecified type diabetes mellitus with neurological manifestations, not stated as uncontrolled(250.60) ([facility])Start: 01-29-2025 End: 54-82-8068joozztdvwxMKWDLD A RUSHERNot AvailableStart: 11-18-2024 End: 73-68-4144YocbmeAlix L Yuhas DO Work Phone: [facility] Internal Medicine - Family MedicineComment on above:Type 2 diabetes mellitus with peripheral angiopathy ([facility])Start: 10-23-2024 End: 10-76-3297Vgzzmz flowsheetSteven A Rusher DPM Work Phone: n[facility] PODIATRYStart: 10-23-2024 End: 75-64-8487Fncdwq flowsheetSteven A Rusher DPM Work Phone: noms PODIATRYStart: 10-23-2024 End: 50-37-9633Proglbp encounter procedureSteven A Rusher DPM Work Phone: noms PODIATRYComment on above:Dermatophytosis of nail (Primary Dx); Dystrophic nail; Angiopathy, diabetic ([facility]); Type II or unspecified type diabetes mellitus with neurological manifestations, not stated as uncontrolled(250.60) ([facility])Start: 10-23-2024 End: 89-44-5914nwfblefeiiJAKHIF A RUSHERNot AvailableStart: 10-21-2024 End: 03-73-1102imxmlfpsubMTUM [facility] Hospitaltart: 10-21-2024 End: 94-34-4484Fcgxdu outpatient visit 25 minutesDeyanira Tai DO Work Phone: [facility] Internal Medicine - Family MedicineComment on above:Type 2 diabetes mellitus with peripheral angiopathy ([facility]) (Primary Dx); Edema of both lower legs; Chronic obstructive pulmonary disease, unspecified COPD type ([facility]); Essential hypertensionStart: 10-21-2024 End: 26-78-3942holeqsugunNWDY [facility] Ambulatory PPGStart: 10-18-2024 End: 68-63-9980Ybdvlzcww encounterKeiry ValdezOhioHealth Nelsonville Health Center Call CenterComment on above:CellulitisStart: 09-22-2024 End: 77-08-1018RpdpvtHjed L Yuhas DO Work Phone: [facility] Internal Medicine - Family MedicineComment on above:Essential hypertensionEssential hypertension; Hyperlipidemia, unspecified hyperlipidemia type; Urinary urgencyStart: 09-18-2024 End: 99-85-4442UakgxbImce L Yuhas DO Work Phone: [facility] Internal Medicine - Family MedicineComment on above:Essential hypertensionStart: 09-15-2024 End: 33-31-9806RbijygDerj L Yuhas DO Work Phone: [facility] Internal Medicine - Family MedicineComment on above:Urinary urgency; Essential hypertensionStart: 09-11-2024 End: 52-24-7664ScdmfdNuwe L Yuhas DO Work Phone: [facility] Internal Medicine - Family MedicineComment on above:Hyperlipidemia, unspecified hyperlipidemia typeStart: 09-11-2024 End: 83-35-8393Tgticc outpatient visit 15 minutesDeyanira Starkss DO Work Phone: [facility] Internal Medicine - Family MedicineComment on above:Pressure injury of right buttock, stage 1 (Primary Dx); Chronic obstructive pulmonary disease, unspecified COPD type ([facility]); Mild recurrent major depression ([facility]); Obesity, morbid ([facility]); Type 2 diabetes mellitus with peripheral angiopathy ([facility])Start: 09-11-2024 End: 13-81-1531lvmwxhlvpqGZELSt. Vincent's Hospital [facility]chester Ambulatory PPGStart: 08-29-2024 End: 61-88-4267Orsvymdao encounterDeyanira Starkss DO Work Phone: [facility] MedicineStart: 2024 End: 56-16-0864Frbrdkpzs encounterMattie Sam CMAOhioHealth Nelsonville [facility] Center Physicians Internal Medicine - Family MedicineStart: 08-23-2024 End: 64-43-6893kseqozhevjTrqp YuhasFacility:[facility] Start: 08-19-2024 End: 92-81-8069rnfhzxuoezBTAS Augustine [facility] HospitalStart: 07-03-2024 End: 35-04-1186Avnryz flowsheetSteven A Rusher DPM Work Phone: [facility] PODIATRYStart: 07-03-2024 End: 11-99-9123Rbxinv flowsheetSteven A Rusher DPM Work Phone: [facility] PODIATRYStart: 07-03-2024 End: 85-56-4550Bvuuijb encounter procedureSteven A Rusher DPM Work Phone: [facility] PODIATRYComment on above:Dermatophytosis of nail (Primary Dx); Dystrophic nail; Angiopathy, diabetic ([facility]); Type II or unspecified type diabetes mellitus with neurological manifestations, not stated as uncontrolled(250.60) ([facility])Start: 07-03-2024 End: 75-53-7734jzpofoleavNHHLWE A RUSHERNot AvailableStart: 05-05-2024 End: 49-64-5241spplkpiivxGDNH Augustine [facility] Hospitaltart: 01-01-2024 End: 17-75-7333ssqwtxmfuzJRJY L [facility] HospitalStart: 11-01-2023 End: 85-35-4937aktrfhsshgKMKK L [facility] HospitalStart: 10-09-2023 Telephone encounterSteven A Rusher DPM Work Phone: [facility] PODIATRYComment on above:Advice OnlyStart: 09-19-2023 End: 02-03-9445zmtjojmttwBOPXTDA J CASTILLOProMedica Cayuga HospitalStart: 08-05-2020 End: 14-40-8593Qbmgfdr encounter procedureDEYANIRA [facility] Start: 08-05-2020 End: 97-20-5147Zwcyzprcia hospital visit by physicianS[facility] LaboratoryStart: 09-07-2018 End: 36-49-2750Vyhwgsk encounter procedureWAMYRON Robertscility:H1 Procedures DateProcedureProcedure DetailPerforming ClinicianStart: 25-10-6102Nuepu depression screening assessmentDeyanira Tai DO Work Phone: Start: 05-16-3061Jplnpj-up visitFollow-upHARESHGARRY Londono ALCIRAtart: 71-80-9501Qtrnh depression screening assessmentDeyanira Tai DO Work Phone: Start: 04-26-6421Qfvmuoiddukka metabolic panelDeyanira Tai DO Work Phone: Start: 60-48-0298Iatuk depression screening assessment Deyanira Tai DO Work Phone: Start: 29-15-4259Kgrwn depression screening assessment Deyanira Tai DO Work Phone: Start: 22-84-2186Qkmbx depression screening assessment Mattie Sam CMAStart: 68-10-7470Dqaqm count complete auto&auto difrntl wbc DEYANIRA STARKSSStart: 11-47-2368Fszac count complete auto&auto difrntl wbcDeyanira Tai Work Phone: Plan of Treatment DateCare ActivityDetailAuthorStart: 67-44-4499Ciupniogxe ScreeningDepression ScreeningProMedica Health SystemStart: 06-90-9401Orvlonf ScreeningTobacco ScreeningProMedica Health SystemStart: 05-10-2026 End: 50-54-8703Ijukzhf encounter /14/2026 3:15 PM EDT Office Visit [facility] [address] [place] [address] [place] [address] Filipe Son MD [address] [place] [address] [facility] Genito-Urinary SurgeonsStart: 65-10-7190Fqorobb ScreeningTobacco Screening [facility] SystemStart: 03-30-2026 End: 49-78-6468Fkqqqxe encounter vfltafnab38/04/2026 3:00 PM EDT Office Visit [facility] Internal Medicine - Family Medicine [address] [place] [address] KhnIjgbur Physicians Internal Medicine [facility] Hospitaltart: 67-15-1124Yofvrtvlsy ScreeningDepression ScreeningProMercy Memorial Hospital SystemStart: 07-31-2026Medicare Annual Wellness VisitMedicare Annual Wellness VisitProMercy Memorial Hospital SystemStart: 18-68-0330Yduuysn ScreeningTobacco ScreeningClermont County Hospitalca Health SystemStart: 56-49-3063Areq Risk ScreeningFall Risk ScreeningProEast Liverpool City Hospitalca Health SystemStart: 76-55-6991Uajpuenhec ScreeningDepression ScreeningClermont County Hospitalca [facility] SystemStart: 55-99-8729Ktsk Risk ScreeningFall Risk ScreeningClermont County Hospitalca [facility] SystemStart: 79-93-1564Ojtkicu ScreeningTobacco ScreeningClermont County Hospitalca [facility] SystemStart: 28-49-6121Vtvngihefm ScreeningDepression ScreeningMercy Hospital SystemStart: 13-14-8100Scgr Risk ScreeningFall Risk ScreeningClermont County Hospitalca [facility] SystemStart: 65-27-2132Sopcylo ScreeningTobacco ScreeningMercy Hospital SystemStart: 27-87-5616Giymcdb ScreeningTobacco ScreeningMercy Hospital SystemStart: 06-05-2025 End: 73-49-9072Scpevtx encounter procedureProMedica Physicians [facility] Hospitaltart: 05-12-2025 End: 20-63-2007Sfmncvv encounter pimfwvmlj07/16/2025 1:15 PM EDT Procedure Visit [facility] [address] [place] [address] Charlotte Mccullough DPM [address] [place] [address] [facility] PodiatryComment on above:ArrivedStart: 05-07-2025 End: 52-21-0697Kfgykkf encounter guxyoraip15/11/2025 9:30 AM EDT Procedure Visit [facility] [address] [place] [address] Charlotte Mccullough DPM [address] [facility] [place], [place] [id number] [facility] PODIATRYStart: 23-68-0312Kgrovtvuej ScreeningDepression Screening [facility] SystemStart: 84-64-3378Nfjr Risk ScreeningFall Risk Screening [facility] SystemStart: 31-88-2898Gameera ScreeningTobacco Screening [facility] SystemStart: 05-04-2025 End: 53-71-7791Cukbwqb encounter /08/2025 1:15 PM EDT Office Visit [facility] [address] [place] [address] [facility] [address] Filipe Son MD [address] [place] [address] [facility] Genito-Urinary SurgeonsStart: 51-17-1284Xchamtjfs vaccinationMercy Hospital SystemStart: 03-26-2025 End: 09-02-6078Wdnynzq encounter /31/2025 2:20 PM EDT Office Visit [facility] Internal Medicine - Family Medicine [address] [place] [address] [phone] Physicians Internal Medicine - Family MedicineStart: 07-25-2025Medicare Annual Wellness VisitMedicare Annual Wellness VisitMercy Hospital SystemStart: 02-20-2025 End: 02-01-6269Pdznhmy encounter ahhswjorr78/27/2025 9:30 AM EDT Office Visit [facility] Internal Medicine - Family Medicine [address] [place] [address] Deyanira Tai DO [address] [facility] [id number] [facility] Internal Medicine - Family MedicineStart: 01-29-2025 End: 20-79-8864Jtcqmpz encounter procedureNOMS FH PODIATRYComment on above: ArrivedStart: 68-86-8407XYtY,Tdap and Td Vaccines (2 - Tdap)DTaP,Tdap and Td Vaccines (2 - Tdap)[facility] SystemStart: 10-23-2024 End: 49-37-3217Ffmgqde encounter bdqumtadb08/27/2025 9:30 AM EST Procedure Visit [facility] [address] [place] [address] Charlotte Mccullough DPM [address] [place] [address] ArrivedNOMS PODIATRYComment on above:ArrivedStart: 10-21-2024 End: 59-18-4025Zzsnnag encounter wrjudypcv57/25/2025 1:30 PM EST Office Visit [facility] Internal [facility] - Family Medicine [address] [facility] [address] Deyanira Tai, DO [address] [place], [place] [facility] Physicians Internal [facility] MedicineStart: 10-06-2024 End: 08-11-5078Ktidwgu encounter /10/2025 2:45 PM EST Procedure Visit [facility] [address] [place] [address] Charlotte Mccullough DPM [address] [place] [address] [facility] PODIATRYStart: 09-11-2024 End: 31-58-1601Kknacjw encounter tewhetkzy95/16/2025 12:00 PM EST Office Visit [facility] Internal Medicine - Family Medicine [address] [facility] [place] [address] Deyanira Tai, DO [address] [place] [address] [facility]ered[facility] Internal [facility] MedicineStart: 07-03-2024 End: 59-31-4943Glalobg encounter terwirdfc76/07/2024 1:00 PM EST Procedure Visit [facility] [address] [place] [address] Charlotte Mccullough, DPM [address] [place] [address] ArrivedNOMS PODIATRYComment on above:ArrivedStart: 73-50-1337Csxrwhvjw vaccinationInfluenza Vaccine (#1)NOM HealthcareStart: 12-31-2023 End: 18-99-0792Xvemcqq encounter aejvlattp62/06/2024 1:00 PM EDT [facility] [address] [place] [address] Charlotte Mccullough, LEONARD [address] [place] [address] [facility] PODIATRYStart: 55-64-6182Grkxbmats vaccinationInfluenza Vaccine (#1)[facility] Healthcare End: 04-89-3617TNL W Auto Differential panel - BloodCBC auto differential Lab Routine Type 2 diabetes mellitus with peripheral angiopathy ([facility]) 1 Oc currences starting 10/21/2024 until 10/21/2025ProN[facility] Health SystemComment on above:1 Occurrences starting 10/21/2024 until 10/21/2025BC W Auto Differential panel - BloodCBC auto differential Lab Routine Type 2 diabetes mellitus with peripheral angiopathy ([facility]) 10/21/2024 7:13 PM ESTProMedica Health System End: 82-08-2572Rxuwgvzyjifdt metabolic 1999 panel - Serum or PlasmaComprehensive metabolic panel Lab Routine Type 2 diabetes mellitus with peripheral angiopathy ([facility]) 1 Occurrences starting 10/21/2024 until 10/21/2025[facility] Work Phone: Comment on above:1 Occurrences starting 10/21/2024 until 10/21/2025omprehensive metabolic 2000 panel - Serum or Plasma Comprehensive metabolic panel Lab Routine Type 2 diabetes mellitus with peripheral angiopathy ([facility]) 10/21/2024 7:13 PM ihijiGifford Medical CenterNimbuzz [facility] End: 06-46-7069Outelyfyolqxb metabolic 1999 panel - Serum or PlasmaComprehensive metabolic panel Lab Routine Type 2 diabetes mellitus with diabetic peripheral angiopathy without gangrene, with long-term current use of insulin ([facility]) 1 Occurrences starting 06/05/2025 until 06/05/2026[facility] HospitalComment on above:1 Occurrences starting 06/05/2025 until 06/05/2026ompwinslow ind[facility] metabolic 1999 panel - Serum or PlasmaComprehensive metabolic panel Lab Routine Type 2 diabetes mellitus with diabetic peripheral angiopathy without gangrene, with long-term current use of insulin ([facility]) 06/05/2025 9:08 AM [employer] End: 77-97-8129Wpqnlopgvk A1c/Hemoglobin.total in BloodHemoglobin A1c Lab Routine Type 2 diabetes mellitus with peripheral angiopathy ([facility]) 1 Occurrences starting 10/21/2024 until 10/21/2025[facility] HospitalComment on above:1 Occurrences starting 10/21/2024 until 10/21/2025Hemoglobin A1c/Hemoglobin.total in BloodHemoglobin A1c Lab Routine Type 2 diabetes mellitus with peripheral angiopathy ([facility]) 57:13 PM ihijiGifford Medical CenterSkopeo.fr [facility] End: 88-14-9914Wokhibkaxs A1c/Hemoglobin.total in BloodHemoglobin A1c Lab Routine Type 2 diabetes mellitus with diabetic peripheral angiopathy without gangrene, with long-term current use of insulin ([facility]) 1 Occurrences starting 02/20/2025 until 02/20/2026[facility] Medical CenterNimbuzz Work Phone: Comment on above:1 Occurrences starting 02/20/2025 until 02/20/2026Hemoglobin A1c/Hemoglobin.total in BloodHemoglobin A1c Lab Routine Type 2 diabetes mellitus with diabetic peripheral angiopathy without gangrene, with long-term current use of insulin ([facility]) 02/20/2025 10:32 AM [employer] End: 89-04-0962Aeikrjmyna A1c/Hemoglobin.total in BloodHemoglobin A1c Lab Routine Type 2 diabetes mellitus with diabetic peripheral angiopathy without gangrene, with long-term current use of insulin ([facility]) 1 Occurrences starting 06/05/2025 until 06/05/2026[facility] CenterNimbuzz Work Phone: Comment on above:1 Occurrences starting 06/05/2025 until 06/05/2026Hemoglobin A1c/Hemoglobin.total in BloodHemoglobin A1c Lab Routine Type 2 diabetes mellitus with diabetic peripheral angiopathy without gangrene, with long-term current use of insulin ([facility]) 06/05/2025 9:08 AM [employer] [facility] End: 85-05-1329Kxqla 1995 panel - Serum or PlasmaLipid profile Lab Routine Type 2 diabetes mellitus with diabetic peripheral angiopathy without gangrene, with long-term current use of insulin ([facility]) 1 Occurrences starting 06/05/2025 until 06/05/2026[facility] HospitalComment on above:1 Occurrences starting 06/05/2025 until 06/05/2026Lipid 1995 panel - Serum or PlasmaLipid profile Lab Routine Type 2 diabetes mellitus with diabetic peripheral angiopathy without gangrene, with long-term current use of insulin ([facility]) 06/05/2025 9:08 AM [employer] End: 76-48-3855Qxhonkgtmbgz - Albumin: Creatinine Urine RatioMicroalbumin - Albumin: Creatinine Urine Ratio Lab Routine Type 2 diabetes mellitus with peripheralangiopathy ([facility]) 1 Occurrences starting 10/21/2024 until 10/21/2025[facility] HospitalHomuork [facility] SaultComment on above:1 Occurrences starting 10/21/2024 until 10/21/2025Microalbumin - Albumin: Creatinine Urine Ratio Microalbumin - Albumin: Creatinine Urine Ratio Lab Routine Type 2 diabetes mellitus with peripheralangiopathy ([facility]) 10/21/2024 7:12 PM [employer] [facility] Immunizations Immunization DateImmunizationNotesCare ZtbirgokAymdniec65-71-6063acllvbgyy, high dose seasonal, preservative-freeJohn Yuhas DO Work Phone: [facility] CenterSkopeo.fr Dvqxur57-44-5489Gbwyhemtmcdf Conjugate 20-valentJohn RF nanos DO Work Phone: [facility]10-03-2025RSV, bivalent, protein subunit RSVpreF, diluent reconstituted, 0.5 mL, Mckinley Tai DO Work Phone: [facility] HospitalPhpoxy71-20-5733rwcehontt, high dose seasonal, preservative-freeSteven Rusher DPM Work Phone: [phone] [place], [place] [address]Jhokrmuqpa42-13-1898yzyliakfy virus vaccine, unspecified formulationSteven Rusher DPM Work Phone: [phone] [place], [place] [address]Qtqgeawxtg29-34-3247yivqfz vaccine recombinant Charlotte Rusher DPM Work Phone: [phone] [place], [place] [address]Jewcpzpwbm32-40-6255jqhccx vaccine recombinant Charlotte Rusher DPM Work Phone: [phone] [place], [place] [address]Pshmxiqcid88-21-1416Iqavhleb, quadrivalent, recombinant, injectable influenza vaccine, preservative freeSteven Rusher DPM Work Phone: [phone] [place], [place] [address]Hvkrxlkrqr08-65-0913egeabteeu virus vaccine, unspecified formulationSteven Rusher DPM Work Phone: [phone] [place], [place] [address]Zaeoqzaddb30-74-8386mtgkwsgzp, injectable, quadrivalent, preservative freeSteven Rusher DPM Work Phone: [phone] [place], [place] [address]Seefhkpyvu48-70-7786Sbxdjjt GPHB-SxP-5Bmnimk Rusher DPM Work Phone: [phone] [place], [place] [address]Tkmidpzxzd81-74-9091Pnbxhcc CBLW-AnP-8Gxtnpq Rusher DPM Work Phone: [phone] [place], [place] [address]Fedxcucqhk48-71-7200uvrckyztj, intradermal, quadrivalent, preservative free, injectableSteven Rusher DPM Work Phone: [phone] [place], [place] [address]Ukfjdtljje28-16-6873fkcqaalwq, high dose seasonal, preservative-freeSteven Rusher DPM Work Phone: [phone] [place], [place] [address]Esobhzaxoa84-75-7940Paujbxhri, injectable, Madin [place] Canine Kidney, preservative free, quadrivalentSteven Rusher DPM Work Phone: [phone] [place], [place] [address]Glxgsyyypg97-63-3460pfaitqfri, high dose seasonal, preservative-freeSteven Rusher DPM Work Phone: [phone] [place], [place] [address]Wmtpdhtyzy65-34-8607urzlmygas, injectable, quadrivalent, preservative freeSteven Rusher DPM Work Phone: [phone] [address] StreetVdvqtoposy72-59-6713jbdbrgfapgpg conjugate vaccine, 13 valentSteven Rusher DPM Work Phone: [phone] [address] StreetDrvzvckscr88-69-9452zfoukhmeh, seasonal, injectable, preservative freeSteven Rusher DPM Work Phone: [phone] Nelson StreetVsiagemngy42-97-9307zggozcjdfzlt polysaccharide vaccine, 23 valentSteven Rusher DPM Work Phone: [phone] Nelson StreetVtpycsynfz11-14-9850kbjidzrzy, seasonal, injectable, preservative freeSteven Rusher DPM Work Phone: [phone] [place], [place] [address]Pomnuvjnek72-59-6817ixnqsvhugh, tetanus toxoids and acellular pertussis vaccineSteven Rusher DPM Work Phone: [phone] Nelson StreetCepavpqzmj48-30-6593qgvifoxbpdoi conjugate vaccine, 13 valentSteven Rusher DPM Work Phone: [phone] [place], [place] [address]Ermcnedtze28-85-9780iubdellwn virus vaccine, unspecified formulationSteven Rusher DPM Work Phone: [phone] [place], [place] [address]Zceasnicnv22-34-8023oxckhp vaccine, liveSteven Rusher DPM Work Phone: [phone] [address] [place] [address] Payers DatePayer CategoryPayerPolicy [id number]-pay2022MedicaidAETNA MEDICARE ADVANTAGE [id number] 2022MedicareAETNA MEDICARE ADVANTAGE AETNA MEDICARE REPLACEMENT [id number] 2021-Present [address] [place] [id number]. [id number] 2020Medicare O AETNA MEDICARE Member Subscriber Plan / Payer (Effective 2019-) Name: Rosetta Keith MMember ID: [id number] Relation to Subscriber: Self Name: Rosetta Keith Payer ID: 1 (NAIC) Type: Not on file Address: [address] [place] [id number] 2020Medicare [id number] [id number] [id number] 2..1.397500.3.57[id number] 2.0.1.164013.3.57[id number] 2.0.1.911490.3.57[id number] 2.0.1.871564.3.57[id number] 2.16840.1.322624.3.57[id number] 2.16840.1.326824.3.57[id number] 2.16840.1.187085.3.57[id number] 2.16840.1.520621.3.57[id number] 2.840.1.006077.3.57[id number] 2.840.1.446991.3.57[id number] 2.840.1.078646.3.57[id number] 2.840.1.255644.3.57[id number] 2.840.1.693651.3.57[id number] 2.84.1.437409.3.57[id number] 2.840.1.882032.3.57[id number] 2.840.1.988117.3.57[id number] 2.840.1.998301.3.57[id number] 2.840.1.523911.3.57[id number] 2.840.1.700609.3.57[id number] 2.16.840.1.949216.3.579.2.1286 Social History DateTypeDetailFacilityTobacco smoking status NHISUnknown if ever smokedMercy Health – The [facility] Hospital: 22-30-0359Paf Assigned At BirthNot on fileMercy Health – The Jewish Hospital: 03-07-2023 End: 19-06-3120Mdagrsa smoking status NHISNever smoked tobaccoNOMS Healthcare Start: 09-25-2023 End: 40-21-8285Vbmwfvm intakeLifetime non-drinker (finding)[facility] HealthcareStart: 02-20-2023 End: 90-06-0390Uionhme of Social functionMercy Hospital SystemStart: 02-20-2023 End: 54-26-1391Nhfywuv use panelMission Hospital McDowelltart: 17-30-7200Gmsplzl CommentCaffeine intake: noneNOMS HealthcareStart: 06-19-2022 End: 20-83-0320Dtcmshf use and exposureSmokeless tobacco non-userNOMS Healthcare Start: 46-14-9819Hxvmkdu smoking status NHISEx-smokerMercy Hospital System History of tobacco useCurrent smokerMorrow County HospitalHistory of tobacco useCigarette SmokerMercy Hospital SystemStart: 05-05-2024 End: 50-54-7138Xlnrshspd beverage intakeEx-drinker (finding)[facility] Foody SystemHas the VALOREM, oil, or water Playrific threatened to shut off services in your home in past 12MoNBucyrus Community Hospital SystemAre you now , , , , never or living with a partner? [facility] Health SystemHow often to you have a drink containing alcohol?Never [facility] Foody SystemHow many standard drinks containing alcohol do you have on a typical day?Patient does not drinkOhioHealth Nelsonville Health Center Health SystemDo you feel stress - tense, restless, nervous, or anxious, or unable to sleep at night because yourmind is troubled all the time - these days [OSQ]Only a littleOhioHealth Nelsonville Health Center Foody [facility] Centertart: [id number] assigned at [facility] Start: 67-00-9809MjwCrengg (finding)[facility] Food[facility] Centertart: 12-07-2022 Gender identityIdentifies as female gender (finding)[facility] HospitalHow hard is it for you to pay for the very basics like food, housing, medical care, and heatingNot very hardMorrow County Hospital Medical Equipment Procedure CodeEquipment CodeEquipment Original TextEquipment IdentifierDates1 Syringe by miscellaneous route in the morning.[id number]: 11-09-2023 End: Pen Needle by miscellaneous route in the morning.[id number] Start: 02-15-2024 Goals DatePatient GoalDesired Activity/StatePersonal health goalComment on above: Evaluation of progress towards goal: Discharge to [facility] inpatient rehab Clinical Notes 10-09-2023 to 07-03-2025 Note Date & [id number] History of Present illness Narrative* Deyanira Tai DO - 07/03/2025 3:57 PM EST On 06/26/2025, I received notification from the assisted living that once again, he patient was having problems choking and coughing when eating. Patient had previously been seen and treated by [facility] home health and speech therapy in February and March of this year because of problems with coughing and choking, and on 03/23/2025 they recommended that she start a regular diet. Impression: Dysphagia Plan: I am requesting that home health and speech therapy re-evaluate the patient regarding her ongoing dysphagia problems. Order given to resume speech therapy documented in this encounterMorrow County Hospital11-05-2025 Miscellaneous Notes* Telephone Encounter - Caren Mckeon CMA - 07/01/2025 2:39 PM EST Valeriano Quintanilla put in a referral for pt to receive speech therapy From [facility]. [facility] is asking you to follow pt for speech needs. Thank you. * Telephone Encounter - Deyanira Tai DO - 07/01/2025 2:39 PM EST Message noted. I can follow * Telephone Encounter - Barbie Holm CMA - 07/01/2025 2:39 PM EST Birgit from [facility] called and would like you to [...] what happened, and it is available in [employer], dated for today (07/03/2025). * Telephone Encounter - Mattie Sam CMA - 07/01/2025 2:39 PM EST FAXED NOTE documented in this encounterMorrow County Hospital11-05-2025 Telephone encounter Note* Telephone Encounter - Caren Mckeon CMA - 07/01/2025 2:39 PM EST Valeriano Quintanilla put in a referral for pt to receive speech therapy From [facility]. [facility] is asking you to follow pt for speech needs. Thank you. [facility]11-05-2025 Telephone encounter Note* Telephone Encounter - Deyanira Tai DO - 07/01/2025 2:39 PM EST Message noted. I can follow [facility]11-05-2025 Telephone encounter Note* Telephone Encounter - Barbie Holm CMA - 07/01/2025 2:39 PM EST Birgit from [facility] called and would like you to addend the note on 06/05 to need for speech to verify that the RN to open. [facility]11-05-2025 Telephone encounter Note* Telephone Encounter - Deyanira Tai DO - 07/01/2025 2:39 PM EST Message noted. I can not addend the last progress note, because we did not discuss dysphagia at that visit. However, I made a new note which more accurately reflects what happened, and it is available in [employer], dated for today (07/03/2025). [facility]11-05-2025 Telephone encounter Note* Telephone Encounter - Mattie Sam CMA - 07/01/2025 2:39 PM EST FAXED NOTE [facility]10-10-2025 History of Present illness Narrative* Deyanira Tai DO - 06/05/2025 8:30 AM EDT IM PROGRESS NOTE Patient - Rosetta Keith Age - 84 y.o. - 1940 ASSESSMENT & PLAN 1. Type 2 diabetes mellitus with diabetic peripheral angiopathy without gangrene, with long-term current use of insulin ([facility]) (Primary) -goals of treatment reviewed with the [...] continuous. Patient experiences hypoglycemia Rarely. 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 Current [...] Exam Vitals reviewed. Exam conducted with a aircraft mechanic structures present (Friend/POA). Constitutional: General: She is not [...] 90tablet, Rfl: 1 blood-glucose meter,continuous ([employer]) misc, 1 each by miscellaneous route every [...] Testing No results found. Deyanira Tai DO., [facility] Office: [phone] documented in this encounterMorrow County Hospital09-16-2025 History of Present illness Narrative* Charlotte Mccullough, [...] understanding. Charlotte Mccullough DPM documented in this [facility]09-16-2025 Instructions* Patient Instructions* Charlotte Mccullough DPM - 05/12/2025 1:15 PM EDT As noted documented in this [facility]09-08-2025 History of Present illness Narrative* Filipe Son MD - 05/04/2025 1:15 PM EDT Images from the original note were not included. [address] [id number] Patient: Rosetta Keith Date of : 1940 [...] in both eyes COVID 06/2020 Diabetes mellitus ([facility]) Glaucoma HL (hearing loss) Hyperlipidemia Macular degeneration Pneumonia Stroke ([facility]) Urinary incontinence Urinary tract infection Vaginal cancer ([facility]) 2005 Vaginal cyst Visual impairment Past Surgical History: Procedure Laterality Date CATARACT EXTRACTION CHOLECYSTECTOMY CYSTOSCOPY [facility] SOLUTION N/A 03/20/2022 Performed by Filipe Son MD at [facility] DENTAL SURGERY SEPTOPLASTY TOE SURGERY Family History [...] 90 tablet 1 blood-glucose meter,continuous ([employer]) misc 1 each by miscellaneous route every [...] trial. Order written to such. For her retirement. See back in a year ==== 04/30/2024 ==== she is on Detrol by verbal report there was no AK are given by her facility. I did write in the progress note for her to continue on with the medication. Will see her back in 1 year ==== 12/26/2023 ==== does not appear she took the Detrol. [facility]. Will see her back in [...] you for your understanding. documented in this encounterMorrow County Hospital08-29-2025 History of Present illness Narrative* Deyanira Tai DO - 04/24/2025 8:20 AM EDT A user error has taken place: encounter opened in error, closed for administrative reasons. documented in this [facility]2025 History of Present illness Narrative* Deyanira Tai DO - 04/23/2025 4:30 PM EDT Images from the original note were not included. IM PROGRESS NOTE Patient - Rosetta Keith Age - 84 y.o. - 1940 [id number] ASSESSMENT & PLAN Video Visit via Real-time Synchronous Audiovisual [facility] [address] [facility] [address] Patient Location: Patient's home Video Visit Consent [...] that there are some limitations compared to bbor-ah-xewj evaluations. The patient consented to the presence [...] visit. Physical Exam Exam conducted with a aircraft mechanic structures present (ORTEGA). Constitutional: General: She is not [...] 90tablet, Rfl: 1 blood-glucose meter,continuous ([employer]) misc, 1 each by miscellaneous route every [...] Testing No results found. Deyanira Tai DO., [facility]: [phone] documented in this encounterMorrow County Hospital07-31-2025 History of Present illness Narrative* Deyanira Tai [...] Do you have a durable power of state's attorney?: (Patient-Rptd) Yes Cognitive Screening Do you [...] 1 year (around 03/26/2026). documented in this encounterMorrow County Hospital07-08-2025 Miscellaneous Notes* Telephone Encounter - France Franz RN - 03/03/2025 6:45 PM EDT Contract: 198 Calling about bilateral legs, both are red and warm to touch. * Telephone Encounter - France Franz RN - 03/03/2025 6:45 PM EDT Deyanira Tai DO called, LM on vm to call after hours * Telephone Encounter - France Frnaz RN - 03/03/2025 6:[address] Tai returned call, called sending, no answer, LM to call after hours. documented in this encounterMorrow County Hospital07-08-2025 Telephone encounter Note* Telephone Encounter - France Franz RN - 03/03/2025 6:45 PM EDT Contract: 198 Calling about bilateral legs, both are red and warm to touch. [facility]07-08-20[facility] Telephone encounter Note* Telephone Encounter - France Franz RN - 03/03/2025 6:45 PM EDT Deyanira Tai DO called, LM on vm to call after hours [facility]07-08-2025 Telephone encounter Note* Telephone Encounter - France Franz RN - 03/03/2025 6:[address] Tai returned call, called sending, no answer, LM to call after hours. [facility]06-27-2025 History of Present illness Narrative* Deyanira Tai DO - 02/20/2025 9:30 AM EDT IM PROGRESS NOTE Patient - Rosetta Keith Age - 84 y.o. - 1940 ASSESSMENT & PLAN 1. Type 2 diabetes mellitus with peripheral angiopathy ([facility]) (Primary) - goals of treatment were reviewed [...] Chronic obstructive pulmonary disease, unspecified COPD type ([facility]) - currently taking Advair/Wixela b.I.d. - symptoms [...] Exam Vitals reviewed. Exam conducted with a aircraft mechanic structures present (Friend/POA). Constitutional: General: She is not [...] tablet, Rfl: 1 blood-glucose meter,continuous ([employer]) misc, 1 each by miscellaneous route every [...] No results found. ECG: Deyanira Tai DO., [facility]: [phone] documented in this encounterMorrow County Hospital06-05-2025 History of Present illness Narrative* Charlotte Mccullough, [...] understanding. Charlotte Mccullough DPM documented in this encounterMercy hospital springfieldHirjlxpsea85-21-1357 History of Present illness Narrative* Charlotte Mccullough [...] understanding. Charlotte Mccullough DPM documented in this [facility]02-27-2025 Instructions* Patient Instructions* Charlotte Mccullough DPM - 10/23/2024 9:30 AM EST As noted documented in this [facility]02-25-2025 History of Present illness Narrative* Deyanira Tai, - 10/21/2024 1:30 PM EST IM PROGRESS NOTE Patient - Rosetta Keith Age - 84 y.o. - 1940 [id number] ASSESSMENT & PLAN 1. Type 2 diabetes mellitus with peripheral angiopathy ([facility]) (Primary) -goals of treatment reviewed with the [...] Chronic obstructive pulmonary disease, unspecified COPD type ([facility]) -no reported flare-ups -continue albuterol q.i.d. as [...] Exam Vitals reviewed. Exam conducted with a aircraft mechanic structures present (Friend). Constitutional: General: She is not [...] tablet, Rfl: 1 blood-glucose meter,continuous ([employer]) misc, 1 each by miscellaneous route every [...] Testing No results found. Deyanira Tai DO., [facility]: [phone] documented in this encounterMorrow County Hospital02-22-2025 Miscellaneous Notes* Telephone Encounter - Keiry Valdez - 10/18/2024 2:25 PM EST Contract: [address] [place] [address] Assisted Living RE possible cellulitis of patient on legs * Telephone Encounter - Keiry Valdez - 10/18/2024 2:25 PM EST Contract: [address] Tai and left message to call [facility] * Telephone Encounter - Adry Rosa - 10/18/2024 2:[address] [facility] Olmedo documented in this encounterMorrow County Hospital02-22-2025 Telephone encounter Note* Telephone Encounter - Keiry Valdez - 10/18/2024 2:25 PM EST Contract: 198 [facility] Assisted Living RE possible cellulitis of patient on legs [facility]02-22-2025 Telephone encounter Note* Telephone Encounter - Keiry Valdez - 10/18/2024 2:25 PM EST Contract: [address] Tai and left message to call [facility]02-22-2025 Telephone encounter Note* Telephone Encounter - Adry Rosa - 10/18/2024 2:[address] [facility] Israely [facility]01-27-2025 Miscellaneous Notes* Telephone Encounter - Deyanira Tai DO - 09/22/2024 1:30 PM EST Duplicate requests documented in this encounterMorrow County Hospital01-27-2025 Telephone encounter Note* Telephone Encounter - Deyanira Tai DO - 09/22/2024 1:30 PM EST Duplicate requests Apaja [id number] History of Present illness Narrative* Deyanira Tai DO - 09/11/2024 12:00 PM EST IM PROGRESS NOTE Patient - Rosetta Keith Age - 84 y.o. - 1940 [facility] [id number] ASSESSMENT & PLAN 1. Pressure injury of [...] Chronic obstructive pulmonary disease, unspecified COPD type ([facility]) -stable symptoms. -continue albuterol q.i.d. p.r.n. -continue Advair 250-50 b.i.d., although this may need to be changed due to formulary change 3. Mild recurrent major depression ([facility]) -continue mirtazapine 4. Obesity, morbid ([facility]) -overall stable -patient really is not a good candidate for aggressive attempts at weight loss 5. Type 2 diabetes mellitus with peripheral angiopathy ([facility]) -her CGM report was reviewed and appears [...] kg/m Physical Exam Exam conducted with a aircraft mechanic structures present (ORTEGA/LEESA (Cyrus)). Constitutional: General: She is [...] tablet, Rfl: 1 blood-glucose meter,continuous ([employer]) misc, 1 each by miscellaneous route every [...] Testing No results found. Deyanira Tai DO., [facility]: [phone] documented in this encounterMorrow County Hospital01-03-2025 Miscellaneous Notes* Telephone Encounter - Justina Zapata - 08/29/2024 9:09 AM EST Patients health care coach called and asked if you could send the medications for her UTI to [facility] please and thank you * Telephone Encounter - Deyanira Tai DO - 08/29/2024 9:09 AM EST Message noted. Done. Bactrim DS bid x 5 days * Telephone Encounter - Justina Zapata - 08/29/2024 9:09 AM EST Notified documented in this [facility]01-03-2025 Telephone encounter Note* Telephone Encounter - Justina Zapata - 08/29/2024 9:09 AM EST Patients health care coach called and asked if you could send the medications for her UTI to [facility] please and thank you [facility]01-03-2025 Telephone encounter Note* Telephone Encounter - Deyanira Tai DO - 08/29/2024 9:09 AM EST Message noted. Done. Bactrim DS bid x 5 days [facility]01-03-2025 Telephone encounter Note* Telephone Encounter - Justina Zapata - 08/29/2024 9:09 AM EST Notified Ap[facility] [id number] Miscellaneous Notes* Telephone Encounter - Mattie Sam CMA - 2024 3:00 PM EST The nurse at the [facility] called and stated that they were wondering if there are any orders for the urine culture. * Telephone Encounter - Deyanira Tai DO - 2024 3:00 PM EST Message noted. I sent an order for Bactrim to their pharmacy over a week ago. * Telephone Encounter - Barbie Holm CMA - 2024 3:00 PM EST Shara NASH from [facility] called and would like you to [...] Dispense: 6 tablet Refills: 0 ordered Pharmacy: [address] ( ) * Telephone Encounter - Mattie Sam CMA - 2024 3:00 PM EST I spoke to Lizzy the RN on staff today. She is going to call pharmacy to find out where the medication is. documented in this encounterMorrow County Hospital01-02-2025 Telephone encounter Note* Telephone Encounter - Mattie Sam CMA - 2024 3:00 PM EST The nurse at the [facility] called and stated that they were wondering if there are any orders for the urine culture. [facility]01-02-2025 Telephone encounter Note* Telephone Encounter - Deyanira Tai DO - 2024 3:00 PM EST Message noted. I sent an order for Bactrim to their pharmacy over a week ago. [facility]01-02-2025 Telephone encounter Note* Telephone Encounter - Barbie Holm CMA - 2024 3:00 PM EST Shara NASH from [facility] called and would like you to look at the urine results that were sent over and if you had any new orders? [facility]01-02-2025 Telephone encounter Note* Telephone Encounter - Matite Sam CMA - 2024 3:00 PM EST Where was the bactrium sent to because I did not see and orders for bactrium. [facility]01-02-2025 Telephone encounter Note* Telephone Encounter - Deyanira Tai DO - 2024 3:00 PM EST Message noted. Bactrim (Trimethoprim-Sulfamethoxizole) Take 1 tablet by mouth in the morning and 1 tablet before bedtime. Do all this for 3 days., Starting Jacqui 08/21/2024, Until 08/24/2024, Normal Dispense: 6 tablet Refills: 0 ordered Pharmacy: [address] ( ) [facility]01-02-2025 Telephone encounter Note* Telephone Encounter - Mattie Sam CMA - 2024 3:00 PM EST I spoke to Lizzy the RN on staff today. She is going to call pharmacy to find out where the medication is. [facility]11-07-2024 History of Present illness Narrative* Charlotte Mccullough [...] understanding. Charlotte Mccullough DPM documented in this [facility]11-07-2024 Instructions* Patient Instructions* Charlotte Mccullough DPM - 07/03/2024 1:00 PM EST As noted documented in this [facility]02-13-2024 Telephone encounter Note* Telephone Encounter - Valentina Torres - 10/09/2023 1:09 PM EST Was updated by Dr. Tai office that the patient is now going into [facility] assisted Living facility so we will no longer continue diabetic shoes. [facility] [phone] Miscellaneous Notes* Telephone Encounter - Valentina Torres - 10/09/2023 1:09 PM EST Was updated by Dr. Tai office that the patient is now going into [facility] assisted Living facility so we will no longer continue diabetic shoes. [facility]* Diagnosis Dermatophytosis of nail- Primary Dystrophic nail Other specified disease of nail Angiopathy, diabetic ([facility]) Type II or unspecified type diabetes mellitus with peripheral circulatory disorders, not stated as uncontrolled Type II or unspecified type diabetes mellitus with neurological manifestations, not stated as uncontrolled(250.60) ([facility]) Type II or unspecified type diabetes mellitus with neurological manifestations, not stated as uncontrolled documented in this encounter [facility] Healthcare[facility]* Diagnosis Urinary retention- Primary Unspecified retention of urine Urinary retention- Primary Unspecified retention of urine Urinary retention- Primary Unspecified retention of urine Urinary urgency Urgency of urination Hyperlipidemia, unspecified hyperlipidemia type [facility] encounter [facility]* Diagnosis Urinary retention- Primary Unspecified retention of urine Urinary retention- Primary Unspecified retention of urine Urinary retention- Primary Unspecified retention of urine Urinary urgency Urgency of urination Pressure injury of right buttock, stage 1- Primary Chronic obstructive pulmonary disease, unspecified COPD type ([facility]) Mild recurrent major depression ([facility]) Major depressive disorder, recurrent episode, mild Obesity, morbid ([facility]) Morbid obesity Type 2 diabetes mellitus with peripheral angiopathy ([facility]) documented [facility] encounter [facility]* Diagnosis Urinary retention- Primary Unspecified retention of urine Urinary retention- Primary Unspecified retention of urine Urinary retention- Primary Unspecified retention of urine Urinary urgency Urgency of urination Urinary urgency Urgency of urination Essential hypertension Unspecified essential hypertension [facility] encounter [facility]* Diagnosis Urinary retention- Primary Unspecified retention of urine Urinary retention- Primary Unspecified retention of urine Urinary retention- Primary Unspecified retention of urine Urinary urgency Urgency of urination Essential hypertension Unspecified essential hypertension documented in this [facility] Urinary [facility]- Primary Unspecified retention of urine Urinary retention- Primary Unspecified retention of urine Urinary retention- Primary Unspecified retention of urine Urinary urgency Urgency of urination Essential hypertension Unspecified essential hypertension Hyperlipidemia, unspecified hyperlipidemia type Urinary urgency Urgency of urination [facility] Diagnosis Urinary retention- Primary Unspecified retention of urine Urinary retention- Primary Unspecified retention of urine Urinary retention- Primary Unspecified retention of urine Urinary urgency Urgency of urination Type 2 diabetes mellitus with peripheral angiopathy ([facility])- Primary Edema of both lower legs Chronic obstructive pulmonary disease, unspecified COPD type ([facility]) Essential hypertension Unspecified essential hypertension [facility] Diagnosis Dermatophytosis of nail- Primary Dystrophic nail Other specified disease of nail Angiopathy, diabetic ([facility] [place] [facility]) Type II or unspecified type diabetes mellitus with peripheral circulatory disorders, not stated as uncontrolled Type II or unspecified type diabetes mellitus with neurological manifestations, not stated as uncontrolled(250.60) ([facility] [place]) Type II or unspecified type diabetes mellitus with neurological manifestations, not stated as uncontrolled [facility] Diagnosis Urinary retention- Primary Unspecified retention of urine Urinary retention- Primary Unspecified retention of urine Urinary retention- Primary Unspecified retention of urine Urinary urgency Urgency of urination Type 2 diabetes mellitus with peripheral angiopathy ([facility]) [facility] Diagnosis Urinary retention- Primary Unspecified retention of urine Urinary retention- Primary Unspecified retention of urine Urinary retention- Primary Unspecified retention of urine Urinary urgency Urgency of urination Restless legs Restless legs syndrome (RLS) 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, recurrent episode, mild [facility] Diagnosis Urinary retention- Primary Unspecified retention of urine Urinary retention- Primary Unspecified retention of urine Urinary retention- Primary Unspecified retention of urine Urinary urgency Urgency of urination Type 2 diabetes mellitus with diabetic peripheral angiopathy without gangrene, with long-term current use of insulin ([facility])- Primary Essential hypertension Unspecified essential hypertension Chronic obstructive pulmonary disease, unspecified COPD type ([facility]) Oropharyngeal dysphagia Dysphagia, oropharyngeal phase Vitamin B12 deficiency Other B-complex deficiencies documented in this encounter [facility] Diagnosis Urinary retention- Primary Unspecified retention of urine Urinary retention- Primary Unspecified retention of urine Urinary retention- Primary Unspecified retention of urine Urinary urgency Urgency of urination Essential hypertension Unspecified essential hypertension documented in this encounter [facility] Diagnosis Urinary retention- Primary Unspecified retention of urine Urinary retention- Primary Unspecified retention of urine Urinary retention- Primary Unspecified retention of urine Urinary urgency Urgency of urination Encounter for subsequent annual wellness visit (AWV) in Medicare patient- Primary documented in this encounter [facility] Diagnosis Urinary retention- Primary Unspecified retention of urine Urinary retention- Primary Unspecified retention of urine Urinary retention- Primary Unspecified retention of urine Urinary urgency Urgency of urination Hyperlipidemia, unspecified hyperlipidemia type documented in this encounter [facility] Diagnosis Urinary retention- Primary Unspecified retention of urine Urinary retention- Primary Unspecified retention of urine Urinary retention- Primary Unspecified retention of urine Urinary urgency Urgency of urination Cellulitis of finger of right hand- Primary documented in this encounter [facility]* Diagnosis Urinary retention- Primary [...] Other specified disease of nail Angiopathy, diabetic ([facility]) Type II or unspecified type diabetes mellitus with peripheral circulatory disorders, not stated as uncontrolled Type II or unspecified type diabetes mellitus with neurological manifestations, not stated as uncontrolled(250.60) ([facility]) Type II or unspecified type diabetes mellitus with neurological manifestations, not stated as uncontrolled documented in this encounter [facility]* Diagnosis Urinary retention- Primary Unspecified retention of urine Urinary retention- Primary Unspecified retention of urine Urinary retention- Primary Unspecified retention of urine Urinary urgency Urgency of urination Essential hypertension Unspecified essential hypertension [facility] Diagnosis Urinary retention- Primary Unspecified retention of urine Urinary retention- Primary Unspecified retention of urine Urinary retention- Primary Unspecified retention of urine Urinary urgency Urgency of urination Chronic obstructive pulmonary disease, unspecified COPD type ([facility]) [facility] Diagnosis Urinary retention- Primary Unspecified retention of urine Urinary retention- Primary Unspecified retention of urine Urinary retention- Primary Unspecified retention of urine Urinary urgency Urgency of urination Urinary urgency Urgency of urination documented [facility] this [facility] Diagnosis Urinary retention- Primary Unspecified retention of urine Urinary retention- Primary Unspecified retention of urine Urinary retention- Primary Unspecified retention of urine Urinary urgency Urgency of urination Type 2 diabetes mellitus with diabetic peripheral angiopathy without gangrene, with long-term current use of insulin ([facility])- Primary Essential hypertension Unspecified essential hypertension Restless [...] TypeDate RecordedPatient RepresentativeExplanationDurable Power of AttorneyDate ActivatedDate IzmlbkgaqrwLciqqiow95/26/2021 10:39 PM06/29/2021 7:07 PMDate ActivatedDate KglomupndgmNluqkqgt60/3/2020 5:37 PM08/02/2020 5:28 PMDate ActivatedDate JgubvntferpUzxodobd80/28/2020 2:17 PM07/29/2020 4:12 PMDate ActivatedDate GbqkwmollqfVpjhamgo08/27/2020 2:43 PM07/23/2020 7:03 PMTypeDate RecordedPatient RepresentativeExplanationDurable Power of AttorneyDNR Physician Order03/17/2025 10:27 AM06/Date ActivatedDate InactivatedComments03/17/2025 10:26 AMThis order was created through External Result EntryDate ActivatedDate XrlptcmkqxuPdndtqwh14/26/2021 10:39 PM06/29/2021 7:07 PMDate ActivatedDate UoquxhxmudqXbnuszwt25/3/2020 5:37 PM08/02/2020 5:28 PMDate ActivatedDate HbwbsyvsoruZtanwsyb69/28/2020 2:17 PM07/29/2020 4:12 PMDate ActivatedDate HudbaecpmjsJcuzeqzy14/27/2020 2:43 PM07/23/2020 7:03 PM Additional Source Comments INFORMATION SOURCE (unrecogn ized section and content) DATE CREATED AUTHOR 10/14/2018 [facility] DATE CREATED AUTHOR AUTHOR'S ORGANIZ ATION 08/07/2020 [facility] DATE CREATED AUTHOR AUTHOR'S ORGANIZ ATION 07/14/[address] [facility] DATE CREATED AUTHOR AUTHOR'S ORGANIZ ATION 04/21/2022 [facility] DATE CREATED AUTHOR AUTHOR'S ORGANIZ ATION 08/23/2024 [facility] DATE CREATED AUTHOR AUTHOR'S ORGANIZ ATION 08/27/2024 [facility] DATE CREATED AUTHOR AUTHOR'S ORGANIZ ATION 10/23/2024 [facility] DATE CREATED AUTHOR AUTHOR'S ORGANIZ ATION 05/13/2025 [facility] DATE CREATED AUTHOR AUTHOR'S ORGANIZ ATION 06/07/2025 [facility] Reason for Visit (unrecogniz ed section and content) ReasonOnset DateCommentsAdvice Only10/09/2023easonCommentsNail careRosetta Keith is a 83 y.o. female who presents for DM Foot Care PCP: Dr. William CUELLAR 05/05/2024, A1C: 6.4, BS: 160.ReasonCommentsMed RefillReasonCommentsbed sores ReasonOnset DateCommentsMed Mdzxee4809/22/2024ReasonOnset DateCommentsCellulitis 10/18/2024ReasonCommentsDiabetesReasonCommentsDM Foot CarePt is here today with a friend requesting diabetic foot careBS: 120 A1C: 6.7LV Dr. Tai 10-21-2024SS: 6ReasonCommentsMed Change RequestReasonCommentsDM Foot CareEstablished patient presents today for routine diabetic nail care. PCP: Dr. William CUELLAR 10/21/24, A1C: 6 .7, BS: <300, SS: 6ReasonCommentsmawReasonOnset DateCommentsMed Xzcjjp2004/10/2025 ReasonOnset DateCommentsAdvice Only04/24/2025This was opened in errorReason CommentsFollow-upReasonOnset DateCommentsMed Gbhojk6205/08/2025ReasonCommentsDM Foot CarePt presents today requesting diabetic foot care, Her friend Dione is with her today.BS: 135 A1C: 7.3LV Dr. Tai 03-26-2025SS: 6.5XWReasonComments DiabetesTdap and Flu shot Care Teams (unrecognized sec tion and content) Team MemberRelationshipSpecialtyStart DateEnd Date Deyanira Tai MD [address] [place] [address] PCP - GeneralInternal Medicine03/06/23Team MemberRelationshipSpecialtyStart Date End Date Deyanira Tai MD [address] [place] [address] PCP - GeneralInternal Medicine03/06/23Team MemberRelationshipSpecialtyStart Date End Date Deyanira Tai MD [address] [place] [address] PCP - GeneralInternal Medicine03/06/23Team MemberRelationshipSpecialtyStart Date End Date Deyanira Tai DO [address] [place] [address] PCP - GeneralInternal Nhvqeljz41/8/17Team MemberRelationshipSpecialtyStart Date End Date Deyanira Tai DO [address] [place] [address] PCP - GeneralInternal Laofngwc90/8/17Team MemberRelationshipSpecialtyStart Date End Date Deyanira Tai DO [address] [place] [address] PCP - GeneralInternal Pamdcjqs29/8/17Team MemberRelationshipSpecialtyStart Date End Date Deyanira Tai, DO [address] [place] [address] PCP - GeneralInternal Umfxkzri15/8/17Team MemberRelationshipSpecialtyStart Date End Date Deyanira Tai DO [address] [place] [address] PCP - GeneralInternal Grvbotyu27/8/17Team MemberRelationshipSpecialtyStart Date End Date Deyanira Tai DO [address] [place] [address] PCP - GeneralInternal Bdvlizcf48/8/17am MemberRelationshipSpecialtyStart Date End Date Deyanira Tai MD [address] [place] [address] PCP - GeneralInternal Medicine03/06/23Team MemberRelationshipSpecialtyStart Date End Date Deyanira Tai DO [address] [place] [address] PCP - GeneralInternal Cuipmuop56/8/17Team MemberRelationshipSpecialtyStart Date End Date Deyanira Tai DO [address] [place] [address] P[address] - [facility]07/04/17[facility] MemberRelationshipSpecialtyStart Date End Date Deyanira Tai DO [address] [place] [address] [facility]07/04/17Te MemberRelationshipSpecialtyStart Date End Date Deyanira Tai DO [address] [place] [address] [facility]07/04/17Te MemberRelationshipSpecialtyStart Date End Date Deyanira Tai DO [address] [place] [address] [facility]07/04/17[facility] MemberRelationshipSpecialtyStart Date End Date Deyanira Tai DO [address] [place] [address] [facility]07/04/17Te MemberRelationshipSpecialtyStart Date End Date Deyanira Tai DO [address] [place] [address] [facility]07/04/17 FOR RECORDS PERTAINING TO PATIENTS WHO [...] BE BASED ON THE PRIMARY CLINICAL RECORDS. [employer] provides no warranty or guarantee of the accuracy or completeness of information in this document.
== END 2025-08-04 10:29 | disposition home or self-care (01) ==
LOC: RAD 10:29
PROVIDERS: PCP Internal Medicine; Visit Provider Internal Medicine
DX: S62.617D Displaced fracture of proximal phalanx of left little finger, subsequent encounter for fracture with routine healing (principal)
CPT/HCPCS: 73130